=== PATIENT | male | born 1950 | race Caucasian/White ===

== ENCOUNTER → 2016-06-18 | Outpatient (CLI) | payer BC ==
[~2016-06-18] MED LIST: ALBU1AER9; ALFU10TA30 PO; DIGO0.2518 PO; FLUT1POW8; LORA1POW2 PO; MONT1POW2 PO; MONT4GRA; PRAM0.129 PO; WARF2TAB8 PO; [UNRECOGNIZED DRUG - CODE] PO
== END | disposition home or self-care (01) ==
LOC: C.LAB1850 09:44
PROVIDERS: ATTEND Family Medicine
DX: Z11.59 Encounter for screening for other viral diseases (principal)

== ENCOUNTER → 2016-09-10 | Outpatient (CLI) | payer BC ==
[~2016-09-10] MED LIST changes: +ACYC5CRE4 TOP; +ALBU18002 INH; +ALFU10TA2 PO; -ALFU10TA30 PO; +APIX1TAB3 PO; +ATV/1 PO; +CYCL5TAB PO; +FERR325T5 PO; +FLUT0.15 NAE; +FURO-85 PO; +GLC/500 PO; +LNX25 PO; +MONT1TAB3 PO; +NLV/20 PO; +OMEP40CA41 PO; +PRAM0.256 PO; +TRAM-10 PO; +URX/10 PO; +VERA180T PO
--- NOTE | 2016-09-10 15:21 | MAMMOGRAPHY REPORT ---
MALE UNILATERAL LEFT DIGITAL SCREENING MAMMOGRAM WITH CAD: 09/10/2016 CLINICAL HISTORY: Asymptomatic. Personal history of breast cancer. TECHNIQUE: Current study was also evaluated with a Computer Aided Detection (CAD) system. Left CC, X CCL, and MLO views were obtained. COMPARISON: Comparison is made to exams dated: 09/02/2015 mammogram, 08/29/2014 mammogram, 08/21/2013 mammogram, 07/31/2012 mammogram, 07/30/2011 mammogram, and 07/29/2010 mammogram - [facility]. BREAST COMPOSITION: The tissue of the left breast is predominantly fatty. FINDINGS: There are no suspicious masses, calcifications, or areas of architectural distortion noted in the left breast. There has been no significant interval change compared to prior exams. Scatte red benign-appearing calcifications are stable. Status post right mastectomy. IMPRESSION: ACR BI-RADS CATEGORY 2: BENIGN There is no mammographic evidence of malignancy. A 1 year screening mammogram is recommended. The p atient will receive written notification of the results. Approximately 10% of breast cancers are not detected with mammography. A negative mammographic repor t should not delay biopsy if a clinically suggestive mass is present. Sarah Turcios M.D. /:09/10/2016 14:39:02 Supervisor Finishing Room: Ramya MCKEON(R)(M), [facility] letter sent: Normal 1/2 BI-RADS Code: ACR BI-RADS Category 2: Benign
== END | disposition home or self-care (01) ==
LOC: C.MAMM 12:26
PROVIDERS: ATTEND Family Medicine
DX: Z12.31 Encounter for screening mammogram for malignant neoplasm of breast (principal); Z85.3 Personal history of malignant neoplasm of breast; Z90.11 Acquired absence of right breast and nipple

== ENCOUNTER → 2016-12-02 | Outpatient (CLI) | payer BC ==
[2016-12-02 13:21] LABS: MEAN CELL VOLUME 92.1 fL (80-100); MEAN CORPUSCULAR HEMOGLOBIN 32.6 pg (25-34); MEAN CORPUSCULAR HGB CONC 35.4 g/dl (32-36); MEAN PLATELET VOLUME 10.7 fL (7.4-10.4); PLATELET COUNT 242 K/uL (130-400); RED BLOOD COUNT 4.45 M/uL (4.7-6.1); WHITE BLOOD COUNT 6.46 K/uL (4.8-10.8)
[2016-12-02 13:45] LABS: ESTIMATED AVERAGE GLUCOSE 137 mg/dl; HA1C FLAG Normal (Normal)
[2016-12-02 13:59] LABS: ALB/GLOB RATIO 1.2 (0.9-2); ALKALINE PHOSPHATASE 77 U/L (45-117); ALT/SGPT 21 U/L (12-78); AST/SGOT 9 U/L (15-37); BLOOD UREA NITROGEN 16 mg/dl (7-18); CALCIUM 9.2 mg/dl (8.5-10.1); CARBON DIOXIDE 26 mmol/L (21-32); CHLORIDE 104 mmol/L (98-107); CHOLESTEROL 170 mg/dl (0-200); CHOLESTEROL/HDL RATIO 3.5; GLUCOSE 118 mg/dl (70-99); HDL CHOLESTEROL 49 mg/dl; LDL CHOLESTEROL CALCULATED 96 mg/dl; POTASSIUM 4.2 mmol/L (3.5-5.1); SODIUM 137 mmol/L (136-145); TRIGLYCERIDES 126 mg/dl (0-150); VERY LOW DENSITY LIPOPROT CALC 25 mg/dl
[2016-12-02 14:28] LABS: RATIO 6.8 mcg/mg (0-30.0)
== END | disposition home or self-care (01) ==
LOC: C.LAB 12:26
PROVIDERS: ATTEND Family Medicine
DX: E11.9 Type 2 diabetes mellitus without complications (principal); I10 Essential (primary) hypertension

== ENCOUNTER → 2017-03-04 | Outpatient (CLI) | payer BC ==
[~2017-03-04] MED LIST changes: -ACYC5CRE4 TOP; -ALBU18002 INH; -ALFU10TA2 PO; +ALFU10TA30 PO; -APIX1TAB3 PO; -ATV/1 PO; -CYCL5TAB PO; -FERR325T5 PO; -FLUT0.15 NAE; -FURO-85 PO; -GLC/500 PO; -LNX25 PO; -MONT1TAB3 PO; -NLV/20 PO; -OMEP40CA41 PO; -PRAM0.256 PO; -TRAM-10 PO; -URX/10 PO; -VERA180T PO
== END | disposition home or self-care (01) ==
LOC: C.RDSM 08:09
PROVIDERS: ATTEND Family Medicine Sports Medicine
DX: M25.561 Pain in right knee (principal); M25.562 Pain in left knee

== ENCOUNTER → 2017-03-24 | Outpatient (CLI) | payer BC | END | disposition home or self-care (01) | LOC: C.LAB 15:00 | PROVIDERS: ATTEND Internal Medicine Cardiovascular Disease | DX: I48.91 Unspecified atrial fibrillation (principal) ==

== ENCOUNTER → 2017-03-25 | Outpatient (CLI) | payer BC ==
[2017-03-25 12:12] LABS: BASO % 0.2 %; BASO ABS # 0.01 K/uL (0-0.2); COMPLETE YES; EOS % 0.7 %; HEMATOCRIT 30.6 % (42-52); IG% 2.9 %; LYMPH % 23.5 %; LYMPH ABS # 1.29 K/uL (1.2-3.4); MEAN CELL VOLUME 91.6 fL (80-100); MEAN CORPUSCULAR HEMOGLOBIN 30.2 pg (25-34); MEAN PLATELET VOLUME 9.8 fL (7.4-10.4); MONO % 7.8 %; NEUT % 64.9 %; PLATELET COUNT 230 K/uL (130-400); RED BLOOD COUNT 3.34 M/uL (4.7-6.1); WHITE BLOOD COUNT 5.48 K/uL (4.8-10.8)
[2017-03-25 12:14] LABS: URINE APPEARANCE CLEAR (CLEAR); URINE BILIRUBIN NEG (NEG); URINE COLOR DK YELLOW; URINE EPITHELIAL CELL AUTO 20-30 /lpf (0-5); URINE NITRITE NEG (NEG); URINE SPECIFIC GRAVITY 1.025 (1.000-1.030); UROBILINOGEN NEG (NEG)
[2017-03-25 12:23] LABS: MANUAL MICROSCOPIC REQUIRED? NO; REVIEW REQ? NO
[2017-03-25 12:49] LABS: ALT/SGPT 28 U/L (12-78); AST/SGOT 33 U/L (15-37); BLOOD UREA NITROGEN 13 mg/dl (7-18); BUN/CREATININE RATIO 15.5 (10-20); CALCIUM 9.2 mg/dl (8.5-10.1); CARBON DIOXIDE 25 mmol/L (21-32); CHLORIDE 102 mmol/L (98-107); CREATININE 0.84 mg/dl (0.60-1.40); GLUCOSE 124 mg/dl (70-99); POTASSIUM 4.2 mmol/L (3.5-5.1); SODIUM 136 mmol/L (136-145)
[2017-03-25 13:00] LABS: ALB/GLOB RATIO 0.8 (0.9-2); ALKALINE PHOSPHATASE 172 U/L (45-117)
== END | disposition home or self-care (01) ==
LOC: C.LAB1850 10:47
PROVIDERS: ATTEND Internal Medicine Cardiovascular Disease
DX: R39.15 Urgency of urination (principal); R63.4 Abnormal weight loss

== ENCOUNTER → 2017-03-25 | Outpatient (CLI) | payer BC ==
--- NOTE | 2017-03-25 16:58 | DIAGNOSTIC IMAGING REPORT ---
LUMBAR SPINE 5 VIEWS CLINICAL HISTORY: Low back pain and right-sided sciatica. FINDINGS: Five views of the lumbar spine are correlated with abdominal CT dated 01/22/2011. The skeletal structures are osteopenic. There is no radiographic evidence of fracture or malalignment. Vertebral body height is maintained throughout the lumbar spine. There is minimal anterolisthesis at L2-L3. Alignment is otherwise preserved. Mild lumbar levocurvature is suggested. Anterior osteophytes are seen throughout. The transverse and spinous processes appear intact. There is no evidence of spondylolysis. Facet arthropathy is seen in the lower lumbar region. Mild disc space narrowing is seen throughout. The visualized bony pelvis appears intact. Numerous phleboliths are noted in the pelvis. There is a nonobstructed abdominal bowel gas pattern. IMPRESSION: 1. No acute bony abnormality is seen involving the lumbosacral spine. 2. Osteopenia and spondylotic change as above. Dictated: 03/25/2017 4:34 PM Transcribed: 03/25/2017 4:57 PM [email or web address] Electronically signed by: Anjum Robbins M.D. 03/25/2017 4:58 PM Dictated Date/Time: 03/25/2017 4:34 PM
== END | disposition home or self-care (01) ==
LOC: C.RAD1850 16:18
PROVIDERS: ATTEND Physician Assistant
DX: M54.41 Lumbago with sciatica, right side (principal); M85.88 Other specified disorders of bone density and structure, other site

== ENCOUNTER → 2017-04-21 | Day surgery (SDC) | payer BC ==
[2017-04-20 08:34] VITALS: Ht 171.5 cm; Wt 90.9 kg
[~2017-04-21] VITALS: Ht 171.5 cm; Wt 90.9 kg
[~2017-04-21] MED LIST changes: +ACYC5CRE4 TOP; +ALBU18002 INH; -ALBU1AER9; +ALFU10TA2 PO; -ALFU10TA30 PO; +APIX1TAB3 PO; +ATV/1 PO; +CYCL5TAB PO; -DIGO0.2518 PO; +FERR325T5 PO; +FLUT0.15 NAE; -FLUT1POW8; +GLC/500 PO; +LIDOCAINE HCL 2% 2 ML VIAL (20MG/ML) ONE; +LNX25 PO; -LORA1POW2 PO; -MONT1POW2 PO; +MONT1TAB3 PO; -MONT4GRA; -PRAM0.129 PO; +PRAM0.256 PO; +PROPOFOL IV EMULSION 10 MG/ML 20 ML VIAL IV ONE; +TRAM-10 PO; +VERA180T PO; -WARF2TAB8 PO; -[UNRECOGNIZED DRUG - CODE] PO
--- NOTE | 2017-04-21 15:48 | Endo History and Physical ---
History & Physical Date of Service: Apr 21, 2017. Chief Complaint: ANEMIA Referring Physician: DR. CAMEJO History of Present Illness Reported Home Medications Medications Dose Route/Sig Max Daily Dose Days Date Category Zovirax (Acyclovir Topical) 5 % Cre 1 Appln TOP 5XD PRN 04/20/17 Reported Calan Sr Ext Rel (Verapamil Hcl) 180 Mg Tab 180 Mg PO BID 04/20/17 Reported Ultram (Tramadol HCl) 50 Mg Tab 50 Mg PO Q4H PRN 04/20/17 Reported Proair Respiclick (Albuterol Sulfate) 108 Mcg/Act Aer 2 Puff INH Q4H PRN 04/20/17 Reported Pramipexole Dihydrochlori (Pramipexole Dihydrochloride) 0.25 Mg Tab 1 Tab PO HS 04/20/17 Reported Singulair (Montelukast Sodium) 10 Mg Tab 10 Mg PO QAM 04/20/17 Reported Glucophage (Metformin Hcl) 500 Mg Tab 2 Tab PO BID 04/20/17 Reported Ativan (Lorazepam) 1 Mg Tab 1-2 Tab PO HS 04/20/17 Reported Flonase Allergy Relief (Fluticasone Propionate (Nasal)) 50 Mcg/Act Spr 1 [place] LUBNA QAM 04/20/17 Reported Ferrous Sulfate 325 Mg Tab 1 Tab PO QAM 04/20/17 Reported Eliquis (Apixaban) 5 Mg Tab 5 Mg PO BID 04/20/17 Reported Digoxin 0.25 Mg Tab 1 Tab PO QAM 04/20/17 Reported Uroxatral (Alfuzosin HCl) 10 Mg Tab 10 Mg PO QPM 04/30/13 Reported Past Surgical History Hx Cardiac Surgery: No Hx Internal Defibrillator: No Hx Pacemaker: No Hx Abdominal Surgery: No Hx of Implantable Prosthesis: No Hx Post-Op Nausea and Vomiting: No Hx Cancer Surgery: Yes (RT MASTECTOMY) Hx Thoracic Surgery: No Hx Orthopedic: No Hx Urinary Tract Surgery: No Family History None Social History Smoking Status: Never Smoker Hx Substance Use: No Hx Alcohol Use: No Allergies Coded Allergies: No Known Allergies (Verified , 04/20/17) Current Medications Reported Home Medications Medications Dose Route/Sig Max Daily Dose Days Date Category Zovirax (Acyclovir Topical) 5 % Cre 1 Appln TOP 5XD PRN 04/20/17 Reported Calan Sr Ext Rel (Verapamil Hcl) 180 Mg Tab 180 Mg PO BID 04/20/17 Reported Ultram (Tramadol HCl) 50 Mg Tab 50 Mg PO Q4H PRN 04/20/17 Reported Proair Respiclick (Albuterol Sulfate) 108 Mcg/Act Aer 2 Puff INH Q4H PRN 04/20/17 Reported Pramipexole Dihydrochlori (Pramipexole Dihydrochloride) 0.25 Mg Tab 1 Tab PO HS 04/20/17 Reported Singulair (Montelukast Sodium) 10 Mg Tab 10 Mg PO QAM 04/20/17 Reported Glucophage (Metformin Hcl) 500 Mg Tab 2 Tab PO BID 04/20/17 Reported Ativan (Lorazepam) 1 Mg Tab 1-2 Tab PO HS 04/20/17 Reported Flonase Allergy Relief (Fluticasone Propionate (Nasal)) 50 Mcg/Act Spr 1 [place] LUBNA QAM 04/20/17 Reported Ferrous Sulfate 325 Mg Tab 1 Tab PO QAM 04/20/17 Reported Eliquis (Apixaban) 5 Mg Tab 5 Mg PO BID 04/20/17 Reported Digoxin 0.25 Mg Tab 1 Tab PO QAM 04/20/17 Reported Uroxatral (Alfuzosin HCl) 10 Mg Tab 10 Mg PO QPM 04/30/13 Reported Vital Signs Weight (Kilograms): 90.91 Height (Feet): 5 Height (Inches): 7.5 Date Time Temp Pulse Resp B/P (MAP) Pulse Ox O2 Delivery O2 Flow Rate FiO2 04/21/17 15:30 36.9 91 20 137/68 (91) 96 Room Air Physical Exam General Appearance: WD/WN, no apparent distress Respiratory/Chest: Auscultation: breath sounds normal Cardiovascular: Heart Auscultation: RRR Abdomen: Bowel Sounds: normal Inspection & Palpation: soft, non-distended, no tenderness, guarding & rebound Assessment and Plan EGD/colon for anemia/ wt loss
--- NOTE | 2017-04-21 17:19 | Discharge Instructions ---
Endoscopy Patient Instructions Date / Procedure(s) Performed Apr 21, 2017. Colonoscopy, EGD Allergy Information Coded Allergies: No Known Allergies (Verified , 04/20/17) Discharge Date / Findings Apr 21, 2017. 1) minimal gastritis nl duodenal bx Colon polyps - small no masses or sources of bleeding Medication Instructions Stopped Medication(s): eliquis 04/18/17 Restart Stopped Medication(s): Reported Home Medications Medications Dose Route/Sig Max Daily Dose Days Date Category Zovirax (Acyclovir Topical) 5 % Cre 1 Appln TOP 5XD PRN 04/20/17 Reported Calan Sr Ext Rel (Verapamil Hcl) 180 Mg Tab 180 Mg PO BID 04/20/17 Reported Ultram (Tramadol HCl) 50 Mg Tab 50 Mg PO Q4H PRN 04/20/17 Reported Proair Respiclick (Albuterol Sulfate) 108 Mcg/Act Aer 2 Puff INH Q4H PRN 04/20/17 Reported Pramipexole Dihydrochlori (Pramipexole Dihydrochloride) 0.25 Mg Tab 1 Tab PO HS 04/20/17 Reported Singulair (Montelukast Sodium) 10 Mg Tab 10 Mg PO QAM 04/20/17 Reported Glucophage (Metformin Hcl) 500 Mg Tab 2 Tab PO BID 04/20/17 Reported Ativan (Lorazepam) 1 Mg Tab 1-2 Tab PO HS 04/20/17 Reported Flonase Allergy Relief (Fluticasone Propionate (Nasal)) 50 Mcg/Act Spr 1 [place] LUBNA QAM 04/20/17 Reported Ferrous Sulfate 325 Mg Tab 1 Tab PO QAM 04/20/17 Reported Eliquis (Apixaban) 5 Mg Tab 5 Mg PO BID 04/20/17 Reported Digoxin 0.25 Mg Tab 1 Tab PO QAM 04/20/17 Reported Uroxatral (Alfuzosin HCl) 10 Mg Tab 10 Mg PO QPM 04/30/13 Reported Reported Home Medications Medications Dose Route/Sig Max Daily Dose Days Date Category Zovirax (Acyclovir Topical) 5 % Cre 1 Appln TOP 5XD PRN 04/20/17 Reported Calan Sr Ext Rel (Verapamil Hcl) 180 Mg Tab 180 Mg PO BID 04/20/17 Reported Ultram (Tramadol HCl) 50 Mg Tab 50 Mg PO Q4H PRN 04/20/17 Reported Proair Respiclick (Albuterol Sulfate) 108 Mcg/Act Aer 2 Puff INH Q4H PRN 04/20/17 Reported Pramipexole Dihydrochlori (Pramipexole Dihydrochloride) 0.25 Mg Tab 1 Tab PO HS 04/20/17 Reported Singulair (Montelukast Sodium) 10 Mg Tab 10 Mg PO QAM 04/20/17 Reported Glucophage (Metformin Hcl) 500 Mg Tab 2 Tab PO BID 04/20/17 Reported Ativan (Lorazepam) 1 Mg Tab 1-2 Tab PO HS 04/20/17 Reported Flonase Allergy Relief (Fluticasone Propionate (Nasal)) 50 Mcg/Act Spr 1 [place] LUBNA QAM 04/20/17 Reported Ferrous Sulfate 325 Mg Tab 1 Tab PO QAM 04/20/17 Reported Eliquis (Apixaban) 5 Mg Tab 5 Mg PO BID 04/20/17 Reported Digoxin 0.25 Mg Tab 1 Tab PO QAM 04/20/17 Reported Uroxatral (Alfuzosin HCl) 10 Mg Tab 10 Mg PO QPM 04/30/13 Reported Provider Instructions Activity Restrictions - No exercising or heavy lifting for 24 hours. - Do not drink alcohol the day of the procedure. - Do not drive a car or operate machinery until the day after the procedure. - Do not make any important decisions or sign important papers in 24 hours after the procedure. Following Day: - Return to full activity which may include returning to work/school. Diet Start your diet with liquids and light foods (jello, soup, juice, toast). Then eat your usual diet if not nauseated. Treatment For Common After Affects For mild abdominal pain, bloating, or excessive gas: - Rest - Eat lightly - Lie on right side Follow-Up Information Follow-up with DR. CAMEJO as scheduled Anesthesia Information What You Should Know You have had a procedure that required some medicine to reduce anxiety and discomfort. This treatment is called moderate sedation. After receiving the treatment, you may be sleepy, but you will be able to breathe on your own. The effects of the treatment may last for several hours. Follow these instructions along with Activity/Diet recommendations noted above: * Do NOT do anything where dizziness or clumsiness would be dangerous. * Rest quietly at home today, then you can be up and about tomorrow. * Have a responsible person stay with you the rest of today. * You may have had an I.V. today. If so, you may take the dressing off later today. Recommendations Call your doctor if: * Trouble breathing * Continuous vomiting for more than 24 hours * Temperature above 101 degrees * Severe abdominal pain or bloating * Pain not relieved by pain medicine ordered * There is increased drainage or redness from any incision * A large amount of rectal bleeding greater than 2-3 tablespoons. (If you had a polyp/s removed or have hemorrhoids, a small amount of blood - from the rectum is to be expected.) * You have any unanswered questions or concerns. IN THE EVENT OF A SERIOUS EMERGENCY, GO TO THE NEAREST EMERGENCY ROOM Your discharge instructions were prepared by provider Dean Bashir. Patient Instructions Signature Page [facility] Patient (or Guardian) Signature/Date: I have read and understand the instructions given to me by my caregivers. Caregiver/RN/Doctor Signature/Date: The above-named patient and/or guardian has received patient instructions on this date. + Original Patient Signature Page (only) stays with chart. Please make copy for patient.
[2017-04-21 17:26] VITALS: BP 137/92; PULSE 92; O2SAT 95
--- NOTE | 2017-04-21 17:28 | GI REPORT ---
Procedure Date: 04/21/2017 4:23 PM Procedure: Upper GI endoscopy Indications: Unexplained iron deficiency anemia, Weight loss Medicines: Propofol per Anesthesia Complications: No immediate complications. Estimated blood loss: Minimal. Estimated Blood Loss: Estimated blood loss was minimal. Procedure: Pre-Anesthesia Assessment: - Prior to the procedure, a History and Physical was performed, and patient medications and allergies were reviewed. The patient's tolerance of previous anesthesia was also reviewed. The risks and benefits of the procedure and the sedation options and risks were discussed with the patient. All questions were answered, and informed consent was obtained. Prior Anticoagulants: The patient has taken Eliquis (apixaban), last dose was 2 days prior to procedure. ASA Grade Assessment: III - A patient with severe systemic disease. After reviewing the risks and benefits, the patient was deemed in satisfactory condition to undergo the procedure. After obtaining informed consent, the endoscope was passed under direct vision. Throughout the procedure, the patient's blood pressure, pulse, and oxygen saturations were monitored continuously. The scope was introduced through the mouth, and advanced to the mid-jejunum. After obtaining informed consent, the endoscope was passed under direct vision. Throughout the procedure, the patient's blood pressure, pulse, and oxygen saturations were monitored continuously.The upper GI endoscopy was accomplished without difficulty. The patient tolerated the procedure well. Findings: The examined esophagus was normal. The Z-line was regular and was found 40 cm from the incisors. Localized minimal inflammation characterized by congestion (edema) was found in the gastric fundus. The exam of the stomach was otherwise normal. The examined duodenum was normal. Biopsies for histology were taken with a cold forceps for evaluation of celiac disease. Estimated blood loss was minimal. Verification of patient identification for the specimen was done by the physician and medical equipment technician using the patient's name and medical record number. The examined jejunum was normal. The cardia and gastric fundus were normal on retroflexion. Retained gastric contents are not identified on this exam. Impression: - Normal esophagus. - Z-line regular, 40 cm from the incisors. - Acute gastritis. - Normal examined duodenum. Biopsied. - Normal examined jejunum. Recommendation: - Discharge patient to home (ambulatory). - Resume regular diet. - Await pathology results. - Return to GI clinic as previously scheduled. MD Dean Fleming MD 04/21/2017 5:28:09 PM This report has been signed electronically. Note Initiated On: 04/21/2017 4:23 PM I attest to the content of the Intraoperative Record and orders documented therein, exceptions below
--- NOTE | 2017-04-21 17:34 | Anesthesiology Progress Note ---
Anesthesia Post Op Note Date & Time Apr 21, 2017 at 17:34 Vital Signs Pain Intensity: 0 Vital Signs Past 12 Hours Date Time Temp Pulse Resp B/P (MAP) Pulse Ox O2 Delivery O2 Flow Rate FiO2 04/21/17 17:26 92 20 137/92 (107) 95 Room Air 04/21/17 17:11 95 20 128/72 (90) 98 Room Air 04/21/17 16:56 96 20 102/68 (79) 98 Room Air 04/21/17 15:30 36.9 91 20 137/68 (91) 96 Room Air Notes Mental Status: alert / awake / arousable, participated in evaluation Pt Amnestic to Procedure: Yes Nausea / Vomiting: adequately controlled Pain: adequately controlled Airway Patency, RR, SpO2: stable & adequate BP & HR: stable & adequate Hydration State: stable & adequate Anesthetic Complications: no major complications apparent
--- NOTE | 2017-04-21 17:53 | GI REPORT ---
Procedure Date: 04/21/2017 4:22 PM Procedure: Colonoscopy Indications: Unexplained iron deficiency anemia, Weight loss Medicines: Propofol per Anesthesia Complications: No immediate complications. Estimated blood loss: Minimal. Estimated Blood Loss: Estimated blood loss was minimal. Estimated blood loss was minimal. Procedure: Pre-Anesthesia Assessment: - Prior to the procedure, a History and Physical was performed, and patient medications and allergies were reviewed. The patient's tolerance of previous anesthesia was also reviewed. The risks and benefits of the procedure and the sedation options and risks were discussed with the patient. All questions were answered, and informed consent was obtained. Prior Anticoagulants: The patient has taken Eliquis (apixaban), last dose was 2 days prior to procedure. ASA Grade Assessment: III - A patient with severe systemic disease. After reviewing the risks and benefits, the patient was deemed in satisfactory condition to undergo the procedure. After I obtained informed consent, the scope was passed under direct vision. Throughout the procedure, the patient's blood pressure, pulse, and oxygen saturations were monitored continuously. The scope was introduced through the anus and advanced to the cecum, identified by appendiceal orifice and ileocecal valve. The colonoscopy was performed without difficulty. The patient tolerated the procedure well. Findings: The perianal and digital rectal examinations were normal. Pertinent negatives include normal sphincter tone, no palpable rectal lesions and no anal lesion or abnormality was detected. A 8 mm polyp was found in the cecum. The polyp was sessile. The polyp was removed with a hot snare. Resection and retrieval were complete. Estimated blood loss: none. To prevent bleeding after the polypectomy, one hemostatic clip was successfully placed (MR conditional). There was no bleeding during, and at the end, of the procedure. A 4 mm polyp was found at 40 cm proximal to the anus. The polyp was sessile. The polyp was removed with a cold snare. Resection and retrieval were complete. Estimated blood loss was minimal. The terminal ileum appeared normal. The exam was otherwise without abnormality. The retroflexed view of the distal rectum and anal verge was normal and showed no anal or rectal abnormalities. and possible prominent rectal veins hemorrhoids were found during retroflexion. The hemorrhoids were mild. Impression: - One 8 mm polyp in the cecum, removed with a hot snare. Resected and retrieved. Clip (MR conditional) was placed. - One 4 mm polyp at 40 cm proximal to the anus, removed with a cold snare. Resected and retrieved. - The examined portion of the ileum was normal. - The examination was otherwise normal. - The distal rectum and anal verge are normal on retroflexion view. - and possible prominent rectal veins hemorrhoids. Recommendation: - Discharge patient to home (ambulatory). - Resume regular diet. - Resume Eliquis (apixaban) at prior dose in 2 days. - Perform CT scan (computed tomography) of the abdomen with contrast at appointment to be scheduled. - Return to GI clinic as previously scheduled. MD Dean Fleming MD 04/21/2017 5:53:10 PM This report has been signed electronically. Note Initiated On: 04/21/2017 4:22 PM I attest to the content of the Intraoperative Record and orders documented therein, exceptions below
== END | disposition home or self-care (01) ==
LOC: C.GI 14:54
PROVIDERS: ATTEND Internal Medicine Gastroenterology
DX: D12.0 Benign neoplasm of cecum (principal); K62.0 Anal polyp; K64.8 Other hemorrhoids; K29.00 Acute gastritis without bleeding; D50.9 Iron deficiency anemia, unspecified; R63.4 Abnormal weight loss; Z79.899 Other long term (current) drug therapy

== ENCOUNTER → 2017-04-28 | Outpatient (CLI) | payer BC ==
[~2017-04-28] MED LIST changes: -CYCL5TAB PO; -LIDOCAINE HCL 2% 2 ML VIAL (20MG/ML) ONE; +OMEP40CA41 PO; +OPTIRAY 320 IV PRN; -PROPOFOL IV EMULSION 10 MG/ML 20 ML VIAL IV ONE; +URX/10 PO
--- NOTE | 2017-04-28 13:24 | DIAGNOSTIC IMAGING REPORT ---
CT ABD/PELVIS IV AND ORAL CONT CLINICAL HISTORY: 50 pound weight loss. COMPARISON STUDY: 01/22/2011 TECHNIQUE: Following the IV administration of 117 mL of Optiray-320, CT scan of the abdomen and pelvis was performed from the lung bases to the proximal femurs. Images are reviewed in the axial, sagittal, and coronal planes. IV contrast was administered without complication. A dose lowering technique was utilized adhering to the principles of ALARA. CT DOSE: 603.91 mGy.cm FINDINGS: Lower chest: There are small bilateral pleural effusions right greater than left. There is a low-density 7 cm right paraspinal opacity at the T9 level. This exceeds water attenuation and is potentially solid. There is elevation/eventration of the left hemidiaphragm. Liver: There are scattered low-density lesions which were present on the 2010 study and likely represent cysts. The liver is mildly enlarged. Gallbladder: Cholelithiasis Spleen: Normal in size and attenuation. Pancreas: The pancreas appears atrophic. No focal masses are visualized. Adrenal glands: Unremarkable. Kidneys: There is symmetric renal cortical enhancement. The kidneys are normal in size without hydronephrosis. Bowel: There are no transition zones indicate bowel obstruction. The appendix appears normal. There are scattered colonic diverticula. There are no acute peridiverticular inflammatory changes. Peritoneum: There is no intraperitoneal free air or abdominal ascites. There is a fat-containing right inguinal hernia. Vasculature: The abdominal aorta is normal in course and caliber. Adenopathy: There are no pathologically enlarged abdominal or pelvic lymph nodes. Pelvic viscera: There is borderline bladder wall thickening. There is minor perivesical stranding. Skeletal structures: There are diffuse sclerotic changes within the skeleton suspicious for diffuse blastic metastasis. IMPRESSION: 1. No evidence of bowel obstruction. No evidence of free air 2. Normal appendix 3. 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 Cholelithiasis 5. Fat-containing right inguinal hernia 6. Small bilateral pleural effusions 7. Low density right paraspinal lesion measuring 7 cm. This exceeds water attenuation and potentially is solid. An MRI of this area without and with contrast might be considered in follow-up for further evaluation Electronically signed by: Óscar Rivera M.D. 04/28/2017 1:23 PM Dictated Date/Time: 04/28/2017 1:12 PM
== END | disposition home or self-care (01) ==
LOC: C.CTS 12:29
PROVIDERS: ATTEND Internal Medicine Gastroenterology
DX: R63.4 Abnormal weight loss (principal); K80.20 Calculus of gallbladder without cholecystitis without obstruction; K40.90 Unilateral inguinal hernia, without obstruction or gangrene, not specified as recurrent; J90 Pleural effusion, not elsewhere classified

== ENCOUNTER 2017-05-02 11:57 | Inpatient (IN) | payer BC, OTHER ==
[~2017-05-02] VITALS: Ht 172.7 cm; Wt 87.6 kg
[~2017-05-02 11:57] MED LIST changes: -OMEP40CA41 PO; -OPTIRAY 320 IV PRN; -URX/10 PO
--- NOTE | 2017-05-02 13:27 | DIAGNOSTIC IMAGING REPORT ---
SINGLE VIEW CHEST CLINICAL HISTORY: Generalized weakness. FINDINGS: An AP, portable, upright chest radiograph is compared to study dated 12/23/2005 and correlated with chest CT dated 06/07/2011.. The cardiomediastinal silhouette is partially obscured and grossly unremarkable. The pulmonary vasculature is noncongested. Chronic interstitial thickening is similar to previous. No airspace consolidation is seen typical for pneumonia and there is no large pleural effusion. There is elevation of left hemidiaphragm with left basilar atelectasis. Abdominal contents are present within the left lower thorax. No pneumothorax is seen. The skeletal structures are osteopenic. The bony thorax is grossly intact. IMPRESSION: No acute cardiopulmonary abnormality. Electronically signed by: Anjum Robbins M.D. 05/02/2017 1:25 PM Dictated Date/Time: 05/02/2017 1:24 PM
[2017-05-02] MEDS ORDERED: URX/10 PO (13:50)
[2017-05-02] MEDS ORDERED: OMEP40CA41 PO (13:50)
[2017-05-02 13:54] LABS: BASO % 0.5 %; BASO ABS # 0.02 K/uL (0-0.2); EOS % 0.5 %; HEMATOCRIT 27.6 % (42-52); LYMPH % 24.9 %; LYMPH ABS # 1.06 K/uL (1.2-3.4); MEAN CELL VOLUME 96.8 fL (80-100); MEAN CORPUSCULAR HEMOGLOBIN 30.9 pg (25-34); MEAN CORPUSCULAR HGB CONC 31.9 g/dl (32-36); MEAN PLATELET VOLUME 10.9 fL (7.4-10.4); MONO % 9.2 %; NEUT % 60.9 %; PLATELET COUNT 154 K/uL (130-400); RED BLOOD COUNT 2.85 M/uL (4.7-6.1); WHITE BLOOD COUNT 4.26 K/uL (4.8-10.8)
[2017-05-02 14:02] LABS: ALT/SGPT 31 U/L (12-78); AST/SGOT 30 U/L (15-37); BLOOD UREA NITROGEN 16 mg/dl (7-18); BUN/CREATININE RATIO 22.8 (10-20); CARBON DIOXIDE 25 mmol/L (21-32); CHLORIDE 101 mmol/L (98-107); GLUCOSE 110 mg/dl (70-99); MAGNESIUM 2.2 mg/dl (1.8-2.4); POTASSIUM 4.1 mmol/L (3.5-5.1); SODIUM 136 mmol/L (136-145)
[2017-05-02 14:04] LABS: INR 1.4 (0.9-1.1); PARTIAL THROMBOPLASTIN RATIO 1.2; PROTHROMBIN TIME (PATIENT) 14.9 SECONDS (9.0-12.0)
[2017-05-02 14:10] LABS: ALKALINE PHOSPHATASE 135 U/L (45-117); CKMB/CK RATIO 0.8 (0-3.0)
[2017-05-02 14:16] LABS: ANISOCYTOSIS PRESENT; COMPLETE YES; TEAR DROP CELLS 1+
[2017-05-02] MEDS ORDERED: OPTIRAY 320 IV PRN (15:15)
[2017-05-02 16:09] LABS: MANUAL MICROSCOPIC REQUIRED? NO; URINE APPEARANCE CLEAR (CLEAR); URINE BILIRUBIN NEG (NEG); URINE COLOR YELLOW; URINE NITRITE NEG (NEG); URINE PH 5.5 (4.5-7.5); UROBILINOGEN NEG (NEG)
[2017-05-02 16:10] LABS: REVIEW REQ? NO
--- NOTE | 2017-05-02 16:46 | DIAGNOSTIC IMAGING REPORT ---
CT ANGIOGRAM OF THE CHEST CLINICAL HISTORY: Shortness of breath. History of breast carcinoma. COMPARISON STUDY: 06/07/2011 TECHNIQUE: Following the IV administration of 97 mL of Optiray-320, CT angiogram of the thorax was performed from the thoracic inlet to the lung bases utilizing the pulmonary embolus protocol. Images are reviewed in the axial, sagittal, and coronal planes. IV contrast was administered without complication. MIP imaging was performed. A dose lowering technique was utilized adhering to the principles of ALARA. CT DOSE: 464.24 mGy.cm FINDINGS: There are stable hypodense lesions within the left hepatic lobe. There is marked elevation/eventration of left hemidiaphragm. Subcarinal, and paratracheal lymph nodes are the upper limits of normal in size. Right hilar lymph nodes are mildly enlarged. There is no pathologic axillary lymphadenopathy. There was no evidence of thoracic aortic dilatation. There were no pulmonary artery filling defects to indicate acute pulmonary embolism. There is a new right pleural effusion. There is a new 3 mm nodule within the superior segment of the left lower lobe. There is a new 5 mm subpleural nodule within the left lower lobe. There is a new 2.5 mm nodule within the left pulmonary apex. There are multiple scattered tiny right lung pulmonary nodules. There is thickening of the right lung bronchovascular bundles. There is a new 2 cm right lower lobe pulmonary nodule. There is nodular thickening of the major fissure. There are subtle perihilar groundglass opacities. 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 There is diffuse abnormal trabecular pattern of the bones consistent with widespread skeletal metastasis. IMPRESSION: 1. No evidence of acute pulmonary embolism 2. Persistent marked elevation/eventration left hemidiaphragm 3. Diffuse skeletal metastasis 4. Interval development of bilateral pulmonary nodules 5. Interval development of a right pleural effusion 6. Thickening of the right lung bronchovascular bundles, right hilar adenopathy, and nodular thickening of the major fissure. 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 Electronically signed by: Óscar Rivera M.D. 05/02/2017 4:44 PM Dictated Date/Time: 05/02/2017 4:35 PM
[2017-05-02] MEDS ORDERED: FUROSEMIDE 40 MG/4 ML VIAL IV STA (17:29)
[2017-05-02] MEDS ORDERED: ONDANSETRON INJ 2 MG/ML 2 ML VIAL IV PRN (17:45)
[2017-05-02] MEDS ORDERED: ACETAMINOPHEN 325 MG TAB PO PRN (17:45)
[2017-05-02] MEDS ORDERED: ALUMINUM/MAGNESIUM/SIMETH (MAALOX MAX) 30 ML UDC PO PRN (17:45)
[2017-05-02] MEDS ORDERED: TRAMADOL HCL 50 MG TAB PO PRN (17:45)
--- NOTE | 2017-05-02 18:25 | History and Physical ---
History & Physical Date & Time of Service: May 02, 2017 at 18:16 Chief Complaint: Anemia, Sob, Fatigue Primary Care Physician: Mike Lepe M.D. History of Present Illness 66-year-old male reported to the ER at the request of his outpatient physician due to abnormal abdominal CT scan. The patient's had fatigue and weight loss and anemia over the last few months. He had upper and lower endoscopies without source of anemia and subsequently had an abdominal pelvis CT ordered which revealed suspicion for metastatic disease and a 7 cm right paraspinous mass at the T9 level. This patient has a distant history of breast cancer status post mastectomy. The patient also has a history of A. fib. The patient and [facility] emergency department had a CT scan of the chest which reveals pleural effusions and lymphadenopathy within the chest cavity and concern for widely metastatic blastic skeletal lesions despite this he is only moderate pain mostly related around his pelvis and his thoracic lesion. The patient was given the news of our concerns he is markedly upset and understands her plan of care is to find a tissue diagnosis and then crafted treatment plan. Past Medical/Surgical History Medical Problems: (1) Asthma, Unspecified Status: Chronic (2) Atrial Fibrillation Status: Chronic (3) Chronic Sinusitis Nos Status: Chronic (4) Diverticulosis Colon (W/O Ment Of Hemorrhage) Status: Chronic (5) Hypertension Nos Status: Chronic (6) Mal Aníbal Male Breast Nec Status: Resolved (7) Mononeuritis Nos Status: Resolved (8) Renal Colic Status: Resolved (9) Unspecified Sleep Apnea Status: Chronic Family History Cancer Diabetes mellitus Heart disease Hypertension Kidney disease Kidney stones Social History Smoking Status: Never Smoker Marital Status: Occupational Status: employed Immunizations History of Influenza Vaccine: No History of Tetanus Vaccine?: Unknown History of Pneumococcal: Unknown History of Hepatitis B Vaccine: No Multi-Drug Resistant Organisms History of MDRO: No Allergies Coded Allergies: No Known Allergies (Verified , 05/02/17) Home Medications Scheduled Alfuzosin HCl (Alfuzosin HCl ER), 10 MG PO QPM Alfuzosin Hcl (Uroxatral), 10 MG PO QPM Apixaban (Eliquis), 5 MG PO BID Digoxin (Digoxin), 1 TAB PO QAM Ferrous Sulfate (Ferrous Sulfate), 1 TAB PO QAM Fluticasone Propionate (Nasal) (Flonase Allergy Relief), 1 SPRAY LUBNA QAM Lorazepam (Ativan), 1-2 TAB PO HS Metformin Hcl (Glucophage), 2 TAB PO BID Montelukast Sodium (Singulair), 10 MG PO QAM Omeprazole (Prilosec), 40 MG PO DAILY Pramipexole Dihydrochloride (Pramipexole Dihydrochlori), 1 TAB PO HS Verapamil Hcl (Calan Sr Ext Rel), 180 MG PO BID Scheduled PRN Albuterol Sulfate (Proair Respiclick), 2 PUFF INH Q4H PRN for Shortness of Breath Tramadol (Ultram), 50 MG PO Q4H PRN for Pain Review of Systems ROS: well nourished well developed No double vision blurry vision No problems with speech or swallowing No palpitations, chest pain or pressure No Wheezing or breathing issues No abdominal pain nausea vomiting diarrhea as mentioned he said weight loss No burning urine urine frequency or changes in color Focal lower thoracic spine pain and bilateral hip pain but no muscle pain No skin rashes or oral lesions no changes over his previous mastectomy site No unusual bruising or bleeding No numbness or loss of strength No changes in memory or confusion Constitutional: No fever, No chills Physical Exam Vital Signs Date Time Temp Pulse Resp B/P (MAP) Pulse Ox O2 Delivery O2 Flow Rate FiO2 05/02/17 16:50 89 18 138/88 97 05/02/17 13:58 108 20 142/106 95 05/02/17 12:50 101 05/02/17 12:40 93 Room Air 05/02/17 12:03 94 Room Air 05/02/17 12:03 101 18 146/94 94 Room Air General Appearance: WD/WN, + mild distress Head: normocephalic, atraumatic Eyes: normal inspection, PERRL Neck: supple, no JVD Respiratory/Chest: chest non-tender, lungs clear, normal breath sounds Cardiovascular: regular rate, rhythm, no murmur Abdomen/GI: normal bowel sounds, non tender, soft Back: normal inspection, + pertinent finding (tenderness in the lower thoracic upper lumbar spine to percussion) Extremities/Musculoskelatal: normal capillary refill, + pedal edema (bilateral) Neurologic/Psych: alert, oriented x 3 Skin: + pertinent finding (has some redness to his lower extremities) Diagnostics Laboratory Results Results Past 24 Hours Test 05/02/17 12:40 05/02/17 15:45 05/02/17 17:50 Range/Units White Blood Count 4.26 4.8-10.8 K/uL Red Blood Count 2.85 4.7-6.1 M/uL Hemoglobin 8.8 14.0-18.0 g/dL Hematocrit 27.6 42-52 % Mean Corpuscular Volume 96.8 80-100 fL Mean Corpuscular Hemoglobin 30.9 25-34 pg Mean Corpuscular Hemoglobin Concent 31.9 32-36 g/dl Platelet Count 154 130-400 K/uL Mean Platelet Volume 10.9 7.4-10.4 fL Neutrophils (%) (Auto) 60.9 % Lymphocytes (%) (Auto) 24.9 % Monocytes (%) (Auto) 9.2 % Eosinophils (%) (Auto) 0.5 % Basophils (%) (Auto) 0.5 % Neutrophils # (Auto) 2.60 1.4-6.5 K/uL Lymphocytes # (Auto) 1.06 1.2-3.4 K/uL Monocytes # (Auto) 0.39 0.11-0.59 K/uL Eosinophils # (Auto) 0.02 0-0.5 K/uL Basophils # (Auto) 0.02 0-0.2 K/uL RDW Standard Deviation 70.8 36.4-46.3 fL RDW Coefficient of Variation 20.7 11.5-14.5 % Immature Granulocyte % (Auto) 4.0 % Immature Granulocyte # (Auto) 0.17 0.00-0.02 K/uL Nucleated RBC Absolute Count (auto) 0.13 0-0 K/uL Nucleated Red Blood Cells % 3.0 % Anisocytosis PRESENT Tear Drop Cells 1+ Prothrombin Time 14.9 9.0-12.0 SECONDS Prothromb Time International Ratio 1.4 0.9-1.1 Activated Partial Thromboplast Time 31.4 21.0-31.0 SECONDS Partial Thromboplastin Ratio 1.2 Sodium Level 136 136-145 mmol/L Potassium Level 4.1 3.5-5.1 mmol/L Chloride Level 101 98-107 mmol/L Carbon Dioxide Level 25 21-32 mmol/L Anion Gap 10.0 3-11 mmol/L Blood Urea Nitrogen 16 7-18 mg/dl Creatinine 0.70 0.60-1.40 mg/dl Est Creatinine Clear Calc Drug Dose 114.1 ml/min Estimated GFR () 113.2 Estimated GFR (Non- 97.7 BUN/Creatinine Ratio 22.8 10-20 Random Glucose 110 70-99 mg/dl Calcium Level 9.0 8.5-10.1 mg/dl Magnesium Level 2.2 1.8-2.4 mg/dl Total Bilirubin 1.0 0.2-1 mg/dl Direct Bilirubin 0.3 0-0.2 mg/dl Aspartate Amino Transf (AST/SGOT) 30 15-37 U/L Alanine Aminotransferase (ALT/SGPT) 31 12-78 U/L Alkaline Phosphatase 135 45-117 U/L Total Creatine Kinase 107 39-308 U/L Creatine Kinase MB 0.9 0.5-3.6 ng/ml Creatine Kinase MB Ratio 0.8 0-3.0 Troponin I < 0.015 0-0.045 ng/ml Pro-B-Type Natriuretic Peptide 7715 0-900 pg/ml Total Protein 6.8 6.4-8.2 gm/dl Albumin 3.1 3.4-5.0 gm/dl Lipase 73 73-393 U/L Carcinoembryonic Antigen 15.2 0-2.5 ng/ml Prostate Specific Antigen 2.250 0.000-4.000 ng/ml Thyroid Stimulating Hormone (TSH) 5.100 0.300-4.500 uIu/ml Urine Color YELLOW Urine Appearance CLEAR CLEAR Urine pH 5.5 4.5-7.5 Urine Specific [place] 1.010 1.000-1.030 Urine Protein NEG NEG Urine Glucose (UA) NEG NEG Urine Ketones NEG NEG Urine Occult Blood NEG NEG Urine Nitrite NEG NEG Urine Bilirubin NEG NEG Urine Urobilinogen NEG NEG Urine Leukocyte Esterase NEG NEG Microbiology Results 05/02/17 Urine Culture, Received Pending Diagnostic Radiology CT scan chest with contrast IMPRESSION: 1. No evidence of acute pulmonary embolism 2. Persistent marked elevation/eventration left hemidiaphragm 3. Diffuse skeletal metastasis 4. Interval development of bilateral pulmonary nodules 5. Interval development of a right pleural effusion 6. Thickening of the right lung bronchovascular bundles, right hilar adenopathy, and nodular thickening of the major fissure. 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 Impression Assessment and Plan 66-year-old male with a history of breast cancer presents with metastatic cancer of undetermined primary is Patient has anemia and weakness he however is not in the transfusion range we' ll follow his hemoglobin daily continue his proton pump inhibitors For his diabetic care he received contrast by CT scan his Glucophage will be held and he'll be on insulin sliding scale next For his history of BPH we'll continue his urine tracks all For his history atrial fibrillation he'll continue digoxin with a level pending verapamil is up Eliquis will be held. The patient states that he's recently has verapamil doubled and this has created lower extremity edema we will reduce his back to once a day dose of 180 Due to the appearance of the chest CT pulmonary consultation be undertaken for consideration of bronchoscopic tissue diagnosis For DVT prevention the Eliquis is held if it's not apparent that we'll proceed to tissue diagnosis and another anticoagulant will need to be chosen for both A. fib and DVT prevention VTE Prophylaxis VTE Risk Assessment Done? Y/N: Yes Risk Level: Moderate Given or contraindicated: Other Anticoagulation
--- NOTE | 2017-05-02 19:43 | EMERGENCY ROOM VISIT NOTE ---
History Report prepared by Faiza: Kierra Garg Under the Supervision of: Dr. Bob Ibanez M.D. First contact with patient: 12:47 Chief Complaint: SHORTNESS OF BREATH Stated Complaint: ANEMIA, SOB, FATIGUE Nursing Triage Summary: Pt recently dx with mets to bone, increasing dyspnea, went to PCP and sent here for further eval. Symptoms:Weakness, weight loss, poor appetite, dyspnea worse at night, & edematous feet. History of Present Illness The patient is a 66 year old male who presents to the Emergency Room with complaints of increasing shortness of breath beginning 6 weeks ago. The patient states that he feels weak. Per family, Dr. Bashir referred the patient because of CT results from [address] Bashir believes that there are spots on the patient's bone that may be cancerous. Per his family, the patient was anemic in March and lost 50 lb since. The patient denies a history of blood transfusions. Per his family, the patient is now retaining fluid and is wheezing with his shortness of breath. The patient also reports frequent urination. Per his family, the patient has a history of breast cancer. Pt denies LOC, headache, fevers, chills, diaphoresis, visual changes, neck pain, chest pain, nausea, vomiting, abdominal pain, back pain, melena, hematochezia, numbness, lymphadenopathy, rash, or other complaints. Source of History: patient, family Onset: 6 weeks ago Position: other (global) Quality: other (shortness of breath ) Timing: worsening Associated Symptoms: + weakness, No fevers Review of Systems See HPI for pertinent positives and negatives. A total of ten systems were reviewed and were otherwise negative. Past Medical & Surgical Medical Problems: (1) Asthma, Unspecified (2) Atrial Fibrillation (3) Chronic Sinusitis Nos (4) Diverticulosis Colon (W/O Ment Of Hemorrhage) (5) Hypertension Nos (6) Mal Aníbal Male Breast Nec (7) Metastatic cancer (8) Mononeuritis Nos (9) Renal Colic (10) Unspecified Sleep Apnea Family History Cancer Diabetes mellitus Heart disease Hypertension Kidney disease Kidney stones Social History Smoking Status: Never Smoker Alcohol Use: none Marital Status: Housing Status: lives with significant other Occupation Status: employed Current/Historical Medications Scheduled Alfuzosin HCl (Alfuzosin HCl ER), 10 MG PO QPM Alfuzosin Hcl (Uroxatral), 10 MG PO QPM Apixaban (Eliquis), 5 MG PO BID Digoxin (Digoxin), 1 TAB PO QAM Ferrous Sulfate (Ferrous Sulfate), 1 TAB PO QAM Fluticasone Propionate (Nasal) (Flonase Allergy Relief), 1 SPRAY LUBNA QAM Lorazepam (Ativan), 1-2 TAB PO HS Metformin Hcl (Glucophage), 2 TAB PO BID Montelukast Sodium (Singulair), 10 MG PO QAM Omeprazole (Prilosec), 40 MG PO DAILY Pramipexole Dihydrochloride (Pramipexole Dihydrochlori), 1 TAB PO HS Verapamil Hcl (Calan Sr Ext Rel), 180 MG PO BID Scheduled PRN Albuterol Sulfate (Proair Respiclick), 2 PUFF INH Q4H PRN for Shortness of Breath Tramadol (Ultram), 50 MG PO Q4H PRN for Pain Allergies Coded Allergies: No Known Allergies (Verified , 05/02/17) Physical Exam Vital Signs Date Time Temp Pulse Resp B/P (MAP) Pulse Ox O2 Delivery O2 Flow Rate FiO2 05/02/17 16:50 89 18 138/88 97 05/02/17 13:58 108 20 142/106 95 05/02/17 12:50 101 05/02/17 12:40 93 Room Air 05/02/17 12:03 94 Room Air 05/02/17 12:03 101 18 146/94 94 Room Air Physical Exam GENERAL: Awake, alert, generally weak-appearing, in no distress HENT: Normocephalic, atraumatic. Oropharynx unremarkable. EYES: Pale conjunctiva. Sclera non-icteric. NECK: Supple. No nuchal rigidity. FROM. No JVD. RESPIRATORY: Clear to auscultation. CARDIAC: Tachycardic, normal rhythm. Extremities warm and well perfused. Pulses equal. ABDOMEN: Soft, non-distended. No tenderness to palpation. No rebound or guarding. No masses. RECTAL: Deferred. MUSCULOSKELETAL: Chest examination reveals no tenderness. The back is symmetrical on inspection without obvious abnormality. There is no CVA tenderness to palpation. No joint edema. LOWER EXTREMITIES: Calves are equal size bilaterally and non-tender. 2+ lower extremity edema. No discoloration. NEURO: Normal sensorium. No sensory or motor deficits noted. SKIN: No rash or jaundice noted. Medical Decision & Procedures ER Provider Diagnostic Interpretation: Radiology results as stated below per my review and radiologist interpretation: SINGLE VIEW CHEST CLINICAL HISTORY: Generalized weakness. FINDINGS: An AP, portable, upright chest radiograph is compared to study dated 12/23/2005 and correlated with chest CT dated 06/07/2011.. The cardiomediastinal silhouette is partially obscured and grossly unremarkable. The pulmonary vasculature is noncongested. Chronic interstitial thickening is similar to previous. No airspace consolidation is seen typical for pneumonia and there is no large pleural effusion. There is elevation of left hemidiaphragm with left basilar atelectasis. Abdominal contents are present within the left lower thorax. No pneumothorax is seen. The skeletal structures are osteopenic. The bony thorax is grossly intact. IMPRESSION: No acute cardiopulmonary abnormality. Electronically signed by: Anjum Robbins M.D. 05/02/2017 1:25 PM Dictated Date/Time: 05/02/2017 1:[address] ANGIOGRAM OF THE CHEST CLINICAL HISTORY: Shortness of breath. History of breast carcinoma. COMPARISON STUDY: 06/07/2011 TECHNIQUE: Following the IV administration of 97 mL of [id number]-320, CT angiogram of the thorax was performed from the thoracic inlet to the lung bases utilizing the pulmonary embolus protocol. Images are reviewed in the axial, sagittal, and coronal planes. IV contrast was administered without complication. MIP imaging was performed. A dose lowering technique was utilized adhering to the principles of ALARA. CT DOSE: 464.24 mGy.cm FINDINGS: There are stable hypodense lesions within the left hepatic lobe. There is marked elevation/eventration of left hemidiaphragm. Subcarinal, and paratracheal lymph nodes are the upper limits of normal in size. Right hilar lymph nodes are mildly enlarged. There is no pathologic axillary lymphadenopathy. There was no evidence of thoracic aortic dilatation. There were no pulmonary artery filling defects to indicate acute pulmonary embolism. There is a new right pleural effusion. There is a new 3 mm nodule within the superior segment of the left lower lobe. There is a new 5 mm subpleural nodule within the left lower lobe. There is a new 2.5 mm nodule within the left pulmonary apex. There are multiple scattered tiny right lung pulmonary nodules. There is thickening of the right lung bronchovascular bundles. There is a new 2 cm right lower lobe pulmonary nodule. There is nodular thickening of the major fissure. There are subtle perihilar groundglass opacities. 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 There is diffuse abnormal trabecular pattern of the bones consistent with widespread skeletal metastasis. IMPRESSION: 1. No evidence of acute pulmonary embolism 2. Persistent marked elevation/eventration left hemidiaphragm 3. Diffuse skeletal metastasis 4. Interval development of bilateral pulmonary nodules 5. Interval development of a right pleural effusion 6. Thickening of the right lung bronchovascular bundles, right hilar adenopathy, and nodular thickening of the major fissure. 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 Electronically signed by: Óscar Rivera M.D. 05/02/2017 4:44 PM Dictated Date/Time: 05/02/2017 4:35 PM Laboratory Results 05/02/17 12:40 Red Blood Count 2.85, Mean Corpuscular Volume 96.8, Mean Corpuscular Hemoglobin 30.9, Mean Corpuscular Hemoglobin Concent 31.9, Mean Platelet Volume 10.9, Neutrophils (%) (Auto) 60.9, Lymphocytes (%) (Auto) 24.9, Monocytes (%) (Auto) 9.2, Eosinophils (%) (Auto) 0.5, Basophils (%) (Auto) 0.5, Neutrophils # (Auto) 2.60, Lymphocytes # (Auto) 1.06, Monocytes # (Auto) 0.39, Eosinophils # (Auto) 0.02, Basophils # (Auto) 0.02 05/02/17 12:40 Test 05/02/17 12:40 05/02/17 15:45 05/02/17 17:50 White Blood Count 4.26 K/uL (4.8-10.8) Red Blood Count 2.85 M/uL (4.7-6.1) Hemoglobin 8.8 g/dL (14.0-18.0) Hematocrit 27.6 % (42-52) Mean Corpuscular Volume 96.8 fL (80-100) Mean Corpuscular Hemoglobin 30.9 pg (25-34) Mean Corpuscular Hemoglobin Concent 31.9 g/dl (32-36) Platelet Count 154 K/uL (130-400) Mean Platelet Volume 10.9 fL (7.4-10.4) Neutrophils (%) (Auto) 60.9 % Lymphocytes (%) (Auto) 24.9 % Monocytes (%) (Auto) 9.2 % Eosinophils (%) (Auto) 0.5 % Basophils (%) (Auto) 0.5 % Neutrophils # (Auto) 2.60 K/uL (1.4-6.5) Lymphocytes # (Auto) 1.06 K/uL (1.2-3.4) Monocytes # (Auto) 0.39 K/uL (0.11-0.59) Eosinophils # (Auto) 0.02 K/uL (0-0.5) Basophils # (Auto) 0.02 K/uL (0-0.2) RDW Standard Deviation 70.8 fL (36.4-46.3) RDW Coefficient of Variation 20.7 % (11.5-14.5) Immature Granulocyte % (Auto) 4.0 % Immature Granulocyte # (Auto) 0.17 K/uL (0.00-0.02) Nucleated RBC Absolute Count (auto) 0.13 K/uL (0-0) Nucleated Red Blood Cells % 3.0 % Anisocytosis PRESENT Tear Drop Cells 1+ Prothrombin Time 14.9 SECONDS (9.0-12.0) Prothromb Time International Ratio 1.4 (0.9-1.1) Activated Partial Thromboplast Time 31.4 SECONDS (21.0-31.0) Partial Thromboplastin Ratio 1.2 Anion Gap 10.0 mmol/L (3-11) Est Creatinine Clear Calc Drug Dose 114.1 ml/min Estimated GFR () 113.2 Estimated GFR (Non- 97.7 BUN/Creatinine Ratio 22.8 (10-20) Calcium Level 9.0 mg/dl (8.5-10.1) Magnesium Level 2.2 mg/dl (1.8-2.4) Total Bilirubin 1.0 mg/dl (0.2-1) Direct Bilirubin 0.3 mg/dl (0-0.2) Aspartate Amino Transf (AST/SGOT) 30 U/L (15-37) Alanine Aminotransferase (ALT/SGPT) 31 U/L (12-78) Alkaline Phosphatase 135 U/L (45-117) Total Creatine Kinase 107 U/L (39-308) Creatine Kinase MB 0.9 ng/ml (0.5-3.6) Creatine Kinase MB Ratio 0.8 (0-3.0) Troponin I < 0.015 ng/ml (0-0.045) Pro-B-Type Natriuretic Peptide 7715 pg/ml (0-900) Total Protein 6.8 gm/dl (6.4-8.2) Albumin 3.1 gm/dl (3.4-5.0) Lipase 73 U/L (73-393) Carcinoembryonic Antigen 15.2 ng/ml (0-2.5) Prostate Specific Antigen 2.250 ng/ml (0.000-4.000) Thyroid Stimulating Hormone (TSH) 5.100 uIu/ml (0.300-4.500) Urine Color YELLOW Urine Appearance CLEAR (CLEAR) Urine pH 5.5 (4.5-7.5) Urine Specific [place] 1.010 (1.000-1.030) Urine Protein NEG (NEG) Urine Glucose (UA) NEG (NEG) Urine Ketones NEG (NEG) Urine Occult Blood NEG (NEG) Urine Nitrite NEG (NEG) Urine Bilirubin NEG (NEG) Urine Urobilinogen NEG (NEG) Urine Leukocyte Esterase NEG (NEG) Laboratory results reviewed by me Medications Administered Medications (Trade) Dose Ordered Sig/Susanna Route Start Time Stop Time Status Last Admin Dose Admin Furosemide (Lasix Inj) 40 mg NOW STAT IV 05/02/17 17:29 05/02/17 17:30 DC 05/02/17 18:15 40 MG ECG Indication: SOB/dyspnea Rate (beats per minute): 98 Rhythm: atrial fibrillation Findings: no acute ischemic change, no ectopy ED Course 1255: The patient was evaluated in room A11A. A complete history and physical exam was performed. 1600: I updated the patient on his results. 1722: Discussed the patient's case with Dr. Elmore. The patient will be evaluated for further treatment and disposition. 1729: Ordered Lasix Inj 40 mg IV. 1740: Upon reexamination, the patient was resting. I discussed the test results and treatment plan with him. The patient will be evaluated for further management. Medical Decision Triage Nursing notes reviewed. The patient's presentation and history were concerning for weakness shortness of breath, leg swelling, and an abnormal CT scan. Patient was evaluated. He had swollen legs. He was mildly tachycardic. He was weak. Blood work is obtained. He has a worsening anemia with a hemoglobin of 8.8. His cardiac markers were negative however his BNP was elevated. The patient does not have a prior history of CHF. Given the swollen legs and elevated BMP with anemia this is concerning for CHF. 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 His CEA was significantly elevated. I did discuss the case with oncology, Dr. Elmore who recommended further treatment in the hospital. Consultation was made with Dr. Wu of the hospitalist service. The patient was given IV Lasix. He was evaluated by medicine in the emergency department and admitted for further management. Medication Reconcilliation Current Medication List: was personally reviewed by me Blood Pressure Screening Patient's blood pressure: Elevated blood pressure will be monitored by hospitalist Consults Time Called: 1715 Consulting Physician: Dr. Elmore-Oncology Returned Call: 1722 Discussed the patient's case. The patient will be evaluated for further treatment and disposition. Impression Primary Impression: Metastatic cancer Additional Impressions: Acute CHF Anemia Scribe Attestation The scribe's documentation has been prepared under my direction and personally reviewed by me in its entirety. I confirm that the note above accurately reflects all work, treatment, procedures, and medical decision making performed by me. Departure Information Dispostion Being Evaluated By Hospitalist Referrals Mike Lepe M.D. (PCP) Patient Instructions [facility] Problem Qualifiers
[2017-05-02] MEDS: DIGOXIN 0.25 MG TAB PO SCH (20:00)
[2017-05-02] MEDS ORDERED: MoRPHine SULFATE 2 MG/ML CARP IV PRN (20:15)
[2017-05-02] MEDS ORDERED: MoRPHine SULFATE 4 MG/ML 1 ML CARP\\VIAL IV PRN (20:15)
[2017-05-02] MEDS ORDERED: OXYCODONE HCL IR 5 MG TAB (IMMEDIATE RELEASE) PO PRN (20:15)
[2017-05-02 20:55] VITALS: BP 145/87; PULSE 113; TEMP 36.7; O2SAT 98; Ht 172.7 cm; Wt 87.6 kg
[2017-05-02] MEDS ORDERED: GLUCAGON FOR INJ 1 MG VIAL SQ PRN (21:00)
[2017-05-02] MEDS ORDERED: DEXTROSE 50% 50 ML SYR IV PRN (21:00)
[2017-05-02] MEDS ORDERED: VERAPAMIL HCL 180 MG TABCR PO SCH (21:00)
[2017-05-02] MEDS ORDERED: GLUCOSE 10 TABS/TUBE PO PRN (21:00)
[2017-05-02] MEDS ORDERED: GLUCOSE 40% GEL 15 GM TUBE PO PRN (21:00)
[2017-05-02] MEDS: INSULIN ASPART 100 UNITS/ML 3 ML PEN SC SCH (21:35)
[2017-05-02] MEDS: ALFUZosin TAB 10 MG TAB PO SCH (21:39)
[2017-05-02] MEDS: MONTELUKAST SOD 10 MG TAB PO SCH (21:39)
[2017-05-02] MEDS: PRAMIPEXOLE DIHYDROCHLORIDE 0.25MG TAB PO SCH (21:39)
[2017-05-02] MEDS: LORAZEPAM 1 MG TAB PO PRN (23:38)
[2017-05-03] VITALS (8 sets, daily range): BP systolic 116–137; BP diastolic 67–83; PULSE 107–136; TEMP 36.5–36.9; O2SAT 90–98
[2017-05-03] MEDS: INSULIN ASPART 100 UNITS/ML 3 ML PEN SC SCH ×4 (07:56→19:56)
[2017-05-03 08:04] LABS: HEMATOCRIT 24.4 % (42-52); MEAN CELL VOLUME 97.2 fL (80-100); MEAN CORPUSCULAR HEMOGLOBIN 30.7 pg (25-34); MEAN CORPUSCULAR HGB CONC 31.6 g/dl (32-36); MEAN PLATELET VOLUME 10.2 fL (7.4-10.4); PLATELET COUNT 123 K/uL (130-400); RED BLOOD COUNT 2.51 M/uL (4.7-6.1); WHITE BLOOD COUNT 3.39 K/uL (4.8-10.8)
[2017-05-03] MEDS: PANTOprazole SOD 40 MG TAB PO SCH (08:20)
[2017-05-03] MEDS: VERAPAMIL HCL 180 MG TABCR PO SCH (08:21)
[2017-05-03 08:28] LABS: BUN/CREATININE RATIO 21.9 (10-20); CREATININE 0.65 mg/dl (0.60-1.40); POTASSIUM 3.8 mmol/L (3.5-5.1)
--- NOTE | 2017-05-03 11:06 | Pulmonary Consultation ---
History General Date of Service: May 03, 2017. Stated Complaint: Metastatic Cancer HPI The patient is a 66 year old male who presents to [facility] with complaints of Metastatic Cancer. The patient's primary care provider is Mike Lepe M.D.. Mr. Shine is a 66-year-old male with history of infiltrating ductal carcinoma of right breast cancer status post mastectomy in August 2005, atrial fibrillation on chronic anticoagulation, mild intermittent asthma, recent history of chronic fatigue and weight loss associated with anemia over the last several months. He underwent upper and lower endoscopies for anemia workup on 04/21/2017. A cecal polyp and colonic polyp were removed with surgical pathology consistent with tubular adenoma. He had a CT of the abdomen and pelvis, was done on 04/28/2017 to further evaluate anemia which revealed a 7 cm paraspinous mass at the level of T9 with diffuse sclerotic changes in the skeleton suspicious for diffuse blastic metastasis. He was told to come to the emergency room for further evaluation. Patient denies any fevers, chills, chest pain, cough, hemoptysis or palpitations. He does have intermittent episodes of shortness of breath and with dyspnea on exertion, most notably when climbing stairs. He denies any paroxysmal nocturnal dyspnea but does have history of bilateral lower extremity edema secondary to increased use of verapamil. Denies any nausea, vomiting, diarrhea or constipation. He does have and decreased appetite and a significant, of weight loss within the last several months approximately 50 pounds. He denies any sick contacts or recent travel. Vital signs upon arrival to the ER showed a pulse of 101, respiratory rate of 18 , blood pressure 146/94 saturating 94% on room air. Laboratory data showed white blood cell count 4.2, (hemoglobin 8.8, decreased from 10.1 in March 2017), and platelets 154. Sodium 136, potassium, 4.1, chloride 101, carbon dioxide 25, BUN 16, creatinine 0.7 and glucose 110. LFTs total bili 1, direct bili 0.3 AST and ALT within normal limits. Alk phosphatase 135. Troponin less than 0.015 and BNP is 7715. Total protein 6.8 and albumin 2.1. TSH was 5.1, TSH 2.25 and CEA elevated at 15.2. Urinalysis was negative. Chest x-ray showed persistent elevation of left hemidiaphragm with left basilar atelectasis. CT chest was done and showed no evidence of pulmonary embolism, however was consistent with diffuse skeletal metastatic this is with interval development of bilateral pulmonary nodules as well as right pleural effusion. Thickening of the right lung bronchovascular bundles, major fissure as well as right hilar adenopathy was also noted. In the ER he received Lasix 40 mg IV. He was admitted for further metastatic workup. Eliquis held for possible biopsy. Review of Systems Constitutional: reports: as stated in HPI Eyes: reports: as stated in HPI ENT: reports: as stated in HPI Cardiovascular: reports: as stated in HPI Gastrointestinal: reports: as stated in HPI Genitourinary - Male: reports: as stated in HPI Musculoskeletal: reports: as stated in HPI Integumentary: reports: as stated in HPI Neurologic: reports: as stated in HPI Psychiatric: reports: as stated in HPI Endocrine: as stated in HPI Hematologic / Lymphatic: as stated in HPI Allergic / Immunologic: as stated in HPI All Other Symptoms All Other Systems: Reviewed and Negative Past Medical History Past Medical History: Active Problems 1. Abnormal weight loss (R63.4) 2. Actinic keratosis (L57.0) 3. Allergic rhinitis (J30.9) 4. Anemia (D64.9) 5. Anxiety (F41.9) 6. Arthritis (M19.90) 7. Asthma (J45.909) 8. Atrial fibrillation (I48.91) 9. BPH with obstruction/lower urinary tract symptoms (N40.1,N13.8) 10. Chronic anticoagulation (Z79.01) 11. Dependent edema (R60.9) 12. Elevated prostate specific antigen (PSA) (R97.20) 13. Erectile dysfunction (N52.9) 14. Fatigue (R53.83) 15. Herpes simplex (B00.9) 16. Hydrocele, right (N43.3) 17. Hypertension (I10) 18. Insomnia (G47.00) 19. Knee pain, bilateral (M25.561,M25.562) 20. Nail fungus (B35.1) 21. Need for hepatitis C screening test (Z11.59) 22. Need for pneumococcal vaccination (Z23) 23. Nocturia (R35.1) 24. Peripheral neuropathy (G62.9) 25. Personal history of breast cancer (Z85.3) 26. Restless legs syndrome (G25.81) 27. Right-sided low back pain with sciatica (M54.41) 28. Shortness of breath (R06.02) 29. Sleep apnea (G47.30) 30. Testicular pain (N50.819) 31. Type 2 diabetes mellitus (E11.9) 32. Urinary urgency (R39.15) 33. Vertigo (R42) Past Medical History 1. History of Adenocarcinoma Of The Breast 2. Denied: History of Adverse Reaction To Anesthesia 3. History of Cellulitis of right leg (L03.115) 4. History of Encounter for screening for diabetes mellitus (Z13.1) 5. History of Flu vaccine need (Z23) 6. History of Gross hematuria (R31.0) 7. History of bronchitis (Z87.09) 8. History of malignant neoplasm of breast (Z85.3) 9. History of sinusitis (Z87.09) 10. History of tinea corporis (Z86.19) 11. History of Need for pneumococcal vaccination (Z23) 12. History of Pain in foot (M79.673) 13. History of Pain in joint of right shoulder (M25.511) 14. History of Screening for lipid disorders (Z13.220) 15. History of Acute bacterial prostatitis (N41.0) 16. History of acute bronchitis (Z87.09) 17. History of acute conjunctivitis (Z86.69) 18. History of acute sinusitis (Z87.09) Past Surgical History: Surgical History 1. History of Bladder Surgery 2. History of Breast Surgery Mastectomy 3. History of Chemotherapeutics 4. History of Diagnostic Cystoscopy 5. History of Oral Surgery Tooth Extraction 6. History of Tonsillectomy Family History Cancer Diabetes mellitus Heart disease Hypertension Kidney disease Kidney stones Family History 3. Family history of Nephrolithiasis 6. Family history of Diabetes Mellitus 9. Family history of myocardial infarction (Z82.49) 10. Family history of Heart Disease 18. Family history of Hypertension Social History Social History , has one child Lifetime nonsmoker No alcohol use No drug use One child Smoking Status: Never Smoker Marital status: Occupational Status: employed Immunizations History of Influenza Vaccine: No History of Tetanus Vaccine?: Unknown History of Pneumococcal: Unknown History of Hepatitis B Vaccine: No History of MDRO History of MDRO: No Allergies Coded Allergies: No Known Allergies (Verified , 05/02/17) Current Medications Reported Home Medications Medications Dose Route/Sig Max Daily Dose Days Date Category Alfuzosin HCl ER (Alfuzosin HCl) 10 Mg Tab 10 Mg PO QPM 05/02/17 Reported Prilosec (Omeprazole) 40 Mg Cap 40 Mg PO DAILY 05/02/17 Reported Calan Sr Ext Rel (Verapamil Hcl) 180 Mg Tab 180 Mg PO BID 04/20/17 Reported Ultram (Tramadol HCl) 50 Mg Tab 50 Mg PO Q4H PRN 04/20/17 Reported Proair Respiclick (Albuterol Sulfate) 108 Mcg/Act Aer 2 Puff INH Q4H PRN 04/20/17 Reported Pramipexole Dihydrochlori (Pramipexole Dihydrochloride) 0.25 Mg Tab 1 Tab PO HS 04/20/17 Reported Singulair (Montelukast Sodium) 10 Mg Tab 10 Mg PO QAM 04/20/17 Reported Glucophage (Metformin Hcl) 500 Mg Tab 2 Tab PO BID 04/20/17 Reported Ativan (Lorazepam) 1 Mg Tab 1-2 Tab PO HS 04/20/17 Reported Flonase Allergy Relief (Fluticasone Propionate (Nasal)) 50 Mcg/Act Spr 1 [place] LUBNA QAM 04/20/17 Reported Ferrous Sulfate 325 Mg Tab 1 Tab PO QAM 04/20/17 Reported Eliquis (Apixaban) 5 Mg Tab 5 Mg PO BID 04/20/17 Reported Digoxin 0.25 Mg Tab 1 Tab PO QAM 04/20/17 Reported Uroxatral (Alfuzosin HCl) 10 Mg Tab 10 Mg PO QPM 04/30/13 Reported Physical Physical Exam Vital Signs: Date Time Temp Pulse Resp B/P (MAP) Pulse Ox O2 Delivery O2 Flow Rate FiO2 05/03/17 07:30 36.5 136 18 137/83 (101) 91 Room Air 05/03/17 00:19 36.9 127 20 134/81 (98) 90 Room Air 05/03/17 00:00 98 Room Air 05/02/17 20:55 36.7 113 20 145/87 98 Room Air 05/02/17 19:55 81 18 98 05/02/17 18:50 77 18 136/83 98 Room Air 05/02/17 16:50 89 18 138/88 97 05/02/17 13:58 108 20 142/106 95 05/02/17 12:50 101 05/02/17 12:40 93 Room Air 05/02/17 12:03 94 Room Air 05/02/17 12:03 101 18 146/94 94 Room Air General Appearance: WD/WN, NO APPARENT DISTRESS Head: NORMOCEPHALIC, ATRAUMATIC Eyes: PERRLA, NO DISCHARGE, EOMI, SCLERAE NORMAL ENT: NORMAL MOUTH EXAM, NORMAL THROAT EXAM, NORMAL DENTAL EXAM Neck: NORMAL RANGE OF MOTION, NO TENDERNESS, TRACHEA MIDLINE, NO STRIDOR, SUPPLE Respiratory: BREATH SOUNDS NORMAL, CLEAR TO AUSCULTATION, CLEAR TO PERCUSSION, NO RESPIRATORY DISTRESS, NO TENDERNESS Cardiovasular: irregular rate, abnormal rhythm Abdomen: NON TENDER, NORMAL BOWEL SOUNDS Back: NORMAL INSPECTION, paravertebral tenderness Upper Extremities: NO EDEMA, NO DEFORMITY, NORMAL ROM Lower Extremities: NO DEFORMITY, NORMAL ROM, edema Edema: Bilateral LE (2+) Neuro: ALERT, ORIENTED x 3, NORMAL MOTOR EXAM, NORMAL SENSATION Psychiatric: NORMAL AFFECT, NO SUICIDAL IDEATION, CONTRACTS FOR SAFETY Diagnostics Labs Results Past 24 Hours Test 05/02/17 12:40 05/02/17 15:45 05/02/17 19:58 05/02/17 20:56 Range/Units White Blood Count 4.26 4.8-10.8 K/uL Red Blood Count 2.85 4.7-6.1 M/uL Hemoglobin 8.8 14.0-18.0 g/dL Hematocrit 27.6 42-52 % Mean Corpuscular Volume 96.8 80-100 fL Mean Corpuscular Hemoglobin 30.9 25-34 pg Mean Corpuscular Hemoglobin Concent 31.9 32-36 g/dl Platelet Count 154 130-400 K/uL Mean Platelet Volume 10.9 7.4-10.4 fL Neutrophils (%) (Auto) 60.9 % Lymphocytes (%) (Auto) 24.9 % Monocytes (%) (Auto) 9.2 % Eosinophils (%) (Auto) 0.5 % Basophils (%) (Auto) 0.5 % Neutrophils # (Auto) 2.60 1.4-6.5 K/uL Lymphocytes # (Auto) 1.06 1.2-3.4 K/uL Monocytes # (Auto) 0.39 0.11-0.59 K/uL Eosinophils # (Auto) 0.02 0-0.5 K/uL Basophils # (Auto) 0.02 0-0.2 K/uL RDW Standard Deviation 70.8 36.4-46.3 fL RDW Coefficient of Variation 20.7 11.5-14.5 % Immature Granulocyte % (Auto) 4.0 % Immature Granulocyte # (Auto) 0.17 0.00-0.02 K/uL Nucleated RBC Absolute Count (auto) 0.13 0-0 K/uL Nucleated Red Blood Cells % 3.0 % Anisocytosis PRESENT Tear Drop Cells 1+ Prothrombin Time 14.9 9.0-12.0 SECONDS Prothromb Time International Ratio 1.4 0.9-1.1 Activated Partial Thromboplast Time 31.4 21.0-31.0 SECONDS Partial Thromboplastin Ratio 1.2 Sodium Level 136 136-145 mmol/L Potassium Level 4.1 3.5-5.1 mmol/L Chloride Level 101 98-107 mmol/L Carbon Dioxide Level 25 21-32 mmol/L Anion Gap 10.0 3-11 mmol/L Blood Urea Nitrogen 16 7-18 mg/dl Creatinine 0.70 0.60-1.40 mg/dl Est Creatinine Clear Calc Drug Dose 114.1 ml/min Estimated GFR () 113.2 Estimated GFR (Non- 97.7 BUN/Creatinine Ratio 22.8 10-20 Random Glucose 110 70-99 mg/dl Calcium Level 9.0 8.5-10.1 mg/dl Magnesium Level 2.2 1.8-2.4 mg/dl Total Bilirubin 1.0 0.2-1 mg/dl Direct Bilirubin 0.3 0-0.2 mg/dl Aspartate Amino Transf (AST/SGOT) 30 15-37 U/L Alanine Aminotransferase (ALT/SGPT) 31 12-78 U/L Alkaline Phosphatase 135 45-117 U/L Total Creatine Kinase 107 39-308 U/L Creatine Kinase MB 0.9 0.5-3.6 ng/ml Creatine Kinase MB Ratio 0.8 0-3.0 Troponin I < 0.015 0-0.045 ng/ml Pro-B-Type Natriuretic Peptide 7715 0-900 pg/ml Total Protein 6.8 6.4-8.2 gm/dl Albumin 3.1 3.4-5.0 gm/dl Lipase 73 73-393 U/L Carcinoembryonic Antigen 15.2 0-2.5 ng/ml Prostate Specific Antigen 2.250 0.000-4.000 ng/ml Thyroid Stimulating Hormone (TSH) 5.100 0.300-4.500 uIu/ml Urine Color YELLOW Urine Appearance CLEAR CLEAR Urine pH 5.5 4.5-7.5 Urine Specific [place] 1.010 1.000-1.030 Urine Protein NEG NEG Urine Glucose (UA) NEG NEG Urine Ketones NEG NEG Urine Occult Blood NEG NEG Urine Nitrite NEG NEG Urine Bilirubin NEG NEG Urine Urobilinogen NEG NEG Urine Leukocyte Esterase NEG NEG Digoxin Level 0.9 0.8-2.0 ng/ml Bedside Glucose 104 70-99 mg/dl Test 05/03/17 07:05 05/03/17 07:43 Range/Units White Blood Count 3.39 4.8-10.8 K/uL Red Blood Count 2.51 4.7-6.1 M/uL Hemoglobin 7.7 14.0-18.0 g/dL Hematocrit 24.4 42-52 % Mean Corpuscular Volume 97.2 80-100 fL Mean Corpuscular Hemoglobin 30.7 25-34 pg Mean Corpuscular Hemoglobin Concent 31.6 32-36 g/dl RDW Standard Deviation 72.1 36.4-46.3 fL RDW Coefficient of Variation 21.0 11.5-14.5 % Platelet Count 123 130-400 K/uL Mean Platelet Volume 10.2 7.4-10.4 fL Nucleated RBC Absolute Count (auto) 0.12 0-0 K/uL Nucleated Red Blood Cells % 3.5 % Sodium Level 138 136-145 mmol/L Potassium Level 3.8 3.5-5.1 mmol/L Chloride Level 103 98-107 mmol/L Carbon Dioxide Level 24 21-32 mmol/L Anion Gap 12.0 3-11 mmol/L Blood Urea Nitrogen 14 7-18 mg/dl Creatinine 0.65 0.60-1.40 mg/dl Est Creatinine Clear Calc Drug Dose 119.5 ml/min Estimated GFR () 116.7 Estimated GFR (Non- 100.7 BUN/Creatinine Ratio 21.9 10-20 Random Glucose 96 70-99 mg/dl Calcium Level 9.0 8.5-10.1 mg/dl Free Thyroxine 0.90 0.80-1.60 ng/dl Bedside Glucose 119 70-99 mg/dl Microbiology Results 05/02/17 Urine Culture, Received Pending Diagnostic Radiology CT ANGIOGRAM OF THE CHEST CLINICAL HISTORY: Shortness of breath. History of breast carcinoma. COMPARISON STUDY: 06/07/2011 TECHNIQUE: Following the IV administration of 97 mL of Optiray-320, CT angiogram of the thorax was performed from the thoracic inlet to the lung bases utilizing the pulmonary embolus protocol. Images are reviewed in the axial, sagittal, and coronal planes. IV contrast was administered without complication. MIP imaging was performed. A dose lowering technique was utilized adhering to the principles of ALARA. CT DOSE: 464.24 mGy.cm FINDINGS: There are stable hypodense lesions within the left hepatic lobe. There is marked elevation/eventration of left hemidiaphragm. Subcarinal, and paratracheal lymph nodes are the upper limits of normal in size. Right hilar lymph nodes are mildly enlarged. There is no pathologic axillary lymphadenopathy. There was no evidence of thoracic aortic dilatation. There were no pulmonary artery filling defects to indicate acute pulmonary embolism. There is a new right pleural effusion. There is a new 3 mm nodule within the superior segment of the left lower lobe. There is a new 5 mm subpleural nodule within the left lower lobe. There is a new 2.5 mm nodule within the left pulmonary apex. There are multiple scattered tiny right lung pulmonary nodules. There is thickening of the right lung bronchovascular bundles. There is a new 2 cm right lower lobe pulmonary nodule. There is nodular thickening of the major fissure. There are subtle perihilar groundglass opacities. 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 There is diffuse abnormal trabecular pattern of the bones consistent with widespread skeletal metastasis. IMPRESSION: 1. No evidence of acute pulmonary embolism 2. Persistent marked elevation/eventration left hemidiaphragm 3. Diffuse skeletal metastasis 4. Interval development of bilateral pulmonary nodules 5. Interval development of a right pleural effusion 6. Thickening of the right lung bronchovascular bundles, right hilar adenopathy, and nodular thickening of the major fissure. 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 SINGLE VIEW CHEST CLINICAL HISTORY: Generalized weakness. FINDINGS: An AP, portable, upright chest radiograph is compared to study dated 12/23/2005 and correlated with chest CT dated 06/07/2011.. The cardiomediastinal silhouette is partially obscured and grossly unremarkable. The pulmonary vasculature is noncongested. Chronic interstitial thickening is similar to previous. No airspace consolidation is seen typical for pneumonia and there is no large pleural effusion. There is elevation of left hemidiaphragm with left basilar atelectasis. Abdominal contents are present within the left lower thorax. No pneumothorax is seen. The skeletal structures are osteopenic. The bony thorax is grossly intact. IMPRESSION: No acute cardiopulmonary abnormality. CT ABD/PELVIS IV AND ORAL CONT 04/28/2017 CLINICAL HISTORY: 50 pound weight loss. COMPARISON STUDY: 01/22/2011 TECHNIQUE: Following the IV administration of 117 mL of Optiray-320, CT scan of the abdomen and pelvis was performed from the lung bases to the proximal femurs. Images are reviewed in the axial, sagittal, and coronal planes. IV contrast was administered without complication. A dose lowering technique was utilized adhering to the principles of ALARA. CT DOSE: 603.91 mGy.cm FINDINGS: Lower chest: There are small bilateral pleural effusions right greater than left. There is a low-density 7 cm right paraspinal opacity at the T9 level. This exceeds water attenuation and is potentially solid. There is elevation/eventration of the left hemidiaphragm. Liver: There are scattered low-density lesions which were present on the 2010 study and likely represent cysts. The liver is mildly enlarged. Gallbladder: Cholelithiasis Spleen: Normal in size and attenuation. Pancreas: The pancreas appears atrophic. No focal masses are visualized. Adrenal glands: Unremarkable. Kidneys: There is symmetric renal cortical enhancement. The kidneys are normal in size without hydronephrosis. Bowel: There are no transition zones indicate bowel obstruction. The appendix appears normal. There are scattered colonic diverticula. There are no acute peridiverticular inflammatory changes. Peritoneum: There is no intraperitoneal free air or abdominal ascites. There is a fat-containing right inguinal hernia. Vasculature: The abdominal aorta is normal in course and caliber. Adenopathy: There are no pathologically enlarged abdominal or pelvic lymph nodes. Pelvic viscera: There is borderline bladder wall thickening. There is minor perivesical stranding. Skeletal structures: There are diffuse sclerotic changes within the skeleton suspicious for diffuse blastic metastasis. IMPRESSION: 1. No evidence of bowel obstruction. No evidence of free air 2. Normal appendix 3. 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 Cholelithiasis 5. Fat-containing right inguinal hernia 6. Small bilateral pleural effusions 7. Low density right paraspinal lesion measuring 7 cm. This exceeds water attenuation and potentially is solid. An MRI of this area without and with contrast might be considered in follow-up for further evaluation EKG EKG 05/02/2017 Atrial fibrillation. Ventricular rate of 90 bpm. No previous EKGs available for comparison. Impression Assessment and Plan Chronic right lower back pain Right paraspinal mass Metastatic disease unknown primary Small right pleural effusion Pulmonary nodules History of asthma History of rhinitis Patient has had several month history of weight loss, fatigue and anemia. His symptoms also have been associated with right lower back pain and sciatica pain. He has had a GI workup was only significant for cecal and colonic polyps with pathology consistent with tubular adenomas. CT of abdomen and pelvis revealed suspicious lesion right paraspinal mass at the level of T9 with diffuse sclerotic changes in skeleton suspicious for diffuse blastic metastasis. CT chest with contrast now shows multiple pulmonary nodules with the largest being 2 cm the right lower lobe. 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 Recommendations I spoke with Mr. Shine and his at bedside for some time. I explained to him the above findings of the CT scan of the abdomen and pelvis as well as the suspicious findings of pulmonary nodules on CT chest from yesterday. I explained to him that he likely has pulmonary metastasis, however primary malignancy is unknown at this time. I explained that he does have a MRI of thoracic spine to evaluate right paraspinal mass. I had discussion with radiology this morning, who would be willing to biopsy mass if solid. While at the bedside of patient, I also spoke with Dr. Horner, Maurizio/Onc, who will proceed with bone marrow biopsy today of blastic lesions. If results are nondiagnostic I explained that we can proceed with possible thoracentesis of right pleural effusion or bronchoscopy for tissue biopsy of right lower lobe 2 cm pulmonary nodule at a later date. Continue with optimal pain control. Continue with Singulair and fluticasone nasal spray for rhinitis. Continue with albuterol when necessary for asthma. I appreciate the consult. Please contact me if you have any further questions or concerns.
--- NOTE | 2017-05-03 12:14 | Oncology Consultation ---
Oncology/Heme Consultation Date of Consultation: May 03, 2017. Attending Physician: Redd Kang D.O. Reason for Consultation: History of breast carcinoma History of Present Illness Mr. Shine is a 66-year-old gentleman that was diagnosed to having right breast carcinoma in 2005. One lymph node was positive for this tumor that was ER and IL positive. He was treated post resection with dose dense Adriamycin and Cytoxan followed by Taxol and then was given tamoxifen for 5 years. He was last seen in our clinic in November of this year feeling well and with a negative review of systems as well as physical exam. He now presents with a 2-3 month period of just not feeling well with loss of weight and increasing fatigue. He denies any new bone pain. He denies significant shortness of breath however with further questioning he states that he does get more short of breath than usual with exertion. He denies any overt bleeding fever or chills. He denies any headache. There are no neurologic symptoms. Past Medical/Surgical History Medical Problems: (1) Acute CHF Status: Acute (2) Anemia Status: Acute Family History Cancer Diabetes mellitus Heart disease Hypertension Kidney disease Kidney stones Social History Smoking Status: Never Smoker Marital Status: Housing Status: lives with significant other Occupation Status: employed Allergies Coded Allergies: No Known Allergies (Verified , 05/02/17) Home Medications Scheduled Alfuzosin HCl (Alfuzosin HCl ER), 10 MG PO QPM Alfuzosin Hcl (Uroxatral), 10 MG PO QPM Apixaban (Eliquis), 5 MG PO BID Digoxin (Digoxin), 1 TAB PO QAM Ferrous Sulfate (Ferrous Sulfate), 1 TAB PO QAM Fluticasone Propionate (Nasal) (Flonase Allergy Relief), 1 SPRAY LUBNA QAM Lorazepam (Ativan), 1-2 TAB PO HS Metformin Hcl (Glucophage), 2 TAB PO BID Montelukast Sodium (Singulair), 10 MG PO QAM Omeprazole (Prilosec), 40 MG PO DAILY Pramipexole Dihydrochloride (Pramipexole Dihydrochlori), 1 TAB PO HS Verapamil Hcl (Calan Sr Ext Rel), 180 MG PO BID Scheduled PRN Albuterol Sulfate (Proair Respiclick), 2 PUFF INH Q4H PRN for Shortness of Breath Tramadol (Ultram), 50 MG PO Q4H PRN for Pain Current Inpatient Medications Current Inpatient Medications Medications (Trade) Dose Ordered Sig/Susanna Route Start Time Stop Time Status Last Admin Dose Admin Ioversol (Optiray 320) 100 ml UD PRN IV 05/02/17 15:15 05/06/17 15:14 Alfuzosin HCl (Uroxatral Tab) 10 mg QPM PO 05/02/17 21:00 06/01/17 20:59 05/02/17 21:39 10 MG Digoxin (Lanoxin Tab) 0.25 mg DAILY@1600 PO 05/02/17 20:00 06/01/17 19:59 Lorazepam (Ativan Tab) 1 mg Q6H PRN PO 05/02/17 17:45 06/01/17 17:44 05/02/17 23:38 1 MG Pramipexole Dihydrochloride (miraPEX TAB) 0.25 mg HS PO 05/02/17 21:00 06/01/17 20:59 05/02/17 21:39 0.25 MG Tramadol HCl (Ultram Tab) 50 mg Q4H PRN PO 05/02/17 17:45 06/01/17 17:44 Pantoprazole Sodium (Protonix Tab) 40 mg DAILY PO 05/03/17 08:00 06/02/17 08:59 05/03/17 08:20 40 MG Acetaminophen (Tylenol Tab) 650 mg Q4H PRN PO 05/02/17 17:45 06/01/17 17:44 Al Hydrox/Mg Hydrox/Simethicone (Maalox Max Susp) 15 ml Q4H PRN PO 05/02/17 17:45 06/01/17 17:44 Ondansetron HCl (Zofran Inj) 4 mg Q6H PRN IV 05/02/17 17:45 06/01/17 17:44 Montelukast Sodium (Singulair Tab) 10 mg PM PO 05/02/17 21:00 06/01/17 20:59 Insulin Aspart (novoLOG ASPART) SLIDING SCALE PARAMETER ACHS SC 05/02/17 21:00 06/01/17 20:59 Verapamil HCl (Calan-Sr Tab) 180 mg DAILY PO 05/03/17 08:00 06/01/17 20:59 05/03/17 08:21 180 MG Morphine Sulfate (MoRPHine SULFATE INJ) 2 mg Q4H PRN IV 05/02/17 20:15 05/16/17 20:14 Morphine Sulfate (MoRPHine SULFATE INJ) 4 mg Q4H PRN IV 05/02/17 20:15 05/16/17 20:14 Oxycodone HCl (Roxicodone Immediate Rel Tab) 10 mg Q6 PRN PO 05/02/17 20:15 05/16/17 20:14 Glucose (Glucose 40% Gel) 15-30 GRAMS 15 GRAMS... UD PRN PO 05/02/17 21:00 06/01/17 20:59 Glucose (Glucose Chew Tab) 4-8 Tablets 4 Tabl... UD PRN PO 05/02/17 21:00 06/01/17 20:59 Dextrose (Dextrose 50% 50ML Syringe) 25-50ML OF 50% DW IV FOR... UD PRN IV 05/02/17 21:00 06/01/17 20:59 Glucagon (Glucagon Inj) 1 mg UD PRN SQ 05/02/17 21:00 06/01/17 20:59 Review of Systems Constitutional: Negative for night sweats, or fever Eyes: Negative for event change of vision ENT: Negative for epistaxis, nasal discharge, sore throat, or deafness Cardiovascular: Negative for chest pain, palpitations, dizziness, diaphoresis Respiratory: Negative for new shortness of breath,hemoptysis, or purulent cough Gastrointestinal: Negative for diarrhea, hematemesis, melena, nausea, vomiting , or dyspepsia Integumentary (skin): Negative for rash or jaundice discoloration Genitourinary: Negative for urinary frequency, hematuria, or dysuria Neurological: Negative for weakness, seizure activity, headache, or dizziness Lymphatic/Hematologic: Negative for petechiae, bleeding or new adenopathy Musculoskeletal: Negative for new joint or back pain Allergic/Immunologic: Negative for unusual rash or pruritis. Physical Exam Date Time Temp Pulse Resp B/P (MAP) Pulse Ox O2 Delivery O2 Flow Rate FiO2 05/03/17 11:20 36.9 124 20 127/78 (94) 91 Room Air 05/03/17 09:51 92 Room Air 05/03/17 09:48 121 125/73 (90) 05/03/17 07:30 36.5 136 18 137/83 (101) 91 Room Air 05/03/17 00:19 36.9 127 20 134/81 (98) 90 Room Air 05/03/17 00:00 98 Room Air 05/02/17 20:55 36.7 113 20 145/87 98 Room Air 05/02/17 19:55 81 18 98 05/02/17 18:50 77 18 136/83 98 Room Air 05/02/17 16:50 89 18 138/88 97 05/02/17 13:58 108 20 142/106 95 05/02/17 12:50 101 05/02/17 12:40 93 Room Air Constitutional: vitals are stable. Eyes: Eyes are ANÍBAL EOMI without conjuctival erythema or icterus. ENT: External examination was negative for masses. Neck: Negative for masses or palpable thyromegaly Respiratory: Lung sounds were generally clear bilaterally Cardiovascular: Heart was RRR without significant murmur, gallops aoe rubs Gastrointestinal: No palpable hepatic or splenomegaly. The abdomen was soft with normal bowel sounds. Lymphatic system: there was no palpable peripheral lymphadenopathy Musculoskeletal System: The musculoskeletal system seemed concordant with age. Skin: The skin was negative for jaundice. Neurologic exam: The exam was negative for any focal findings. Deep tendon reflexes were equal and symmetrical. Psychiatric exam: Was essentially negative with normal mood and effect. Breast exam: Done with patient permission was negative for palpable masses or corollary supraclavicular or axillary palpable adenopathy. The area of previous right mastectomy is negative for any evidence of local regional recurrence. Laboratory Results Last 24 Hours Test 05/02/17 12:40 05/02/17 15:45 05/02/17 19:58 05/02/17 20:56 White Blood Count 4.26 K/uL Red Blood Count 2.85 M/uL Hemoglobin 8.8 g/dL Hematocrit 27.6 % Mean Corpuscular Volume 96.8 fL Mean Corpuscular Hemoglobin 30.9 pg Mean Corpuscular Hemoglobin Concent 31.9 g/dl Platelet Count 154 K/uL Mean Platelet Volume 10.9 fL Neutrophils (%) (Auto) 60.9 % Lymphocytes (%) (Auto) 24.9 % Monocytes (%) (Auto) 9.2 % Eosinophils (%) (Auto) 0.5 % Basophils (%) (Auto) 0.5 % Neutrophils # (Auto) 2.60 K/uL Lymphocytes # (Auto) 1.06 K/uL Monocytes # (Auto) 0.39 K/uL Eosinophils # (Auto) 0.02 K/uL Basophils # (Auto) 0.02 K/uL RDW Standard Deviation 70.8 fL RDW Coefficient of Variation 20.7 % Immature Granulocyte % (Auto) 4.0 % Immature Granulocyte # (Auto) 0.17 K/uL Nucleated RBC Absolute Count (auto) 0.13 K/uL Nucleated Red Blood Cells % 3.0 % Anisocytosis PRESENT Tear Drop Cells 1+ Prothrombin Time 14.9 SECONDS Prothromb Time International Ratio 1.4 Activated Partial Thromboplast Time 31.4 SECONDS Partial Thromboplastin Ratio 1.2 Sodium Level 136 mmol/L Potassium Level 4.1 mmol/L Chloride Level 101 mmol/L Carbon Dioxide Level 25 mmol/L Anion Gap 10.0 mmol/L Blood Urea Nitrogen 16 mg/dl Creatinine 0.70 mg/dl Est Creatinine Clear Calc Drug Dose 114.1 ml/min Estimated GFR () 113.2 Estimated GFR (Non- 97.7 BUN/Creatinine Ratio 22.8 Random Glucose 110 mg/dl Calcium Level 9.0 mg/dl Magnesium Level 2.2 mg/dl Total Bilirubin 1.0 mg/dl Direct Bilirubin 0.3 mg/dl Aspartate Amino Transf (AST/SGOT) 30 U/L Alanine Aminotransferase (ALT/SGPT) 31 U/L Alkaline Phosphatase 135 U/L Total Creatine Kinase 107 U/L Creatine Kinase MB 0.9 ng/ml Creatine Kinase MB Ratio 0.8 Troponin I < 0.015 ng/ml Pro-B-Type Natriuretic Peptide 7715 pg/ml Total Protein 6.8 gm/dl Albumin 3.1 gm/dl Lipase 73 U/L Carcinoembryonic Antigen 15.2 ng/ml Prostate Specific Antigen 2.250 ng/ml Thyroid Stimulating Hormone (TSH) 5.100 uIu/ml Urine Color YELLOW Urine Appearance CLEAR Urine pH 5.5 Urine Specific [place] 1.010 Urine Protein NEG Urine Glucose (UA) NEG Urine Ketones NEG Urine Occult Blood NEG Urine Nitrite NEG Urine Bilirubin NEG Urine Urobilinogen NEG Urine Leukocyte Esterase NEG Digoxin Level 0.9 ng/ml Bedside Glucose 104 mg/dl Test 05/03/17 07:05 05/03/17 07:43 11/21/17 11:37 White Blood Count 3.39 K/uL Red Blood Count 2.51 M/uL Hemoglobin 7.7 g/dL Hematocrit 24.4 % Mean Corpuscular Volume 97.2 fL Mean Corpuscular Hemoglobin 30.7 pg Mean Corpuscular Hemoglobin Concent 31.6 g/dl RDW Standard Deviation 72.1 fL RDW Coefficient of Variation 21.0 % Platelet Count 123 K/uL Mean Platelet Volume 10.2 fL Nucleated RBC Absolute Count (auto) 0.12 K/uL Nucleated Red Blood Cells % 3.5 % Sodium Level 138 mmol/L Potassium Level 3.8 mmol/L Chloride Level 103 mmol/L Carbon Dioxide Level 24 mmol/L Anion Gap 12.0 mmol/L Blood Urea Nitrogen 14 mg/dl Creatinine 0.65 mg/dl Est Creatinine Clear Calc Drug Dose 119.5 ml/min Estimated GFR () 116.7 Estimated GFR (Non- 100.7 BUN/Creatinine Ratio 21.9 Random Glucose 96 mg/dl Calcium Level 9.0 mg/dl Free Thyroxine 0.90 ng/dl Bedside Glucose 119 mg/dl 134 mg/dl Assessment & Plan Probable metastatic breast carcinoma. Scans were reviewed that were done last night in the emergency room. Changes are consistent with a new right pleural effusion. This paraspinous mass that was described probably does represent more loculated fluid rather than a paraspinous mass. Clearly the bones are deeply involved with some sort of process in a very scattered way. He is on Eliquis now because of a history of atrial fibrillation. I believe we might be able to come to a diagnosis by doing a bone marrow biopsy. 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 This was reviewed with the patient and his . After obtaining consent a bone marrow biopsy was obtained from the patient's right posterior iliac crest. 1% lidocaine was used as local anesthetic. An aspirate could not be obtained. This was a dry tap. A specimen that is deemed to be of evaluable size was obtained on core biopsy. Patient tolerated procedure well.
--- NOTE | 2017-05-03 13:26 | DIAGNOSTIC IMAGING REPORT ---
THORACIC SPINE COMBO HISTORY: Mass paraspinal mass T9 TECHNIQUE: Multiplanar multisequence MRI of the thoracic spine was performed both before and after the intravenous administration of contrast. COMPARISON: CT chest 05/02/2017. CT abdomen and pelvis 04/28/2017. FINDINGS: Bone marrow signal characteristics are slightly heterogeneous throughout. This is most prominent at T9 but is also seen throughout all remaining components of the thoracic region. There is no evidence for a compression deformity. Postcontrast images show partial postcontrast enhancement throughout. There is no significant compromise of the thoracic spinal canal. The soft tissue mass to the right of T9 appears to represent high density of fluid within a fat-containing hernia extending through the diaphragmatic hiatus adjacent to the gastroesophageal junction. This may represent reactive fluid and/or high density encapsulated fluid. There is a small right pleural effusion. No evidence for bony erosive process is present. No significant compromise of the spinal canal is apparent. Pleural-based metastatic nodules appear to be present. These have no significant impact upon the lung or thoracic column. IMPRESSION: 1. The 7 cm potential mass to the right of T9 on prior studies appears to representing capsulated fluid within a fat-containing paravertebral hernia. 2. 2. Right pleural effusion. 3. Diffuse metastatic change throughout the entire thoracic column with no evidence for compromise of the spinal canal. 4. Potential low density cysts within the liver which have been described previously. The above report was generated using voice recognition software. It may contain grammatical, syntax or spelling errors. Electronically signed by: Napoleon Mccallum M.D. 05/03/2017 1:25 PM Dictated Date/Time: 05/03/2017 1:19 PM
--- NOTE | 2017-05-03 14:55 | Cardiology Consultation ---
Cardiology Consultation Date of Consultation: May 03, 2017. Requesting Physician: Jorge Luis Reason for Consultation: Atrial fibrillation Pt evaluation today including: conversation w/ patient, physical exam, chart review, lab review, review of studies, conversation w/ attending History of Present Illness The patient is a 66-year-old gentleman with a history of atrial fibrillation who was admitted to [facility] after abnormal findings on a CT scan. Patient has been followed in the outpatient setting and in the past has had some difficulty with rate control. In March of this year he was noted to have elevated heart rates in his medical therapy for rate control was intensified. Patient seen to have some improvement on increasing doses of verapamil. In general he has been feeling poorly for many weeks now. He has had symptoms of increasing fatigue, exercise intolerance and mild dyspnea on exertion. He was incidentally discovered to have an element of anemia and eventually underwent an additional evaluation leading to a CT scan discovery of what appears to be metastatic cancer. Patient has been complaining of some back pain over the course of this time as well. He denies chest pain. He denies any orthopnea or paroxysmal nocturnal dyspnea. He has reduced his activity overall but can still as sent several flights of stairs with minimal dyspnea. He has no symptoms of palpitations or racing heartbeat. He has not had symptoms of dizziness or lightheadedness. He has not recently suffered a syncopal episode. Does admit to taking his verapamil sporadically. He states that with a single daily dose he feels fine, but often times with a 2nd dose in the afternoon he will have water retention. 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 [employer] All Other Systems: Reviewed and Negative Allergies Coded Allergies: No Known Allergies (Verified , 05/02/17) Medications Current Inpatient Medications Medications (Trade) Dose Ordered Sig/Susanna Route Start Time Stop Time Status Last Admin Dose Admin Ioversol (Optiray 320) 100 ml UD PRN IV 05/02/17 15:15 05/06/17 15:14 Alfuzosin HCl (Uroxatral Tab) 10 mg QPM PO 05/02/17 21:00 06/01/17 20:59 05/02/17 21:39 10 MG Digoxin (Lanoxin Tab) 0.25 mg DAILY@1600 PO 05/02/17 20:00 06/01/17 19:59 Lorazepam (Ativan Tab) 1 mg Q6H PRN PO 05/02/17 17:45 06/01/17 17:44 05/02/17 23:38 1 MG Pramipexole Dihydrochloride (miraPEX TAB) 0.25 mg HS PO 05/02/17 21:00 06/01/17 20:59 05/02/17 21:39 0.25 MG Tramadol HCl (Ultram Tab) 50 mg Q4H PRN PO 05/02/17 17:45 06/01/17 17:44 Pantoprazole Sodium (Protonix Tab) 40 mg DAILY PO 05/03/17 08:00 06/02/17 08:59 05/03/17 08:20 40 MG Acetaminophen (Tylenol Tab) 650 mg Q4H PRN PO 05/02/17 17:45 06/01/17 17:44 Al Hydrox/Mg Hydrox/Simethicone (Maalox Max Susp) 15 ml Q4H PRN PO 05/02/17 17:45 06/01/17 17:44 Ondansetron HCl (Zofran Inj) 4 mg Q6H PRN IV 05/02/17 17:45 06/01/17 17:44 Montelukast Sodium (Singulair Tab) 10 mg PM PO 05/02/17 21:00 06/01/17 20:59 Insulin Aspart (novoLOG ASPART) SLIDING SCALE PARAMETER ACHS SC 05/02/17 21:00 06/01/17 20:59 Verapamil HCl (Calan-Sr Tab) 180 mg DAILY PO 05/03/17 08:00 06/01/17 20:59 05/03/17 08:21 180 MG Morphine Sulfate (MoRPHine SULFATE INJ) 2 mg Q4H PRN IV 05/02/17 20:15 05/16/17 20:14 Morphine Sulfate (MoRPHine SULFATE INJ) 4 mg Q4H PRN IV 05/02/17 20:15 05/16/17 20:14 Oxycodone HCl (Roxicodone Immediate Rel Tab) 10 mg Q6 PRN PO 05/02/17 20:15 05/16/17 20:14 Glucose (Glucose 40% Gel) 15-30 GRAMS 15 GRAMS... UD PRN PO 05/02/17 21:00 06/01/17 20:59 Glucose (Glucose Chew Tab) 4-8 Tablets 4 Tabl... UD PRN PO 05/02/17 21:00 06/01/17 20:59 Dextrose (Dextrose 50% 50ML Syringe) 25-50ML OF 50% DW IV FOR... UD PRN IV 05/02/17 21:00 06/01/17 20:59 Glucagon (Glucagon Inj) 1 mg UD PRN SQ 05/02/17 21:00 06/01/17 20:59 Physical Exam Vital Signs Past 12 Hours Date Time Temp Pulse Resp B/P (MAP) Pulse Ox O2 Delivery O2 Flow Rate FiO2 05/03/17 11:20 36.9 124 20 127/78 (94) 91 Room Air 05/03/17 09:51 92 Room Air 05/03/17 09:48 121 125/73 (90) 05/03/17 07:30 36.5 136 18 137/83 (101) 91 Room Air The patient is alert and oriented. Mood and affect appeared normal. He answered all questions appropriately. HEENT: Pupils are equal and reactive to light and accommodation. Extraocular movements are intact. The sclerae are anicteric. Neuro: Cranial nerves intact Neck: Patient's neck is supple. He has palpable carotid pulses bilaterally without bruits on auscultation. There is no evidence of jugular venous distention. The thyroid is not enlarged. Lungs: Clear to auscultation bilaterally. He has good air movement without use of accessory muscles. No rales wheezes or rhonchi. Cardiac: Heart demonstrates an irregular rate and rhythm. Normal S1 and S2. No murmurs on examination. Pulses: The patient has palpable radial pulses bilaterally that are equal in intensity Extremities: There was no evidence of hypoperfusion. There is no cyanosis or clubbing. Mild peripheral edema. Skin: I did not appreciate any rashes on examination today. Data Laboratory Results: Last 24 Hours Test 05/02/17 15:45 05/02/17 19:58 05/02/17 20:56 05/03/17 07:05 Urine Color YELLOW Urine Appearance CLEAR Urine pH 5.5 Urine Specific [place] 1.010 Urine Protein NEG Urine Glucose (UA) NEG Urine Ketones NEG Urine Occult Blood NEG Urine Nitrite NEG Urine Bilirubin NEG Urine Urobilinogen NEG Urine Leukocyte Esterase NEG Digoxin Level 0.9 ng/ml Bedside Glucose 104 mg/dl White Blood Count 3.39 K/uL Red Blood Count 2.51 M/uL Hemoglobin 7.7 g/dL Hematocrit 24.4 % Mean Corpuscular Volume 97.2 fL Mean Corpuscular Hemoglobin 30.7 pg Mean Corpuscular Hemoglobin Concent 31.6 g/dl RDW Standard Deviation 72.1 fL RDW Coefficient of Variation 21.0 % Platelet Count 123 K/uL Mean Platelet Volume 10.2 fL Nucleated RBC Absolute Count (auto) 0.12 K/uL Nucleated Red Blood Cells % 3.5 % Sodium Level 138 mmol/L Potassium Level 3.8 mmol/L Chloride Level 103 mmol/L Carbon Dioxide Level 24 mmol/L Anion Gap 12.0 mmol/L Blood Urea Nitrogen 14 mg/dl Creatinine 0.65 mg/dl Est Creatinine Clear Calc Drug Dose 119.5 ml/min Estimated GFR () 116.7 Estimated GFR (Non- 100.7 BUN/Creatinine Ratio 21.9 Random Glucose 96 mg/dl Calcium Level 9.0 mg/dl Free Thyroxine 0.90 ng/dl Test 05/03/17 07:43 05/03/17 11:37 Bedside Glucose 119 mg/dl 134 mg/dl Imaging: CT scan demonstrating both pulmonary nodules, bone lesions and pleural effusions. No pericardial effusion. MRI demonstrating thoracic bony lesions EKG: Atrial fibrillation Echocardiogram obtained as an outpatient on March 25, 2017: Preserved LV systolic function. Mild LVH. Assessment & Plan 1. Atrial fibrillation: Patient does have elevated ventricular rates. Whether this related to an acute process versus chronic difficulties with rate control is unclear. The past he was noted to have some elevated heart rates and his medical therapy was intensified. He has been noncompliant with an increased dose of verapamil due to concerns over edema. He likely would have better rate control with higher doses of verapamil. At this point would seem reasonable to reinstitute an afternoon dose. Additionally he may have poor rate control due to an element of anemia. He does not appear to be markedly hypovolemic and is not in a lot of pain. However, his hemoglobin has dropped below 8 at this point. This could be contributing to higher heart rates as well. He appears to have had an adverse reaction to beta-blockers in the past, but this could be considered an adjunct of measure if the side effects from higher verapamil dose become intolerable. While he has been exposed Adriamycin in the past, he does not appear to have an associated cardiomyopathy based on an echocardiogram obtained just a few weeks ago. I do not think there is an indication for repeat echocardiography at this point. He does not appear to have a pericardial effusion based on his CT scan, and I doubt there has been any significant change in his LV systolic function in a few weeks.
[2017-05-03] MEDS: DIGOXIN 0.25 MG TAB PO SCH (15:54)
[2017-05-03] MEDS ORDERED: ENOXAPARIN 40 MG/0.4 ML SYR SQ SCH (17:45)
[2017-05-03] MEDS: MONTELUKAST SOD 10 MG TAB PO SCH (19:56)
[2017-05-03] MEDS: PRAMIPEXOLE DIHYDROCHLORIDE 0.25MG TAB PO SCH (19:56)
[2017-05-03] MEDS: ALFUZosin TAB 10 MG TAB PO SCH (19:56)
--- NOTE | 2017-05-03 22:34 | Family Medicine Progress Note ---
Progress Note Date of Service May 03, 2017. Subjective Pt evaluation today including: conversation w/ patient, physical exam, chart review, lab review, review of studies Pain: Ongoign right shoulder and right hip pain for over 1 month Voiding: no voiding problems, no incontinence Patient is resting comfortably in bed this morning with no acute complaints overnight. He states that he has been having ongoing right shoulder and hip pain that he has been seeking physical therapy for over the last month. He denies any shortness of breath, palpitations, or chest pain at this time. Constitutional: + weight loss, + fatigue, No fever, No chills, No sweats Respiratory: No cough, No sputum, No wheezing, No shortness of breath Cardiovascular: No chest pain, No edema, No palpitations Abdomen: No pain, No nausea, No vomiting Endo: No fatigue Medications Current Inpatient Medications Medications (Trade) Dose Ordered Sig/Susanna Route Start Time Stop Time Status Last Admin Dose Admin Ioversol (Optiray 320) 100 ml UD PRN IV 05/02/17 15:15 05/06/17 15:14 Alfuzosin HCl (Uroxatral Tab) 10 mg QPM PO 05/02/17 21:00 06/01/17 20:59 05/03/17 19:56 10 MG Digoxin (Lanoxin Tab) 0.25 mg DAILY@1600 PO 05/02/17 20:00 06/01/17 19:59 05/03/17 15:54 0.25 MG Lorazepam (Ativan Tab) 1 mg Q6H PRN PO 05/02/17 17:45 06/01/17 17:44 05/02/17 23:38 1 MG Pramipexole Dihydrochloride (miraPEX TAB) 0.25 mg HS PO 05/02/17 21:00 06/01/17 20:59 05/03/17 19:56 0.25 MG Tramadol HCl (Ultram Tab) 50 mg Q4H PRN PO 05/02/17 17:45 06/01/17 17:44 Pantoprazole Sodium (Protonix Tab) 40 mg DAILY PO 05/03/17 08:00 06/02/17 08:59 05/03/17 08:20 40 MG Acetaminophen (Tylenol Tab) 650 mg Q4H PRN PO 05/02/17 17:45 06/01/17 17:44 Al Hydrox/Mg Hydrox/Simethicone (Maalox Max Susp) 15 ml Q4H PRN PO 05/02/17 17:45 06/01/17 17:44 Ondansetron HCl (Zofran Inj) 4 mg Q6H PRN IV 05/02/17 17:45 06/01/17 17:44 Montelukast Sodium (Singulair Tab) 10 mg PM PO 05/02/17 21:00 06/01/17 20:59 05/03/17 19:56 10 MG Insulin Aspart (novoLOG ASPART) SLIDING SCALE PARAMETER ACHS SC 05/02/17 21:00 06/01/17 20:59 Verapamil HCl (Calan-Sr Tab) 180 mg DAILY PO 05/03/17 08:00 06/01/17 20:59 05/03/17 08:21 180 MG Morphine Sulfate (MoRPHine SULFATE INJ) 2 mg Q4H PRN IV 05/02/17 20:15 05/16/17 20:14 Morphine Sulfate (MoRPHine SULFATE INJ) 4 mg Q4H PRN IV 05/02/17 20:15 05/16/17 20:14 Oxycodone HCl (Roxicodone Immediate Rel Tab) 10 mg Q6 PRN PO 05/02/17 20:15 05/16/17 20:14 Glucose (Glucose 40% Gel) 15-30 GRAMS 15 GRAMS... UD PRN PO 05/02/17 21:00 06/01/17 20:59 Glucose (Glucose Chew Tab) 4-8 Tablets 4 Tabl... UD PRN PO 05/02/17 21:00 06/01/17 20:59 Dextrose (Dextrose 50% 50ML Syringe) 25-50ML OF 50% DW IV FOR... UD PRN IV 05/02/17 21:00 06/01/17 20:59 Glucagon (Glucagon Inj) 1 mg UD PRN SQ 05/02/17 21:00 06/01/17 20:59 Objective Vital Signs Date Time Temp Pulse Resp B/P (MAP) Pulse Ox O2 Delivery O2 Flow Rate FiO2 05/03/17 16:00 Room Air 05/03/17 15:54 110 05/03/17 15:18 36.5 107 18 116/67 (83) 93 Room Air 05/03/17 11:20 36.9 124 20 127/78 (94) 91 Room Air 05/03/17 09:51 92 Room Air 05/03/17 09:48 121 125/73 (90) 05/03/17 07:30 36.5 136 18 137/83 (101) 91 Room Air 05/03/17 00:19 36.9 127 20 134/81 (98) 90 Room Air 05/03/17 00:00 98 Room Air Physical Exam General Appearance: WD/WN, no apparent distress Eyes: normal inspection, sclerae normal Neck: supple, no carotid bruits Respiratory/Chest: chest non-tender, lungs clear, normal breath sounds Cardiovascular: no gallop, no murmur, + tachycardia, + irregularly irregular Abdomen: normal bowel sounds, non tender, soft Extremities: no pedal edema, no calf tenderness Neurologic/Psychiatric: alert, normal mood/affect, oriented x 3 Laboratory Results Results Past 24 Hours Test 05/03/17 07:05 05/03/17 07:43 05/03/17 11:37 05/03/17 16:23 Range/Units White Blood Count 3.39 4.8-10.8 K/uL Red Blood Count 2.51 4.7-6.1 M/uL Hemoglobin 7.7 14.0-18.0 g/dL Hematocrit 24.4 42-52 % Mean Corpuscular Volume 97.2 80-100 fL Mean Corpuscular Hemoglobin 30.7 25-34 pg Mean Corpuscular Hemoglobin Concent 31.6 32-36 g/dl RDW Standard Deviation 72.1 36.4-46.3 fL RDW Coefficient of Variation 21.0 11.5-14.5 % Platelet Count 123 130-400 K/uL Mean Platelet Volume 10.2 7.4-10.4 fL Nucleated RBC Absolute Count (auto) 0.12 0-0 K/uL Nucleated Red Blood Cells % 3.5 % Sodium Level 138 136-145 mmol/L Potassium Level 3.8 3.5-5.1 mmol/L Chloride Level 103 98-107 mmol/L Carbon Dioxide Level 24 21-32 mmol/L Anion Gap 12.0 3-11 mmol/L Blood Urea Nitrogen 14 7-18 mg/dl Creatinine 0.65 0.60-1.40 mg/dl Est Creatinine Clear Calc Drug Dose 119.5 ml/min Estimated GFR () 116.7 Estimated GFR (Non- 100.7 BUN/Creatinine Ratio 21.9 10-20 Random Glucose 96 70-99 mg/dl Calcium Level 9.0 8.5-10.1 mg/dl Free Thyroxine 0.90 0.80-1.60 ng/dl Bedside Glucose 119 134 134 70-99 mg/dl Test 05/03/17 19:54 Range/Units Bedside Glucose 119 70-99 mg/dl Assessment and Plan Patient is a 66 year old male with a history of breast cancer that presented to the ED with an abnormal CT from his family doctor that was performed due to recent weight loss and fatigue. His Chest CT was further concerning for metastatic cancer that at this point is most likely due to metastasis from breast cancer. 1) Metastatic Cancer - Abdominal CT: 7cm right Paraspinous mass at T9 - CT Chest: Pleural effusions + Lymphadenopathy within chest cavity and concern for widely metastatic blastic skeletal lesions - Previous history of breast cancer s/p mastectomy - Heme/Onc performed bone marrow biopsy of blastic lesions - Respiratory consulted and discussed with patient that if bone marrow biopsy nondiagnostic, can perform thoracentesis of right pleural effusion or bronchoscopy for tissue biopsy of pulmonary nodule - MRI chest ordered for further imaging 2) Atrial Fibrillation --> Currently tachycardic due to non compliance with Verapamil due to lower extremity edema - Cardiology consult --> Resume afternoon dose of Verapamil - Holding home Eliquis in addition to other anticoagulants at this time due to anemia - Tachycardia may also be related to currently underlying anemia - Refused morning Digoxin (Dig Level Therapeutic on morning lab) 3) Anemia of unknown etiology - Patient states that stools have recently been darker but no gross blood in stools - Consider hemoccult tomorrow - Hemoglobin now 7.7 - Continue to monitor BMP and symptoms 4) Diabetes - Insulin sliding scale 5) BPH - Alfuzosin 6) Hypothyroidism - TSH of 5.1 - T4 pending 7) DVT - Holding Eliquis and Lovenox 8) Code Status - Full Resuscitation Resident Tracking Resident Involvement: Resident Care Provided Care Provided: Adult Hospital Medicine
[2017-05-04] MEDS: LORAZEPAM 1 MG TAB PO PRN (00:17)
[2017-05-04 04:31] VITALS: BP 142/94; PULSE 120; TEMP 36.7; O2SAT 91
[2017-05-04 07:58] VITALS: BP 149/82; PULSE 140; TEMP 37; O2SAT 90
[2017-05-04 07:59] LABS: BUN/CREATININE RATIO 21.9 (10-20); CALCIUM 9.4 mg/dl (8.5-10.1); CREATININE 0.79 mg/dl (0.60-1.40); POTASSIUM 3.9 mmol/L (3.5-5.1)
[2017-05-04 08:00] LABS: HEMATOCRIT 26.6 % (42-52); MEAN CELL VOLUME 97.1 fL (80-100); MEAN CORPUSCULAR HEMOGLOBIN 31.8 pg (25-34); MEAN CORPUSCULAR HGB CONC 32.7 g/dl (32-36); MEAN PLATELET VOLUME 10.7 fL (7.4-10.4); PLATELET COUNT 127 K/uL (130-400); RED BLOOD COUNT 2.74 M/uL (4.7-6.1); WHITE BLOOD COUNT 3.61 K/uL (4.8-10.8)
[2017-05-04] MEDS: INSULIN ASPART 100 UNITS/ML 3 ML PEN SC SCH ×3 (08:53→16:30)
[2017-05-04] MEDS: VERAPAMIL HCL 180 MG TABCR PO SCH (09:08)
[2017-05-04] MEDS: PANTOprazole SOD 40 MG TAB PO SCH (09:08)
[2017-05-04 12:01] VITALS: BP 133/79; PULSE 99; TEMP 36.7; O2SAT 95
--- NOTE | 2017-05-04 15:04 | Medical Student: [facility] ---
Med Student Progress Note Date of Service May 04, 2017. Subjective Pt evaluation today including: conversation w/ patient, chart review, lab review PO Intake: Eating well and with appetite Voiding: no voiding problems (just has frequency, this is longstanding) Patient is doing okay today. He has had visiting friends and family. He said he got up almost every hour last night to go to the bathroom. At home he uses CPAP but has not been using it here. When I asked, he said that may also play a role in the fatigue he has experienced while here, although he doesn't know how "bad" he has been as he can't tell if he has been snoring alot here which was a problem for him previously. He describes this as not abnormal and states he has a large prostate and a small bladder. He said for the past 2 months that food has tasted different, and he described this difference not as lacking taste entirely but rather the taste having a "grainy" quality. He has good insight into what causes him to become short of breath, that being primarily walking up ascending grades. He also describes weakness and fatigue before coming into the hospital, but said that he has not moved around alot since being here to test that. He states that he has a good appetite. Review of Systems Constitutional: + weight loss, + weakness Respiratory: + dyspnea on exertion, No cough, No sputum, No wheezing, No dyspnea at rest, No hemoptysis Cardiac: No chest pain, No edema, No claudication Abdomen: + nausea Endo: + fatigue Objective Vital Signs Date Time Temp Pulse Resp B/P (MAP) Pulse Ox O2 Delivery O2 Flow Rate FiO2 05/04/17 12:01 36.7 99 18 133/79 (97) 95 05/04/17 09:41 Room Air 05/04/17 07:58 37.0 140 18 149/82 (104) 90 05/04/17 04:31 36.7 120 20 142/94 (110) 91 Room Air 05/04/17 00:00 Room Air 05/03/17 23:56 36.8 120 20 127/79 (95) 95 Room Air 05/03/17 20:00 Room Air 05/03/17 16:00 Room Air 05/03/17 15:54 110 05/03/17 15:18 36.5 107 18 116/67 (83) 93 Room Air Physical Exam General Appearance: WD/WN, no apparent distress Respiratory/Chest: chest non-tender, lungs clear, normal breath sounds, no respiratory distress, no accessory muscle use Cardiovascular: regular rate, rhythm, no gallop, no JVD, no murmur Skin: normal color, warm/dry, no rash Laboratory Results Last 24 Hours Test 05/03/17 16:23 05/03/17 19:54 05/04/17 07:02 05/04/17 08:13 Bedside Glucose 134 mg/dl 119 mg/dl 122 mg/dl White Blood Count 3.61 K/uL Red Blood Count 2.74 M/uL Hemoglobin 8.7 g/dL Hematocrit 26.6 % Mean Corpuscular Volume 97.1 fL Mean Corpuscular Hemoglobin 31.8 pg Mean Corpuscular Hemoglobin Concent 32.7 g/dl RDW Standard Deviation 71.1 fL RDW Coefficient of Variation 20.9 % Platelet Count 127 K/uL Mean Platelet Volume 10.7 fL Nucleated RBC Absolute Count (auto) 0.12 K/uL Nucleated Red Blood Cells % 3.4 % Sodium Level 137 mmol/L Potassium Level 3.9 mmol/L Chloride Level 104 mmol/L Carbon Dioxide Level 23 mmol/L Anion Gap 11.0 mmol/L Blood Urea Nitrogen 17 mg/dl Creatinine 0.79 mg/dl Est Creatinine Clear Calc Drug Dose 97.6 ml/min Estimated GFR () 107.7 Estimated GFR (Non- 92.9 BUN/Creatinine Ratio 21.9 Random Glucose 116 mg/dl Calcium Level 9.4 mg/dl Test 05/04/17 11:55 Bedside Glucose 122 mg/dl Medications Current Inpatient Medications Medications (Trade) Dose Ordered Sig/Susanna Route Start Time Stop Time Status Last Admin Dose Admin Ioversol (Optiray 320) 100 ml UD PRN IV 05/02/17 15:15 05/06/17 15:14 Alfuzosin HCl (Uroxatral Tab) 10 mg QPM PO 05/02/17 21:00 06/01/17 20:59 05/03/17 19:56 10 MG Digoxin (Lanoxin Tab) 0.25 mg DAILY@1600 PO 05/02/17 20:00 06/01/17 19:59 05/03/17 15:54 0.25 MG Lorazepam (Ativan Tab) 1 mg Q6H PRN PO 05/02/17 17:45 06/01/17 17:44 05/04/17 00:17 1 MG Pramipexole Dihydrochloride (miraPEX TAB) 0.25 mg HS PO 05/02/17 21:00 06/01/17 20:59 05/03/17 19:56 0.25 MG Tramadol HCl (Ultram Tab) 50 mg Q4H PRN PO 05/02/17 17:45 06/01/17 17:44 Pantoprazole Sodium (Protonix Tab) 40 mg DAILY PO 05/03/17 08:00 06/02/17 08:59 05/04/17 09:08 40 MG Acetaminophen (Tylenol Tab) 650 mg Q4H PRN PO 05/02/17 17:45 06/01/17 17:44 Al Hydrox/Mg Hydrox/Simethicone (Maalox Max Susp) 15 ml Q4H PRN PO 05/02/17 17:45 06/01/17 17:44 Ondansetron HCl (Zofran Inj) 4 mg Q6H PRN IV 05/02/17 17:45 06/01/17 17:44 Montelukast Sodium (Singulair Tab) 10 mg PM PO 05/02/17 21:00 06/01/17 20:59 05/03/17 19:56 10 MG Insulin Aspart (novoLOG ASPART) SLIDING SCALE PARAMETER ACHS SC 05/02/17 21:00 06/01/17 20:59 Verapamil HCl (Calan-Sr Tab) 180 mg DAILY PO 05/03/17 08:00 06/01/17 20:59 05/04/17 09:08 180 MG Morphine Sulfate (MoRPHine SULFATE INJ) 2 mg Q4H PRN IV 05/02/17 20:15 05/16/17 20:14 Morphine Sulfate (MoRPHine SULFATE INJ) 4 mg Q4H PRN IV 05/02/17 20:15 05/16/17 20:14 Oxycodone HCl (Roxicodone Immediate Rel Tab) 10 mg Q6 PRN PO 05/02/17 20:15 05/16/17 20:14 Glucose (Glucose 40% Gel) 15-30 GRAMS 15 GRAMS... UD PRN PO 05/02/17 21:00 06/01/17 20:59 Glucose (Glucose Chew Tab) 4-8 Tablets 4 Tabl... UD PRN PO 05/02/17 21:00 06/01/17 20:59 Dextrose (Dextrose 50% 50ML Syringe) 25-50ML OF 50% DW IV FOR... UD PRN IV 05/02/17 21:00 12 20:59 Glucagon (Glucagon Inj) 1 mg UD PRN SQ 05/02/17 21:00 06/01/17 20:59 Assessment and Plan Assessment and Plan: Suspected metastatic breast cancer -patient history of 50+ pound weight loss over several months, fatigue and weakness during activity, and anemia with low RBC, WBC, and PLT counts, increased abs. nuc. RBC count -Had colonoscopy recently showing polyps of tubular adenomatous pathology. -CT scans showed a paraspinal mass/lesion to the right of T9 vertebrae suspicious for bony metastasis, and 2 pulmonary nodules, and right lung pleural effusion. -MRI showed 2 low density cystic lesions in the liver, a right pleural effusion , diffuse metastatic changes throughout the entire thoracic column but especially involving the T9 vertebrae -Heme/onc consulted and spoke with patient 05/02/17 - recommendations appreciated. -Assess need for pain control -Bone marrow biopsy results pending -Get stool occult blood test -Diagnostic workup (preliminary) discussed with patient, patient would like discharged today if possible History asthma -continue albuterol when necessary -continue fluticasone and Singulair Atrial Fibrillation with tachycardia - Cardiology consult - Holding home Eliquis because of anemia - ddx Tachycardia from anemia vs. from non-compliance with 1 dose digoxin Diabetes - Continue Insulin sliding scale BPH - Continue Alfuzosin
--- NOTE | 2017-05-04 15:18 | Discharge Instructions ---
Discharge Instructions Date of Service May 04, 2017. Admission Reason for Admission: Metastatic Cancer Discharge Discharge Diagnosis / Problem: Metastatic Breast Cancer Discharge Goals Goal(s): Decrease discomfort, Diagnostic testing, Therapeutic intervention Activity Recommendations Activity Limitations: as noted below Lifting Limitations: gradually increase as tolerated Exercise/Sports Limitations: gradually increase as tolerated Shower/Bathe: no limitations . Instructions / Follow-Up Instructions / Follow-Up You were admitted to the hospital after imaging revealed that you had lesions concerning for metastatic disease. Bone marrow biopsy performed by Dr. Elmore revealed adenocarcinoma on pathology, most likely signifying metastatic breast cancer. You will begin treatment with Tamoxifen on discharge and will follow up with Dr. Elmore next week. You were also seen for a rapid heart rate by cardiology, and will be restarted on Verapamil twice daily. We will also prescribe the medication furosemide for leg swelling. For the time being we would like you to continue taking Eliquis, and can address changing the medication with either your Primary Care Physician or with Dr. Foote as an outpatient. Medications: Verapamil 180mg TAB: Take 1 TAB twice daily by mouth --> This is for your rapid heart rate Furosemide 20mg TAB: Take 1 TAB once daily (in the morning preferably to help prevent having to urinate frequently at night) --> This is for your leg swelling Tamoxifen 20mg TAB: Take 1 TAB once daily --> This will be your initial therapy for breast cancer Follow Up: - Follow up with Dr. Elmore next week --> We will contact you with the date and time of this appointment - Follow up with Dr. Foote in 2 weeks --> We will contact you with the date and time of this appointment - Please try and see your primary care physician as soon as possible for a hospital follow up --> We will try to arrange an appointment with Dr. Lepe that will be sooner than your visit in June - If you do not hear from us by next Tuesday regarding your appointments, please call us back Current Hospital Diet Patient's current hospital diet: Regular Diet Discharge Diet Recommended Diet: AHA Diet (Heart Healthy) Pending Studies Studies pending at discharge: yes List of pending studies: Bone Marrow Biopsy stains Medical Emergencies . Who to Call and When: Medical Emergencies: If at any time you feel your situation is an emergency, please call 911 immediately. . Non-Emergent Contact Non-Emergency issues call your: Primary Care Provider . . "Provider Documentation" section prepared by Dawson Ellison. . VTE Core Measure Inpt VTE Proph given/why not?: Other Anticoagulation
--- NOTE | 2017-05-04 15:34 | Hematology/Oncology Prog Note ---
Hematology/Onc Progress Note Date of Service May 04, 2017. Diagnoses Metastatic carcinoma - probable metastatic breast carcinoma Medications Medications Administered Medications (Trade) Dose Ordered Sig/Susanna Route Start Time Stop Time Status Last Admin Dose Admin Furosemide (Lasix Inj) 40 mg NOW STAT IV 05/02/17 17:29 05/02/17 17:30 DC 05/02/17 18:15 40 MG Alfuzosin HCl (Uroxatral Tab) 10 mg QPM PO 05/02/17 21:00 06/01/17 20:59 05/03/17 19:56 10 MG Digoxin (Lanoxin Tab) 0.25 mg DAILY@1600 PO 05/02/17 20:00 06/01/17 19:59 05/03/17 15:54 0.25 MG Lorazepam (Ativan Tab) 1 mg Q6H PRN PO 05/02/17 17:45 06/01/17 17:44 05/04/17 00:17 1 MG Pramipexole Dihydrochloride (miraPEX TAB) 0.25 mg HS PO 05/02/17 21:00 06/01/17 20:59 05/03/17 19:56 0.25 MG Pantoprazole Sodium (Protonix Tab) 40 mg DAILY PO 05/03/17 08:00 06/02/17 08:59 05/04/17 09:08 40 MG Montelukast Sodium (Singulair Tab) 10 mg PM PO 05/02/17 21:00 06/01/17 20:59 05/03/17 19:56 10 MG Verapamil HCl (Calan-Sr Tab) 180 mg DAILY PO 05/03/17 08:00 06/01/17 20:59 05/04/17 09:08 180 MG Subjective Seems to be doing clinically well. He denies any new pain or worsening shortness of breath. Review of Systems: Constitutional: Negative for night sweats, or fever Eyes: Negative for event change of vision ENT: Negative for epistaxis, nasal discharge, sore throat, or deafness Cardiovascular: Negative for chest pain, palpitations, dizziness, diaphoresis Respiratory: Negative for new shortness of breath,hemoptysis, or purulent cough Gastrointestinal: Negative for diarrhea, hematemesis, melena, nausea, vomiting , or dyspepsia Integumentary (skin): Negative for rash or jaundice discoloration Genitourinary: Negative for urinary frequency, hematuria, or dysuria Neurological: Negative for weakness, seizure activity, headache, or dizziness Lymphatic/Hematologic: Negative for petechiae, bleeding or new adenopathy Musculoskeletal: Negative for new joint or back pain Allergic/Immunologic: Negative for unusual rash or pruritis. Vital Signs Vital Signs Past 12 Hours Date Time Temp Pulse Resp B/P (MAP) Pulse Ox O2 Delivery O2 Flow Rate FiO2 05/04/17 12:01 36.7 99 18 133/79 (97) 95 05/04/17 09:41 Room Air 05/04/17 07:58 37.0 140 18 149/82 (104) 90 05/04/17 04:31 36.7 120 20 142/94 (110) 91 Room Air Physical Exam Constitutional: vitals are stable. Eyes: Eyes are ANÍBAL EOMI without conjuctival erythema or icterus. ENT: External examination was negative for masses. Neck: Negative for masses or palpable thyromegaly Respiratory: Lung sounds were generally clear bilaterally Cardiovascular: Heart was IRRR without significant murmur, gallops or rubs Gastrointestinal: No palpable hepatic or splenomegaly. The abdomen was soft with normal bowel sounds. Lymphatic system: there was no palpable peripheral lymphadenopathy Musculoskeletal System: The musculoskeletal system seemed concordant with age. Skin: The skin was negative for jaundice. Neurologic exam: The exam was negative for any focal findings. Deep tendon reflexes were equal and symmetrical. Psychiatric exam: Was essentially negative with normal mood and effect. Extremities: negative for significant edema Laboratory Last 24 Hours Test 05/03/17 16:23 05/03/17 19:54 05/04/17 07:02 05/04/17 08:13 Bedside Glucose 134 mg/dl 119 mg/dl 122 mg/dl White Blood Count 3.61 K/uL Red Blood Count 2.74 M/uL Hemoglobin 8.7 g/dL Hematocrit 26.6 % Mean Corpuscular Volume 97.1 fL Mean Corpuscular Hemoglobin 31.8 pg Mean Corpuscular Hemoglobin Concent 32.7 g/dl RDW Standard Deviation 71.1 fL RDW Coefficient of Variation 20.9 % Platelet Count 127 K/uL Mean Platelet Volume 10.7 fL Nucleated RBC Absolute Count (auto) 0.12 K/uL Nucleated Red Blood Cells % 3.4 % Sodium Level 137 mmol/L Potassium Level 3.9 mmol/L Chloride Level 104 mmol/L Carbon Dioxide Level 23 mmol/L Anion Gap 11.0 mmol/L Blood Urea Nitrogen 17 mg/dl Creatinine 0.79 mg/dl Est Creatinine Clear Calc Drug Dose 97.6 ml/min Estimated GFR () 107.7 Estimated GFR (Non- 92.9 BUN/Creatinine Ratio 21.9 Random Glucose 116 mg/dl Calcium Level 9.4 mg/dl Test 05/04/17 11:55 05/04/17 15:27 Bedside Glucose 122 mg/dl Assessment & Plan The patient seems to be doing well and is being readied for discharge. I reviewed with he and his the diagnosis seen on the bone marrow that is being read as being replaced with adenocarcinoma. Special stains are still pending and those may not be available today. Special stains will include stains that will try to sort through this cancers origin. I presume that this will be metastatic breast carcinoma. To that end I would like to try to preemptively treat this problem. I will asked the patient to begin tamoxifen 20 mg a day. A prescription was given to the patient for this. He does feel he is familiar with this drug and that he had taken it for 5 years and completed a 5 or 6 years ago. I reviewed the major potential side effects of hot flashes as well as up to 1-2% chance of blood clots. We will arrange for follow-up in our clinic to occur next week. Follow-up will then finalize the results of the bone marrow biopsy as well as any intentions in regards to addition of systemic chemotherapy.
--- NOTE | 2017-05-04 16:03 | Cardiology Follow-Up ---
Subjective Date of Service: May 04, 2017. Pt evaluation today including: conversation w/ patient, conversation w/ family , physical exam, lab review, review of studies, review of inpatient medication list, conversation w/ attending History of Present Illness Mr. Shine feels well today general, obviously disappointed in the results of this testing. He is not having any cardiovascular complaints but reports that his leg swelling has been worsening over the last several weeks. Social History Smoking Status: Never Smoker History of Alcohol Use: No Review of Systems Respiratory: + dyspnea on exertion, No cough, No sputum, No wheezing, No shortness of breath, No dyspnea at rest, No hemoptysis Cardiac: No chest pain, No edema, No claudication Medications Cardiovascular: Item Value Date Time Verapamil HCl 180 mg 05/03/17 0800 (Calan-Sr Tab) DAILY/PO 05/04/17 0908 Digoxin 0.25 mg 05/02/17 2000 (Lanoxin Tab) DAILY@1600/PO 05/03/17 1554 Objective Vital Signs Past 12 Hours Date Time Temp Pulse Resp B/P (MAP) Pulse Ox O2 Delivery O2 Flow Rate FiO2 05/04/17 12:01 36.7 99 18 133/79 (97) 95 05/04/17 09:41 Room Air 05/04/17 07:58 37.0 140 18 149/82 (104) 90 05/04/17 04:31 36.7 120 20 142/94 (110) 91 Room Air Last Recorded Weight-Kilograms: 87.600 Intake & Output 8-Hour Column 05/04/17 05/04/17 05/05/17 15:59 23:59 07:59 Intake Total 495 ml Balance 495 ml 24-Hour Column 05/05/17 07:59 Intake Total 495 ml Balance 495 ml Physical Exam Constitutional: Level of Distress: NAD Ambulation: ambulating normally Lungs: Auscultation: breath sounds normal Cardiovascular: Heart Auscultation: tachycardia, irregular rate rhythm Extremities: edema (+2 bilateral) The patient is alert and oriented. Mood and affect appeared normal. He answered all questions appropriately. HEENT: Pupils are equal and reactive to light and accommodation. Extraocular movements are intact. The sclerae are anicteric. Neuro: Cranial nerves intact Neck: Patient's neck is supple. He has palpable carotid pulses bilaterally without bruits on auscultation. There is no evidence of jugular venous distention. The thyroid is not enlarged. Lungs: Clear to auscultation bilaterally. He has good air movement without use of accessory muscles. No rales wheezes or rhonchi. Cardiac: Heart demonstrates an irregular rate and rhythm. Normal S1 and S2. No murmurs on examination. Pulses: The patient has palpable radial pulses bilaterally that are equal in intensity Extremities: There was no evidence of hypoperfusion. There is no cyanosis or clubbing. Mild peripheral edema. Skin: I did not appreciate any rashes on examination today. Data Laboratory Results: Last 24 Hours Test 05/03/17 16:23 05/03/17 19:54 05/04/17 07:02 05/04/17 08:13 Bedside Glucose 134 mg/dl 119 mg/dl 122 mg/dl White Blood Count 3.61 K/uL Red Blood Count 2.74 M/uL Hemoglobin 8.7 g/dL Hematocrit 26.6 % Mean Corpuscular Volume 97.1 fL Mean Corpuscular Hemoglobin 31.8 pg Mean Corpuscular Hemoglobin Concent 32.7 g/dl RDW Standard Deviation 71.1 fL RDW Coefficient of Variation 20.9 % Platelet Count 127 K/uL Mean Platelet Volume 10.7 fL Nucleated RBC Absolute Count (auto) 0.12 K/uL Nucleated Red Blood Cells % 3.4 % Sodium Level 137 mmol/L Potassium Level 3.9 mmol/L Chloride Level 104 mmol/L Carbon Dioxide Level 23 mmol/L Anion Gap 11.0 mmol/L Blood Urea Nitrogen 17 mg/dl Creatinine 0.79 mg/dl Est Creatinine Clear Calc Drug Dose 97.6 ml/min Estimated GFR () 107.7 Estimated GFR (Non- 92.9 BUN/Creatinine Ratio 21.9 Random Glucose 116 mg/dl Calcium Level 9.4 mg/dl Test 05/04/17 11:55 05/04/17 15:27 Bedside Glucose 122 mg/dl Assessment and Plan #1. Atrial fibrillation: Permanent, we are treating with rate control and anticoagulation. As an outpatient he required verapamil 180 mg twice a day for rate control and I would recommend sending him home on that. He should remain on anticoagulation. He should continue his current dose of digoxin. #2. Edema: He has been having worsening of his edema, although on higher doses of verapamil he tended to have that as an outpatient as well. I think he will need to have a diuretic at home, last time I saw him I had avoided that as he was going to try to drink less fluid but that obviously did not work. I would recommend sending home on Lasix 20 mg daily. Thank you for allowing me to participate in his care.
[2017-05-04] MEDS ORDERED: FURO-85 PO (16:07)
[2017-05-04] MEDS ORDERED: NLV/20 PO (16:07)
[2017-05-04 16:52] VITALS: BP 133/79; PULSE 99; TEMP 36.7; O2SAT 95
[2017-05-04] MEDS: DIGOXIN 0.25 MG TAB PO SCH (17:19)
--- NOTE | 2017-05-04 18:14 | Discharge Summary ---
Discharge Summary Date of Service May 04, 2017. (Dawson Ellison MD) Discharge Summary Admission Date: May 02, 2017 at 17:48 Discharge Date: May 04, 2017 Discharge Disposition: Home Principal Diagnosis: Metastatic Breast Cancer Problems/Secondary Diagnoses: Tachycardia Immunizations: Have You Had Influenza Vaccine: No History of Tetanus Vaccine?: Unknown History of Pneumococcal: Unknown History of Hepatitis B Vaccine: No (Dawson Ellison MD) Medication Reconciliation New Medications: Furosemide (Lasix) 20 Mg Tab 1 TAB PO DAILY for 30 Days, #30 TAB 5 Refills Tamoxifen Citrate (Tamoxifen Citrate) 20 Mg Tab 1 TAB PO DAILY for 14 Days, #14 TAB Continued Medications: Albuterol Sulfate (Proair Respiclick) 108 Mcg/Act Aer 2 PUFF INH Q4H PRN for Shortness of Breath Alfuzosin Hcl (Uroxatral) 10 Mg Tab 10 MG PO QPM, TAB Apixaban (Eliquis) 5 Mg Tab 5 MG PO BID, TAB Digoxin (Digoxin) 0.25 Mg Tab 1 TAB PO QAM Ferrous Sulfate (Ferrous Sulfate) 325 Mg Tab 1 TAB PO QAM Fluticasone Propionate (Nasal) (Flonase Allergy Relief) 50 Mcg/Act Spr 1 SPRAY LUBNA QAM Lorazepam (Ativan) 1 Mg Tab 1-2 TAB PO HS, TAB Metformin Hcl (Glucophage) 500 Mg Tab 2 TAB PO BID, TAB Montelukast Sodium (Singulair) 10 Mg Tab 10 MG PO QAM, TAB Omeprazole (Prilosec) 40 Mg Cap 40 MG PO DAILY Pramipexole Dihydrochloride (Pramipexole Dihydrochlori) 0.25 Mg Tab 1 TAB PO HS Tramadol (Ultram) 50 Mg Tab 50 MG PO Q4H PRN for Pain, TAB Verapamil Hcl (Calan Sr Ext Rel) 180 Mg Tab 180 MG PO BID, TAB Discontinued Medications: Alfuzosin HCl (Alfuzosin HCl ER) 10 Mg Tab 10 MG PO QPM Discharge Exam Review of Systems: Constitutional: + weight loss, + fatigue, No fever, No chills, No sweats Respiratory: No cough, No sputum, No wheezing, No shortness of breath Cardiovascular: No chest pain, No palpitations Abdomen: No pain, No nausea, No vomiting, No diarrhea, No constipation Neurologic: No memory loss, No numbness/tingling, No vertigo Physical Exam: General Appearance: WD/WN, no apparent distress Eyes: normal inspection, sclerae normal Respiratory/Chest: chest non-tender, lungs clear, normal breath sounds Cardiovascular: normal peripheral pulses, + tachycardia, + irregularly irregular Abdomen / GI: normal bowel sounds, non tender, soft Extremities: normal inspection, no calf tenderness, + pedal edema, + swelling Neurologic/Psychiatric: alert, normal mood/affect, normal reflexes (Dawson Ellison MD) Hospital Course Patient is a 66 year old male with a history of breast cancer that presented to the ED with an abnormal CT from his family doctor that was performed due to recent weight loss and fatigue. His Chest CT was further concerning for metastatic cancer that at this point is most likely due to metastasis from breast cancer. 1) Metastatic Cancer - Bone Marrow Biopsy revealed adenocarcinoma --> Started on Tamoxifen by Dr. Elmore with plans to follow up in office next week and adjust therapy based on further pathology testing of biopsy - Abdominal CT: 7cm right Paraspinous mass at T9 - CT Chest: Pleural effusions + Lymphadenopathy within chest cavity and concern for widely metastatic blastic skeletal lesions - Previous history of breast cancer s/p mastectomy - Heme/Onc performed bone marrow biopsy of blastic lesions - Respiratory consulted and discussed with patient that if bone marrow biopsy nondiagnostic, can perform thoracentesis of right pleural effusion or bronchoscopy for tissue biopsy of pulmonary nodule - MRI chest ordered for further imaging 2) Atrial Fibrillation --> Currently tachycardic due to non compliance with Verapamil due to lower extremity edema - Patient discharged on 180mg Verapamil BID - Follow up with Cardiology scheduled for 05/26 - Started on 20mg Lasix daily for lower extremity swelling associated with Verapamil - Resumed home Eliquis on discharge (held during admission due to concern over anemia) - Tachycardia may also be related to currently underlying anemia - Refused morning Digoxin (Dig Level Therapeutic on morning lab) 3) Anemia of unknown etiology - Patient states that stools have recently been darker but no gross blood in stools - Hemoglobin now improved to 8.7 on morning labs - Continue to monitor BMP and symptoms 4) Diabetes - Insulin sliding scale 5) BPH - Alfuzosin 6) Hypothyroidism - TSH of 5.1 - T4 pending 7) DVT - Holding Eliquis and Lovenox 8) Code Status - Full Resuscitation Total Time Spent: Greater than 30 minutes This includes examination of the patient, discharge planning, medication reconciliation, and communication with other providers. (Dawson Ellison MD) I agree with resident assessment and plan and have seen and examined pt myself VSS Labs reviewed Pt presents with metastatic breast CA S/P bone marrow bx, f/u as OP Atrial fib, verapmil 180 mg PO BID per cards recs Pt asymptomatic F/U with heme/onc and cards on DC Stable for DC home (Redd Kang D.O.) Discharge Instructions Please refer to the electronic Patient Visit Report (Discharge Instructions) for additional information. (Dawson Ellison MD) Additional Copies To Mike Lepe M.D.
== END 2017-05-04 18:19 | disposition home or self-care (01) | DRG 543 ==
LOC: C.EDB 11:58 → C.4E 17:48 → ENRESERV 19:17
PROVIDERS: ADMIT Internal Medicine; ATTEND Hospitalist
PROC: 07DR3ZX Extraction of Iliac Bone Marrow, Percutaneous Approach, Diagnostic (ICD-10-PCS; principal; 2017-05-03)
DX: C79.52 Secondary malignant neoplasm of bone marrow (principal); J90 Pleural effusion, not elsewhere classified; C79.51 Secondary malignant neoplasm of bone; J45.909 Unspecified asthma, uncomplicated; I48.91 Unspecified atrial fibrillation; Z75.3 Unavailability and inaccessibility of health-care facilities; I10 Essential (primary) hypertension; G47.30 Sleep apnea, unspecified; D64.9 Anemia, unspecified; E03.9 Hypothyroidism, unspecified; E11.9 Type 2 diabetes mellitus without complications; Z79.4 Long term (current) use of insulin; N40.0 Benign prostatic hyperplasia without lower urinary tract symptoms; Z83.3 Family history of diabetes mellitus; Z91.14 Patient's other noncompliance with medication regimen; Z90.10 Acquired absence of unspecified breast and nipple

== ENCOUNTER → 2017-05-30 | Outpatient (CLI) | payer BC ==
[~2017-05-30] MED LIST changes: -ACYC5CRE4 TOP; +FURO-85 PO; +NLV/20 PO; +OMEP40CA41 PO
--- NOTE | 2017-05-30 17:14 | DIAGNOSTIC IMAGING REPORT ---
VENOUS DOPPLER LWR EXT BILA CLINICAL HISTORY: 66 years-old Male presenting with BILATERAL LEG SWELLING,RIGHT GREATER THAN LEFT. TECHNIQUE: Real-time grayscale and color and spectral Doppler ultrasound imaging of the veins of the bilateral lower extremities was performed. Compression and augmentation were also utilized. COMPARISON: None. FINDINGS: Right: Common femoral vein: Patent. Greater saphenous vein: Patent. Deep femoral vein: Patent. Femoral vein: Patent. Popliteal vein: Patent. Calf veins: Patent. Left: Common femoral vein: Patent. Greater saphenous vein: Patent. Deep femoral vein: Patent. Femoral vein: Patent. Popliteal vein: Patent. Calf veins: Patent. Other: None. IMPRESSION: No evidence of deep venous thrombosis. Electronically signed by: Braden Guerrero M.D. 05/30/2017 5:13 PM Dictated Date/Time: 05/30/2017 5:12 PM
== END | disposition home or self-care (01) ==
LOC: C.ULTR 16:37
PROVIDERS: ATTEND Internal Medicine Gastroenterology
DX: M79.89 Other specified soft tissue disorders (principal)

== ENCOUNTER → 2017-06-08 | Outpatient (CLI) | payer BC ==
[~2017-06-08] MED LIST changes: -PRAM0.256 PO; +PRAM0.259 PO
[2017-06-08 14:38] LABS: BASO % 0.5 %; BASO ABS # 0.02 K/uL (0-0.2); EOS % 0.3 %; EOS ABS # 0.01 K/uL (0-0.5); HEMATOCRIT 34.3 % (42-52); HEMOGLOBIN 10.9 g/dL (14.0-18.0); IG# 0.02 K/uL (0.00-0.02); LYMPH % 21.1 %; LYMPH ABS # 0.78 K/uL (1.2-3.4); MEAN CELL VOLUME 104.3 fL (80-100); MEAN CORPUSCULAR HEMOGLOBIN 33.1 pg (25-34); MEAN CORPUSCULAR HGB CONC 31.8 g/dl (32-36); MEAN PLATELET VOLUME 9.5 fL (7.4-10.4); MONO % 8.1 %; NEUT % 69.5 %; NEUT ABS # 2.56 K/uL (1.4-6.5); PLATELET COUNT 168 K/uL (130-400); RED CELL DISTRIBUTION WIDTH CV 18.1 % (11.5-14.5); RED CELL DISTRIBUTION WIDTH SD 69.1 fL (36.4-46.3); WHITE BLOOD COUNT 3.69 K/uL (4.8-10.8)
[2017-06-08 15:10] LABS: ALBUMIN 3.9 gm/dl (3.4-5.0); ALT/SGPT 20 U/L (12-78); AST/SGOT 9 U/L (15-37); BLOOD UREA NITROGEN 19 mg/dl (7-18); CALCIUM 8.4 mg/dl (8.5-10.1); CARBON DIOXIDE 26 mmol/L (21-32); CREATININE 0.63 mg/dl (0.60-1.40); GLUCOSE 108 mg/dl (70-99); POTASSIUM 3.9 mmol/L (3.5-5.1); SODIUM 137 mmol/L (136-145)
[2017-06-08 15:13] LABS: ALKALINE PHOSPHATASE 72 U/L (45-117); TOTAL PROTEIN 6.5 gm/dl (6.4-8.2)
[2017-06-09 04:45] LABS: HEMOGLOBIN A1C 5.3 % (4.5-5.6)
== END | disposition home or self-care (01) ==
LOC: C.LAB 13:31
PROVIDERS: ATTEND Urology
DX: R97.20 Elevated prostate specific antigen [PSA] (principal); I48.91 Unspecified atrial fibrillation; E11.9 Type 2 diabetes mellitus without complications; Z85.3 Personal history of malignant neoplasm of breast

== ENCOUNTER → 2017-09-16 | Outpatient (CLI) | payer BC ==
--- NOTE | 2017-09-16 15:39 | MAMMOGRAPHY REPORT ---
MALE UNILATERAL LEFT DIGITAL SCREENING MAMMOGRAM TOMOSYNTHESIS WITH CAD: 09/16/2017 CLINICAL HISTORY: Asymptomatic. Personal history of breast cancer. TECHNIQUE: Breast tomosynthesis in addition to standard 2D mammography was performed. Current study was also evaluated with a Computer Aided Detection (CAD) system. COMPARISON: Comparison is made to exams dated: 09/10/2016 mammogram, 09/02/2015 mammogram, 08/29/2014 m ammogram, 08/21/2013 mammogram, 07/31/2012 mammogram, and 07/30/2011 mammogram - [facility] enter. BREAST COMPOSITION: The tissue of the left breast is predominantly fatty. FINDINGS: There are no suspicious masses, calcifications, or areas of architectural distortion noted in the left breast. There has been no significant interval change compared to prior exams. Scatter ed benign-appearing calcifications are stable. Status post right mastectomy. IMPRESSION: ACR BI-RADS CATEGORY 2: BENIGN There is no mammographic evidence of malignancy in the left breast. A 1 year screening mammogram is r ecommended. The patient will receive written notification of the results. Approximately 10% of breast cancers are not detected with mammography. A negative mammographic report should not delay biopsy if a clinically suggestive mass is present. Sarah Turcios M.D. ah/:09/16/2017 12:38:07 Storehouse Clerk: Ramya MCKEON(Vonda)(M), [facility] letter sent: Normal 1/2 BI-RADS Code: ACR BI-RADS Category 2: Benign
== END | disposition home or self-care (01) ==
LOC: C.MAMM 11:43
PROVIDERS: ATTEND Internal Medicine Hematology & Oncology
DX: Z12.31 Encounter for screening mammogram for malignant neoplasm of breast (principal); Z85.3 Personal history of malignant neoplasm of breast

== ENCOUNTER → 2017-10-06 | Outpatient (CLI) | payer BC ==
--- NOTE | 2017-10-06 09:27 | DIAGNOSTIC IMAGING REPORT ---
ULTRASOUND SOFT TISSUES NECK CLINICAL HISTORY: Left neck mass. COMPARISON STUDY: CT of the neck dated 09/09/2005. FINDINGS: Real-time, grayscale, and color flow sonography of the soft tissues of the left neck is performed at the indicated site of interest. The finding of palpable concern corresponds to the left submandibular gland. This is normal in appearance and symmetric to the right-sided mandibular gland. Scattered tiny benign-appearing cervical nodes measure up to 4 mm in short axis. IMPRESSION: The finding of palpable concern corresponds to a normal-appearing left submandibular gland. Electronically signed by: Anjum Robbins M.D. 10/06/2017 9:26 AM Dictated Date/Time: 10/06/2017 9:23 AM
== END | disposition home or self-care (01) ==
LOC: C.ULTR 08:51
PROVIDERS: ATTEND Physician Assistant
DX: R22.1 Localized swelling, mass and lump, neck (principal)

== ENCOUNTER → 2017-10-10 | Outpatient (CLI) | payer BC ==
[2017-10-11 07:27] LABS: HEMOGLOBIN A1C 6.5 % (4.5-5.6)
== END | disposition home or self-care (01) ==
LOC: C.LAB 12:31
PROVIDERS: ATTEND Internal Medicine
DX: E11.9 Type 2 diabetes mellitus without complications (principal); D64.9 Anemia, unspecified

== ENCOUNTER 2020-10-20 16:50 | Inpatient (IN) ==
[2020-10-20] MEDS ORDERED: ONDANSETRON INJ 2 MG/ML 2 ML VIAL IV STA (17:12)
[2020-10-20] MEDS ORDERED: SODIUM CHLORIDE 0.9% 1000ML 1,000 ML IV ONE (17:12)
--- NOTE | 2020-10-20 17:21 | Emergency Department Note ---
Impression & Plan Hypotension, SOB (shortness of breath), Acute dehydration, Elevated lactic acid level, Acute hyperglycemia ED Provider Note NAME: YUSUF REYES AGE: 70 SEX: M : 1950 ARRIVES VIA: Ambulance INFORMANT: [Patient][, nursing, ems] ED PROVIDER(S): [Anjum Kerns MD] CHIEF COMPLAINT: Syncope HISTORY OF PRESENT ILLNESS: The patient is a 70-year-old male presents to the ED with complaints of syncope. He presents by EMS. The patient has metastatic breast cancer. He has had a mastectomy. He has mets to his bone and lung. The patient had chemotherapy today. Afterwards, he had a few near syncopal events and then, on the way to the bathroom, had a syncopal event. Luckily, his caught him and there was no trauma. Patient has had some difficulty with his breathing, he has noticed some shortness of breath. It seems to come and go. He denies any chest pain or abdominal pain. He states that he does feel constipated and that was why he was on the way to the bathroom. Patient was told at chemotherapy today that he had a high blood sugar. EMS also confirmed this. The patient felt washed out after chemotherapy but never felt the way feels today. In route, the patient was given 1500 cc of IV saline. He was maintained on nasal cannula oxygen. As per EMS, his blood pressure was 89 over palp in route. As per nursing staff, the patient's O2 saturations were in the mid 80s without oxygen. REVIEW OF SYSTEMS: See HPI for pertinent positives and negatives. A total of ten systems were reviewed and were otherwise negative. PMHx/PSHx: See Below SOCIAL HISTORY: See Below. PHYSICAL EXAM: GENERAL: Patient is in moderate distress, pale. HEENT: No acute trauma, normocephalic atraumatic, mucous membranes dry, no nasal congestion, no scleral icterus. NECK: No stridor, no adenopathy, no meningismus, trachea is midline. LUNGS: Clear to auscultation bilaterally when listening anterior, no wheeze, no rhonchi, breath sounds equal. HEART: No murmurs, bradycardic rate, slightly irregular rhythm. ABDOMEN: Soft, nontender, bowel sounds positive, no hernias, no peritonitis. EXTREMITIES: No cyanosis or edema, full range of motion of all the joints without pain or difficulty, no signs for acute trauma. NEUROLOGIC: Oriented x 3, no acute motor or sensory deficits, no focal weakness. SKIN: No rash, no jaundice, no diaphoresis. Pale. DIFFERENTIAL DIAGNOSIS: Infection, dehydration, metabolic abnormality, chemotherapy reaction, digoxin toxicity, diabetic ketoacidosis, dysrhythmia, CA, sepsis, hypo/hyperglycemia, electrolyte disturbance, anemia, hypoxia, cardiac sources, intracerebral event, toxicologic issues, stroke, TIA, as well as other pathologies. EMERGENCY DEPARTMENT COURSE/PROCEDURES: ECG: Indication was syncope. The ECG shows what appears to be in atrial fibrillation. The rate is 57. There is no ST elevation, there is some nonspecific ST change. No PVCs. The QTc is 399. Compared to an ECG from 02 May 2017, the rate has decreased. Continuous Cardiac Monitoring: An order was placed for continuous cardiac monitoring. The monitor shows a rate of 58 with atrial fibrillation. Critical Care Note: I have personally spent 68 minutes of critical care time in the direct management of this patient. This includes bedside care, interpretation of diagnostic studies, and testing, discussion with consultants, patient, and family members, and other required patient management activities. This 68 minutes is in excess of all separately billable procedures. Central line placement: This procedure was performed by me. The area for the procedure was cleansed sterilely and prepared for the procedure. Lidocaine was used for anesthesia. Sterile technique was employed. Using the Seldinger technique, I was able to cannulate the right femoral vein. Initially, I did strike the femoral artery. Pressure was applied for around 5 minutes with no bleeding afterwards. The vein was accessed with the second stick. All ports did flush well. The line was then sutured into position. I did have a sandbag placed to the right groin to prevent arterial hematoma formation. MEDICAL DECISION MAKING: The patient does have a lower white blood cell count consistent with his chemotherapy. He is anemic with a hemoglobin of around 10. Platelet count slightly low but not in need of emergent correction. A coagulopathy was seen, likely consistent with his Eliquis use. Venous blood gas showed an acidosis with a pH of 7.31. Renal panel testing showed a low sodium at 123. There was some renal insufficiency/dehydration with a slight elevation to the creatinine. An acidosis was suspected with a lower CO2. Glucose was quite high at almost 500. Lactic acid level was quite high at greater than 9. This lactic acid level elevation is consistent with infection and/or dehydration. There was elevation to the liver enzymes consistent with possible shock liver. Digoxin level was not toxic. ECG showed what appears to be an atrial fibrillation. There was a bradycardia noted. No acute ischemic change. Cardiac enzyme testing x1 was not consistent with acute cardiac injury. Urinalysis showed glucose, no infection. Chest film showed elevation to the left hemidiaphragm, there was no pneumonia or CHF. Repeat chest film during his stay showed similar findings. Covid and influenza testing returned negative. The patient presented quite ill. He was hypotensive. He received IV saline 1 L. This made for a total of 2.5 L when you include the prehospital fluid hydration. He was written for an additional 500 cc IV lactated Ringer's bolus. He was given IV insulin as a bolus and eventually placed on an insulin drip. He was placed on IV Levophed because of the persistently low blood pressure. He received IV Zofran for nausea. Patient was given IV cefepime and IV daptomycin for empiric antibiotic coverage. He was placed on BiPAP. The patient did seem to show improvement with the above treatment. I did place a right femoral central line as noted in the procedure section. I spoke to the patient's and to the patient at length. For now, he will be a full code. They may consider changing the resuscitation status if the patient gets worse despite aggressive measures. I did speak with the on-call head tennis coach. I spoke with the on-call hospitalist. Case management has been involved. In short, the patient has made improvement with the care provided in the ER. His blood pressure is now about 130 systolic. His heart rate has increased. He feels less short of breath and seems in less distress since being placed on BiPAP. His color has improved with his ED resuscitation. The patient was transferred to the intensive care unit. The reasons for his presentation today are not completely clear. Further work-up is required. Past Med/Surg History Medical History Anxiety Asthma Atrial fibrillation On Eliquis BPH (benign prostatic hyperplasia) Depression Diabetes mellitus, type 2 NIDDM Dyspnea oxygen prn GERD (gastroesophageal reflux disease) Hyperlipidemia Hypertension Hypothyroid Metastasis from breast cancer to the bone currently. starting chemotherapy 10/13/20. Metastatic malignant neoplasm to breast rt breast ca - 2005 - s/p mastectomy and chemo - apr 2017 dx w/ mets to bone, follows with oncology, on Tamoxifen and receiving immunotherapy injections monthly. On anticoagulant therapy On home oxygen therapy 2lpm via n/c -- uses only as needed Paralyzed hemidiaphragm with restrictive lung disease Restless leg syndrome Sleep apnea CPAP nightly Surgical History H/O mastectomy (~2005) History of cardioversion History of colonoscopy (~2016) History of esophagogastroduodenoscopy (EGD) (~2016) History of prostate surgery History of removal of Port-a-Cath History of surgery History of tonsillectomy History of tooth extraction S/P repair of hydrocele Family History Father Diabetes Heart disease Myocardial infarction Colorectal cancer Brother Diabetes Colorectal cancer Hypertension Mother Nephrolithiasis Colorectal cancer Other Asthma Cardiac disorder No family history of adverse response to anesthesia Denies family history of Ovarian cancer Prostate cancer Breast cancer Social History Smoking Status: Never smoker Second Hand Exposure: No; Hx Alcohol Use: No Hx Substance Use: No Preferred Language: Slovak Communication Ability: Effective Visual Impairment: No Limitations Clinical Evaluator Required: No Beliefs That Will Affect Care: None Current Living Situation: Spouse current occupational status: employed current occupation: [employer] Feels Safe at Home: Yes Assistive Devices: Cane, CPAP, Glasses and Walker Allergies Allergies Allergy/AdvReac Type Severity Reaction Status Date / Time No Known Drug Allergies Allergy Verified 10/20/20 19:10 Home Meds Home Medications Medication Instructions Recorded Confirmed furosemide 40 mg tablet 40 mg PO DAILY PRN #30 tab 01/11/19 10/20/20 denosumab 120 mg/1.7 mL (70 mg/mL) 120 mg SQ Q4WK ml 04/03/19 10/20/20 subcutaneous solution letrozole 2.5 mg tablet 2.5 mg PO QAM 04/03/19 10/20/20 gabapentin 300 mg capsule 300 mg PO TID 01/24/20 10/20/20 oxycodone-acetaminophen 5 mg-325 1 tab PO Q8H PRN 10/07/20 10/20/20 mg tablet fluticasone propionate 1 spray INTRANASAL QAM 10/08/20 10/20/20 furosemide [Lasix] 20 mg PO QAM 10/08/20 10/20/20 leuprolide [Lupron Depot] 3.75 mg IM Q90D 10/08/20 10/20/20 levothyroxine 50 mcg PO QAM 10/08/20 10/20/20 omeprazole 20 mg PO QAM 10/08/20 10/20/20 pramipexole 0.25 mg PO HS 10/08/20 10/20/20 rosuvastatin 5 mg PO HS 10/08/20 10/20/20 verapamil 180 mg PO HS 10/08/20 10/20/20 fentanyl 12 mcg TRANSDERMAL Q3D 10/20/20 10/20/20 Previous Rx's Medication Instructions Recorded blood-glucose meter #1 ea 11/09/19 metoprolol succinate 50 mg 50 mg PO QAM #90 tab 12/03/19 tablet,extended release 24 hr ferrous sulfate 325 mg (65 mg 325 mg PO QAM #90 tab 02/27/20 iron) tablet lancets 33 gauge #100 ea 03/10/20 apixaban 5 mg tablet 5 mg PO BID #180 tab 04/09/20 digoxin 250 mcg (0.25 mg) tablet 250 mcg PO QAM #90 tab 04/14/20 glipizide 10 mg tablet 10 mg PO BID #60 tab 05/22/20 albuterol sulfate 90 mcg/actuation 2 puff INHALATION Q4H PRN #1 07/04/20 aerosol inhaler inhaler blood sugar diagnostic #200 ea 07/11/20 lorazepam 1 mg tablet 1 mg PO TID PRN #90 tab 07/23/20 metformin 1,000 mg tablet,extended 1,000 mg PO BID #60 tab 09/15/20 release 24hr montelukast 10 mg tablet 10 mg PO QAM #30 tab 10/06/20 Results & Data (ED) Vital Signs Vital Signs - 24 hr 10/20/20 17:06 10/20/20 17:12 10/20/20 17:14 Temperature Temperature Source Pulse Rate 56 L 56 L Pulse Rate [Right Finger] Pulse Rate from SpO2 Sensor 57 L 56 L Pulse Rhythm Pulse Strength Respiratory Rate 27 H 28 H Respiratory Effort / Characteristics Respiratory Depth Respiratory Pattern Blood Pressure 77/52 L Blood Pressure [Right Arm] Blood Pressure Mean 60 Blood Pressure Mean [Right Arm] Blood Pressure Position Blood Pressure Position [Right Arm] Pulse Oximetry 96 96 93 Oxygen Delivery Method Nasal Cannula Oxygen Flow Rate 3 3 3 Fraction of Inspired Oxygen Sepsis Recent Fever Within 48 Hours Sepsis New/Unexplained Change in Mental Status Sepsis Action Taken by Nursing 10/20/20 17:20 10/20/20 17:22 10/20/20 17:30 Temperature Temperature Source Pulse Rate 56 L 56 L 56 L Pulse Rate [Right Finger] Pulse Rate from SpO2 Sensor 55 L 56 L 56 L Pulse Rhythm Pulse Strength Respiratory Rate 24 24 26 H Respiratory Effort / Characteristics Respiratory Depth Respiratory Pattern Blood Pressure Blood Pressure [Right Arm] Blood Pressure Mean 57 Blood Pressure Mean [Right Arm] Blood Pressure Position Blood Pressure Position [Right Arm] Pulse Oximetry 93 94 98 Oxygen Delivery Method Nasal Cannula Oxygen Flow Rate 3 3 Fraction of Inspired Oxygen Sepsis Recent Fever Within 48 Hours Sepsis New/Unexplained Change in Mental Status Sepsis Action Taken by Nursing 10/20/20 17:38 10/20/20 17:41 10/20/20 17:50 Temperature 36.5 C Temperature Source Oral Pulse Rate 52 L 55 L 57 L Pulse Rate [Right Finger] Pulse Rate from SpO2 Sensor 55 L 57 L Pulse Rhythm Regular Pulse Strength Normal Respiratory Rate 25 H 35 H 23 Respiratory Effort / Characteristics Labored Respiratory Depth Normal Respiratory Pattern Regular Blood Pressure 77/52 L Blood Pressure [Right Arm] Blood Pressure Mean 60 Blood Pressure Mean [Right Arm] Blood Pressure Position Sitting Blood Pressure Position [Right Arm] Pulse Oximetry 96 96 97 Oxygen Delivery Method Room Air Oxygen Flow Rate 3 Fraction of Inspired Oxygen Sepsis Recent Fever Within 48 Hours No Sepsis New/Unexplained Change in Mental Status No Sepsis Action Taken by Nursing Physician Notified 10/20/20 18:00 10/20/20 18:04 10/20/20 18:10 Temperature Temperature Source Pulse Rate 60 60 60 Pulse Rate [Right Finger] Pulse Rate from SpO2 Sensor 61 60 Pulse Rhythm Pulse Strength Respiratory Rate 33 H 32 H 28 H Respiratory Effort / Characteristics Spontaneous Short of Breath Respiratory Depth Normal Respiratory Pattern Tachypnea Blood Pressure 111/82 Blood Pressure [Right Arm] Blood Pressure Mean 91 Blood Pressure Mean [Right Arm] Blood Pressure Position Blood Pressure Position [Right Arm] Pulse Oximetry 98 97 100 Oxygen Delivery Method Oxygen Flow Rate Fraction of Inspired Oxygen 50 Sepsis Recent Fever Within 48 Hours Sepsis New/Unexplained Change in Mental Status Sepsis Action Taken by Nursing 10/20/20 18:11 10/20/20 18:17 10/20/20 18:20 Temperature Temperature Source Pulse Rate 61 60 61 Pulse Rate [Right Finger] Pulse Rate from SpO2 Sensor 62 Pulse Rhythm Pulse Strength Respiratory Rate 22 32 H 33 H Respiratory Effort / Characteristics Respiratory Depth Respiratory Pattern Blood Pressure 116/78 132/97 Blood Pressure [Right Arm] Blood Pressure Mean 90 108 Blood Pressure Mean [Right Arm] Blood Pressure Position Blood Pressure Position [Right Arm] Pulse Oximetry 92 Oxygen Delivery Method BiPAP Oxygen Flow Rate Fraction of Inspired Oxygen 50 Sepsis Recent Fever Within 48 Hours Sepsis New/Unexplained Change in Mental Status Sepsis Action Taken by Nursing 10/20/20 18:30 10/20/20 18:32 10/20/20 18:40 Temperature Temperature Source Pulse Rate 61 61 61 Pulse Rate [Right Finger] Pulse Rate from SpO2 Sensor 63 61 61 Pulse Rhythm Pulse Strength Respiratory Rate 29 H 24 27 H Respiratory Effort / Characteristics Respiratory Depth Respiratory Pattern Blood Pressure 123/83 Blood Pressure [Right Arm] Blood Pressure Mean 96 Blood Pressure Mean [Right Arm] Blood Pressure Position Blood Pressure Position [Right Arm] Pulse Oximetry 100 99 96 Oxygen Delivery Method BiPAP Oxygen Flow Rate Fraction of Inspired Oxygen 50 Sepsis Recent Fever Within 48 Hours Sepsis New/Unexplained Change in Mental Status Sepsis Action Taken by Nursing 10/20/20 18:47 10/20/20 18:50 10/20/20 19:55 Temperature Temperature Source Pulse Rate 61 61 Pulse Rate [Right Finger] 67 Pulse Rate from SpO2 Sensor 61 62 Pulse Rhythm Pulse Strength Respiratory Rate 28 H 27 H 16 Respiratory Effort / Characteristics Respiratory Depth Normal Respiratory Pattern Blood Pressure 128/72 137/109 H Blood Pressure [Right Arm] 131/81 Blood Pressure Mean 90 118 Blood Pressure Mean [Right Arm] 97 Blood Pressure Position Blood Pressure Position [Right Arm] Lying Pulse Oximetry 100 99 100 Oxygen Delivery Method Room Air BiPAP Oxygen Flow Rate Fraction of Inspired Oxygen Sepsis Recent Fever Within 48 Hours Sepsis New/Unexplained Change in Mental Status Sepsis Action Taken by Custodial Medications Current Medication List: was personally reviewed by me Laboratory Data Attestation: I reviewed the patient's lab results. Result diagrams: 10/20/20 17:03 10/20/20 21:51 Lab Results 10/20/20 10/20/20 10/20/20 Range/Units 17:03 17:03 17:03 WBC 2.38 L (4.8-10.8) K/uL RBC 2.94 L (4.7-6.1) M/uL Hgb 9.8 L (14.0-18.0) g/dL POC Hgb (14.0-18.0) g/dl Hct 29.9 L (42-52) % POC Hct (42-52) % MCV 101.7 H (80-100) fL MCH 33.3 (25-34) pg MCHC 32.8 (32-36) g/dL RDW Std Deviation 73.7 H (36.4-46.3) fL RDW Coeff of Yovany 19.7 H (11.5-14.5) % Plt Count 128 L (130-400) K/uL MPV 10.8 H (7.4-10.4) fL Immature Gran % (Auto) 1.3 % Neut % (Auto) 43.3 % Lymph % (Auto) 43.3 % [place] % (Auto) 11.3 % Eos % (Auto) 0.0 % Baso % (Auto) 0.8 % Neut # (Auto) 1.03 L (1.4-6.5) K/uL Lymph # (Auto) 1.03 L (1.2-3.4) K/uL [place] # (Auto) 0.27 (0.11-0.59) K/uL Eos # (Auto) 0.00 (0-0.5) K/uL Baso # (Auto) 0.02 (0-0.2) K/uL Immature Gran # (Auto) 0.03 H (0.00-0.02) K/uL Absolute Nucleated RBC 0.38 H (0-0) K/uL Nucleated RBC % (auto) 16.0 % Polychromasia 1+ PT 15.3 H (9.0-12.0) Seconds INR 1.6 H (0.9-1.1) APTT (21.0-31.0) Seconds PTT Ratio VBG pH (7.36-7.41) VBG pCO2 (38-50) mmHg VBG pO2 mmHg VBG HCO3 mmol/L VBG O2 Saturation % VBG Base Excess mEq/L Barometric Pressure mm/Hg POC Sodium (135-144) mmol/L Sodium 126 L (136-145) mmol/L POC Potassium (3.3-5.0) mmol/L Potassium 5.6 H D (3.5-5.1) mmol/L POC Chloride (101-112) mmol/L Chloride 93 L (98-107) mmol/L Carbon Dioxide 20 L (21-32) mmol/L POC Total CO2 (24-31) mmol/L Anion Gap 13.0 H (3-11) POC Anion Gap (16-25) mmol/L POC BUN (7-18) mg/dl BUN 18 (7-18) mg/dl Creatinine 1.45 H D (0.6-1.4) mg/dl POC Creatinine (0.6-1.3) mg/dl Est Cr Clr Drug Dosing 57.4 ml/min Est GFR ( Amer) 55.8 Est GFR (Non-Af Amer) 48.1 BUN/Creatinine Ratio 12.5 (10-20) Glucose 494 H* (70-99) mg/dl POC Glucose (70-99) mg/dl POC Glucose (other) (70-99) mg/dl Lactate (0.4-2.0) mmol/L Calcium 7.9 L (8.5-10.1) mg/dl POC Ioniz Calcium [place] (1.12-1.32) mmol/l Phosphorus 5.6 H (2.5-4.9) mg/dl Magnesium 2.1 (1.8-2.4) mg/dl Total Bilirubin 2.5 H D (0.2-1) mg/dl AST 121 H (15-37) U/L ALT 96 H (12-78) U/L Alkaline Phosphatase 151 H (45-117) U/L Troponin I < 0.015 (0-0.045) ng/ml Total Protein 5.0 L D (6.4-8.2) gm/dl Albumin 2.4 L (3.4-5.0) gm/dl Globulin 2.6 (2.5-4.0) gm/dl Albumin/Globulin Ratio 0.9 (0.9-2) Beta-Hydroxybutyric Acd TNP Procalcitonin (0-0.5) ng/ml TSH 2.170 (0.300-4.500) uIu/ml Random Cortisol mcg/dl Digoxin (0.8-2.0) ng/ml COVID-19 Eval Order SARS-CoV-2 (PCR) (Negative) Influenza Type A (PCR) (Neg) Influenza Type B (PCR) (Neg) RSV (RT-PCR) (Neg) 10/20/20 10/20/20 10/20/20 Range/Units 17:03 17:03 17:03 WBC (4.8-10.8) K/uL RBC (4.7-6.1) M/uL Hgb (14.0-18.0) g/dL POC Hgb (14.0-18.0) g/dl Hct (42-52) % POC Hct (42-52) % MCV (80-100) fL MCH (25-34) pg MCHC (32-36) g/dL RDW Std Deviation (36.4-46.3) fL RDW Coeff of Yovany (11.5-14.5) % Plt Count (130-400) K/uL MPV (7.4-10.4) fL Immature Gran % (Auto) % Neut % (Auto) % Lymph % (Auto) % [place] % (Auto) % Eos % (Auto) % Baso % (Auto) % Neut # (Auto) (1.4-6.5) K/uL Lymph # (Auto) (1.2-3.4) K/uL [place] # (Auto) (0.11-0.59) K/uL Eos # (Auto) (0-0.5) K/uL Baso # (Auto) (0-0.2) K/uL Immature Gran # (Auto) (0.00-0.02) K/uL Absolute Nucleated RBC (0-0) K/uL Nucleated RBC % (auto) % Polychromasia PT (9.0-12.0) Seconds INR (0.9-1.1) APTT 28.6 (21.0-31.0) Seconds PTT Ratio 1.1 VBG pH (7.36-7.41) VBG pCO2 (38-50) mmHg VBG pO2 mmHg VBG HCO3 mmol/L VBG O2 Saturation % VBG Base Excess mEq/L Barometric Pressure mm/Hg POC Sodium (135-144) mmol/L Sodium (136-145) mmol/L POC Potassium (3.3-5.0) mmol/L Potassium (3.5-5.1) mmol/L POC Chloride (101-112) mmol/L Chloride (98-107) mmol/L Carbon Dioxide (21-32) mmol/L POC Total CO2 (24-31) mmol/L Anion Gap (3-11) POC Anion Gap (16-25) mmol/L POC BUN (7-18) mg/dl BUN (7-18) mg/dl Creatinine (0.6-1.4) mg/dl POC Creatinine (0.6-1.3) mg/dl Est Cr Clr Drug Dosing ml/min Est GFR ( Amer) Est GFR (Non-Af Amer) BUN/Creatinine Ratio (10-20) Glucose (70-99) mg/dl POC Glucose (70-99) mg/dl POC Glucose (other) (70-99) mg/dl Lactate (0.4-2.0) mmol/L Calcium (8.5-10.1) mg/dl POC Ioniz Calcium [place] (1.12-1.32) mmol/l Phosphorus (2.5-4.9) mg/dl Magnesium (1.8-2.4) mg/dl Total Bilirubin (0.2-1) mg/dl AST (15-37) U/L ALT (12-78) U/L Alkaline Phosphatase (45-117) U/L Troponin I (0-0.045) ng/ml Total Protein (6.4-8.2) gm/dl Albumin (3.4-5.0) gm/dl Globulin (2.5-4.0) gm/dl Albumin/Globulin Ratio (0.9-2) Beta-Hydroxybutyric Acd Procalcitonin 0.28 (0-0.5) ng/ml TSH (0.300-4.500) uIu/ml Random Cortisol mcg/dl Digoxin 1.2 (0.8-2.0) ng/ml COVID-19 Eval Order SARS-CoV-2 (PCR) (Negative) Influenza Type A (PCR) (Neg) Influenza Type B (PCR) (Neg) RSV (RT-PCR) (Neg) 10/20/20 10/20/20 10/20/20 Range/Units 17:15 17:19 17:46 WBC (4.8-10.8) K/uL RBC (4.7-6.1) M/uL Hgb (14.0-18.0) g/dL POC Hgb 10.2 L (14.0-18.0) g/dl Hct (42-52) % POC Hct 30 L (42-52) % MCV (80-100) fL MCH (25-34) pg MCHC (32-36) g/dL RDW Std Deviation (36.4-46.3) fL RDW Coeff of Yovany (11.5-14.5) % Plt Count (130-400) K/uL MPV (7.4-10.4) fL Immature Gran % (Auto) % Neut % (Auto) % Lymph % (Auto) % [place] % (Auto) % Eos % (Auto) % Baso % (Auto) % Neut # (Auto) (1.4-6.5) K/uL Lymph # (Auto) (1.2-3.4) K/uL [place] # (Auto) (0.11-0.59) K/uL Eos # (Auto) (0-0.5) K/uL Baso # (Auto) (0-0.2) K/uL Immature Gran # (Auto) (0.00-0.02) K/uL Absolute Nucleated RBC (0-0) K/uL Nucleated RBC % (auto) % Polychromasia PT (9.0-12.0) Seconds INR (0.9-1.1) APTT (21.0-31.0) Seconds PTT Ratio VBG pH (7.36-7.41) VBG pCO2 (38-50) mmHg VBG pO2 mmHg VBG HCO3 mmol/L VBG O2 Saturation % VBG Base Excess mEq/L Barometric Pressure mm/Hg POC Sodium 123 L (135-144) mmol/L Sodium (136-145) mmol/L POC Potassium 5.4 H (3.3-5.0) mmol/L Potassium (3.5-5.1) mmol/L POC Chloride 91 L (101-112) mmol/L Chloride (98-107) mmol/L Carbon Dioxide (21-32) mmol/L POC Total CO2 20 L (24-31) mmol/L Anion Gap (3-11) POC Anion Gap 19.0 (16-25) mmol/L POC BUN 20 H (7-18) mg/dl BUN (7-18) mg/dl Creatinine (0.6-1.4) mg/dl POC Creatinine 1.1 (0.6-1.3) mg/dl Est Cr Clr Drug Dosing ml/min Est GFR ( Amer) Est GFR (Non-Af Amer) BUN/Creatinine Ratio (10-20) Glucose (70-99) mg/dl POC Glucose 516 H* (70-99) mg/dl POC Glucose (other) 482 H* (70-99) mg/dl Lactate (0.4-2.0) mmol/L Calcium (8.5-10.1) mg/dl POC Ioniz Calcium [place] 1.01 L (1.12-1.32) mmol/l Phosphorus (2.5-4.9) mg/dl Magnesium (1.8-2.4) mg/dl Total Bilirubin (0.2-1) mg/dl AST (15-37) U/L ALT (12-78) U/L Alkaline Phosphatase (45-117) U/L Troponin I (0-0.045) ng/ml Total Protein (6.4-8.2) gm/dl Albumin (3.4-5.0) gm/dl Globulin (2.5-4.0) gm/dl Albumin/Globulin Ratio (0.9-2) Beta-Hydroxybutyric Acd Procalcitonin (0-0.5) ng/ml TSH (0.300-4.500) uIu/ml Random Cortisol mcg/dl Digoxin (0.8-2.0) ng/ml COVID-19 Eval Order CovFluRsv at [facility] SARS-CoV-2 (PCR) (Negative) Influenza Type A (PCR) (Neg) Influenza Type B (PCR) (Neg) RSV (RT-PCR) (Neg) 10/20/20 10/20/20 10/20/20 Range/Units 17:46 17:56 18:18 WBC (4.8-10.8) K/uL RBC (4.7-6.1) M/uL Hgb (14.0-18.0) g/dL POC Hgb (14.0-18.0) g/dl Hct (42-52) % POC Hct (42-52) % MCV (80-100) fL MCH (25-34) pg MCHC (32-36) g/dL RDW Std Deviation (36.4-46.3) fL RDW Coeff of Yovany (11.5-14.5) % Plt Count (130-400) K/uL MPV (7.4-10.4) fL Immature Gran % (Auto) % Neut % (Auto) % Lymph % (Auto) % [place] % (Auto) % Eos % (Auto) % Baso % (Auto) % Neut # (Auto) (1.4-6.5) K/uL Lymph # (Auto) (1.2-3.4) K/uL [place] # (Auto) (0.11-0.59) K/uL Eos # (Auto) (0-0.5) K/uL Baso # (Auto) (0-0.2) K/uL Immature Gran # (Auto) (0.00-0.02) K/uL Absolute Nucleated RBC (0-0) K/uL Nucleated RBC % (auto) % Polychromasia PT (9.0-12.0) Seconds INR (0.9-1.1) APTT (21.0-31.0) Seconds PTT Ratio VBG pH 7.20 L (7.36-7.41) VBG pCO2 46 (38-50) mmHg VBG pO2 46 mmHg VBG HCO3 17 mmol/L VBG O2 Saturation 72.6 % VBG Base Excess -10.2 mEq/L Barometric Pressure 732.3 mm/Hg POC Sodium (135-144) mmol/L Sodium (136-145) mmol/L POC Potassium (3.3-5.0) mmol/L Potassium (3.5-5.1) mmol/L POC Chloride (101-112) mmol/L Chloride (98-107) mmol/L Carbon Dioxide (21-32) mmol/L POC Total CO2 (24-31) mmol/L Anion Gap (3-11) POC Anion Gap (16-25) mmol/L POC BUN (7-18) mg/dl BUN (7-18) mg/dl Creatinine (0.6-1.4) mg/dl POC Creatinine (0.6-1.3) mg/dl Est Cr Clr Drug Dosing ml/min Est GFR ( Amer) Est GFR (Non-Af Amer) BUN/Creatinine Ratio (10-20) Glucose (70-99) mg/dl POC Glucose (70-99) mg/dl POC Glucose (other) (70-99) mg/dl Lactate 9.4 H* (0.4-2.0) mmol/L Calcium (8.5-10.1) mg/dl POC Ioniz Calcium [place] (1.12-1.32) mmol/l Phosphorus (2.5-4.9) mg/dl Magnesium (1.8-2.4) mg/dl Total Bilirubin (0.2-1) mg/dl AST (15-37) U/L ALT (12-78) U/L Alkaline Phosphatase (45-117) U/L Troponin I (0-0.045) ng/ml Total Protein (6.4-8.2) gm/dl Albumin (3.4-5.0) gm/dl Globulin (2.5-4.0) gm/dl Albumin/Globulin Ratio (0.9-2) Beta-Hydroxybutyric Acd Procalcitonin (0-0.5) ng/ml TSH (0.300-4.500) uIu/ml Random Cortisol mcg/dl Digoxin (0.8-2.0) ng/ml COVID-19 Eval Order SARS-CoV-2 (PCR) NEGATIVE (Negative) Influenza Type A (PCR) Negative (Neg) Influenza Type B (PCR) Negative (Neg) RSV (RT-PCR) Negative (Neg) 10/20/20 10/20/20 10/20/20 Range/Units 18:39 18:56 19:02 WBC (4.8-10.8) K/uL RBC (4.7-6.1) M/uL Hgb (14.0-18.0) g/dL POC Hgb 9.2 L (14.0-18.0) g/dl Hct (42-52) % POC Hct 27 L (42-52) % MCV (80-100) fL MCH (25-34) pg MCHC (32-36) g/dL RDW Std Deviation (36.4-46.3) fL RDW Coeff of Yovany (11.5-14.5) % Plt Count (130-400) K/uL MPV (7.4-10.4) fL Immature Gran % (Auto) % Neut % (Auto) % Lymph % (Auto) % [place] % (Auto) % Eos % (Auto) % Baso % (Auto) % Neut # (Auto) (1.4-6.5) K/uL Lymph # (Auto) (1.2-3.4) K/uL [place] # (Auto) (0.11-0.59) K/uL Eos # (Auto) (0-0.5) K/uL Baso # (Auto) (0-0.2) K/uL Immature Gran # (Auto) (0.00-0.02) K/uL Absolute Nucleated RBC (0-0) K/uL Nucleated RBC % (auto) % Polychromasia PT (9.0-12.0) Seconds INR (0.9-1.1) APTT (21.0-31.0) Seconds PTT Ratio VBG pH (7.36-7.41) VBG pCO2 (38-50) mmHg VBG pO2 mmHg VBG HCO3 mmol/L VBG O2 Saturation % VBG Base Excess mEq/L Barometric Pressure mm/Hg POC Sodium 127 L (135-144) mmol/L Sodium (136-145) mmol/L POC Potassium 4.9 (3.3-5.0) mmol/L Potassium (3.5-5.1) mmol/L POC Chloride 93 L (101-112) mmol/L Chloride (98-107) mmol/L Carbon Dioxide (21-32) mmol/L POC Total CO2 19 L (24-31) mmol/L Anion Gap (3-11) POC Anion Gap 21.0 (16-25) mmol/L POC BUN 19 H (7-18) mg/dl BUN (7-18) mg/dl Creatinine (0.6-1.4) mg/dl POC Creatinine 1.3 (0.6-1.3) mg/dl Est Cr Clr Drug Dosing ml/min Est GFR ( Amer) Est GFR (Non-Af Amer) BUN/Creatinine Ratio (10-20) Glucose (70-99) mg/dl POC Glucose 449 H* (70-99) mg/dl POC Glucose (other) 427 H* (70-99) mg/dl Lactate (0.4-2.0) mmol/L Calcium (8.5-10.1) mg/dl POC Ioniz Calcium [place] 1.06 L (1.12-1.32) mmol/l Phosphorus (2.5-4.9) mg/dl Magnesium (1.8-2.4) mg/dl Total Bilirubin (0.2-1) mg/dl AST (15-37) U/L ALT (12-78) U/L Alkaline Phosphatase (45-117) U/L Troponin I (0-0.045) ng/ml Total Protein (6.4-8.2) gm/dl Albumin (3.4-5.0) gm/dl Globulin (2.5-4.0) gm/dl Albumin/Globulin Ratio (0.9-2) Beta-Hydroxybutyric Acd Procalcitonin (0-0.5) ng/ml TSH (0.300-4.500) uIu/ml Random Cortisol 57.18 mcg/dl Digoxin (0.8-2.0) ng/ml COVID-19 Eval Order SARS-CoV-2 (PCR) (Negative) Influenza Type A (PCR) (Neg) Influenza Type B (PCR) (Neg) RSV (RT-PCR) (Neg) 10/20/20 Range/Units 19:40 WBC (4.8-10.8) K/uL RBC (4.7-6.1) M/uL Hgb (14.0-18.0) g/dL POC Hgb (14.0-18.0) g/dl Hct (42-52) % POC Hct (42-52) % MCV (80-100) fL MCH (25-34) pg MCHC (32-36) g/dL RDW Std Deviation (36.4-46.3) fL RDW Coeff of Yovany (11.5-14.5) % Plt Count (130-400) K/uL MPV (7.4-10.4) fL Immature Gran % (Auto) % Neut % (Auto) % Lymph % (Auto) % [place] % (Auto) % Eos % (Auto) % Baso % (Auto) % Neut # (Auto) (1.4-6.5) K/uL Lymph # (Auto) (1.2-3.4) K/uL [place] # (Auto) (0.11-0.59) K/uL Eos # (Auto) (0-0.5) K/uL Baso # (Auto) (0-0.2) K/uL Immature Gran # (Auto) (0.00-0.02) K/uL Absolute Nucleated RBC (0-0) K/uL Nucleated RBC % (auto) % Polychromasia PT (9.0-12.0) Seconds INR (0.9-1.1) APTT (21.0-31.0) Seconds PTT Ratio VBG pH (7.36-7.41) VBG pCO2 (38-50) mmHg VBG pO2 mmHg VBG HCO3 mmol/L VBG O2 Saturation % VBG Base Excess mEq/L Barometric Pressure mm/Hg POC Sodium (135-144) mmol/L Sodium (136-145) mmol/L POC Potassium (3.3-5.0) mmol/L Potassium (3.5-5.1) mmol/L POC Chloride (101-112) mmol/L Chloride (98-107) mmol/L Carbon Dioxide (21-32) mmol/L POC Total CO2 (24-31) mmol/L Anion Gap (3-11) POC Anion Gap (16-25) mmol/L POC BUN (7-18) mg/dl BUN (7-18) mg/dl Creatinine (0.6-1.4) mg/dl POC Creatinine (0.6-1.3) mg/dl Est Cr Clr Drug Dosing ml/min Est GFR ( Amer) Est GFR (Non-Af Amer) BUN/Creatinine Ratio (10-20) Glucose (70-99) mg/dl POC Glucose (70-99) mg/dl POC Glucose (other) (70-99) mg/dl Lactate (0.4-2.0) mmol/L Calcium (8.5-10.1) mg/dl POC Ioniz Calcium [place] (1.12-1.32) mmol/l Phosphorus Cancelled (2.5-4.9) mg/dl Magnesium (1.8-2.4) mg/dl Total Bilirubin (0.2-1) mg/dl AST (15-37) U/L ALT (12-78) U/L Alkaline Phosphatase (45-117) U/L Troponin I (0-0.045) ng/ml Total Protein (6.4-8.2) gm/dl Albumin (3.4-5.0) gm/dl Globulin (2.5-4.0) gm/dl Albumin/Globulin Ratio (0.9-2) Beta-Hydroxybutyric Acd Procalcitonin (0-0.5) ng/ml TSH (0.300-4.500) uIu/ml Random Cortisol mcg/dl Digoxin (0.8-2.0) ng/ml COVID-19 Eval Order SARS-CoV-2 (PCR) (Negative) Influenza Type A (PCR) (Neg) Influenza Type B (PCR) (Neg) RSV (RT-PCR) (Neg) Administered Medications Apixaban (Apixaban 5 Mg Tablet) 5 mg PO BID [facility] Stop: 11/19/20 21:29 Last Admin: 10/20/20 22:03 Dose: 5 mg Documented by: [id number] Gabapentin (Gabapentin 300 Mg Cap) 300 mg PO TID [facility] Stop: 11/19/20 21:29 Last Admin: 10/20/20 22:05 Dose: 300 mg Documented by: [id number] Norepinephrine Bitartrate (Levophed/D5w) 8 mg in 508 mls @ 7.666 mls/hr IV .Q24H [facility]; Protocol Stop: 11/19/20 17:59 Last Titration: 10/20/20 22:48 Dose: 0.02 mcg/kg/min, 7.7 mls/hr Documented by: [id number] Titration: 10/20/20 21:44 Dose: 0 mcg/kg/min, 0 mls/hr Documented by: [id number] Titration: 10/20/20 21:11 Dose: 0.02 mcg/kg/min, 7.7 mls/hr Documented by: [id number] Titration: 10/20/20 21:09 Dose: 0.04 mcg/kg/min, 15.3 mls/hr Documented by: [id number] Admin: 10/20/20 17:58 Dose: 0.1 mcg/kg/min, 38.3 mls/hr Documented by: [id number] Cosigned by: [id number] Insulin Human Regular 250 (units/ Sodium Chloride) 250 mls @ 10 mls/hr IV .Q24H [facility]; Protocol Stop: 11/19/20 19:14 Last Titration: 10/20/20 22:30 Dose: 10 units/hr, 10 mls/hr Documented by: [id number] Cosigned by: [id number] Titration: 10/20/20 21:30 Dose: 10 units/hr, 10 mls/hr Documented by: [id number] Cosigned by: [id number] Titration: 10/20/20 21:09 Dose: 10 units/hr, 10 mls/hr Documented by: [id number] Cosigned by: [id number] Admin: 10/20/20 19:28 Dose: 10 units/hr, 10 mls/hr Documented by: [id number] Cosigned by: [id number] Potassium Chloride/Sodium Chloride (Normal Saline W/20 Meq Kcl) 20 meq in 1,000 mls @ 150 mls/hr IV .Q6H40M COUNT INCLUDES THE [facility] Stop: 11/19/20 19:59 Last Infusion: 10/20/20 21:09 Dose: 150 mls/hr Documented by: [id number] Admin: 10/20/20 20:27 Dose: 150 mls/hr Documented by: [id number] Famotidine 20 mg/ Syringe 5 mls @ 2.5 mls/min IV Q12 COUNT INCLUDES THE [facility] Stop: 11/19/20 21:29 Last Admin: 10/20/20 22:04 Dose: 2.5 mls/min Documented by: [id number] Magnesium Sulfate/Dextrose (Magnesium Sulfate / D5w) 1 gm in 100 mls @ 50 mls/hr IV ONE ONE Stop: 10/21/20 00:37 Last Admin: 10/20/20 22:53 Dose: 50 mls/hr Documented by: [id number] Insulin Aspart (Insulin Aspart 100 Units/Ml 3 Ml Pen) 0 units SC ACHS COUNT INCLUDES THE [facility] Stop: 11/19/20 20:59 Last Admin: 10/20/20 22:02 Dose: Not Given Documented by: [id number] Cosigned by: [id number] Lorazepam (Lorazepam 1 Mg Tab) 1 mg PO TID PRN PRN Reason: insomnia and anxiety Stop: 11/19/20 21:18 Last Admin: 10/20/20 22:53 Dose: 1 mg Documented by: [id number] Miscellaneous (Check Fentanyl Patch Placement) 1 ea N/A QS COUNT INCLUDES THE [facility] Stop: 11/20/20 00:00 Last Admin: 10/20/20 22:28 Dose: 1 ea Documented by: [id number] Pramipexole Dihydrochloride (Pramipexole Dihydrochlo 0.25 Mg Tab) 0.25 mg PO [facility] Stop: 11/19/20 21:29 Last Admin: 10/20/20 22:06 Dose: 0.25 mg Documented by: [id number] Rosuvastatin Calcium (Rosuvastatin Calcium 5 Mg Tab) 5 mg PO [facility] Stop: 11/19/20 21:29 Last Admin: 10/20/20 22:06 Dose: 5 mg Documented by: [id number] Discontinued Medications Sodium Chloride (Nss 1000ml) 1,000 mls @ 999 mls/hr IV .Q1H1M ONE Stop: 10/20/20 18:12 Last Infusion: 10/20/20 21:09 Dose: 0 mls/hr Documented by: [id number] Admin: 10/20/20 17:21 Dose: 999 mls/hr Documented by: [id number] Cefepime HCl (Maxipime) 2,000 mg in 20 mls @ 5 mls/min IV NOW STA; Protocol Stop: 10/20/20 17:35 Last Admin: 10/20/20 18:15 Dose: 5 mls/min Documented by: [id number] Lactated Ringer's (Lr) 500 mls @ 999 mls/hr IV .Q31M ONE Stop: 10/20/20 19:18 Last Infusion: 10/20/20 21:09 Dose: 0 mls/hr Documented by: [id number] Admin: 10/20/20 19:28 Dose: 999 mls/hr Documented by: [id number] Daptomycin 525 mg/ Syringe 10.5 mls @ 5.25 mls/min IV NOW ONE; Protocol Stop: 10/20/20 18:55 Last Admin: 10/20/20 19:52 Dose: 5.25 mls/min Documented by: [id number] Vancomycin HCl 2,000 mg/ (Sodium Chloride) 540 mls @ 200 mls/hr IV NOW ONE Stop: 10/20/20 22:26 Last Admin: 10/20/20 21:51 Dose: 200 mls/hr Documented by: [id number] Meropenem 500 mg/ Syringe 10 mls @ 2 mls/min IV NOW ONE; Protocol Stop: 10/20/20 20:04 Last Admin: 10/20/20 20:30 Dose: 2 mls/min Documented by: [id number] Albumin Human (Albumin 5%) 250 mls @ 500 mls/hr IV ONE ONE Stop: 10/20/20 22:36 Last Infusion: 10/20/20 22:50 Dose: 0 mls/hr Documented by: [id number] Admin: 10/20/20 22:20 Dose: 500 mls/hr Documented by: [id number] Calcium Chloride 1,000 mg/ (Sodium Chloride) 60 mls @ 240 mls/hr IV NOW STA Stop: 10/20/20 22:50 Last Infusion: 10/20/20 23:12 Dose: 0 mls/hr Documented by: [id number] Admin: 10/20/20 22:54 Dose: 240 mls/hr Documented by: [id number] Insulin Human Regular (Novolin-R Insulin Per Unit Charge) 10 units IV NOW STA Stop: 10/20/20 17:23 Last Admin: 10/20/20 17:40 Dose: 10 units Documented by: [id number] Cosigned by: [id number] Ioversol (Optiray 350 500ml) 104 ml IV ONCE ONE Stop: 10/20/20 20:49 Last Admin: 10/20/20 20:49 Dose: 104 ml Documented by: [id number] Miscellaneous (Dka Goal Range 150-250 Mg/Dl) 1 ea N/A ONE ONE Stop: 10/20/20 19:02 Last Admin: 10/20/20 19:29 Dose: 1 ea Documented by: [id number] Ondansetron HCl (Ondansetron Inj 2 Mg/Ml 2 Ml Vial) 4 mg IV NOW STA Stop: 10/20/20 17:13 Last Admin: 10/20/20 17:21 Dose: 4 mg Documented by: [id number] Imaging Data Radiologist's Impression: Chest X-Ray 10/20/20 17:12 XR chest 1V portable CLINICAL HISTORY: weakness COMPARISON STUDY: PET/CT October 01, 2020. FINDINGS: Elevation of the left hemidiaphragm is unchanged. There may be a trace left pleural effusion. Cardiomegaly is unchanged. There is no evidence for pulmonary edema. Numerous skeletal metastases are noted. IMPRESSION: 1. No acute cardiopulmonary findings. 2. Cardiomegaly with elevation of the left hemidiaphragm, unchanged. 3. Extensive skeletal metastases. ACT 112: Negative or not required by law. Electronically signed by: Berny Roth M.D. 10/20/2020 5:34 PM Chest X-Ray 10/20/20 18:59 XR chest 1V portable CLINICAL HISTORY: Shortness of breath. COMPARISON STUDY: PET/CT October 01, 2020. Chest radiograph performed earlier today. FINDINGS: Extensive skeletal metastases are noted. Elevation of the left hemid iaphragm is unchanged. Left basilar opacity favors atelectasis. Note is made of cardiomegaly without evidence for pulmonary edema. IMPRESSION: 1. No change in appearance of the chest. Elevation of the left hemidiaphragm with left basilar opacity suggestive of atelectasis. 2. Cardiomegaly. No evidence for pulmonary edema. 3. Extensive skeletal metastases. ACT 112: Negative or not required by law. Electronically signed by: Berny Roth M.D. 10/20/2020 7:09 PM Chest CTA 10/20/20 19:44 CT ANGIOGRAPHY OF THE CHEST, PULMONARY EMBOLUS PROTOCOL CLINICAL HISTORY: Shortness of breath. Metastatic breast cancer. COMPARISON STUDY: Chest CT August 18, 2020. Chest radiograph performed earlier today. PET/CT October 01, 2020. TECHNIQUE: Following IV administration of 104 mL of Optiray, helical axial images of the chest were obtained utilizing the pulmonary embolus protocol. Maximal intensity projections and sagittal and coronal reformats were viewed on an independent 3D workstation. IV contrast was administered without complication. Automated exposure control was utilized for the study. A dose lowering technique was utilized adhering to the principles of ALARA. FINDINGS: No pulmonary emboli are identified. Moderate cardiomegaly is noted. Note is made of a hiatal hernia which contains ascites. This is unchanged. Abdomen and pelvis will be reported separately. There is no pericardial effusion. Elevation of the left hemidiaphragm is unchanged. Note is made of left lower lobe airspace opacity. There is mild alveolar opacities within the right middle lobe. Mild interlobular septal thickening is present. There is no pneu mothorax or pleural effusion. Extensive blastic metastases are similar to PET/CT of October 01, 2020. A 5 mm right lower lobe nodule on image 81 is similar to prior exam. This remains indeterminate. Tiny nodules along the fissures are again noted. No enlarged axillary, mediastinal or hilar lymph nodes are present. IMPRESSION: 1. No pulmonary emboli identified. 2. Stable elevation of the left hemidiaphragm. Left lower lobe airspace opacity which could reflect an infectious etiology or atelectasis. Mild right middle lo be airspace opacity favors an infectious process. 3. Cardiomegaly. Mild interstitial pulmonary edema. 4. Redemonstration of extensive skeletal metastases. ACT 112: Negative or not required by law. Electronically signed by: Berny Roth M.D. 10/20/2020 9:16 PM Discharge Plan Visit Data Chief Complaint: Syncope Stated Complaint: SYNCOPE ED Provider: Anjum Kerns Discharge Problem: Hypotension, SOB (shortness of breath), Acute dehydration, Elevated lactic acid level, Acute hyperglycemia Patient Disposition: Admitted As Inpatient Condition: Critical Discharge Instructions Interventions: ED Discharge Assessment Last Done: 10/20/20 20:50
[2020-10-20] MEDS ORDERED: NovoLIN-R INSULIN PER UNIT CHARGE IV STA (17:22)
[2020-10-20] MEDS ORDERED: CEFEPIME 2,000 MG/20 ML VIAL IV STA (17:32)
--- NOTE | 2020-10-20 17:35 | XRay Report ---
XR chest 1V portable CLINICAL HISTORY: weakness COMPARISON STUDY: PET/CT October 01, 2020. FINDINGS: Elevation of the left hemidiaphragm is unchanged. There may be a trace left pleural effusio n. Cardiomegaly is unchanged. There is no evidence for pulmonary edema. Numerous skeletal metastases are noted. IMPRESSION: 1. No acute cardiopulmonary findings. 2. Cardiomegaly with elevation of the left hemidiaphragm, unchanged. 3. Extensive skeletal metastases. ACT 112: Negative or not required by law. Electronically signed by: Berny Roth M.D. 10/20/2020 5:34 PM
[2020-10-20] MEDS ORDERED: STAT IV Infusion **Titration per Protocol STA ×2 (17:51→19:01)
[2020-10-20] MEDS: NOREPINEPHRINE/D5W 8 MG/508 ML BAG IV SCH (17:58)
[2020-10-20 18:29] LABS: Influenza A virus by PCR Negative (Neg); Influenza B virus by PCR Negative (Neg); RSV by PCR Negative (Neg); SARS CoV2 RNA(COVID-19) InHosp NEGATIVE (Negative)
[2020-10-20 18:37] LABS: INR 1.6 (0.9-1.1); Prothrombin Time 15.3 Seconds (9.0-12.0)
[2020-10-20 18:40] LABS: Mean Corpuscular Hgb Conc 32.8 g/dL (32-36); Mean Platelet Volume 10.8 fL (7.4-10.4); Platelet Count 128 K/uL (130-400)
[2020-10-20 18:42] LABS: Base Excess VBG -10.2 mEq/L; Oxygen Saturation VBG 72.6 %; pH VBG 7.2 (7.36-7.41)
[2020-10-20] MEDS ORDERED: LACTATED RINGER'S 500 ML IV ONE (18:48)
[2020-10-20 18:52] LABS: Alanine Aminotransferase 96 U/L (12-78); Albumin Level 2.4 gm/dl (3.4-5.0); Aspartate Aminotransferase 121 U/L (15-37); BUN Creatinine Ratio 12.5 (10-20); Blood Urea Nitrogen 18 mg/dl (7-18); Calcium 7.9 mg/dl (8.5-10.1); Carbon Dioxide 20 mmol/L (21-32); Chloride 93 mmol/L (98-107); Creatinine Clr Calc Pharmacy 57.4 ml/min; Est GFR (African American) 55.8; Est GFR (Non-African American) 48.1; Glucose 494 mg/dl (70-99); Magnesium 2.1 mg/dl (1.8-2.4); Sodium 126 mmol/L (136-145)
[2020-10-20] MEDS ORDERED: DAPTOmycin 525 MG in SYRINGE 0 ML IV ONE (18:54)
[2020-10-20] MEDS ORDERED: ED DKA INSULIN DRIP ONE (19:01)
[2020-10-20] MEDS ORDERED: CARBOHYDRATES FOR HYPOGLYCEMIA PO PRN (19:01)
[2020-10-20] MEDS ORDERED: GLUCOSE 40% GEL 15 GM TUBE PO PRN (19:01)
[2020-10-20] MEDS ORDERED: DEXTROSE 50% 50 ML SYRINGE IV PRN (19:01)
[2020-10-20] MEDS ORDERED: DKA GOAL RANGE 150-250 mg/dl ONE (19:01)
[2020-10-20] MEDS ORDERED: GLUCAGON FOR INJ 1 MG VIAL SQ PRN (19:01)
[2020-10-20] MEDS ORDERED: GLUCOSE 10 TABS/TUBE PO PRN (19:01)
[2020-10-20] MEDS ORDERED: MEROPENEM CONSULT ACITVE PRN (19:02)
[2020-10-20 19:04] LABS: Partial Thromboplastin Ratio 1.1; Partial Thromboplastin Time 28.6 Seconds (21.0-31.0)
[2020-10-20 19:09] LABS: iSTAT Creatinine 1.3 mg/dl (0.6-1.3); iSTAT Hemoglobin 9.2 g/dl (14.0-18.0); iSTAT Ionized Calcium 1.06 mmol/l (1.12-1.32); iSTAT Potassium 4.9 mmol/L (3.3-5.0)
[2020-10-20 19:09] LABS: iSTAT Creatinine 1.1 mg/dl (0.6-1.3); iSTAT Hemoglobin 10.2 g/dl (14.0-18.0); iSTAT Ionized Calcium 1.01 mmol/l (1.12-1.32); iSTAT Potassium 5.4 mmol/L (3.3-5.0)
[2020-10-20 19:11] LABS: Albumin Globulin Ratio 0.9 (0.9-2); Alkaline Phosphatase 151 U/L (45-117); Bilirubin,Total 2.5 mg/dl (0.2-1); Globulin 2.6 gm/dl (2.5-4.0); Potassium 5.6 mmol/L (3.5-5.1); Troponin I < 0.015 ng/ml (0-0.045)
--- NOTE | 2020-10-20 19:11 | XRay Report ---
XR chest 1V portable CLINICAL HISTORY: Shortness of breath. COMPARISON STUDY: PET/CT October 01, 2020. Chest radiograph performed earlier today. FINDINGS: Extensive skeletal metastases are noted. Elevation of the left hemidiaphragm is unchanged. Left basilar opacity favors atelectasis. Note is made of cardiomegaly without evidence for pulmonary edema. IMPRESSION: 1. No change in appearance of the chest. Elevation of the left hemidiaphragm with left basilar opacit y suggestive of atelectasis. 2. Cardiomegaly. No evidence for pulmonary edema. 3. Extensive skeletal metastases. ACT 112: Negative or not required by law. Electronically signed by: Berny Roth M.D. 10/20/2020 7:09 PM
[2020-10-20] MEDS ORDERED: INSULIN REGULAR 250 UNITS in SODIUM CHLORIDE 0.9% 247.5 ML IV SCH (19:15)
[2020-10-20 19:29] LABS: Hematocrit (blood only) 29.9 % (42-52); Hemoglobin 9.8 g/dL (14.0-18.0); Mean Corpuscular Hemoglobin 33.3 pg (25-34); Mean Corpuscular Volume 101.7 fL (80-100); Nucleated RBC # (auto) 0.38 K/uL (0-0); RDW Coefficient of Variation 19.7 % (11.5-14.5); RDW Standard Deviation 73.7 fL (36.4-46.3); Red Blood Count 2.94 M/uL (4.7-6.1); White Blood Count 2.38 K/uL (4.8-10.8)
[2020-10-20] MEDS ORDERED: VANCOMYCIN HCL 2,000 MG in SODIUM CHLORIDE 0.9% 500 ML IV ONE (19:45)
[2020-10-20] MEDS ORDERED: VANCOMYCIN CONSULT ACTIVE PRN ×2 (19:45)
[2020-10-20] MEDS ORDERED: NSS + 20MEQ KCL 20 MEQ/1,000 ML BAG IV SCH (20:00)
[2020-10-20] MEDS ORDERED: MEROPENEM 500 MG in SYRINGE 0 ML IV ONE (20:00)
--- NOTE | 2020-10-20 20:11 | History & Physical Report ---
Date of Service WithMay 2020 Assessment & Plan (1) Admitted to intensive care unit: Admission to ICU/near syncopal and syncopal episodes/septic shock- Continue Levophed infusion begun in ED NSS + KCl 20 mEq at high 150 mils per hour Placed on vancomycin IV and meropenem IV per pharmacokinetic monitoring Follow urine cultures and blood cultures Neutropenic precautions Consult furniture servicer Dr. Catherine Present on Admission?: Yes (2) Syncopal episodes: See above Present on Admission?: Yes (3) Sepsis: See above Present on Admission?: Yes (4) Hypotension: Hold all antihypertensives Present on Admission?: Yes (5) DKA (diabetic ketoacidoses): Continue insulin drip per protocol begun in ED Present on Admission?: Yes (6) Metastatic malignant neoplasm to breast: Presently undergoing chemotherapy Present on Admission?: Yes (7) Hypothyroid: Continue levothyroxine Present on Admission?: Yes (8) GERD (gastroesophageal reflux disease): Continue omeprazole/pantoprazole Present on Admission?: Yes History of Present Illness Chief Complaint: The patient presents to the emergency department with complaint of 2 near syncopal episodes, followed by a syncopal episode on the way to the bathroom, after having undergone chemotherapy for metastatic breast cancer earlier in the day. Primary Care Provider: Mike Lepe MD The patient is a 70-year-old male with a past medical history including metastatic breast cancer to bone and lung, paralyzed left hemidiaphragm, allergic rhinitis, anemia, anxiety, atrial fibrillation on chronic anticoagulation, asthma, hypertension, peripheral neuropathy, diabetes mellitus type 2, RLS, severe obstructive sleep apnea, GERD and BPH. Patient presents as noted above. In the emergency department he was found to be hypotensive, dehydrated, hyponatremic with sodium 126 and hyperkalemic with potassium 5.6 abnormal LFTs and hyperglycemia with blood glucose 494. He was found to be mildly neutropenic. COVID-19 test was negative. Because of his hypotension, he was given 1 L of normal saline, 500 cc of LR, and placed on continued IV fluid resuscitation. He was started on Levophed infusion for pressure support, and was given daptomycin IV and cefepime IV by the ED. Allergies Allergy/AdvReac Type Severity Reaction Status Date / Time No Known Drug Allergies Allergy Verified 10/20/20 19:10 Home Medications Medication Instructions Recorded Confirmed Type furosemide 40 mg tablet 40 mg PO DAILY PRN #30 tab 01/11/19 10/20/20 History denosumab 120 mg/1.7 mL (70 mg/mL) 120 mg SQ Q4WK ml 04/03/19 10/20/20 History subcutaneous solution letrozole 2.5 mg tablet 2.5 mg PO QAM 04/03/19 10/20/20 History blood-glucose meter #1 ea 11/09/19 10/09/20 Rx metoprolol succinate 50 mg 50 mg PO QAM #90 tab 12/03/19 10/20/20 Rx tablet,extended release 24 hr gabapentin 300 mg capsule 300 mg PO TID 01/24/20 10/20/20 History ferrous sulfate 325 mg (65 mg 325 mg PO QAM #90 tab 02/27/20 10/20/20 Rx iron) tablet lancets 33 gauge #100 ea 03/10/20 10/09/20 Rx apixaban 5 mg tablet 5 mg PO BID #180 tab 04/09/20 10/20/20 Rx digoxin 250 mcg (0.25 mg) tablet 250 mcg PO QAM #90 tab 04/14/20 10/20/20 Rx glipizide 10 mg tablet 10 mg PO BID #60 tab 05/22/20 10/20/20 Rx albuterol sulfate 90 mcg/actuation 2 puff INHALATION Q4H PRN #1 07/04/20 10/20/20 Rx aerosol inhaler inhaler blood sugar diagnostic #200 ea 07/11/20 10/09/20 Rx lorazepam 1 mg tablet 1 mg PO TID PRN #90 tab 07/23/20 10/20/20 Rx metformin 1,000 mg tablet,extended 1,000 mg PO BID #60 tab 09/15/20 10/20/20 Rx release 24hr montelukast 10 mg tablet 10 mg PO QAM #30 tab 10/06/20 10/20/20 Rx oxycodone-acetaminophen 5 mg-325 1 tab PO Q8H PRN 10/07/20 10/20/20 History mg tablet fluticasone propionate 1 spray INTRANASAL QAM 10/08/20 10/20/20 History furosemide [Lasix] 20 mg PO QAM 10/08/20 10/20/20 History leuprolide [Lupron Depot] 3.75 mg IM Q90D 10/08/20 10/20/20 History levothyroxine 50 mcg PO QAM 10/08/20 10/20/20 History omeprazole 20 mg PO QAM 10/08/20 10/20/20 History pramipexole 0.25 mg PO HS 10/08/20 10/20/20 History rosuvastatin 5 mg PO HS 10/08/20 10/20/20 History verapamil 180 mg PO HS 10/08/20 10/20/20 History fentanyl 12 mcg TRANSDERMAL Q3D 10/20/20 10/20/20 History Past Med/Surg History Medical History Anxiety Asthma Atrial fibrillation On Eliquis BPH (benign prostatic hyperplasia) Depression Diabetes mellitus, type 2 NIDDM Dyspnea oxygen prn GERD (gastroesophageal reflux disease) Hyperlipidemia Hypertension Hypothyroid Metastasis from breast cancer to the bone currently. starting chemotherapy 10/13/20. Metastatic malignant neoplasm to breast rt breast ca - 2005 - s/p mastectomy and chemo - apr 2017 dx w/ mets to bone, follows with oncology, on Tamoxifen and receiving immunotherapy injections monthly. On anticoagulant therapy On home oxygen therapy 2lpm via n/c -- uses only as needed Paralyzed hemidiaphragm with restrictive lung disease Restless leg syndrome Sleep apnea CPAP nightly Surgical History H/O mastectomy (~2005) History of cardioversion History of colonoscopy (~2016) History of esophagogastroduodenoscopy (EGD) (~2016) History of prostate surgery History of removal of Port-a-Cath History of surgery History of tonsillectomy History of tooth extraction S/P repair of hydrocele Family History Father Diabetes Heart disease Myocardial infarction Colorectal cancer Brother Diabetes Colorectal cancer Hypertension Mother Nephrolithiasis Colorectal cancer Other Asthma Cardiac disorder No family history of adverse response to anesthesia Denies family history of Ovarian cancer Prostate cancer Breast cancer Social History Smoking Status: Never smoker Second Hand Exposure: No; Do You Dip or Chew Tobacco: No; Hx Alcohol Use: Yes Alcohol type: wine Hx Substance Use: No Preferred Language: German Communication Ability: Effective Visual Impairment: No Limitations White Work Cleaner Required: No Beliefs That Will Affect Care: None Current Living Situation: Spouse and Family current occupational status: employed current occupation: [employer] Other Information That Helps Us Care for You: No Feels Safe at Home: Yes Safety Concerns: Feels Safe At This Time Assistive Devices: Cane, CPAP and Glasses Review of Systems Review of Systems: The patient denies chest pain, palpitations, shortness of breath, dyspnea on exertion, cough, lower extremity swelling, sore throat, fevers, chills, sweats, nausea, vomiting, diarrhea , constipation, abdominal pain, pelvic pain, blood in urine or stool, dysuria, urinary frequency or urgency, rash, abnormal bruising or bleeding, focal weakness, numbness or tingling in arms or legs, generalized arthralgias or myalgias, neck pain, or night sweats. The review of systems is otherwise negative other than for that already noted above, and at least 10 systems have been reviewed. Physical Exam Physical Exam: The patient is awake, alert and oriented 3, well developed and well nourished, normocephalic and atraumatic, lying in bed and in no acute distress. HEENT--PERRL, EOMI, mucous membranes and oropharynx dry. Neck--supple. No JVD. No bruits. Thyroid normal, trachea midline, no adenopathy. Heart--normal S1 and S2. No murmurs, rubs or gallops. Lungs--clear bilaterally, no respiratory distress, no accessory muscle use. Abdomen--normal bowel sounds and soft. Nontender. Nondistended. Extremities--no cyanosis or clubbing. No edema. Dermatologic--normal skin turgor, normal color, no abnormal lymph nodes, no rash. Neurologic--cranial nerves II through XII grossly intact. Rheumatologic--normal range of motion. Psychiatric--normal affect. Results & Data Results & Data ([facility]) Vital Signs (Past 12 Hours) Vital Signs Temp Pulse Pulse Resp BP BP Pulse Ox 10/20/20 19:55 67 16 131/81 100 10/20/20 18:50 61 27 H 137/109 H 99 10/20/20 18:47 61 28 H 128/72 100 10/20/20 18:40 61 27 H 96 10/20/20 18:32 61 24 123/83 99 10/20/20 18:30 61 29 H 100 10/20/20 18:20 61 33 H 132/97 92 10/20/20 18:17 60 32 H 116/78 10/20/20 18:11 61 22 10/20/20 18:10 60 28 H 100 10/20/20 18:04 60 32 H 111/82 97 10/20/20 18:00 60 33 H 98 10/20/20 17:50 57 L 23 97 10/20/20 17:41 55 L 35 H 96 10/20/20 17:38 97.7 F 52 L 25 H 77/52 L 96 10/20/20 17:30 56 L 26 H 98 10/20/20 17:22 56 L 24 94 10/20/20 17:20 56 L 24 93 10/20/20 17:14 56 L 28 H 93 10/20/20 17:12 96 10/20/20 17:06 56 L 27 H 77/52 L 96 Laboratory Results Laboratory Results WBC 2.38 K/uL (4.8-10.8) L 10/20/20 17:03 RBC 2.94 M/uL (4.7-6.1) L 10/20/20 17:03 Hgb 9.8 g/dL (14.0-18.0) L 10/20/20 17:03 POC Hgb 9.2 g/dl (14.0-18.0) L 10/20/20 18:56 Hct 29.9 % (42-52) L 10/20/20 17:03 POC Hct 27 % (42-52) L 10/20/20 18:56 MCV 101.7 fL (80-100) H 10/20/20 17:03 MCH 33.3 pg (25-34) 10/20/20 17:03 MCHC 32.8 g/dL (32-36) 10/20/20 17:03 RDW Std Deviation 73.7 fL (36.4-46.3) H 10/20/20 17:03 RDW Coeff of Yovany 19.7 % (11.5-14.5) H 10/20/20 17:03 Plt Count 128 K/uL (130-400) L 10/20/20 17:03 MPV 10.8 fL (7.4-10.4) H 10/20/20 17:03 Immature Gran % (Auto) 1.3 % 10/20/20 17:03 Neut % (Auto) 43.3 % 10/20/20 17:03 Lymph % (Auto) 43.3 % 10/20/20 17:03 Clarke % (Auto) 11.3 % 10/20/20 17:03 Eos % (Auto) 0.0 % 10/20/20 17:03 Baso % (Auto) 0.8 % 10/20/20 17:03 Neut # (Auto) 1.03 K/uL (1.4-6.5) L 10/20/20 17:03 Lymph # (Auto) 1.03 K/uL (1.2-3.4) L 10/20/20 17:03 Clarke # (Auto) 0.27 K/uL (0.11-0.59) 10/20/20 17:03 Eos # (Auto) 0.00 K/uL (0-0.5) 10/20/20 17:03 Baso # (Auto) 0.02 K/uL (0-0.2) 10/20/20 17:03 Immature Gran # (Auto) 0.03 K/uL (0.00-0.02) H 10/20/20 17:03 Absolute Nucleated RBC 0.38 K/uL (0-0) H 10/20/20 17:03 Nucleated RBC % (auto) 16.0 % 10/20/20 17:03 Polychromasia 1+ 10/20/20 17:03 PT 15.3 Seconds (9.0-12.0) H 10/20/20 17:03 INR 1.6 (0.9-1.1) H 10/20/20 17:03 APTT 28.6 Seconds (21.0-31.0) 10/20/20 17:03 PTT Ratio 1.1 10/20/20 17:03 VBG pH 7.31 (7.36-7.41) L 10/20/20 21:51 VBG pCO2 40 mmHg (38-50) 10/20/20 21:51 VBG pO2 42 mmHg 10/20/20 21:51 VBG HCO3 20 mmol/L 10/20/20 21:51 VBG O2 Saturation 71.5 % 10/20/20 21:51 VBG Base Excess -5.9 mEq/L 10/20/20 21:51 Barometric Pressure 733.4 mm/Hg 10/20/20 21:51 POC Sodium 127 mmol/L (135-144) L 10/20/20 18:56 Sodium 129 mmol/L (136-145) L 10/20/20 21:51 POC Potassium 4.9 mmol/L (3.3-5.0) 10/20/20 18:56 Potassium 4.2 mmol/L (3.5-5.1) D 10/20/20 21:51 POC Chloride 93 mmol/L (101-112) L 10/20/20 18:56 Chloride 97 mmol/L (98-107) L 10/20/20 21:51 Carbon Dioxide 21 mmol/L (21-32) 10/20/20 21:51 POC Total CO2 19 mmol/L (24-31) L 10/20/20 18:56 Anion Gap 11.0 (3-11) 10/20/20 21:51 POC Anion Gap 21.0 mmol/L (16-25) 10/20/20 18:56 POC BUN 19 mg/dl (7-18) H 10/20/20 18:56 BUN 21 mg/dl (7-18) H 10/20/20 21:51 Creatinine 1.32 mg/dl (0.6-1.4) 10/20/20 21:51 POC Creatinine 1.3 mg/dl (0.6-1.3) 10/20/20 18:56 Est Cr Clr Drug Dosing 62.6 ml/min 10/20/20 21:51 Est GFR ( Amer) 62.5 10/20/20 21:51 Est GFR (Non-Af Amer) 53.9 10/20/20 21:51 BUN/Creatinine Ratio 16.1 (10-20) 10/20/20 21:51 Glucose 330 mg/dl (70-99) H* 10/20/20 21:51 POC Glucose 449 mg/dl (70-99) H* 10/20/20 18:39 POC Glucose (other) 196 mg/dl (70-99) H 10/21/20 01:43 Lactate 3.5 mmol/L (0.4-2.0) H* 10/20/20 23:56 Calcium 7.3 mg/dl (8.5-10.1) L 10/20/20 21:51 POC Ioniz Calcium [place] 1.06 mmol/l (1.12-1.32) L 10/20/20 18:56 Ionized Calcium 1.00 mmol/L (1.12-1.32) L 10/20/20 21:51 Phosphorus 4.1 mg/dl (2.5-4.9) D 10/20/20 21:51 Magnesium 1.9 mg/dl (1.8-2.4) 10/20/20 21:51 Total Bilirubin 2.3 mg/dl (0.2-1) H 10/20/20 21:51 Direct Bilirubin 1.8 mg/dl (0-0.2) H 10/20/20 21:51 AST 300 U/L (15-37) H 10/20/20 21:51 ALT 168 U/L (12-78) H 10/20/20 21:51 Alkaline Phosphatase 152 U/L (45-117) H 10/20/20 21:51 Troponin I < 0.015 ng/ml (0-0.045) 10/20/20 17:03 Total Protein 4.9 gm/dl (6.4-8.2) L 10/20/20 21:51 Albumin 2.4 gm/dl (3.4-5.0) L 10/20/20 21:51 Globulin 2.6 gm/dl (2.5-4.0) 10/20/20 17:03 Albumin/Globulin Ratio 0.9 (0.9-2) 10/20/20 17:03 Beta-Hydroxybutyric Acd 0.85 mg/dl (0.2-2.81) 10/20/20 21:51 Procalcitonin 0.28 ng/ml (0-0.5) 10/20/20 17:03 TSH 2.170 uIu/ml (0.300-4.500) 10/20/20 17:03 Random Cortisol 57.18 mcg/dl 10/20/20 19:02 Urine Color Dark Yellow 10/20/20 20:31 Urine Appearance Cloudy (Clear) A 10/20/20 20:31 Urine pH 5.0 (4.5-7.5) 10/20/20 20:31 Ur Specific [place] 1.028 (1.000-1.030) 10/20/20 20:31 Urine Protein 2+ (Negative) H 10/20/20 20:31 Urine Glucose (UA) 3+ (Negative) H 10/20/20 20:31 Urine Ketones Trace (Negative) H 10/20/20 20:31 Urine Blood Negative (Negative) 10/20/20 20: Urine Nitrite Negative (Negative) 10/20/20 20: Urine Bilirubin 1+ (Negative) H 10/20/20 20:31 Urine Urobilinogen Negative (Negative) 10/20/20 20: Ur Leukocyte Esterase Negative (Negative) 10/20/20 20: Urine WBC (Auto) 1-5 /hpf (0-5) 10/20/20 20: Urine RBC (Auto) 5-10 /hpf (0-4) H 10/20/20 20: U Hyaline Cast (Auto) 10-30 /lpf (0-5) H 10/20/20 20: U Epithel Cells (Auto) 20-30 /lpf (0-5) H 10/20/20 20:31 Urine Bacteria (Auto) Negative (Negative) 10/20/20 20:31 Nasal Screen MRSA (PCR) Negative (Negative) 10/20/20 23:36 Digoxin 1.2 ng/ml (0.8-2.0) 10/20/20 17:03 COVID-19 Eval Order CovFluRsv at [facility] 10/20/20 17:46 SARS-CoV-2 (PCR) NEGATIVE (Negative) 10/20/20 17:46 Influenza Type A (PCR) Negative (Neg) 10/20/20 17:46 Influenza Type B (PCR) Negative (Neg) 10/20/20 17:46 RSV (RT-PCR) Negative (Neg) 10/20/20 17:46 Impressions Chest X-Ray 10/20/20 18:59 XR chest 1V portable CLINICAL HISTORY: Shortness of breath. COMPARISON STUDY: PET/CT October 01, 2020. Chest radiograph performed earlier today. FINDINGS: Extensive skeletal metastases are noted. Elevation of the left hemidiaphragm is unchanged. Left basilar opacity favors atelectasis. Note is made of cardiomegaly without evidence for pulmonary edema. IMPRESSION: 1. No change in appearance of the chest. Elevation of the left hemidiaphragm with left basilar opacity suggestive of atelectasis. 2. Cardiomegaly. No evidence for pulmonary edema. 3. Extensive skeletal metastases. ACT 112: Negative or not required by law. Electronically signed by: Berny Roth M.D. 10/20/2020 7:09 PM Chest CTA 10/20/20 19:44 CT ANGIOGRAPHY OF THE CHEST, PULMONARY EMBOLUS PROTOCOL CLINICAL HISTORY: Shortness of breath. Metastatic breast cancer. COMPARISON STUDY: Chest CT August 18, 2020. Chest radiograph performed earlier today. PET/CT October 01, 2020. TECHNIQUE: Following IV administration of 104 mL of Optiray, helical axial images of the chest were obtained utilizing the pulmonary embolus protocol. Maximal intensity projections and sagittal and coronal reformats were viewed on an independent 3D workstation. IV contrast was administered without complication. Automated exposure control was utilized for the study. A dose lowering technique was utilized adhering to the principles of ALARA. FINDINGS: No pulmonary emboli are identified. Moderate cardiomegaly is noted. Note is made of a hiatal hernia which contains ascites. This is unchanged. Abdomen and pelvis will be reported separately. There is no pericardial effusion. Elevation of the left hemidiaphragm is unchanged. Note is made of left lower lobe airspace opacity. There is mild alveolar opacities within the right middle lobe. Mild interlobular septal thickening is present. There is no pneumothorax or pleural effusion. Extensive blastic metastases are similar to PET/CT of October 01, 2020. A 5 mm right lower lobe nodule on image 81 is similar to prior exam. This remains indeterminate. Tiny nodules along the fissures are again noted. No enlarged axillary, mediastinal or hilar lymph nodes are present. IMPRESSION: 1. No pulmonary emboli identified. 2. Stable elevation of the left hemidiaphragm. Left lower lobe airspace opacity which could reflect an infectious etiology or atelectasis. Mild right middle lobe airspace opacity favors an infectious process. 3. Cardiomegaly. Mild interstitial pulmonary edema. 4. Redemonstration of extensive skeletal metastases. ACT 112: Negative or not required by law. Electronically signed by: Berny Roth M.D. 10/20/2020 9:16 PM Abdomen/Pelvis CT 10/20/20 20:04 CT OF THE ABDOMEN AND PELVIS WITH CONTRAST CLINICAL HISTORY: Septic shock. Breast cancer. COMPARISON STUDY: CT of the abdomen and pelvis August 18, 2020. PET/CT October 01, 2020. TECHNIQUE: Following IV administration of 104 mL of Optiray, axial images of the abdomen and pelvis were obtained from the lung bases to the proximal femurs. Images were reviewed in the axial, sagittal, and coronal planes. IV contrast was administered without complication. Automated exposure control was utilized for the study. A dose lowering technique was utilized adhering to the principles of ALARA. CT DOSE: 2043.08 mGy.cm FINDINGS: Please note that the chest CT will be reported separately. Elevation of the left hemidiaphragm is unchanged. A hiatal hernia which contains fluid is unchanged. Hepatic steatosis is present. A few hepatic cysts measure up to 2.9 cm. There is no biliary or pancreatic ductal dilatation. There are multiple gallstones within the gallbladder. Moderate gallbladder wall thickening is noted. The gallbladder is not distended. Note is made of a subtle near hypodense focus within the medial aspect of the spleen. There is no perisplenic fluid. Pancreatic glandular atrophy is noted. There is minimal upper abdominal infiltration. No pneumatosis, free air or portal venous gas is present. A Anthony balloon is present within the bladder. There is colonic diverticulosis without evidence for acute diverticulitis. Note is made of mild wall thickening of the distal sigmoid colon and the rectum. A right femoral central venous catheter is in place. There is a small amount of hemorrhage adjacent to the right femoral vessels which is not unexpected. Extensive skeletal metastatic disease is noted. There is no hydronephrosis. A small amount of perihepatic ascites is noted. Note is made of a fat-containing right inguinal hernia. This also contains a portion of the right ureter. IMPRESSION: 1. Cholelithiasis and moderate gallbladder wall thickening, a nonspecific finding. A right upper quadrant ultrasound is recommended. 2. Hepatic stenosis. 3. Small amount of ascites. Minimal stranding and fluid adjacent to the stomach and pancreas. Acute pancreatitis is considered unlikely however correlation with lipase level is recommended. 4. Small linear hypodense focus within the medial aspect of the spleen. This could reflect artifact. However, a small splenic infarct or laceration could appear similar. Short-term follow-up CT is recommended if left upper quadrant pain. 5. Mild wall nonspecific thickening of the distal sigmoid colon and rectum. 6. Redemonstration of extensive skeletal metastases. ACT 112: Negative or not required by law. Electronically signed by: Berny Roth M.D. 10/20/2020 9:40 PM Code Status & VTE Plan Code Status Full code VTE Prophylaxis Plan VTE Prophylaxis will be ordered: Yes Critical Care Time Critical Care Time: Yes Total Critical Care Time: 40 PG Care Time/CCT Total # of Minutes Spent Total Time Spent with Patient: Total time spent is greater than 50% in coordination of care (as documented) at patient's floor/unit and/or counseling patient: Critical Care Time: Yes Total Critical Care Time: 40 Coding Level of Care Code 67608 Initial Inpt Care Lvl 3 Diagnoses Admitted to intensive care unit Z78.9 Syncopal episodes R55 Sepsis A41.9 Hypotension I95.9 DKA (diabetic ketoacidoses) E11.10 Metastatic malignant neoplasm to breast C79.81 Hypothyroid E03.9 Hypothyroidism type: acquired GERD (gastroesophageal reflux disease) K21.9 Additional Codes Critical Care Time - Critical Care Time: Yes ([id number]) Time Spent (min) 40 (1) Hypothyroid Hypothyroidism type: acquired Qualified Code(s): E03.9 - Hypothyroidism, unspecified
[2020-10-20 20:17] LABS: Phosphorus 5.6 mg/dl (2.5-4.9)
[2020-10-20 20:23] LABS: Basophils # (auto) 0.02 K/uL (0-0.2); Basophils % (auto) 0.8 %; Immature Granulocytes # (auto) 0.03 K/uL (0.00-0.02); Immature Granulocytes % (auto) 1.3 %; Lymphocytes # (auto) 1.03 K/uL (1.2-3.4); Lymphocytes % (auto) 43.3 %; Monocytes # (auto) 0.27 K/uL (0.11-0.59); Monocytes % (auto) 11.3 %; Neutrophils # (auto) 1.03 K/uL (1.4-6.5); Neutrophils % (auto) 43.3 %; Polychromasia 1+
[2020-10-20 20:46] LABS: Appearance Urine Cloudy (Clear); Bacteria Urine Automated Negative (Negative); Blood Urine Negative (Negative); Color Urine Dark Yellow; Epithelial Cell Urine Auto 20-30 /lpf (0-5); Glucose Urine UA 3+ (Negative); Ketones Urine Trace (Negative); Leukocyte Esterase Urine Negative (Negative); Nitrite Urine Negative (Negative); Protein Urine 2+ (Negative); Specific Gravity Urine 1.028 (1.000-1.030); Urobilinogen Urine Negative (Negative)
[2020-10-20 20:48] LABS: Bilirubin Urine 1+ (Negative)
[2020-10-20] MEDS ORDERED: OPTIRAY 350 500ml IV ONE (20:48)
[2020-10-20] MEDS ORDERED: PHARMACY GLYCEMIC MGMT CONSULT PRN (21:06)
[2020-10-20] MEDS ORDERED: ICU PROTOCOL FOR HYPERGLYCEMIA PRN (21:08)
[2020-10-20] MEDS ORDERED: ALBUTEROL HFA 8 GM INHALER INH PRN (21:16)
--- NOTE | 2020-10-20 21:17 | CT Scan Report ---
CT ANGIOGRAPHY OF THE CHEST, PULMONARY EMBOLUS PROTOCOL CLINICAL HISTORY: Shortness of breath. Metastatic breast cancer. COMPARISON STUDY: Chest CT August 18, 2020. Chest radiograph performed earlier today. PET/CT October 01, 2020. TECHNIQUE: Following IV administration of 104 mL of Optiray, helical axial images of the chest were o btained utilizing the pulmonary embolus protocol. Maximal intensity projections and sagittal and cor onal reformats were viewed on an independent 3D workstation. IV contrast was administered without co mplication. Automated exposure control was utilized for the study. A dose lowering technique was ut ilized adhering to the principles of ALARA. FINDINGS: No pulmonary emboli are identified. Moderate cardiomegaly is noted. Note is made of a hiat al hernia which contains ascites. This is unchanged. Abdomen and pelvis will be reported separately. There is no pericardial effusion. Elevation of the left hemidiaphragm is unchanged. Note is made of l eft lower lobe airspace opacity. There is mild alveolar opacities within the right middle lobe. Mild interlobular septal thickening is present. There is no pneumothorax or pleural effusion. Extensive bl astic metastases are similar to PET/CT of October 01, 2020. A 5 mm right lower lobe nodule on image 81 is similar to prior exam. This remains indeterminate. Tiny nodules along the fissures are again noted . No enlarged axillary, mediastinal or hilar lymph nodes are present. IMPRESSION: 1. No pulmonary emboli identified. 2. Stable elevation of the left hemidiaphragm. Left lower lobe airspace opacity which could reflect a n infectious etiology or atelectasis. Mild right middle lobe airspace opacity favors an infectious pr ocess. 3. Cardiomegaly. Mild interstitial pulmonary edema. 4. Redemonstration of extensive skeletal metastases. ACT 112: Negative or not required by law. Electronically signed by: Berny Roth M.D. 10/20/2020 9:16 PM
--- NOTE | 2020-10-20 21:41 | CT Scan Report ---
CT OF THE ABDOMEN AND PELVIS WITH CONTRAST CLINICAL HISTORY: Septic shock. Breast cancer. COMPARISON STUDY: CT of the abdomen and pelvis August 18, 2020. PET/CT October 01, 2020. TECHNIQUE: Following IV administration of 104 mL of Optiray, axial images of the abdomen and pelvis w ere obtained from the lung bases to the proximal femurs. Images were reviewed in the axial, sagittal, and coronal planes. IV contrast was administered without complication. Automated exposure control w as utilized for the study. A dose lowering technique was utilized adhering to the principles of FAIZAN Diaz. CT DOSE: 2043.08 mGy.cm FINDINGS: Please note that the chest CT will be reported separately. Elevation of the left hemidiaphr agm is unchanged. A hiatal hernia which contains fluid is unchanged. Hepatic steatosis is present. A few hepatic cysts measure up to 2.9 cm. There is no biliary or pancreatic ductal dilatation. There ar e multiple gallstones within the gallbladder. Moderate gallbladder wall thickening is noted. The gall bladder is not distended. Note is made of a subtle near hypodense focus within the medial aspect of t he spleen. There is no perisplenic fluid. Pancreatic glandular atrophy is noted. There is minimal upp er abdominal infiltration. No pneumatosis, free air or portal venous gas is present. A Anthony balloon is present within the bladder. There is colonic diverticulosis without evidence for acute diverticuli tis. Note is made of mild wall thickening of the distal sigmoid colon and the rectum. A right femoral central venous catheter is in place. There is a small amount of hemorrhage adjacent to the right fem oral vessels which is not unexpected. Extensive skeletal metastatic disease is noted. There is no hyd ronephrosis. A small amount of perihepatic ascites is noted. Note is made of a fat-containing right i nguinal hernia. This also contains a portion of the right ureter. IMPRESSION: 1. Cholelithiasis and moderate gallbladder wall thickening, a nonspecific finding. A right upper quad rant ultrasound is recommended. 2. Hepatic stenosis. 3. Small amount of ascites. Minimal stranding and fluid adjacent to the stomach and pancreas. Acute p ancreatitis is considered unlikely however correlation with lipase level is recommended. 4. Small linear hypodense focus within the medial aspect of the spleen. This could reflect artifact. However, a small splenic infarct or laceration could appear similar. Short-term follow-up CT is recom mended if left upper quadrant pain. 5. Mild wall nonspecific thickening of the distal sigmoid colon and rectum. 6. Redemonstration of extensive skeletal metastases. ACT 112: Negative or not required by law. Electronically signed by: Berny Roth M.D. 10/20/2020 9:40 PM
--- NOTE | 2020-10-20 21:48 | Critical Care Consultation ---
Date of Consultation October 20, 2020 Assessment & Plan (1) Sepsis: (2) Metastatic malignant neoplasm to breast: Reason Critically Ill: 70-year-old male with metastatic breast cancer presents to the ICU with hypotension and metabolic acidosis requiring vasopressor support. Neuro - [facility]: Negative Syncopeimproved and correction of blood pressure. Suspect this is likely from hypotension, see management below. -Complete bedrest for now Cardiac - Hypotensionunsure of etiology at this time although highly suspicious for septic shock, see sepsis work-up below -Cortisol appropriately elevated -Troponin negative, echo with preserved EF in July 2019. Follow-up repeat study -H&H stable -Hold antihypertensives -Received 1.5 L crystalloid in ED but required vasopressors, currently on Levophed and titrating for maps greater than 65. A. fibcurrently rate controlled with heart rate in 60s -Digoxin level 1.2 in ED -We will continue home dose digoxin for now -Chronically anticoagulated with Eliquis, continue -Continuous monitoring on telemetry Lower extremity edemapatient usually wears compression stockings and takes Lasix 40 mg daily -We will hold on diuresis as patient is currently hypotensive Respiratory - Respiratory distress/tachypneapatient was tachypneic and placed on BiPAP but was not profoundly hypoxic, suspect this is likely compensatory mechanism to metabolic acidosis -Patient does state that he feels more comfortable on the BiPAP and he does h ave history of severe JLUIS and wears CPAP at night. We will continue BiPAP overnight but could likely transition to nasal cannula in the a.m. -No evidence of PE on CTA chest, however did reveal areas of bilateral opacities suspicious for infectious process and pulmonary infection would correlate with presentation -Continue broad-spectrum antibiotic -Continuous monitoring pulse ox GI - GERDsecondary to hiatal hernia, unchanged on CT imaging from previous study -Continue PPI Transaminitismild elevation of LFTs, total bili 2.5 -Shock liver in the setting of hypotension versus cholangitis? -CT abdomen with cholelithiasis and moderate gallbladder wall thickening, hepatic steatosis. Few hepatic cysts measure up to 2.9 cm. No biliary or pancreatic ductal dilation. No gallbladder distention. -Obtaining right upper quadrant ultrasound, follow-up read. Consider ERCP pending result? -Guillen sign negative, abdominal exam benign -Trend LFTs RENAL/LYTES - AKIinitial creatinine 1.45 on admission. Improved following fluid bolus -Continue with fluid resuscitation -Maintain maps greater than 65 -renally adjust medications -Monitor with routine BMPs Metabolic acidosisetiology likely lactic acidosis versus DKA, see management DKA below -pH 7.20 on VBG, no indication for bicarb at this time -Lactate trending down with IV fluid resuscitation and vasopressor support, continue to trend -Expect this is improving with correction and hyperglycemia and lactate, will trend VBG for now Pseudohyponatremiacorrected sodium 132 on initial BMP, proceed with isotonic fluid resuscitation - BPHhistory of prostatectomy -Anthony inserted, strict I's and O's ENDO - DKA/DM type II?Patient with significant hyperglycemia and questionable DKA, however his beta hydroxybutyric acid was not elevated -We will proceed with DKA protocol as the patient does have significant metabolic acidosis. -Improving Hypothyroidcontinue Synthroid HEME - Anemiahemoglobin stable at 9.8 for now, no evidence of bleeding -Monitor routine CBCs and transfuse if indicated Leukopenialikely component of bone marrow compression secondary to chemotherapy, patient also has metastasis to bone marrow -Borderline neutropenic with neutrophil count 1000. Consider Neupogen? -Monitor CBC with differential Heme-onc Breast cancer with metastasis to bone marrow and lungpatient follows with Dr. Valiente. Per outpatient oncology report from 09/26, patient is on Lupron, letrozole, and palbociclib -Last chemo treatment today -Consult to heme-onc ID - Sepsis?Patient borderline neutropenic, presents with hypotension and elevated lactate. Most likely pulmonary source based on CT image but cannot rule out other sources at this time. -Procalcitonin not elevated, will repeat in a.m. -Urine and blood cultures pending -COVID-19 negative -MRSA pending -Continue broad-spectrum antibiotics, meropenem and vancomycin LINES/IV ACCESS - CVC femoral DVT PROPHYLAXIS - SCDs, anticoagulated with Eliquis chronically I have personally spent 50 minutes of critical care time in the direct management of this patient. This is a life/limb threatening event. This includes time spent evaluating patient, direct bedside care, chart review, placing orders, interpretation of diagnostic studies, discussion with consultants, patient, and family members, as well as other required patient management activities. This time is exclusive of all separately billable procedures, and teaching time and separate from and in addition to any other critical care service time. Thank you for allowing us to participate in the care of this patient. Please refer to my attending physician's documentation for any further recommendations. (3) Paralyzed hemidiaphragm: (4) Atrial fibrillation: (5) Asthma: (6) Leg edema: (7) Hypertension: (8) Peripheral neuropathy: (9) Type 2 diabetes mellitus: (10) Chronic anticoagulation: (11) Severe obstructive sleep apnea: (12) Restless leg syndrome: (13) GERD (gastroesophageal reflux disease): (14) Hypothyroid: (15) BPH (benign prostatic hyperplasia): (16) Hypotension: (17) Metabolic acidosis: (18) DKA (diabetic ketoacidoses): (19) Syncopal episodes: History of Present Illness Attending Physician: Vishal Daugherty MD History of Present Illness 70-year-old male with PMH including metastatic breast cancer to bone marrow and lung, A. fib, hypothyroid, DM type II, hypertension, hyperlipidemia, lower extremity edema. Patient presents to the emergency department earlier this afternoon with complaints of syncope. He had chemo treatment earlier today and afterwards had multiple syncopal events and fell in the bathroom. Fortunately his caught him and there was no trauma. In the emergency department the patient was found to be hypotensive with metabolic acidosis with elevated lactate of 9. He was also noted to be hyperglycemic with elevated lactate and was treated for DKA. He was initially given 1.5 L of crystalloid bolus without improvement. Central line was inserted in the ED and he was started on Levophed drip. Cultures were obtained and he was started on broad-spectrum antibiotics. He was placed on BiPAP as he was tachypneic and short of breath with respiratory rate in the 30s. He was taken for CTA of the chest which was negative for PE but concerning for infectious process. On exam, patient is alert and oriented and appears comfortable on BiPAP. Currently normotensive on Levophed and heart rate in the 60s. Patient and family report that he has been feeling increasingly weak over the past few weeks but was not having shortness of breath or syncopal events prior to today after chemo. Patient states that he has been coughing up some phlegm for the past 2 days. He denies recent fever, sore throat, headache, chest pain or palpitations, abdominal pain, nausea or vomiting. He is not currently short of breath while wearing the BiPAP. He denies any wounds, and I did examine his feet since he is diabetic which were negative for ulcer/wounds. Patient appears to be improving with current treatment. Will transfer to ICU for further management at this time. Allergies Allergy/AdvReac Type Severity Reaction Status Date / Time No Known Drug Allergies Allergy Verified 10/20/20 19:10 Home Medications Medication Instructions Recorded Confirmed Type furosemide 40 mg tablet 40 mg PO DAILY PRN #30 tab 01/11/19 10/20/20 History denosumab 120 mg/1.7 mL (70 mg/mL) 120 mg SQ Q4WK ml 04/03/19 10/20/20 History subcutaneous solution letrozole 2.5 mg tablet 2.5 mg PO QAM 04/03/19 10/20/20 History blood-glucose meter #1 ea 11/09/19 10/09/20 Rx metoprolol succinate 50 mg 50 mg PO QAM #90 tab 12/03/19 10/20/20 Rx tablet,extended release 24 hr gabapentin 300 mg capsule 300 mg PO TID 01/24/20 10/20/20 History ferrous sulfate 325 mg (65 mg 325 mg PO QAM #90 tab 02/27/20 10/20/20 Rx iron) tablet lancets 33 gauge #100 ea 03/10/20 10/09/20 Rx apixaban 5 mg tablet 5 mg PO BID #180 tab 04/09/20 10/20/20 Rx digoxin 250 mcg (0.25 mg) tablet 250 mcg PO QAM #90 tab 04/14/20 10/20/20 Rx glipizide 10 mg tablet 10 mg PO BID #60 tab 05/22/20 10/20/20 Rx albuterol sulfate 90 mcg/actuation 2 puff INHALATION Q4H PRN #1 07/04/20 10/20/20 Rx aerosol inhaler inhaler blood sugar diagnostic #200 ea 07/11/20 10/09/20 Rx lorazepam 1 mg tablet 1 mg PO TID PRN #90 tab 07/23/20 10/20/20 Rx metformin 1,000 mg tablet,extended 1,000 mg PO BID #60 tab 09/15/20 10/20/20 Rx release 24hr montelukast 10 mg tablet 10 mg PO QAM #30 tab 10/06/20 10/20/20 Rx oxycodone-acetaminophen 5 mg-325 1 tab PO Q8H PRN 10/07/20 10/20/20 History mg tablet fluticasone propionate 1 spray INTRANASAL QAM 10/08/20 10/20/20 History furosemide [Lasix] 20 mg PO QAM 10/08/20 10/20/20 History leuprolide [Lupron Depot] 3.75 mg IM Q90D 10/08/20 10/20/20 History levothyroxine 50 mcg PO QAM 10/08/20 10/20/20 History omeprazole 20 mg PO QAM 10/08/20 10/20/20 History pramipexole 0.25 mg PO HS 10/08/20 10/20/20 History rosuvastatin 5 mg PO HS 10/08/20 10/20/20 History verapamil 180 mg PO HS 10/08/20 10/20/20 History fentanyl 12 mcg TRANSDERMAL Q3D 10/20/20 10/20/20 History Patient History Medical History Anxiety Asthma Atrial fibrillation On Eliquis BPH (benign prostatic hyperplasia) Depression Diabetes mellitus, type 2 NIDDM Dyspnea oxygen prn GERD (gastroesophageal reflux disease) Hyperlipidemia Hypertension Hypothyroid Metastasis from breast cancer to the bone currently. starting chemotherapy 10/13/20. Metastatic malignant neoplasm to breast rt breast ca - 2005 - s/p mastectomy and chemo - apr 2017 dx w/ mets to bone, follows with oncology, on Tamoxifen and receiving immunotherapy injections monthly. On anticoagulant therapy On home oxygen therapy 2lpm via n/c -- uses only as needed Paralyzed hemidiaphragm with restrictive lung disease Restless leg syndrome Sleep apnea CPAP nightly Surgical History H/O mastectomy (~2005) History of cardioversion History of colonoscopy (~2016) History of esophagogastroduodenoscopy (EGD) (~2016) History of prostate surgery History of removal of Port-a-Cath History of surgery History of tonsillectomy History of tooth extraction S/P repair of hydrocele Family History Father Diabetes Heart disease Myocardial infarction Colorectal cancer Brother Diabetes Colorectal cancer Hypertension Mother Nephrolithiasis Colorectal cancer Other Asthma Cardiac disorder No family history of adverse response to anesthesia Denies family history of Ovarian cancer Prostate cancer Breast cancer Social History Smoking Status: Never smoker Second Hand Exposure: No; Do You Dip or Chew Tobacco: No; Hx Alcohol Use: Yes Alcohol type: wine Hx Substance Use: No Preferred Language: Telugu Communication Ability: Effective Visual Impairment: No Limitations Sales Planner Required: No Beliefs That Will Affect Care: None Current Living Situation: Spouse and Family current occupational status: employed current occupation: [employer] Other Information That Helps Us Care for You: No Feels Safe at Home: Yes Safety Concerns: Feels Safe At This Time Assistive Devices: Cane, CPAP and Glasses Review of Systems Review of Systems: All systems reviewed & are unremarkable except as noted in HPI & below Physical Exam Constitutional: cooperative and comfortable Eyes: PERRL, conjunctivae normal, anicteric sclerae ENMT: external ear and nose normal, oropharynx normal Neck: trachea midline, no thyromegaly Respiratory: no labored breathing, not tachypneic and no stridor Auscultation: lungs clear to auscultation bilaterally; no crackles and no wheezes Cardiovascular: Rate/Rhythm: + irregularly irregular Heart Sounds: normal S1 and normal S2 Vessels: no JVD Extremities: normal capillary refill; no edema Gastrointestinal (Abdomen): normal bowel sounds, soft, nontender, no hepatosplenomegaly Musculoskeletal: no cyanosis or clubbing, extremities motor strength 5/5 Skin: no rashes, warm and dry Neurologic: PERRL, EOMI, accommodation nl, no face palsy, no dysarthria Psychiatric: A+Ox3, euthymic affect Genitourinary: Indwelling Anthony catheter Results & Data Results & Data ([facility]) Vital Signs (Past 12 Hours) Vital Signs Temp Pulse Pulse Resp BP BP Pulse Ox 10/20/20 21:16 59 L 28 H 99 10/20/20 20:50 59 L 16 131/71 100 10/20/20 19:55 67 16 131/81 100 10/20/20 18:50 61 27 H 137/109 H 99 10/20/20 18:47 61 28 H 128/72 100 10/20/20 18:40 61 27 H 96 10/20/20 18:32 61 24 123/83 99 10/20/20 18:30 61 29 H 100 10/20/20 18:20 61 33 H 132/97 92 10/20/20 18:17 60 32 H 116/78 10/20/20 18:11 61 22 10/20/20 18:10 60 28 H 100 10/20/20 18:04 60 32 H 111/82 97 10/20/20 18:00 60 33 H 98 10/20/20 17:50 57 L 23 97 10/20/20 17:41 55 L 35 H 96 10/20/20 17:38 36.5 C 52 L 25 H 77/52 L 96 10/20/20 17:30 56 L 26 H 98 10/20/20 17:22 56 L 24 94 10/20/20 17:20 56 L 24 93 10/20/20 17:14 56 L 28 H 93 10/20/20 17:12 96 10/20/20 17:06 56 L 27 H 77/52 L 96 Coding Level of Care Code Critical Care 1st 30-74 mins Diagnoses Sepsis A41.9 Metastatic malignant neoplasm to breast C79.81 Paralyzed hemidiaphragm J98.6 Atrial fibrillation I48.91 Asthma J45.909 Leg edema R60.0 Hypertension I10 Peripheral neuropathy G62.9 Type 2 diabetes mellitus E11.9 Chronic anticoagulation Z79.01 Severe obstructive sleep apnea G47.33 Restless leg syndrome G25.81 GERD (gastroesophageal reflux disease) K21.9 Hypothyroid E03.9 Hypothyroidism type: acquired BPH (benign prostatic hyperplasia) N40.0 Hypotension I95.9 Metabolic acidosis E87.2 DKA (diabetic ketoacidoses) E11.10 Syncopal episodes R55 (1) Hypothyroid Hypothyroidism type: acquired Qualified Code(s): E03.9 - Hypothyroidism, unspecified
[2020-10-20] MEDS: INSULIN ASPART 100 UNITS/ML 3 ML PEN SC SCH (22:02)
[2020-10-20] MEDS: APIXABAN 5 MG TABLET PO SCH (22:03)
[2020-10-20] MEDS: FAMOTIDINE 20 MG in SYRINGE 3 ML IV SCH (22:04)
[2020-10-20] MEDS: GABAPENTIN 300 MG CAP PO SCH (22:05)
[2020-10-20] MEDS: PRAMIPEXOLE DIHYDROCHLO 0.25 MG TAB PO SCH (22:06)
[2020-10-20] MEDS: ROSUVASTATIN CALCIUM 5 MG TAB PO SCH (22:06)
[2020-10-20] MEDS ORDERED: ALBUMIN 5% 250 ML IV ONE (22:07)
[2020-10-20 22:13] LABS: Base Excess VBG -5.9 mEq/L; Oxygen Saturation VBG 71.5 %; pH VBG 7.31 (7.36-7.41)
[2020-10-20] MEDS: CHECK fentaNYL PATCH PLACEMENT SCH (22:28)
[2020-10-20 22:29] LABS: BUN Creatinine Ratio 16.1 (10-20); Calcium 7.3 mg/dl (8.5-10.1); Creatinine Clr Calc Pharmacy 62.6 ml/min; Est GFR (African American) 62.5; Est GFR (Non-African American) 53.9; Magnesium 1.9 mg/dl (1.8-2.4)
[2020-10-20] MEDS ORDERED: CALCIUM CHLORIDE 10% 1,000 MG in SODIUM CHLORIDE 0.9% 50 ML IV STA (22:36)
[2020-10-20] MEDS ORDERED: MAGNESIUM SULFATE / D5W 1 GM/100 ML BAG IV ONE (22:38)
[2020-10-20 22:53] LABS: Albumin Level 2.4 gm/dl (3.4-5.0); Beta-Hydroxybutyrate 0.85 mg/dl (0.2-2.81); Bilirubin Direct 1.8 mg/dl (0-0.2); Bilirubin,Total 2.3 mg/dl (0.2-1); Phosphorus 4.1 mg/dl (2.5-4.9); Potassium 4.2 mmol/L (3.5-5.1); Total Protein 4.9 gm/dl (6.4-8.2)
[2020-10-20] MEDS: LORazepam 1 MG TAB PO PRN (22:53)
[2020-10-21] MEDS: MEROPENEM 500 MG in SYRINGE 0 ML IV SCH ×4 (01:52→21:24)
[2020-10-21] MEDS: D5NSS + 20MEQ KCL 20 MEQ/1,000 ML BAG IV SCH ×2 (02:36→07:56)
[2020-10-21 04:47] LABS: Mean Corpuscular Hgb Conc 34.3 g/dL (32-36); Mean Platelet Volume 10.6 fL (7.4-10.4); Platelet Count 109 K/uL (130-400)
[2020-10-21 04:57] LABS: INR 1.5 (0.9-1.1); Prothrombin Time 14.7 Seconds (9.0-12.0)
[2020-10-21 05:06] LABS: Magnesium 2.3 mg/dl (1.8-2.4); Phosphorus 3.3 mg/dl (2.5-4.9)
[2020-10-21 05:47] LABS: Calcium 7.4 mg/dl (8.5-10.1); Creatinine Clr Calc Pharmacy 97.2 ml/min; Est GFR (African American) 101.6; Est GFR (Non-African American) 87.7; Potassium 4.6 mmol/L (3.5-5.1)
[2020-10-21] MEDS ORDERED: CALCIUM CHLORIDE 10% 1,000 MG in SODIUM CHLORIDE 0.9% 50 ML IV STA (06:24)
[2020-10-21 06:29] LABS: Hematocrit (blood only) 25.1 % (42-52); Hemoglobin 8.6 g/dL (14.0-18.0); Mean Corpuscular Hemoglobin 33.5 pg (25-34); Mean Corpuscular Volume 97.7 fL (80-100); Nucleated RBC # (auto) 0.39 K/uL (0-0); Nucleated RBC % (auto) 28.9 %; RDW Coefficient of Variation 19.3 % (11.5-14.5); Red Blood Count 2.57 M/uL (4.7-6.1); White Blood Count 1.35 K/uL (4.8-10.8)
[2020-10-21 06:33] LABS: Albumin Level 2.5 gm/dl (3.4-5.0); Bilirubin,Total 1.3 mg/dl (0.2-1); Total Protein 4.8 gm/dl (6.4-8.2)
[2020-10-21 06:34] LABS: Bilirubin Direct 0.9 mg/dl (0-0.2)
[2020-10-21] MEDS: LEVOTHYROXINE SODIUM 50 MCG TABLET PO SCH (06:39)
[2020-10-21 06:41] LABS: Giant Platelets 3+; Polychromasia 1+; Tear Drop Cells 1+
[2020-10-21 06:47] LABS: ALC (manual) 0.54 K/uL (1.2-3.4); ANC (manual) 0.67 K/uL (1.4-6.5); Basophils # (manual) 0.01 K/uL (0-0.2); Basophils % (manual) 0.9 %; Blast # (manual) 0.01 K/uL (0-0); Blast Cells % (manual) 0.9 %; Large Granular Lymph # (manua 0.33 K/uL; Large Granular Lymph % (manual) 24.1 %; Lymphocytes # (manual) 0.22 K/uL (1.2-3.4); Lymphocytes % (manual) 16.1 %; Metamyelocytes # (manual) 0.02 K/uL (0-0); Metamyelocytes % (manual) 1.8 %; Monocytes # (manual) 0.07 K/uL (0.11-0.59); Monocytes % (manual) 5.4 %; Myelocytes # (manual) 0.01 K/uL (0-0); Myelocytes % (manual) 0.9 %; Neutrophils # (manual) 0.67 K/uL (1.4-6.5); Neutrophils % (manual) 49.9 %
[2020-10-21 07:37] LABS: Estimated Average Glucose 212 mg/dl
[2020-10-21] MEDS: INSULIN ASPART 100 UNITS/ML 3 ML PEN SC SCH ×4 (07:49→21:32)
[2020-10-21] MEDS: DIGOXIN 0.25 MG TAB PO SCH (07:50)
[2020-10-21] MEDS: levoFLOXacin/D5W 750 MG/150 ML BAG IV SCH (07:50)
[2020-10-21] MEDS: APIXABAN 5 MG TABLET PO SCH ×2 (07:50→21:25)
[2020-10-21] MEDS: GABAPENTIN 300 MG CAP PO SCH ×3 (07:51→21:26)
[2020-10-21] MEDS: FLUTICASONE PROPIONATE NA SPR 16 GM BTL NAE SCH (07:51)
[2020-10-21] MEDS: FERROUS SULFATE 325 MG TAB PO SCH (07:51)
[2020-10-21] MEDS: MONTELUKAST SODIUM 10 MG TABLET PO SCH (07:52)
[2020-10-21] MEDS: LETROZOLE 2.5 MG TAB PO SCH (07:52)
[2020-10-21] MEDS: FAMOTIDINE 20 MG in SYRINGE 3 ML IV SCH ×2 (07:55→21:25)
[2020-10-21] MEDS: CHECK fentaNYL PATCH PLACEMENT SCH ×2 (07:55→16:00)
--- NOTE | 2020-10-21 08:50 | Ultrasound Report ---
US liver CLINICAL HISTORY: Cholelithiasis. Sepsis. COMPARISON STUDY: CT scan dated 10/20/2020 FINDINGS: The liver is of slightly increased echogenicity consistent with hepatic steatosis. There is a 3 cm le ft lobe hepatic cyst. The pancreas appears normal as visualized. There are multiple gallstones. There is gallbladder wall thickening and mild gallbladder wall edema. The technologist reports a negative sonographic Guillen sign. There is no ductal dilatation. The common bile duct measures 4 mm. There is no right-sided hydronephrosis. IMPRESSION: 1. Cholelithiasis and gallbladder wall thickening and edema. A nuclear medicine hepatobiliary scan co uld be obtained in follow-up to evaluate cystic duct patency as deemed clinically appropriate. 2. Hepatic steatosis. 3. 3 mm left lobe hepatic cyst ACT 112: Negative or not required by law. Electronically signed by: Óscar Rivera M.D. 10/21/2020 8:48 AM
[2020-10-21] MEDS ORDERED: METOPROLOL SUCC 50MG EXT REL TAB PO SCH (09:00)
[2020-10-21] MEDS ORDERED: PANTOprazole 40 MG TAB PO SCH (09:00)
[2020-10-21] MEDS ORDERED: INSULIN GLARGINE SOLOSTAR 100 UNITS/ML 3 ML PEN SC ONE (10:31)
--- NOTE | 2020-10-21 11:30 | XCELERA ---
[id number] \\[id number]
[2020-10-21] MEDS ORDERED: VANCOMYCIN HCL 1,250 MG in SODIUM CHLORIDE 0.9% 250 ML IV SCH (12:00)
[2020-10-21] MEDS ORDERED: DC IV INSULIN INFUSION 1 EA DEVI SCH (12:00)
[2020-10-21] MEDS ORDERED: Nursing to Pharmacy Communication SCH (12:30)
--- NOTE | 2020-10-21 12:51 | Critical Care Progress Note ---
Date of Service October 21, 2020 Assessment & Plan (1) Admitted to intensive care unit: Reason Critically Ill: 70-year-old male with metastatic breast cancer presents to the ICU with hypotension and metabolic acidosis requiring vasopressor support. Neuro - [facility] ICU: Negative Syncopeimproved and correction of blood pressure. Suspect this is likely from hypotension, see management below. -Complete bedrest for now Cardiac - Hypotensionlikely septic shock, GI versus pulmonary source -Cortisol 57 -Troponin negative, echo with preserved EF in July 2019. Follow-up repeat study -H&H stable -Continue vasopressor to keep MAP greater than 65 A. fibcurrently rate controlled with heart rate in 60s -Digoxin level 1.2 in ED -Continue home dose digoxin for now -Chronically anticoagulated with Eliquis, continue -Continuous monitoring on telemetry Lower extremity edemapatient usually wears compression stockings and takes Lasix 40 mg daily -We will hold on diuresis as patient is currently hypotensive Respiratory - Minimal pulmonary infiltrates Especially in the right middle and lower lobe Not significant enough to cause severe sepsis like this Will still continue with broad-spectrum antibiotics for the time being JLUIS Continue with CPAP at night GI - GERDsecondary to hiatal hernia, unchanged on CT imaging from previous study -Continue PPI TransaminitisElevation of LFTs, total bili 2.5 --> trending down -Shock liver in the setting of hypotension versus cholangitis -CT abdomen with cholelithiasis and moderate gallbladder wall thickening, hepatic steatosis. Few hepatic cysts measure up to 2.9 cm. No biliary or pancreatic ductal dilation. No gallbladder distention. -Right upper quadrant ultrasound shows pericholecystic fluid with cholelithiasis. HIDA scan ordered -Guillen sign negative, abdominal exam benign -Trend LFTs RENAL/LYTES - S/p AKIinitial creatinine 1.45 on admission. Monitor BUN/creatinine Avoid nephrotoxic medications Strict ins and outs S/p metabolic acidosisetiology likely lactic acidosis plus a component of DKA, see management DKA below -Lactic trending down -Continue to monitor Pseudohyponatremiacorrected sodium 132 on initial BMP, proceed with isotonic fluid resuscitation - BPHhistory of prostatectomy -Anthony inserted, strict I's and O's ENDO - DKA Patient with significant hyperglycemia and questionable DKA, however his beta hydroxybutyric acid was mildly elevated -Hydrated of insulin drip -Improving Hypothyroidcontinue Synthroid HEME - Anemiahemoglobin stable at 9.8 for now, no evidence of bleeding -Monitor routine CBCs and transfuse if indicated Pancytopenialikely component of bone marrow compression secondary to chemotherapy, patient also has metastasis to bone marrow -Neutropenia with decreasing absolute neutrophil count -Monitor CBC with differential Heme-onc Breast cancer with metastasis to bone marrow and lung Follows with Dr. Valiente. Per outpatient oncology report from 09/26, patient is on Lupron, letrozole, and palbociclib -Last chemo treatment today -Consult to heme-onc ID - Sepsis Patient borderline neutropenic, presents with hypotension and elevated lactate. Most likely pulmonary source based on CT image but cannot rule out other sources at this time. -Initial procalcitonin was not elevated, repeat procalcitonin 1.39 -Urine and blood cultures pending, urine was negative for bacteria or leukocyte esterase -COVID-19 negative -MRSA negative -Continue broad-spectrum antibiotics, meropenem, levofloxacin for atypical coverage --Prophylaxis VTE: Apixaban GI: Pepcid Lines: Right femoral, positive Anthony Diet: Cardiac Plan: In/out: +5.7 L, urine output 500 mL DC all IV fluids Try to titrate off vasopressors. Although the patient's Guillen sign is negative patient does have cholelithiasis and pericholecystic fluid Possibility of GI source causing the septic picture is high in other than pulmonary source We will continue with antibiotics broad-spectrum for the time being Levofloxacin has been added for atypical coverage. Continue with meropenem. Discontinue vancomycin after today's dose given the nasal MRSA is negative We will do HIDA scan tomorrow. Patient is on fentanyl patch. We will remove the fentanyl patch tomorrow at 6 AM so that we have 6 hours off of any medication which can decrease the flow of bile. Patient does have elevated LFTs likely from hypotension. Monitor Follow GGT I have personally spent 41 minutes of critical care time in the direct management of this patient. This is a life/limb threatening event. This includes time spent evaluating patient, direct bedside care, chart review, placing orders, interpretation of diagnostic studies, discussion with consultants, patient, and family members, as well as other required patient management activities. This time is exclusive of all separately billable procedures, and teaching time and separate from and in addition to any other critical care service time. Please note the above document was generated using voice recognition software. It may contain grammatical, syntax or spelling errors. (2) DKA (diabetic ketoacidoses): (3) Septic shock: (4) Pancytopenia: (5) Severe obstructive sleep apnea: (6) Metastatic malignant neoplasm to breast: Admission and Anticipated Discharge Date Admission Date: October 20, 2020 Subjective Patient seen and examined at bedside. No acute distress, no adverse events ov ernight. Patient was on 0.03 of Levophed at the time of examination. He did complain of a little bit nausea early in the morning. He did not throw up. Denies any chest pain, states that he feels much better compared to coming to the hospital. Denies any headache, no dizziness. No chest pain, no shortness of breath. Review of Systems Review of Systems: All systems reviewed & are unremarkable except as noted in Subjective Physical Exam Physical Exam: Constitutional: No acute distress HEENT: EOMI, PERRLA Respiratory system: Decreased air entry bilaterally, more decreased on the left, no wheeze, no rhonchi, mild crackles bilateral lower lobes CVS: S1-S2 positive, no murmurs or gallops Abdomen: Soft, nontender, nondistended, positive bowel sounds x4, negative Guillen sign Extremities: +2 pulses bilaterally radialis/ dorsalis pedis, no cyanosis, +1 pitting edema bilateral lower extremity Neuro: Awake alert oriented x3 Psych: Normal mood and affect G/U: Positive Anthony Skin: no rashes, warm and dry Lymphatic: no cervical or axillary lymphadenopathy Results & Data Results & Data ([facility]) Vital Signs (Past 12 Hours) Vital Signs Temp Pulse Resp BP Pulse Ox 10/21/20 10:30 77 21 112/65 99 10/21/20 10:00 36.8 C 84 19 98 10/21/20 09:30 77 18 115/65 99 10/21/20 09:00 79 17 122/78 93 10/21/20 08:57 75 14 122/73 89 L 10/21/20 08:30 76 19 116/59 L 96 10/21/20 08:00 82 18 115/67 99 10/21/20 07:50 76 10/21/20 07:44 78 19 121/70 98 10/21/20 07:35 72 17 155/79 H 96 10/21/20 07:30 76 16 94 10/21/20 07:00 66 17 127/72 92 10/21/20 05:00 36.8 C 61 19 98 10/21/20 02:30 61 18 105/62 88 L 10/21/20 02:15 57 L 20 118/67 100 10/21/20 02:01 59 L 22 101/63 98 10/21/20 02:00 58 L 17 100 10/21/20 01:45 36.4 C L 58 L 18 121/66 99 10/21/20 01:30 56 L 17 95/56 L 100 10/21/20 01:15 56 L 15 102/54 L 100 10/21/20 01:00 56 L 15 101/51 L 100 10/21/20 00:45 56 L 15 91/56 L 100 10/21/20 04:34 10/21/20 04:34 Coding Level of Care Code Critical Care 1st 30-74 mins Diagnoses Admitted to intensive care unit Z78.9 DKA (diabetic ketoacidoses) E11.10 Septic shock A41.9; R65.21 Pancytopenia D61.818 Severe obstructive sleep apnea G47.33 Metastatic malignant neoplasm to breast C79.81 Time Spent (min) 41
--- NOTE | 2020-10-21 14:44 | Hospitalist Progress Note ---
Date of Service October 21, 2020 Assessment & Plan (1) Syncopal episodes: Mr. Shine is a 70 yo gentleman with a PMHx of metastatic breast cancer (to bone and lung) who was admitted on 10/20/20 after a witnessed syncopal episode occurred following his chemotherapy infusion. He was found to be h ypotensive on arrival (BP on was 77/52). He was volume resuscitated with IVF and placed on vasopressors for additional support. Currently in ICU for close hemodynamic monitoring. - likely secondary to hypotension as above (2) Sepsis: - presented in hemodynamic shock - volume resuscitated as above - vasopressors as above - cortisol appropriately elevated - source: R middle lobe PNA (opacity noted on Chest CT) vs. cholangitis (cholestatic biliary profile, gallstones present, but no ductal dilation or gallbladder distention noted on CT). HIDA scan pending. UA neg. No evidence of cellulitis on exam. No diarrhea. - continue Meropenum and Levofloxacin. Vanc discontinued as nasal MRSA swab negative - procal elevated to 1.39, suggestive of bacterial infection - blood cultures showing no growth to date (3) Metabolic acidosis: - pH 7.31. Bicarb 19. AG elevated to 18.8 (corrected for low albumin) - etiology: Lactic vs. DKA - Lactate elevated to 3.5 on admission, down to 2.1 - BG elevated to 400 on admission, beta hydroxybutyric negative. DKA less likely in type II - anticipate resolution with IVF and insulin - trend BMP (4) Pancytopenia: - likely secondary to ongoing chemotherapy for metastatic breast cancer - ANC 602. patient afebrile (5) Atrial fibrillation: - rate controlled; holding home metoprolol given hypotension - anticoagulated on Eliquis - continue home digoxin; level 1.2 (6) Transaminitis: - AST and ALT elevated - suspect secondary to shock liver (given SBP < 90) vs. cholangitis - IVF and vasopressors as above - trend liver function (7) Type 2 diabetes mellitus: - uncontrolled - HbA1c 9.0 on admission - continue Rousvastatin 5mg - hold home glipizide and Metformin given metabolic acidosis - pharmacy glycemic management (8) Hypothyroid: - continue home Synthroid DVT ppx: On eliquis Code: Full Diet: Carb consistent Dispo: ICU Admission and Anticipated Discharge Date Admission Date: October 20, 2020 Supervising Physician Co-Signing Physician Notes I personally examined the patient and verified all mohr points of history and exam, discussed case, and agree with decision making with Dr Carrillo. Resting. Vitals noted, in general he is resting comfortably no distress wearing oxygen mask breathing unlabored no accessory muscle use. Skin with mild pallor no diaphoresis. No focal neuro deficits at rest Neutropenic sepsis/septic shock present on admissioncontinue broad antibiotics and supportive care. Pneumonia most likely source. Otherwise as above. chemo induced pancytopenia noted Subjective Vasopressor were turned off this morning - Mr. Shine says he feels weak, but his breathing is easy. He denies any current pain/discomfort. Review of Systems Review of Systems: All systems reviewed & are unremarkable except as noted in HPI & below Physical Exam Constitutional: WD/WN, vitals as above + ill appearing and cooperative; no acute distress Eyes: + anicteric sclerae ENMT: external ear and nose normal, oropharynx normal Neck: normal visual inspection and trachea midline Respiratory: normal respiratory effort; no labored breathing and no cough Auscultation: lungs clear to auscultation bilaterally; no wheezes Cardiovascular: Rate/Rhythm: regular rate and + irregularly irregular Heart Sounds: normal S1, normal S2 and + murmur (systolic ejection murmur ) Gastrointestinal (Abdomen): normal bowel sounds, soft, nontender, no hepatosplenomegaly Skin: no rashes, warm and dry Psychiatric: A+Ox3, euthymic affect Genitourinary: Anthony catheter in place, draining yellow urine without visible blood clots Results & Data Results & Data ([facility]) Vital Signs (Past 12 Hours) Vital Signs Temp Pulse Resp BP Pulse Ox 10/21/20 14:00 89 21 128/73 96 10/21/20 13:30 77 19 109/59 L 97 10/21/20 13:00 79 20 101/67 98 10/21/20 12:30 82 21 117/88 99 10/21/20 12:00 79 20 113/82 100 10/21/20 11:30 86 26 H 136/77 96 10/21/20 11:00 83 17 106/65 97 10/21/20 10:30 77 21 112/65 99 10/21/20 10:00 36.8 C 84 19 98 10/21/20 09:30 77 18 115/65 99 10/21/20 09:00 79 17 122/78 93 10/21/20 08:57 75 14 122/73 89 L 10/21/20 08:30 76 19 116/59 L 96 10/21/20 08:00 82 18 115/67 99 10/21/20 07:50 76 10/21/20 07:44 78 19 121/70 98 10/21/20 07:35 72 17 155/79 H 96 10/21/20 07:30 76 16 94 10/21/20 07:00 66 17 127/72 92 10/21/20 05:00 36.8 C 61 19 98 Resident Activity Tracking Resident Involvement: Resident Care Provided Care Provided: Adult Hospital Medicine (1) Hypothyroid Hypothyroidism type: acquired Qualified Code(s): E03.9 - Hypothyroidism, unspecified
--- NOTE | 2020-10-21 14:45 | Pharmacy Report ---
Pharmacy Glycemic Short Note 2 - Date of Service October 21, 2020 - Glycemic Short BSG Results (Last 24 hours): 10/20/20 10/20/20 10/20/20 17:03 17:15 17:19 Glucose 494 H* POC Glucose 516 H* POC Glucose (other) 482 H* 10/20/20 10/20/20 10/20/20 18:39 18:56 21:37 Glucose POC Glucose 449 H* POC Glucose (other) 427 H* 331 H 10/20/20 10/20/20 10/20/20 21:51 22:39 23:36 Glucose 330 H* POC Glucose POC Glucose (other) 278 H 257 H 10/21/20 10/21/20 10/21/20 00:39 01:43 02:32 Glucose POC Glucose POC Glucose (other) 235 H 196 H 161 H 10/21/20 10/21/20 10/21/20 03:41 04:34 04:41 Glucose 183 H POC Glucose POC Glucose (other) 190 H 203 H 10/21/20 10/21/20 10/21/20 05:38 07:36 09:20 Glucose POC Glucose POC Glucose (other) 178 H 181 H 167 H 10/21/20 10/21/20 10/21/20 11:30 12:29 13:33 Glucose POC Glucose 144 H 123 H 108 H POC Glucose (other) 10/21/20 14:11 Glucose POC Glucose 110 H POC Glucose (other) OUTPATIENT ANTIDIABETIC REGIMEN: * glipizide 10mg BID, metformin 1G BIDM ASSESSMENT: * Patient with possible DKA who improved enough this morning to be transitioned off of the insulin infusion. The dextrose containing fluids were stopped this morning and full moderate weight based dose of lantus was given around lunchtime. BSGs ~1.5 hours after lantus dose remain 108-123 mg/dL with the insulin infusion on hold. If BSG remains in goal at next check will plan to d/c the insulin infusion altogether. * Will add a conservative Lantus scale this evening, should any additional basal insulin be needed today * A moderate stress does novolog dose is also added. The patient is ordered a diet and is eating consistently, but reduced (applesauce, egg salad, ect). PLAN FOR INPATIENT GLYCEMIC CONTROL: * Hold outpatient oral diabetes medications * Basal insulin * Lantus 35 units SQ X 1 at lunch * Lantus 0,10,15 units based on BSG this evening * Bolus insulin * NovoLog per scale ACHS or Q6hrs while NPO * Goal Range: Low 110 mg/dL - High 140 mg/dL * Correction Factor: 25 mg/dL/unit * Nutritional / Prandial insulin per carb ratio of 1 unit per 8 grams CHO consumed
--- NOTE | 2020-10-21 17:33 | Billing Data ---
Date of Service October 21, 2020 Coding Level of Care Code 66907 Subseq Hosp Care Lvl 1
[2020-10-21] MEDS: PRAMIPEXOLE DIHYDROCHLO 0.25 MG TAB PO SCH (21:26)
[2020-10-21] MEDS: ROSUVASTATIN CALCIUM 5 MG TAB PO SCH (21:27)
[2020-10-21] MEDS ORDERED: INSULIN GLARGINE SOLOSTAR 100 UNITS/ML 3 ML PEN SC SCH (22:00)
[2020-10-22] MEDS: CHECK fentaNYL PATCH PLACEMENT SCH ×4 (00:07→23:59)
[2020-10-22] MEDS: MEROPENEM 500 MG in SYRINGE 0 ML IV SCH ×4 (01:51→20:43)
[2020-10-22 05:35] LABS: INR 1.4 (0.9-1.1); Prothrombin Time 13.5 Seconds (9.0-12.0)
[2020-10-22 05:36] LABS: BUN Creatinine Ratio 32.7 (10-20); Calcium 7.4 mg/dl (8.5-10.1); Creatinine Clr Calc Pharmacy 198.1 ml/min; Est GFR (African American) 135.8; Est GFR (Non-African American) 117.1; Magnesium 1.9 mg/dl (1.8-2.4)
[2020-10-22 05:44] LABS: Basophils # (auto) 0.01 K/uL (0-0.2); Basophils % (auto) 1.6 %; Hematocrit (blood only) 22.5 % (42-52); Hemoglobin 7.4 g/dL (14.0-18.0); Lymphocytes # (auto) 0.33 K/uL (1.2-3.4); Lymphocytes % (auto) 52.4 %; Mean Corpuscular Hgb Conc 32.9 g/dL (32-36); Mean Corpuscular Volume 100.4 fL (80-100); Mean Platelet Volume 11.7 fL (7.4-10.4); Monocytes # (auto) 0.02 K/uL (0.11-0.59); Monocytes % (auto) 3.2 %; Neutrophils # (auto) 0.27 K/uL (1.4-6.5); Neutrophils % (auto) 42.8 %; Nucleated RBC # (auto) 0.12 K/uL (0-0); Platelet Count 107 K/uL (130-400); RDW Coefficient of Variation 19.4 % (11.5-14.5); RDW Standard Deviation 72.1 fL (36.4-46.3); Red Blood Count 2.24 M/uL (4.7-6.1); White Blood Count 0.63 K/uL (4.8-10.8)
[2020-10-22 05:45] LABS: Giant Platelets 1+; Tear Drop Cells 1+
[2020-10-22] MEDS ORDERED: [UNRECOGNIZED DRUG - REMARK] ONE (06:00)
--- NOTE | 2020-10-22 06:07 | Electrocardiogram Report ---
Test Reason : Blood Pressure : / mmHG Vent. Rate : 057 BPM Atrial Rate : 044 BPM P-R Int : 000 ms QRS Dur : 082 ms QT Int : 410 ms P-R-T Axes : 082 049 001 degrees QTc Int : 399 ms Possible Junctional bradycardia Otherwise normal ECG When compared with ECG of 02-MAY-2017 12:33, Junctional bradycardia has replaced Atrial fibrillation Confirmed by Gonzalez Elmore ([id number]) on 10/22/2020 6:07:30 AM Referred By: REFERRED SELF Confirmed By:Gonzalez Elmore
[2020-10-22] MEDS ORDERED: MAGNESIUM SULFATE / D5W 1 GM/100 ML BAG IV ONE (06:20)
[2020-10-22] MEDS: LEVOTHYROXINE SODIUM 50 MCG TABLET PO SCH (06:45)
[2020-10-22] MEDS ORDERED: SODIUM PHOSPHATE 3 MMOL/1 ML INFUSION IV STA (08:15)
[2020-10-22] MEDS: FAMOTIDINE 20 MG in SYRINGE 3 ML IV SCH ×2 (08:18→21:34)
[2020-10-22] MEDS: levoFLOXacin/D5W 750 MG/150 ML BAG IV SCH (08:18)
[2020-10-22] MEDS: INSULIN ASPART 100 UNITS/ML 3 ML PEN SC SCH ×4 (08:19→20:44)
[2020-10-22] MEDS ORDERED: SODIUM PHOSPHATE 15 MMOL in SODIUM CHLORIDE 0.9% 250 ML IV ONE (08:30)
[2020-10-22 08:48] LABS: Albumin Level 2.2 gm/dl (3.4-5.0); Bilirubin Direct 0.5 mg/dl (0-0.2); Bilirubin,Total 0.9 mg/dl (0.2-1); Total Protein 4.7 gm/dl (6.4-8.2)
--- NOTE | 2020-10-22 09:19 | Hospitalist Progress Note ---
Date of Service October 22, 2020 Assessment & Plan (1) Syncopal episodes: Mr. Shine is a 70 yo gentleman with a PMHx of metastatic breast cancer (to bone and lung) who was admitted on 10/20/20 after a witnessed syncopal episode occurred following his chemotherapy infusion. He was found to be h ypotensive on arrival (BP on was 77/52). He was volume resuscitated with IVF and placed on vasopressors for additional support. Currently in ICU for close hemodynamic monitoring. Pressors have been discontinued and patient has maintained goal MAPs. Suitable for ICU downgrade. - likely secondary to hypotension as above (2) Sepsis: - presented in hemodynamic shock - volume resuscitated and vasopressors as above - cortisol appropriately elevated - source: R middle lobe PNA (opacity noted on Chest CT) vs. cholangitis (cholestatic biliary profile, gallstones present, but no ductal dilation or gallbladder distention noted on CT). HIDA scan pending. UA neg. No evidence of cellulitis on exam. No diarrhea. - procal elevated to 1.39, suggestive of bacterial infection - 1 of 2 blood cultures growing gram positive cocci in clusters; follow - continue Meropenum and Levofloxacin. Regimen provides coverage against gram positives (including MRSA), gram negatives (including pseudomonas), anaerobes and atypicals. Vanc discontinued as nasal MRSA swab negative. (3) Metabolic acidosis: - pH 7.31. Bicarb 19. AG elevated to 18.8 (corrected for low albumin) - etiology: Lactic vs. DKA - Lactate elevated to 3.5 on admission, down to 2.1 - BG elevated to 400 on admission, beta hydroxybutyric negative. DKA less likely in type II - resolved with IVF and insulin - trend BMP (4) Pancytopenia: - likely secondary to ongoing chemotherapy for metastatic breast cancer - ANC down to 269. patient afebrile - trend CBC (5) Atrial fibrillation: - rate controlled; holding home metoprolol given hypotension - anticoagulated on Eliquis - continue home digoxin; level 1.2 (6) Transaminitis: - AST 237 on admission --> 137 - ALT 152 on admission --> 146 - Alk phos elevated on admission, now normal - suspect secondary to shock liver (given SBP < 90 on admission) vs. cholangitis - HIDA scan pending - continue IVF - trend liver function (7) Type 2 diabetes mellitus: - uncontrolled - HbA1c 9.0 on admission - hold home glipizide and Metformin given metabolic acidosis - pharmacy glycemic management - continue Rousvastatin 5mg - patient is not on an ALICE/ARB (no allergies listed in chart, normal kidney function) - will perform lifestyle counseling when patient is clinically improved (8) Hypothyroid: - continue home Synthroid DVT ppx: On eliquis Code: Full Diet: Carb consistent Dispo: Med/Surg with tele Admission and Anticipated Discharge Date Admission Date: October 20, 2020 Supervising Physician Co-Signing Physician Notes I personally examined the patient and verified all mohr points of history and exam, discussed case, and agree with decision making with Dr Carrillo. Starting to eat dinner when I see him. Has no new complaints. Has a small trickle of a nosebleed in his right nostril. Notes that generally he feels okay just tired. Does note a little bit of nausea after eatingmostly relates to meats (this is on directed questioning otherwise he was not really aware of what foods triggered it) over the last 2 weeks. No abdominal pain otherwise. No vomiting. He is able to eat fruit okay. He has no chest pain or cough or s hortness of breath. No abdominal pain, no change in his bowels other than constipation. No urinary symptoms. No other complaints besides being fatigued. His suspicion is this all relates to the chemotherapy. Vitals noted, in general he is awake alert and oriented, no distress. HEENT normocephalic atraumatic mucous membranes are moist. Cardio is regular without rubs murmurs gallops. Lungs clear to auscultation bilaterally no rales rhonchi or wheezes good effort. Abdomen is soft nondistended nontender no masses organomegaly, no guarding no rebound no rigidity. No right upper quadrant te nderness. Extremities show no cyanosis or clubbing, no calf tenderness. Neutropenic sepsis/septic shock present on admissioncontinue broad antibiotics and supportive care. As his story continues to evolve, well a biliary source is still possible, his general lack of symptoms (besides a vague nausea that may or may not be worse with fatty foods) is starting to make it look more like this was all chemotherapy related. Would appreciate surgical input on his gallbladder, but otherwise we will continue the Carbapenem coverage for enteric pathogens, and continue to trend his LFTs. His chemotherapy induced pancytopenia persists, hopefully will start to rebound soon. Subjective Yesterday vasopressors were turned back on (at a low dose) before being shut off at 11pm last night. No acute events. Patient says he feels "about the same" as yesterday. Review of Systems Constitutional: + weakness Physical Exam Constitutional: WD/WN, vitals as above + ill appearing and cooperative; no acute distress Eyes: + anicteric sclerae ENMT: external ear and nose normal, oropharynx normal Neck: normal visual inspection and trachea midline Respiratory: normal respiratory effort; no labored breathing and no cough Auscultation: lungs clear to auscultation bilaterally; no wheezes Cardiovascular: Rate/Rhythm: + tachycardic and + irregularly irregular Heart Sounds: normal S1, normal S2 and + murmur (systolic ejection murmur ) Gastrointestinal (Abdomen): normal bowel sounds, soft, nontender, no hepatosplenomegaly Skin: no rashes, warm and dry Psychiatric: A+Ox3, euthymic affect Genitourinary: Anthony catheter in place, draining yellow urine with several blood clots Results & Data Results & Data ([facility]) Vital Signs (Past 12 Hours) Vital Signs Temp Pulse Resp BP Pulse Ox 10/22/20 05:10 108 H 14 97 10/22/20 05:00 103 H 15 144/106 H 97 10/22/20 04:50 108 H 20 98 10/22/20 04:40 114 H 15 96 10/22/20 04:30 98 H 14 135/82 97 10/22/20 04:20 104 H 14 94 10/22/20 04:10 106 H 14 96 10/22/20 04:00 109 H 16 129/81 96 10/22/20 03:50 107 H 17 97 10/22/20 03:40 106 H 20 96 10/22/20 03:30 105 H 17 126/71 97 10/22/20 03:20 114 H 14 96 10/22/20 03:17 110 H 19 97 10/22/20 03:10 113 H 14 97 10/22/20 03:00 109 H 17 155/97 H 98 10/22/20 02:50 112 H 16 97 10/22/20 02:40 106 H 16 95 10/22/20 02:30 105 H 16 125/72 96 10/22/20 02:20 111 H 16 96 10/22/20 02:10 107 H 16 95 10/22/20 02:00 105 H 16 146/89 H 97 10/22/20 01:54 36.6 C 10/22/20 01:50 109 H 17 97 10/22/20 01:40 111 H 15 96 10/22/20 01:30 108 H 16 117/72 96 10/22/20 01:20 100 H 16 96 10/22/20 01:10 105 H 17 95 10/22/20 01:00 102 H 18 151/88 H 98 10/22/20 00:50 108 H 17 96 10/22/20 00:40 104 H 16 94 10/22/20 00:30 107 H 17 133/73 95 10/22/20 00:29 103 H 10/22/20 00:20 119 H 17 95 10/22/20 00:10 106 H 19 95 10/22/20 00:00 36.7 C 110 H 16 126/70 96 10/21/20 23:50 106 H 17 94 10/21/20 23:40 101 H 16 95 10/21/20 23:30 106 H 17 118/77 95 10/21/20 23:27 36.7 C 10/21/20 23:20 103 H 17 95 10/21/20 23:16 90 21 98 10/21/20 23:10 108 H 18 98 10/21/20 23:00 105 H 17 129/90 99 10/21/20 22:50 103 H 19 96 10/21/20 22:40 106 H 13 100 10/21/20 22:30 118 H 18 140/94 100 10/21/20 22:20 104 H 19 99 10/21/20 22:10 106 H 18 100 10/21/20 22:00 104 H 19 136/74 95 10/21/20 21:50 106 H 21 99 10/21/20 21:40 110 H 21 99 10/21/20 21:30 104 H 23 100 10/21/20 21:20 107 H 19 99 Resident Activity Tracking Resident Involvement: Resident Care Provided Care Provided: Adult Hospital Medicine (1) Hypothyroid Hypothyroidism type: acquired Qualified Code(s): E03.9 - Hypothyroidism, unspecified
--- NOTE | 2020-10-22 14:25 | Critical Care Progress Note ---
Date of Service October 22, 2020 Assessment & Plan (1) Admitted to intensive care unit: Reason Critically Ill: 70-year-old male with metastatic breast cancer presents to the ICU with hypotension and metabolic acidosis requiring vasopressor support. Neuro - [facility] ICU: Negative Syncopeimproved and correction of blood pressure. Suspect this is likely from hypotension, see management below. -Complete bedrest for now Cardiac - S/p septic shock, GI versus pulmonary source -Cortisol 57 -Troponin negative, echo with preserved EF in July 2019. Follow-up repeat study -H&H stable -Continue vasopressor to keep MAP greater than 65 A. fibcurrently rate controlled with heart rate in 60s -Digoxin level 1.2 in ED -Continue home dose digoxin for now -Chronically anticoagulated with Eliquis, continue -Continuous monitoring on telemetry Lower extremity edemapatient usually wears compression stockings and takes Lasix 40 mg daily -We will hold on diuresis as patient is currently hypotensive Respiratory - Minimal pulmonary infiltrates Especially in the right middle and lower lobe Not significant enough to cause severe sepsis like this Will still continue with broad-spectrum antibiotics for the time being JLUIS Continue with CPAP at night GI - GERDsecondary to hiatal hernia, unchanged on CT imaging from previous study -Continue PPI TransaminitisElevation of LFTs, total bili 2.5 --> trending down -Shock liver in the setting of hypotension versus cholangitis -CT abdomen with cholelithiasis and moderate gallbladder wall thickening, hepatic steatosis. Few hepatic cysts measure up to 2.9 cm. No biliary or pancreatic ductal dilation. No gallbladder distention. -Right upper quadrant ultrasound shows pericholecystic fluid with cholelithiasis. HIDA scan ordered -Guillen sign negative, abdominal exam benign -Trend LFTs RENAL/LYTES - S/p AKIinitial creatinine 1.45 on admission. Monitor BUN/creatinine Avoid nephrotoxic medications Strict ins and outs S/p metabolic acidosisetiology likely lactic acidosis plus a component of DKA, see management DKA below -Lactic trending down -Continue to monitor Pseudohyponatremiacorrected sodium 132 on initial BMP, proceed with isotonic fluid resuscitation - BPHhistory of prostatectomy -Anthony inserted, strict I's and O's ENDO - DKA Patient with significant hyperglycemia and questionable DKA, however his beta hydroxybutyric acid was mildly elevated -Hydrated of insulin drip -Improving Hypothyroidcontinue Synthroid HEME - Anemiahemoglobin stable at 9.8 for now, no evidence of bleeding -Monitor routine CBCs and transfuse if indicated Pancytopenialikely component of bone marrow compression secondary to chemotherapy, patient also has metastasis to bone marrow -Neutropenia with decreasing absolute neutrophil count -Monitor CBC with differential Heme-onc Breast cancer with metastasis to bone marrow and lung Follows with Dr. Valiente. Per outpatient oncology report from 09/26, patient is on Lupron, letrozole, and palbociclib -Last chemo treatment today -Consult to heme-onc ID - Sepsis Patient borderline neutropenic, presents with hypotension and elevated lactate. Most likely pulmonary source based on CT image but cannot rule out other sources at this time. -Initial procalcitonin was not elevated, repeat procalcitonin 1.39 -Blood culture is growing coagulase-negative staph in one of the bottles, uri ne was negative for bacteria or leukocyte esterase -COVID-19 negative -MRSA negative -Continue broad-spectrum antibiotics, meropenem, levofloxacin for atypical coverage --Prophylaxis VTE: Apixaban GI: Pepcid Lines: Right femoral, positive Anthony Diet: Cardiac Plan: In/out: -765, urine output 1602 Off vasopressors and insulin drip since yesterday morning. Absolute neutrophil count today is 270 Continue with meropenem and levofloxacin for double antipseudomonal coverage Might need to consider Neupogen. I will defer this to oncology Patient is feeling better. For HIDA scan today. Patient is hemodynamically stable to be downgraded to a medical floor. DC femoral line prior to downgrade. I want to DC the Anthony as well but patient is reluctant to take the Anthony out. Risk of keeping keeping the Anthony in which might lead to infection explained to the patient in depth. Please note the above document was generated using voice recognition software. It may contain grammatical, syntax or spelling errors.Any formal questions or concerns about the content, text or information contained within the body of this dictation should be directly addressed to the provider for clarification. (2) DKA (diabetic ketoacidoses): (3) Septic shock: (4) Pancytopenia: (5) Severe obstructive sleep apnea: (6) Metastatic malignant neoplasm to breast: Admission and Anticipated Discharge Date Admission Date: October 20, 2020 Subjective Patient seen and examined at bedside. No acute distress, no adverse events overnight. He is feeling better compared since coming to the hospital. Denies any headache, no dizziness, no nausea or vomiting. Having good appetite. Used CPAP overnight. Denies any belly pain, no cough. No chest pain. Review of Systems Review of Systems: All systems reviewed & are unremarkable except as noted in Subjective Physical Exam Physical Exam: Constitutional: No acute distress HEENT: EOMI, PERRLA Respiratory system: Decreased air entry bilaterally, more decreased on the left, no wheeze, no rhonchi, mild crackles bilateral lower lobes CVS: S1-S2 positive, no murmurs or gallops Abdomen: Soft, nontender, nondistended, positive bowel sounds x4, negative Guillen sign Extremities: +2 pulses bilaterally radialis/ dorsalis pedis, no cyanosis, +1 pitting edema bilateral lower extremity Neuro: Awake alert oriented x3 Psych: Normal mood and affect G/U: Positive Anthony Skin: no rashes, warm and dry Lymphatic: no cervical or axillary lymphadenopathy Results & Data Results & Data ([facility]) Vital Signs (Past 12 Hours) Vital Signs Temp Pulse Resp BP Pulse Ox 10/22/20 12:39 124 H 10/22/20 11:01 113 H 18 135/82 98 10/22/20 11:00 117 H 18 98 10/22/20 10:50 111 H 18 99 10/22/20 10:40 109 H 31 H 86 L 10/22/20 10:30 109 H 21 95/71 L 88 L 10/22/20 10:20 107 H 19 98 10/22/20 10:10 125 H 16 98 10/22/20 10:00 122 H 17 142/89 H 98 10/22/20 09:50 123 H 19 96 10/22/20 09:40 115 H 23 97 10/22/20 09:31 122 H 16 115/74 97 10/22/20 09:30 109 H 22 97 10/22/20 09:20 110 H 23 97 10/22/20 09:10 113 H 16 97 10/22/20 09:00 116 H 20 139/86 98 10/22/20 08:50 117 H 20 89 L 10/22/20 08:40 107 H 17 96 10/22/20 08:31 115 H 15 144/79 H 97 10/22/20 08:30 107 H 21 98 10/22/20 08:20 110 H 14 98 10/22/20 08:10 112 H 15 99 10/22/20 08:00 37.2 C 108 H 19 117/87 98 10/22/20 07:50 98 H 14 97 10/22/20 07:40 101 H 18 98 10/22/20 07:30 109 H 15 162/82 H 99 10/22/20 07:20 105 H 17 98 10/22/20 07:10 110 H 15 98 10/22/20 07:00 110 H 15 143/73 H 98 10/22/20 06:50 110 H 14 95 10/22/20 06:40 114 H 15 98 10/22/20 06:30 107 H 14 155/90 H 99 10/22/20 06:20 109 H 14 98 10/22/20 06:10 107 H 15 98 10/22/20 06:00 95 H 15 141/80 H 97 10/22/20 05:50 107 H 14 97 10/22/20 05:40 107 H 15 95 10/22/20 05:31 107 H 15 141/72 H 97 10/22/20 05:30 109 H 13 95 10/22/20 05:20 102 H 16 91 10/22/20 05:10 108 H 14 97 10/22/20 05:00 103 H 15 144/106 H 97 10/22/20 04:50 108 H 20 98 10/22/20 04:40 114 H 15 96 10/22/20 04:30 98 H 14 135/82 97 10/22/20 04:20 104 H 14 94 10/22/20 04:10 106 H 14 96 10/22/20 04:00 109 H 16 129/81 96 10/22/20 03:50 107 H 17 97 10/22/20 03:40 106 H 20 96 10/22/20 03:30 105 H 17 126/71 97 10/22/20 03:20 114 H 14 96 10/22/20 03:17 110 H 19 97 10/22/20 03:10 113 H 14 97 10/22/20 03:00 109 H 17 155/97 H 98 10/22/20 02:50 112 H 16 97 10/22/20 02:40 106 H 16 95 10/22/20 02:30 105 H 16 125/72 96 10/22/20 04:42 10/22/20 04:42 Coding Level of Care Code 11847 Subseq Hosp Care Lvl 3 Diagnoses Admitted to intensive care unit Z78.9 DKA (diabetic ketoacidoses) E11.10 Septic shock A41.9; R65.21 Pancytopenia D61.818 Severe obstructive sleep apnea G47.33 Metastatic malignant neoplasm to breast C79.81
[2020-10-22] MEDS: APIXABAN 5 MG TABLET PO SCH ×2 (14:42→20:43)
[2020-10-22] MEDS: FERROUS SULFATE 325 MG TAB PO SCH (14:42)
[2020-10-22] MEDS: FLUTICASONE PROPIONATE NA SPR 16 GM BTL NAE SCH (14:42)
[2020-10-22] MEDS: DIGOXIN 0.25 MG TAB PO SCH (14:42)
[2020-10-22] MEDS: MONTELUKAST SODIUM 10 MG TABLET PO SCH (14:43)
[2020-10-22] MEDS: GABAPENTIN 300 MG CAP PO SCH ×3 (14:43→20:43)
[2020-10-22] MEDS: LETROZOLE 2.5 MG TAB PO SCH (14:43)
[2020-10-22] MEDS: NOREPINEPHRINE/D5W 8 MG/508 ML BAG IV SCH (14:45)
--- NOTE | 2020-10-22 16:34 | Nuclear Medicine Report ---
NUCLEAR HEPATOBILIARY SCAN WITH EJECTION FRACTION IMAGING CLINICAL HISTORY: Elevated bilirubin. COMPARISON STUDY: Abdominal ultrasound dated 10/20/2020. TECHNIQUE: Dynamic images of the liver and anterior abdomen were obtained every 5 minutes for a total of 60 minutes following the IV administration of 5mCi of technetium 99m Choletec. The patient consum ed oral Boost, with additional images acquired every 5 minutes for 45 minutes to calculate the gallbl adder ejection fraction. FINDINGS: The hepatobiliary scan shows prompt and homogeneous hepatic uptake. There is visualized act ivity within the intra and extrahepatic biliary tree at 10 minutes, and within the gallbladder at 15 minutes. There is normal biliary to bowel transit, with small bowel visualized by 10 minutes. On the postprandial imaging, the gallbladder ejection fraction was measured at 71%. IMPRESSION: 1. Unremarkable nuclear hepatobiliary scan. There is no scintigraphic evidence of cholecystitis. 2. The gallbladder ejection fraction measured 71% which is normal. ACT 112: Negative or not required by law. Electronically signed by: Anjum Robbins M.D. 10/22/2020 4:33 PM
[2020-10-22] MEDS: fentaNYL 12 MCG/HR TDSY TD SCH (16:43)
[2020-10-22 17:04] LABS: Hematocrit (blood only) 27.3 % (42-52); Hemoglobin 9.1 g/dL (14.0-18.0)
[2020-10-22] MEDS ORDERED: INSULIN GLARGINE SOLOSTAR 100 UNITS/ML 3 ML PEN SC SCH (18:00)
--- NOTE | 2020-10-22 18:49 | Billing Data ---
Date of Service October 22, 2020 Coding Level of Care Code 97410 Subseq Hosp Care Lvl 3
--- NOTE | 2020-10-22 18:50 | Billing Data ---
Date of Service October 22, 2020 Coding Level of Care Code 82552 Subseq Hosp Care Lvl 3
--- NOTE | 2020-10-22 19:13 | Surgery Consultation ---
Date of Consultation October 22, 2020 Assessment & Plan (1) Transaminitis: Patient has cholelithiasis but these hepatobiliary scan demonstrated no evidence of acute cholecystitis. He has no abdominal pain. His transaminases are returning back to normal. He has significant anemia and his total neutrophil count is less than 300. I do not feel there is any need for surgical intervention at this time. I think that the risks outweigh the benefits. I discussed that with him and he agrees. If he should develop additional symptoms then we can reevaluate. History of Present Illness Reason for Consultation: Cholelithiasis Requesting Physician: Vishal Conklin DO Attending Physician: Vishal Conklin DO History of Present Illness I been asked by Dr. Conklin to see this 70-year-old male who was admitted with sepsis requiring intensive care admission and the use of pressors. That has all resolved. He is now on a regular floor. The patient has been undergoing chemotherapy for metastatic breast cancer. His original diagnosis was in 2005. He has been undergoing chemo with the regimen was no longer working. He was given additional chemo. His second round was administered on Tuesday. That evening he went into the bathroom and felt very weak and fell. He was brought to the emergency room where the sepsis diagnosis was made. To this point he has had 1 out of 4 blood cultures positive for coagulase-negative staph. At the present time he is feeling better. He underwent a work-up that included a CT scan of the abdomen and pelvis. This demonstrated some dilation of the gallbladder, cholelithiasis and some thickening of the gallbladder wall. His LFTs were elevated as well. His bilirubin is now normal and his AST and ALT are steadily decreasing back towards normal. That was confirmed by ultrasound which also showed some pericholecystic fluid. He has subsequently undergone a hepatobiliary scan that showed prompt filling of the gallbladder. He was unaware that he had gallstones. He denies abdominal pain. He has not got a good appetite but he has no nausea or vomiting. His bowels have been moving regularly. Allergies Allergy/AdvReac Type Severity Reaction Status Date / Time No Known Drug Allergies Allergy Verified 10/20/20 19:10 Home Medications Medication Instructions Recorded Confirmed Type furosemide 40 mg tablet 40 mg PO DAILY PRN #30 tab 01/11/19 10/20/20 History denosumab 120 mg/1.7 mL (70 mg/mL) 120 mg SQ Q4WK ml 04/03/19 10/20/20 History subcutaneous solution letrozole 2.5 mg tablet 2.5 mg PO QAM 04/03/19 10/20/20 History blood-glucose meter #1 ea 11/09/19 10/09/20 Rx metoprolol succinate 50 mg 50 mg PO QAM #90 tab 12/03/19 10/20/20 Rx tablet,extended release 24 hr gabapentin 300 mg capsule 300 mg PO TID 01/24/20 10/20/20 History ferrous sulfate 325 mg (65 mg 325 mg PO QAM #90 tab 02/27/20 10/20/20 Rx iron) tablet lancets 33 gauge #100 ea 03/10/20 10/09/20 Rx apixaban 5 mg tablet 5 mg PO BID #180 tab 04/09/20 10/20/20 Rx digoxin 250 mcg (0.25 mg) tablet 250 mcg PO QAM #90 tab 04/14/20 10/20/20 Rx glipizide 10 mg tablet 10 mg PO BID #60 tab 05/22/20 10/20/20 Rx albuterol sulfate 90 mcg/actuation 2 puff INHALATION Q4H PRN #1 07/04/20 10/20/20 Rx aerosol inhaler inhaler blood sugar diagnostic #200 ea 07/11/20 10/09/20 Rx lorazepam 1 mg tablet 1 mg PO TID PRN #90 tab 07/23/20 10/20/20 Rx metformin 1,000 mg tablet,extended 1,000 mg PO BID #60 tab 09/15/20 10/20/20 Rx release 24hr montelukast 10 mg tablet 10 mg PO QAM #30 tab 10/06/20 10/20/20 Rx oxycodone-acetaminophen 5 mg-325 1 tab PO Q8H PRN 10/07/20 10/20/20 History mg tablet fluticasone propionate 1 spray INTRANASAL QAM 10/08/20 10/20/20 History furosemide [Lasix] 20 mg PO QAM 10/08/20 10/20/20 History leuprolide [Lupron Depot] 3.75 mg IM Q90D 10/08/20 10/20/20 History levothyroxine 50 mcg PO QAM 10/08/20 10/20/20 History omeprazole 20 mg PO QAM 10/08/20 10/20/20 History pramipexole 0.25 mg PO HS 10/08/20 10/20/20 History rosuvastatin 5 mg PO HS 10/08/20 10/20/20 History verapamil 180 mg PO HS 10/08/20 10/20/20 History fentanyl 12 mcg TRANSDERMAL Q3D 10/20/20 10/20/20 History Patient History Medical History Anxiety Asthma Atrial fibrillation On Eliquis BPH (benign prostatic hyperplasia) Depression Diabetes mellitus, type 2 NIDDM Dyspnea oxygen prn GERD (gastroesophageal reflux disease) Hyperlipidemia Hypertension Hypothyroid Metastasis from breast cancer to the bone currently. starting chemotherapy 10/13/20. Metastatic malignant neoplasm to breast rt breast ca - 2005 - s/p mastectomy and chemo - apr 2017 dx w/ mets to bone, follows with oncology, on Tamoxifen and receiving immunotherapy injections monthly. On anticoagulant therapy On home oxygen therapy 2lpm via n/c -- uses only as needed Paralyzed hemidiaphragm with restrictive lung disease Restless leg syndrome Sleep apnea CPAP nightly Surgical History H/O mastectomy (~2005) History of cardioversion History of colonoscopy (~2016) History of esophagogastroduodenoscopy (EGD) (~2016) History of prostate surgery History of removal of Port-a-Cath History of surgery History of tonsillectomy History of tooth extraction S/P repair of hydrocele Family History Father Diabetes Heart disease Myocardial infarction Colorectal cancer Brother Diabetes Colorectal cancer Hypertension Mother Nephrolithiasis Colorectal cancer Other Asthma Cardiac disorder No family history of adverse response to anesthesia Denies family history of Ovarian cancer Prostate cancer Breast cancer Social History Smoking Status: Never smoker Second Hand Exposure: No; Do You Dip or Chew Tobacco: No; Hx Alcohol Use: Yes Alcohol type: wine Hx Substance Use: No Preferred Language: Czech Communication Ability: Effective Visual Impairment: No Limitations Bioinformaticist Required: No Beliefs That Will Affect Care: None Current Living Situation: Spouse and Family current occupational status: employed current occupation: [employer] Other Information That Helps Us Care for You: No Feels Safe at Home: Yes Safety Concerns: Feels Safe At This Time Assistive Devices: Walker Physical Exam Constitutional: no acute distress Neck: trachea midline Respiratory: normal respiratory effort, lungs clear to auscultation Cardiovascular: Rate/Rhythm: + irregularly irregular Gastrointestinal (Abdomen): Inspection/Auscultation: normal bowel sounds; abdomen not distended Percussion/Palpation: abdomen soft; abdomen nontender Skin: no rashes, warm and dry Lymphatic: no cervical lymphadenopathy Results & Data ([facility]) Vital Signs (Past 12 Hours) Vital Signs Temp Pulse Resp BP Pulse Ox 10/22/20 12:39 124 H 10/22/20 11:01 113 H 18 135/82 98 10/22/20 11:00 117 H 18 98 10/22/20 10:50 111 H 18 99 10/22/20 10:40 109 H 31 H 86 L 10/22/20 10:30 109 H 21 95/71 L 88 L 10/22/20 10:20 107 H 19 98 10/22/20 10:10 125 H 16 98 10/22/20 10:00 122 H 17 142/89 H 98 10/22/20 09:50 123 H 19 96 10/22/20 09:40 115 H 23 97 10/22/20 09:31 122 H 16 115/74 97 10/22/20 09:30 109 H 22 97 10/22/20 09:20 110 H 23 97 10/22/20 09:10 113 H 16 97 10/22/20 09:00 116 H 20 139/86 98 10/22/20 08:50 117 H 20 89 L 10/22/20 08:40 107 H 17 96 10/22/20 08:31 115 H 15 144/79 H 97 10/22/20 08:30 107 H 21 98 10/22/20 08:20 110 H 14 98 10/22/20 08:10 112 H 15 99 10/22/20 08:00 37.2 C 108 H 19 117/87 98 10/22/20 07:50 98 H 14 97 10/22/20 07:40 101 H 18 98 10/22/20 07:30 109 H 15 162/82 H 99 10/22/20 07:20 105 H 17 98 10/22/20 07:10 110 H 15 98
[2020-10-22] MEDS: PRAMIPEXOLE DIHYDROCHLO 0.25 MG TAB PO SCH (20:43)
[2020-10-22] MEDS: ROSUVASTATIN CALCIUM 5 MG TAB PO SCH (20:46)
[2020-10-23] MEDS: MEROPENEM 500 MG in SYRINGE 0 ML IV SCH ×3 (02:02→13:00)
[2020-10-23] MEDS: levoFLOXacin/D5W 750 MG/150 ML BAG IV SCH (06:07)
[2020-10-23] MEDS: LEVOTHYROXINE SODIUM 50 MCG TABLET PO SCH (06:22)
[2020-10-23] MEDS: APIXABAN 5 MG TABLET PO SCH ×2 (08:12→20:16)
[2020-10-23] MEDS: LETROZOLE 2.5 MG TAB PO SCH (08:13)
[2020-10-23] MEDS: FAMOTIDINE 20 MG in SYRINGE 3 ML IV SCH (08:13)
[2020-10-23] MEDS: DIGOXIN 0.25 MG TAB PO SCH (08:13)
[2020-10-23] MEDS: GABAPENTIN 300 MG CAP PO SCH ×3 (08:13→20:16)
[2020-10-23] MEDS: FERROUS SULFATE 325 MG TAB PO SCH (08:13)
[2020-10-23] MEDS: MONTELUKAST SODIUM 10 MG TABLET PO SCH (08:13)
[2020-10-23] MEDS: CHECK fentaNYL PATCH PLACEMENT SCH ×2 (08:13→16:30)
[2020-10-23] MEDS: FLUTICASONE PROPIONATE NA SPR 16 GM BTL NAE SCH (08:13)
[2020-10-23 08:14] LABS: INR 1.3 (0.9-1.1); Prothrombin Time 12.6 Seconds (9.0-12.0)
[2020-10-23] MEDS: INSULIN ASPART 100 UNITS/ML 3 ML PEN SC SCH ×4 (08:14→20:21)
[2020-10-23 08:26] LABS: Albumin Level 2.3 gm/dl (3.4-5.0); BUN Creatinine Ratio 24.6 (10-20); Calcium 7.7 mg/dl (8.5-10.1); Est GFR (African American) 146.3 ml/min; Est GFR (Non-African American) 126.3 ml/min
[2020-10-23 08:29] LABS: Albumin Globulin Ratio 0.9 (0.9-2); Globulin 2.6 gm/dl (2.5-4.0); Phosphorus 1.6 mg/dl (2.5-4.9); Total Protein 4.9 gm/dl (6.4-8.2)
[2020-10-23 08:38] LABS: Hemoglobin 7.8 g/dL (14.0-18.0); Mean Corpuscular Hemoglobin 33.3 pg (25-34); Mean Corpuscular Hgb Conc 33.9 g/dL (32-36); Mean Corpuscular Volume 98.3 fL (80-100); Mean Platelet Volume 11.3 fL (7.4-10.4); Nucleated RBC # (auto) 0.02 K/uL (0-0); Nucleated RBC % (auto) 6.2 %; Platelet Count 106 K/uL (130-400); RDW Coefficient of Variation 18.5 % (11.5-14.5); RDW Standard Deviation 66.9 fL (36.4-46.3); Red Blood Count 2.34 M/uL (4.7-6.1); White Blood Count 0.27 K/uL (4.8-10.8)
[2020-10-23] MEDS ORDERED: POTASSIUM PHOS 3 MMOL/1 ML INFUSION IV STA (08:56)
[2020-10-23] MEDS ORDERED: fentaNYL 12 MCG/HR TDSY TD SCH (09:00)
[2020-10-23] MEDS ORDERED: POTASSIUM PHOSPHATE 21 MMOL in SODIUM CHLORIDE 0.9% 500 ML IV ONE (09:15)
[2020-10-23] MEDS ORDERED: INSULIN GLARGINE SOLOSTAR 100 UNITS/ML 3 ML PEN SC ONE (12:30)
--- NOTE | 2020-10-23 12:39 | Pharmacy Report ---
Pharmacy Glycemic Short Note 2 - Date of Service October 23, 2020 - Glycemic Short BSG Results (Last 24 hours): 10/22/20 10/22/20 10/23/20 16:37 20:26 07:28 Glucose POC Glucose 126 H 158 H 146 H 10/23/20 10/23/20 07:39 11:09 Glucose 135 H POC Glucose 214 H OUTPATIENT ANTIDIABETIC REGIMEN: * glipizide 10mg BID, metformin 1G BIDM ASSESSMENT: 10/22 * Patient received total of 21 units of insulin yesterday, of which 18 units were basal insulin, patient NPO for part of the day * Fasting BSG 135 mg/dL - PO intake remains minimal * Lunch BSG trending up to 200s, per RN patient is not snacking in between meals. Plan to move up basal insulin for lunch time today, then AM time tomorrow * Plan to give slightly higher dose then yesterday as PO intake still not good 10/21 * Patient with possible DKA who improved enough this morning to be transitioned off of the insulin infusion. The dextrose containing fluids were stopped this morning and full moderate weight based dose of lantus was given around lunchtime. BSGs ~1.5 hours after lantus dose remain 108-123 mg/dL with the insulin infusion on hold. If BSG remains in goal at next check will plan to d/c the insulin infusion altogether. * Will add a conservative Lantus scale this evening, should any additional basal insulin be needed today * A moderate stress does novolog dose is also added. The patient is ordered a diet and is eating consistently, but reduced (applesauce, egg salad, ect). PLAN FOR INPATIENT GLYCEMIC CONTROL: * Hold outpatient oral diabetes medications * Basal insulin * Lantus 20 x 1 with lunch * Bolus insulin * NovoLog per scale ACHS or Q6hrs while NPO * Goal Range: Low 110 mg/dL - High 140 mg/dL * Correction Factor: 25 mg/dL/unit * Nutritional / Prandial insulin per carb ratio of 1 unit per 8 grams CHO consumed
[2020-10-23] MEDS ORDERED: PROMETHAZINE HCL 6.25 MG in SODIUM CHLORIDE 0.9% 50 ML IV PRN (16:35)
[2020-10-23] MEDS: ONDANSETRON INJ 2 MG/ML 2 ML VIAL IV SCH (17:07)
[2020-10-23] MEDS ORDERED: METOPROLOL SUCC 25MG EXT REL TAB PO ONE (17:15)
--- NOTE | 2020-10-23 17:23 | Billing Data ---
Date of Service October 23, 2020 Coding Level of Care Code 15379 Subseq Hosp Care Lvl 3
--- NOTE | 2020-10-23 17:49 | Hospitalist Progress Note ---
Date of Service October 23, 2020 Assessment & Plan (1) Syncopal episodes: Mr. Shine is a 70 yo gentleman with a PMHx of metastatic breast cancer (to bone and lung) who was admitted on 10/20/20 after a witnessed syncopal episode occurred following his chemotherapy infusion. He was found to be h ypotensive on arrival (BP on was 77/52). He was volume resuscitated with IVF and placed on vasopressors for additional support. He was later downgraded from the ICU to a medical floor. He clinically appears to be looking progressively better. He did have new onset tachycardia today - although this could be registration representative of worsening sepsis (immunosuppressed state makes this difficult to discern). However, given his positive trajectory, suspect it is registration representative of A-fib with RVR in the absence of his home beta blockade. We will transition to oral antibiotics tomorrow and resume home beta blockade. As for overall cause of septic presentation, suspect it was related to new chemotherapy regimen rather than infectious process. - likely secondary to hypotension as above (2) Sepsis: - presented in hemodynamic shock - volume resuscitated and vasopressors as above - cortisol appropriately elevated - source: R middle lobe PNA (opacity noted on Chest CT) vs. cholangitis (cholestatic biliary profile, gallstones present, but no ductal dilation or gallbladder distention noted on CT). HIDA scan negative. UA neg. No evidence of cellulitis on exam. No diarrhea. - procal elevated to 1.39, suggestive of bacterial infection - 1 of 2 blood cultures growing caog neg staph, presumed to be contaminant - continue Meropenum and Levofloxacin --> will transition to oral Levofloxacin and Amox/Clav tomorrow 10/24 (3) Metabolic acidosis: - pH 7.31. Bicarb 19. AG elevated to 18.8 (corrected for low albumin) - etiology: Lactic vs. DKA - Lactate elevated to 3.5 on admission, down to 2.1 - BG elevated to 400 on admission, beta hydroxybutyric negative. DKA less likely in type II - resolved with IVF and insulin - trend BMP (4) Atrial fibrillation: - patient has been tachycardic today; home metoprolol has been on hold due to hypotension present on admission. we will restart at this time - anticoagulated on Eliquis - continue home digoxin; level 1.2 (5) Pancytopenia: - likely secondary to ongoing chemotherapy for metastatic breast cancer - patient afebrile - trend CBC (6) Nausea: - ongoing - will trial scheduled zofran with aggressive acid blockade (pepcid and pro tonix) - likely chemotherapy-induced - unfortunately, likely the cause of malnutrition. Albumin 2.3 - HarrisBenedict score = 2250 crissy/day. Will develop plan for patient to reach daily caloric goal (combination of oral food and nutritional supplements like Boost) (7) Transaminitis: - improving - AST 237 on admission --> 167-->93 - ALT 152 on admission --> 146-->103 - Alk phos elevated on admission, now normal - suspect secondary to shock liver (given SBP < 90 on admission) > cholangitis - HIDA scan on 10/22/20 negative. General Surgery was consulted for second opinion regarding possible gallbladder involvement given immunosuppression - no operative management recommended - continue IVF - trend liver function (8) Type 2 diabetes mellitus: - uncontrolled - HbA1c 9.0 on admission - hold home glipizide and Metformin given metabolic acidosis - pharmacy glycemic management - continue Rousvastatin 5mg - patient is not on an ALICE/ARB (no allergies listed in chart, normal kidney function) - will perform lifestyle counseling when patient is clinically improved (9) Hypothyroid: - continue home Synthroid DVT ppx: On eliquis Code: Full Diet: Carb consistent Dispo: Med/Surg with tele Admission and Anticipated Discharge Date Admission Date: October 20, 2020 Supervising Physician Co-Signing Physician Notes I personally examined the patient and verified all mohr points of history and exam, discussed case, and agree with decision making with Dr Carrillo. feeling better overall. ongoing nuasea - has had for weeks. notes probably losing about 10lbs a week x last month. Vitals noted, in general he is awake alert and oriented, no distress. HEENT normocephalic atraumatic mucous membranes are moist. breathing unlabored no accessory muscles good effort skin no rashes no pallor or icterus. Neutropenic sepsis/septic shock present on admissioncontinue broad antibiotics and supportive care. As his story continues to evolve, however, this is looking more and more caused by chemo. continue to follow - but possibly consider home on PO abx by tomorrow if ongoing improvement tachycadia - given the rest of his stability - suspect all afib, mild RVR - resume beta juan now that he is far more hemodynamically stable malnutrition/nausea - seems to be acute calorie malnutrition - pretty severe, probably moderate protein malnutrition - escalate nausea care, calculate calorie needs, educate. Subjective No acute events overnight. Still struggling with eating - tends to get nauseous with just a few bites of food. Fruit seems to be more tolerable than other items. He does have a script for ODT zofran at home, which he says helps, but does not use it often. Review of Systems Gastrointestinal: + nausea Physical Exam Constitutional: WD/WN, vitals as above + ill appearing and cooperative; no acute distress Eyes: + anicteric sclerae ENMT: external ear and nose normal, oropharynx normal Neck: normal visual inspection and trachea midline Respiratory: normal respiratory effort; no labored breathing and no cough Auscultation: lungs clear to auscultation bilaterally; no wheezes Cardiovascular: Rate/Rhythm: + tachycardic and + irregularly irregular Heart Sounds: normal S1, normal S2 and + murmur (systolic ejection murmur ) Gastrointestinal (Abdomen): normal bowel sounds, soft, nontender, no hepatosplenomegaly Skin: no rashes, warm and dry Psychiatric: A+Ox3, euthymic affect Results & Data Results & Data ([facility]) Vital Signs (Past 12 Hours) Vital Signs Temp Pulse Pulse Resp BP Pulse Ox 10/23/20 15:00 37.2 C 105 H 18 137/89 96 10/23/20 14:47 730 H 10/23/20 11:00 36.7 C 120 H 16 137/82 97 10/23/20 07:29 37.2 C 106 H 16 140/84 97 10/23/20 07:05 132 H Resident Activity Tracking Resident Involvement: Resident Care Provided Care Provided: Adult Hospital Medicine (1) Hypothyroid Hypothyroidism type: acquired Qualified Code(s): E03.9 - Hypothyroidism, unspecified
--- NOTE | 2020-10-23 18:25 | Billing Data ---
Date of Service October 23, 2020 Coding Level of Care Code 44789 Subseq Hosp Care Lvl 3
[2020-10-23] MEDS: AMOXICILLIN/CLAVULANATE 875 MG TAB PO SCH (18:53)
[2020-10-23] MEDS ORDERED: METOPROLOL TARTRATE 25 MG TAB PO ONE (19:48)
[2020-10-23] MEDS: PANTOprazole 40 MG TAB PO SCH (20:15)
[2020-10-23] MEDS: ROSUVASTATIN CALCIUM 5 MG TAB PO SCH (20:17)
[2020-10-23] MEDS: PRAMIPEXOLE DIHYDROCHLO 0.25 MG TAB PO SCH (20:17)
[2020-10-23] MEDS: FAMOTIDINE 20 MG TAB PO SCH (20:17)
[2020-10-23] MEDS: METOPROLOL TARTRATE 1 MG/ML VIAL IV PRN (21:14)
[2020-10-23] MEDS: LORazepam 1 MG TAB PO PRN (22:35)
[2020-10-24] MEDS: ONDANSETRON INJ 2 MG/ML 2 ML VIAL IV SCH ×5 (00:44→23:29)
[2020-10-24] MEDS: CHECK fentaNYL PATCH PLACEMENT SCH ×4 (00:44→23:30)
[2020-10-24] MEDS: levoFLOXacin 750 MG TAB PO SCH (05:40)
[2020-10-24] MEDS: METOPROLOL TARTRATE 25 MG TAB PO PRN ×2 (05:45→15:55)
[2020-10-24 07:41] LABS: Albumin Level 2.3 gm/dl (3.4-5.0); BUN Creatinine Ratio 23.5 (10-20); Calcium 7.6 mg/dl (8.5-10.1); Creatinine Clr Calc Pharmacy 222.9 ml/min; Est GFR (Non-African American) 123.4 ml/min; Magnesium 1.8 mg/dl (1.8-2.4); Potassium 4.1 mmol/L (3.5-5.1)
[2020-10-24 07:44] LABS: Albumin Globulin Ratio 0.9 (0.9-2); Bilirubin,Total 0.9 mg/dl (0.2-1); Globulin 2.7 gm/dl (2.5-4.0); Phosphorus 1.7 mg/dl (2.5-4.9)
[2020-10-24] MEDS: DIGOXIN 0.25 MG TAB PO SCH (07:48)
[2020-10-24] MEDS: LEVOTHYROXINE SODIUM 50 MCG TABLET PO SCH (07:49)
[2020-10-24] MEDS: APIXABAN 5 MG TABLET PO SCH ×2 (07:50→21:38)
[2020-10-24 07:55] LABS: Hemoglobin 7.9 g/dL (14.0-18.0); Mean Corpuscular Hemoglobin 33.3 pg (25-34); Mean Corpuscular Hgb Conc 34.3 g/dL (32-36); RDW Coefficient of Variation 18.6 % (11.5-14.5); RDW Standard Deviation 65.5 fL (36.4-46.3); Red Blood Count 2.37 M/uL (4.7-6.1)
[2020-10-24 08:05] LABS: Mean Platelet Volume 9.9 fL (7.4-10.4); Platelet Count 98 K/uL (130-400)
[2020-10-24 08:13] LABS: Platelet Estimate Decreased (Normal)
[2020-10-24] MEDS ORDERED: INSULIN GLARGINE SOLOSTAR 100 UNITS/ML 3 ML PEN SC SCH (09:00)
[2020-10-24] MEDS ORDERED: METOPROLOL SUCC 50MG EXT REL TAB PO SCH (09:00)
[2020-10-24] MEDS: INSULIN ASPART 100 UNITS/ML 3 ML PEN SC SCH ×4 (09:14→20:44)
[2020-10-24] MEDS: AMOXICILLIN/CLAVULANATE 875 MG TAB PO SCH ×2 (09:16→17:49)
[2020-10-24] MEDS: FLUTICASONE PROPIONATE NA SPR 16 GM BTL NAE SCH (09:16)
[2020-10-24] MEDS: GABAPENTIN 300 MG CAP PO SCH ×3 (09:17→21:38)
[2020-10-24] MEDS: PANTOprazole 40 MG TAB PO SCH ×2 (09:18→21:39)
[2020-10-24] MEDS: FAMOTIDINE 20 MG TAB PO SCH ×2 (09:18→21:39)
[2020-10-24] MEDS: LETROZOLE 2.5 MG TAB PO SCH (09:19)
[2020-10-24] MEDS: FERROUS SULFATE 325 MG TAB PO SCH (09:20)
[2020-10-24] MEDS: MONTELUKAST SODIUM 10 MG TABLET PO SCH (09:20)
[2020-10-24] MEDS ORDERED: SODIUM CHLORIDE 0.9% 1000ML 1,000 ML IV ONE (13:14)
[2020-10-24] MEDS ORDERED: SODIUM PHOSPHATE 3 MMOL/1 ML INFUSION IV STA (13:20)
[2020-10-24] MEDS ORDERED: SODIUM PHOSPHATE 30 MMOL in SODIUM CHLORIDE 0.9% 500 ML IV ONE (13:45)
[2020-10-24] MEDS: SACCHAROMYCES BOULARDII 250 MG CAP PO SCH (15:10)
--- NOTE | 2020-10-24 16:40 | Medical Student Progress Note ---
Date of Service October 24, 2020 Assessment & Plan (1) Syncopal episodes: Mr. Shine is a 70 yo gentleman with a PMHx of metastatic breast cancer (to bone and lung) who was admitted on 10/20/20 after a witnessed syncopal episode occurred following his chemotherapy infusion. He was found to be h ypotensive on arrival (BP on was 77/52). He was volume resuscitated with IVF and placed on vasopressors for additional support. He was later downgraded from the ICU to a medical floor. He clinically appears to be looking progressively better. He remains tachycardic today, however, it is unlikely that it is related to a septic etiology. More likely, it is a product of atrial fibrillation with RVR vs. dehydration from minimal PO intake and diarrhea. He was restarted on home beta blockade yesterday and he is receiving IV fluids as needed for hydration. We have transitioned him to oral antibiotics and we are working on improving the patient's nutrition status by establishing a daily calorie goal, reducing nausea, and initiating an appetite stimulant. As for overall cause of septic presentation, suspect it was related to new chemotherapy regimen rather than infectious process. - likely secondary to hypotension as above (2) Sepsis: - presented in hemodynamic shock - volume resuscitated and vasopressors as above - cortisol appropriately elevated - source: R middle lobe PNA (opacity noted on Chest CT) vs. cholangitis (cholestatic biliary profile, gallstones present, but no ductal dilation or gallbladder distention noted on CT). HIDA scan negative. UA neg. No evidence of cellulitis on exam. No diarrhea. - procal elevated to 1.39, suggestive of bacterial infection - 1 of 2 blood cultures growing caog neg staph, presumed to be contaminant - Started on Meropenum and Levofloxacin --> transitioned to oral Levofloxacin and Amox/Clav on 10/24 (3) Metabolic acidosis: - pH 7.31. Bicarb 19. AG elevated to 18.8 (corrected for low albumin) - etiology: Lactic vs. DKA - Lactate elevated to 3.5 on admission, down to 2.1 - BG elevated to 400 on admission, beta hydroxybutyric negative. DKA less likely in type II - resolved with IVF and insulin - trend BMP (4) Atrial fibrillation: - patient has been tachycardic today; home metoprolol has been on hold due to hypotension present on admission. Beta blockade restarted on 10/23/20 - anticoagulated on Eliquis - continue home digoxin; level 1.2 -Restarted home metoprolol on 10/23/20. Patient still tachycardic at 122. Continue monitoring response with target HR <110 (5) Pancytopenia: - likely secondary to ongoing chemotherapy for metastatic breast cancer - patient afebrile - trend CBC (6) Nausea: - ongoing - will trial scheduled zofran with aggressive acid blockade (pepcid and protonix) - likely chemotherapy-induced - unfortunately, likely the cause of malnutrition. Albumin 2.3 - HarrisBenedict score = 2250 crissy/day. Will develop plan for patient to reach daily caloric goal (combination of oral food and nutritional supplements like Boost) - Initiated low-dose Marinol for appetite stimulant. Gradually escalate dose based on patient response (7) Transaminitis: - improving - AST 237 on admission --> 167-->93 - ALT 152 on admission --> 146-->103 - Alk phos elevated on admission, now normal - suspect secondary to shock liver (given SBP < 90 on admission) > cholangitis - HIDA scan on 10/22/20 negative. General Surgery was consulted for second opinion regarding possible gallbladder involvement given immunosuppression - no operative management recommended - continue IVF - trend liver function (8) Type 2 diabetes mellitus: - uncontrolled - HbA1c 9.0 on admission - hold home glipizide and Metformin given metabolic acidosis - pharmacy glycemic management - continue Rousvastatin 5mg - patient is not on an ALICE/ARB (no allergies listed in chart, normal kidney function) - will perform lifestyle counseling when patient is clinically improved (9) Hypothyroid: - continue home Synthroid DVT ppx: On eliquis Code: Full Diet: Carb consistent Dispo: Med/Surg with tele Hypothyroidism type: acquired Qualified Code(s): E03.9 - Hypothyroidism, unspecified (10) Diarrhea: Patient has had diarrhea for several days from chemotherapy adverse effect vs antibiotic side effect vs infectious etiology. - Started probiotics - Ordered C. difficile stool antigen Admission and Anticipated Discharge Date Admission Date: October 20, 2020 Supervising Attestation I personally examined the patient and verified all mohr points of history and exam, discussed case, and agree with decision making with Zach Roque MS4 Feeling about the same. Does have some diarrhea. Still difficulty with eating due to nausea. Family present, updated them as well to the best of my ability, and answered all questions. IV infiltrated. Vitals noted, in general he is awake alert and oriented, no distress. HEENT normocephalic atraumatic mucous membranes are moist. breathing unlabored no accessory muscles good effort skin no rashes no pallor or icterus. Left arm with diffuse edema consistent with IV infiltration, no crepitus, no erythema. Neutropenic sepsis/septic shock present on admissioncontinue broad antibiotics and supportive care. As his story continues to evolve, however, appears almost certainly caused by chemo. continue to follow -but safer transition to p.o. antibiotics tachycadia - given the rest of his stability - suspect all afib, mild RVR versus A. fib/RVR as well as a degree of a compensatory tachycardia to dehydrationIV fluids, titrate beta-juan. Follow. malnutrition/nausea - seems to be acute calorie malnutrition - pretty severe, probably moderate protein malnutrition -ongoing escalation of nausea care, educated on need for calorie intake, gave examples, estimated calorie needs probably about [id number] a day. Subjective Patient feels well today. He does not endorse any shortness of breath, chest pain, palpitations, lightheadedness, or dizziness. He continues to endorse nausea when eating and he has only been able to tolerate fruit and Boost. He denies any fever or chills. He notes that his bowel movements have appeared dark green and have lacked form. He describes stool form as pasty and he notes that they have been low-volume. He denies increased frequency in bowel movements. He also endorses blood-tinged sputum. However, he states that he has been experiencing intermittent bloody sputum for an extended period of time prior to this hospitalization. Review of Systems Constitutional: as per Subjective / HPI Eyes: no problem reported Ear, Nose, Mouth, Throat: no problem reported Respiratory: as per Subjective / HPI and + cough (mild, intermittent) Cardiovascular: as per Subjective / HPI Gastrointestinal: as per Subjective / HPI; no abdominal pain and no bloating Genitourinary: no dysuria and no difficulty urinating Musculoskeletal: + problem reported Neurologic: + problem reported Psychiatric: + problem reported Physical Exam Constitutional: average body habitus; + not well nourished and no acute distress Eyes: PERRL, conjunctivae normal, anicteric sclerae ENMT: external ear and nose normal, oropharynx normal Neck: normal visual inspection Respiratory: normal respiratory effort, lungs clear to auscultation Cardiovascular: RRR, no murmur, no edema Gastrointestinal (Abdomen): normal bowel sounds, soft, nontender, no hepatosplenomegaly Musculoskeletal: no cyanosis or clubbing, extremities motor strength 5/5 Skin: no rashes, warm and dry Psychiatric: A+Ox3, euthymic affect Results & Data ([facility]) Vital Signs (Past 12 Hours) Vital Signs Temp Pulse Pulse Pulse Resp BP Pulse Ox 10/24/20 15:14 37.6 C H 122 H 18 107/67 96 10/24/20 13:30 130 H 117/81 10/24/20 12:08 37.5 C 122 H 20 99/69 L 96 10/24/20 08:00 37.5 C 121 H 20 123/75 97 10/24/20 07:48 120 H
[2020-10-24] MEDS ORDERED: LACTATED RINGER'S 1,000 ML IV ONE (17:40)
--- NOTE | 2020-10-24 17:50 | Billing Data ---
Date of Service October 24, 2020 Coding Level of Care Code 67149 Subseq Hosp Care Lvl 3
[2020-10-24] MEDS ORDERED: COUGH DROP (SUGAR FREE) LOZ 24 LOZ/1 BOX BUCCAL PRN (18:30)
[2020-10-24] MEDS ORDERED: ACETAMINOPHEN 325 MG TAB PO PRN (18:30)
[2020-10-24] MEDS ORDERED: KETOROLAC TROMETHAMINE 15 MG/ML VIAL IV ONE (20:58)
[2020-10-24] MEDS: PRAMIPEXOLE DIHYDROCHLO 0.25 MG TAB PO SCH (21:38)
[2020-10-24] MEDS: LORazepam 1 MG TAB PO PRN (21:38)
[2020-10-24] MEDS: ROSUVASTATIN CALCIUM 5 MG TAB PO SCH (21:40)
[2020-10-25] MEDS: METOPROLOL TARTRATE 1 MG/ML VIAL IV PRN ×4 (02:38→16:00)
[2020-10-25] MEDS: LACTATED RINGER'S 1,000 ML IV SCH ×3 (05:15→22:36)
[2020-10-25] MEDS ORDERED: ACETAMINOPHEN 65 ML IV ONE (05:15)
[2020-10-25] MEDS: ONDANSETRON INJ 2 MG/ML 2 ML VIAL IV SCH ×5 (05:19→23:16)
[2020-10-25] MEDS ORDERED: Nursing to Pharmacy Communication SCH (05:30)
[2020-10-25] MEDS: levoFLOXacin 750 MG TAB PO SCH ×2 (05:53→09:21)
[2020-10-25] MEDS: LEVOTHYROXINE SODIUM 50 MCG TABLET PO SCH (05:53)
--- NOTE | 2020-10-25 05:57 | Electrocardiogram Report ---
Test Reason : Blood Pressure : / mmHG Vent. Rate : 119 BPM Atrial Rate : 159 BPM P-R Int : 000 ms QRS Dur : 086 ms QT Int : 308 ms P-R-T Axes : 000 047 241 degrees QTc Int : 433 ms Atrial fibrillation with rapid ventricular response Nonspecific T wave abnormality Abnormal ECG When compared with ECG of 20-OCT-2020 17:00, Atrial fibrillation has replaced Junctional rhythm Vent. rate has increased BY 62 BPM Nonspecific T wave abnormality, worse in Inferior leads Nonspecific T wave abnormality now evident in Lateral leads Confirmed by Gonzalez Elmore ([id number]) on 10/25/2020 5:57:31 AM Referred By: REFERRED SELF Confirmed By:Gonzalez Elmore
[2020-10-25 05:59] LABS: Hematocrit (blood only) 21.7 % (42-52); Hemoglobin 7.5 g/dL (14.0-18.0); Mean Corpuscular Hemoglobin 33.2 pg (25-34); Mean Corpuscular Hgb Conc 34.6 g/dL (32-36); Mean Platelet Volume 10.5 fL (7.4-10.4); Platelet Count 95 K/uL (130-400); RDW Coefficient of Variation 18.5 % (11.5-14.5); RDW Standard Deviation 65.3 fL (36.4-46.3); Red Blood Count 2.26 M/uL (4.7-6.1); White Blood Count 0.25 K/uL (4.8-10.8)
[2020-10-25 06:15] LABS: Albumin Level 2.2 gm/dl (3.4-5.0); BUN Creatinine Ratio 17.7 (10-20); Calcium 7.3 mg/dl (8.5-10.1); Creatinine Clr Calc Pharmacy 191.8 ml/min; Est GFR (African American) 134.5 ml/min; Potassium 3.9 mmol/L (3.5-5.1)
[2020-10-25 06:18] LABS: Albumin Globulin Ratio 0.8 (0.9-2); Bilirubin,Total 0.9 mg/dl (0.2-1); Globulin 2.7 gm/dl (2.5-4.0); Total Protein 4.9 gm/dl (6.4-8.2)
[2020-10-25] MEDS ORDERED: METOCLOPRAMIDE HCL INJ 5 MG/ML 2 ML VIAL IV PRN (07:44)
[2020-10-25] MEDS ORDERED: DIGOXIN 0.125 MG TAB PO ONE (08:19)
--- NOTE | 2020-10-25 08:34 | XRay Report ---
XR chest 1V portable CLINICAL HISTORY: fever, sore throat, pink sputum, r/o pneumonia COMPARISON STUDY: 10/20/2020 FINDINGS: The heart remains enlarged. There is persistent elevation left hemidiaphragm. There is a hi atal hernia. There is no focal pulmonary consolidation. There is mild vascular prominence without manjinder dence of overt failure. IMPRESSION: 1. Hiatal hernia and persistent elevation of the left hemidiaphragm. 2. No evidence of focal pulmonary consolidation ACT 112: Negative or not required by law. Electronically signed by: Óscar Rivera M.D. 10/25/2020 8:33 AM
[2020-10-25] MEDS: AMOXICILLIN/CLAVULANATE 875 MG TAB PO SCH (08:56)
[2020-10-25] MEDS: LETROZOLE 2.5 MG TAB PO SCH (08:56)
[2020-10-25] MEDS: PANTOprazole 40 MG TAB PO SCH (08:56)
[2020-10-25] MEDS: APIXABAN 5 MG TABLET PO SCH ×3 (08:59→21:39)
[2020-10-25] MEDS: FAMOTIDINE 20 MG TAB PO SCH (08:59)
[2020-10-25] MEDS: METOPROLOL SUCC 25MG EXT REL TAB PO SCH (09:00)
[2020-10-25] MEDS: FERROUS SULFATE 325 MG TAB PO SCH (09:01)
[2020-10-25] MEDS: MONTELUKAST SODIUM 10 MG TABLET PO SCH (09:01)
[2020-10-25] MEDS: GABAPENTIN 300 MG CAP PO SCH ×3 (09:01→21:34)
[2020-10-25] MEDS: SACCHAROMYCES BOULARDII 250 MG CAP PO SCH (09:02)
[2020-10-25] MEDS: DIGOXIN 0.25 MG TAB PO SCH (09:02)
[2020-10-25] MEDS: FLUTICASONE PROPIONATE NA SPR 16 GM BTL NAE SCH (09:03)
[2020-10-25] MEDS: INSULIN ASPART 100 UNITS/ML 3 ML PEN SC SCH ×4 (09:22→21:30)
[2020-10-25] MEDS: INSULIN GLARGINE SOLOSTAR 100 UNITS/ML 3 ML PEN SC SCH (09:23)
[2020-10-25] MEDS: CHECK fentaNYL PATCH PLACEMENT SCH ×3 (09:23→23:16)
--- NOTE | 2020-10-25 09:45 | Hospitalist Progress Note ---
Date of Service October 25, 2020 Assessment & Plan (1) Syncopal episodes: Mr. Shine is a 70 yo gentleman with a PMHx of metastatic breast cancer (to bone and lung) who was admitted on 10/20/20 after a witnessed syncopal episode occurred following his chemotherapy infusion. He was found to be h ypotensive on arrival (BP on was 77/52). He was volume resuscitated with IVF and placed on vasopressors for additional support. He was later downgraded from the ICU. He clinically appears to be looking progressively better. He is currently in atrial fibrillation with RVR. - likely secondary to hypotension as above (2) Sepsis: - presented in hemodynamic shock, currently resolved - volume resuscitated and vasopressors as above - cortisol appropriately elevated - source: R middle lobe PNA (opacity noted on Chest CT) vs. cholangitis (cholestatic biliary profile, gallstones present, but no ductal dilation or gallbladder distention noted on CT). HIDA scan negative. UA neg. No evidence of cellulitis on exam. - procal was elevated to 1.39, suggestive of bacterial infection, currently within normal limits after abx treatment - 1 of 2 blood cultures growing caog neg staph, presumed to be contaminant - transitioned from IV Meropenem and Levofloxacin to PO Levofloxacin and Augmentin. Continue with PO regimen as long as nausea controlled. (3) Metabolic acidosis: - pH 7.31. Bicarb 19. AG elevated to 18.8 (corrected for low albumin) - etiology: Lactic vs. DKA - Lactate elevated to 3.5 on admission, down to 2.1 - BG elevated to 400 on admission, beta hydroxybutyric negative. DKA less likely in type II - resolved with IVF and insulin - trend BMP (4) Atrial fibrillation: - currently in a fib with RVR - continue metoprolol succ 75mg qAM with PRN IV lopressor 5mg. Can titrate up long acting as BP allows. - anticoagulated on Eliquis - continue home digoxin; level 1.2 (5) Pancytopenia: - likely secondary to ongoing chemotherapy for metastatic breast cancer - patient usually afebrile but had episodes of fever overnight - trend CBC (6) Nausea: - ongoing - scheduled zofran with aggressive acid blockade (pepcid and protonix), PRN Reglan and Phenergan ordered. - likely chemotherapy-induced - unfortunately, likely the cause of malnutrition. Albumin 2.3 - HarrisBenedict score = 2250 crissy/day. Will develop plan for patient to reach daily caloric goal (combination of oral food and nutritional supplements like Boost) (7) Transaminitis: - improving - suspect secondary to shock liver (given SBP < 90 on admission) > cholangitis - HIDA scan on 10/22/20 negative. General Surgery was consulted for second opinion regarding possible gallbladder involvement given immunosuppression - no operative management recommended - continue IVF - trend liver function (8) Type 2 diabetes mellitus: - uncontrolled - HbA1c 9.0 on admission - hold home glipizide and Metformin given metabolic acidosis - pharmacy glycemic management - continue Rosuvastatin 5mg - patient is not on an ALICE/ARB (no allergies listed in chart, normal kidney function) - will perform lifestyle counseling when patient is clinically improved (9) Hypothyroid: - continue home Synthroid DVT ppx: On eliquis Code: Full Diet: Carb consistent Dispo: Med/Surg with tele (10) Fever: Now spiking fevers. Chest XR today with improvement, procal negative Repeat blood cultures pending, blood fungal cultures as well. some concern for oral thrush- PO PRN Nystatin and Magic mouthwash ordered. will continue to monitor fever curve. Admission and Anticipated Discharge Date Admission Date: October 20, 2020 Supervising Physician Co-Signing Physician Notes I personally examined the patient and verified all mohr points of history and exam, discussed case, and agree with decision making with Dr Dia. Main complaint is worse sore throat. Nausea may be about the same may be slightly better. Still does not really feel much as far as his A. fib.. Vitals noted, in general he is awake alert and oriented, no distress. HEENT normocephalic atraumatic mucous membranes show diffuse white plaques that were not present yesterday. breathing unlabored no accessory muscles good effort skin no rashes no pallor or icterus. Neutropenic sepsis/septic shock present on admissioncontinue broad antibiotics and supportive care. As his story continues to evolve, however, this is looking more and more caused by chemo. Follow closely. Did have low-grade fevers todaywork-up other than thrush thus far is fairly bland and reassuring, blood cultures pending Thrushyesterday his mouth felt sore, evaluated and saw no lesions, but wondered if it was not going to start blossom, today unfortunately he has fairly significant thrush. Given his low-grade temps and his severe immune compromise, I am concerned this could be a potential culprittherefore treat aggressively not only topical with nystatin swish and swallow, but also systemically with Diflucan. Obviously we may need to upgrade if his blood cultures show yeast tachycadia - given the rest of his stability - suspect all afib, RVR, he may still have a degree of dehydration, although we are able to have IV fluids running (able to get access in his foot)continue to titrate beta-juan malnutrition/nausea - seems to be acute calorie malnutrition - pretty severe, probably moderate protein malnutrition - escalate nausea care (added Marinol), encouraged p.o. intake Subjective Overnight, Mr. Shine had significant nausea with a fever and was unable to take PO meds. This morning he states that his nausea is improved but he has been having persistent diarrhea. The interview was interrupted by him having to use the bathroom urgently. Describes the diarrhea as watery and green. Review of Systems Constitutional: no fever, no chills and no sweats Respiratory: no dyspnea Gastrointestinal: + diarrhea/loose stools; no nausea Physical Exam Physical Exam: General: Alert, oriented. No acute distress Skin: No noted rashes or bruises Psych: Appropriate mood and affect Neuro: No gross deficits HEENT: NC/AT Chest: Nontender to palpation. CV: RRR, Normal s1, s2. No murmurs appreciated Resp: Breath sounds clear bilaterally, no increased effort of breathing. No crackles/rhonchi/rales. Abdomen: BS+. Soft, nontender, nondistended. No guarding. No organomegaly appreciated. Extremities: No edema in lower extremities bilaterally. Results & Data Results & Data ([facility]) Vital Signs (Past 12 Hours) Vital Signs Temp Pulse Pulse Pulse Resp BP BP 10/25/20 09:37 128 H 10/25/20 09:02 128 H 10/25/20 07:42 133 H 129/74 10/25/20 07:37 37.5 C 133 H 20 129/74 10/25/20 07:06 121 H 10/25/20 04:30 136 H 134/85 10/25/20 04:00 38 C H 130 H 20 143/89 H 10/25/20 03:01 83 15 10/25/20 02:38 132 H 136/56 L 10/25/20 02:35 128 H 136/56 L 10/25/20 02:17 117 H 10/24/20 23:00 37.7 C H 114 H 18 99/65 L 10/24/20 22:47 117 H 18 Pulse Ox 10/25/20 09:37 10/25/20 09:02 10/25/20 07:42 10/25/20 07:37 100 10/25/20 07:06 10/25/20 04:30 10/25/20 04:00 99 10/25/20 03:01 91 10/25/20 02:38 10/25/20 02:35 10/25/20 02:17 10/24/20 23:00 97 10/24/20 22:47 92 Resident Activity Tracking Resident Involvement: Resident Care Provided Care Provided: Adult Hospital Medicine (1) Hypothyroid Hypothyroidism type: acquired Qualified Code(s): E03.9 - Hypothyroidism, unspecified
--- NOTE | 2020-10-25 11:24 | Pharmacy Report ---
Pharmacy Glycemic Short Note 2 - Date of Service October 25, 2020 - Glycemic Short BSG Results (Last 24 hours): 10/24/20 10/24/20 10/25/20 16:15 20:34 05:27 Glucose 86 POC Glucose 105 H 117 H 10/25/20 07:50 Glucose POC Glucose 90 OUTPATIENT ANTIDIABETIC REGIMEN: * glipizide 10mg BID, metformin 1G BIDM ASSESSMENT: 10/25 * Pt has received 25 units of insulin over the past 24hrs * 20 units of basal with Lantus * 5 units of bolus with NovoLog * BSGs [phone] mg/dl * AM fasting BSG below goal range at 90mg/dl --> will decrease basal insulin * Post-prandial BSGs in range but PO intake is minimal. No changes to CF/CR 10/22 * Patient received total of 21 units of insulin yesterday, of which 18 units were basal insulin, patient NPO for part of the day * Fasting BSG 135 mg/dL - PO intake remains minimal * Lunch BSG trending up to 200s, per RN patient is not snacking in between meals. Plan to move up basal insulin for lunch time today, then AM time tomorrow * Plan to give slightly higher dose then yesterday as PO intake still not good 10/21 * Patient with possible DKA who improved enough this morning to be transitioned off of the insulin infusion. The dextrose containing fluids were stopped this morning and full moderate weight based dose of lantus was given around lunchtime. BSGs ~1.5 hours after lantus dose remain 108-123 mg/dL with the insulin infusion on hold. If BSG remains in goal at next check will plan to d/c the insulin infusion altogether. * Will add a conservative Lantus scale this evening, should any additional basal insulin be needed today * A moderate stress does novolog dose is also added. The patient is ordered a diet and is eating consistently, but reduced (applesauce, egg salad, ect). PLAN FOR INPATIENT GLYCEMIC CONTROL: * Hold outpatient oral diabetes medications * Basal insulin * Decrease Lantus 15 units SQ daily in AM * Bolus insulin: no change * NovoLog per scale ACHS or Q6hrs while NPO * Goal Range: Low 110 mg/dL - High 140 mg/dL * Correction Factor: 25 mg/dL/unit * Nutritional / Prandial insulin per carb ratio of 1 unit per 8 grams CHO consumed
[2020-10-25] MEDS ORDERED: NYSTATIN SUSP 500,000 U/5 ML UDC PO PRN (12:56)
[2020-10-25] MEDS: fentaNYL 12 MCG/HR TDSY TD SCH (15:26)
[2020-10-25] MEDS ORDERED: NYSTATIN SUSP 500,000 U/5 ML UDC PO STA (15:58)
--- NOTE | 2020-10-25 16:45 | Billing Data ---
Date of Service October 25, 2020 Coding Level of Care Code 06955 Subseq Hosp Care Lvl 3
[2020-10-25] MEDS: FLUCONAZOLE 200 MG/100 ML BAG IV SCH ×2 (18:02→19:56)
[2020-10-25] MEDS: AMPICILLIN/SULBACTAM SOD 1,500 MG in 0.9 % SODIUM CHLORIDE 100 ML IV SCH ×2 (18:15→23:10)
[2020-10-25] MEDS: ACETAMINOPHEN 1000 MG/100 ML IV IV PRN (19:50)
[2020-10-25] MEDS: PANTOprazole 40 MG in SYRINGE 0 ML IV SCH (21:22)
[2020-10-25] MEDS: FAMOTIDINE 20 MG in SYRINGE 3 ML IV SCH (21:22)
[2020-10-25] MEDS: NYSTATIN SUSP 500,000 U/5 ML UDC PO SCH (21:27)
[2020-10-25] MEDS: PRAMIPEXOLE DIHYDROCHLO 0.25 MG TAB PO SCH (21:35)
[2020-10-25] MEDS: ROSUVASTATIN CALCIUM 5 MG TAB PO SCH (21:35)
[2020-10-26] MEDS: LORazepam 1 MG TAB PO PRN (01:31)
[2020-10-26] MEDS: ACETAMINOPHEN 1000 MG/100 ML IV IV PRN (04:13)
[2020-10-26] MEDS: AMPICILLIN/SULBACTAM SOD 1,500 MG in 0.9 % SODIUM CHLORIDE 100 ML IV SCH (05:36)
[2020-10-26] MEDS: ONDANSETRON INJ 2 MG/ML 2 ML VIAL IV SCH ×3 (05:38→17:49)
[2020-10-26] MEDS: LEVOTHYROXINE SODIUM 50 MCG TABLET PO SCH (05:38)
[2020-10-26 06:22] LABS: Albumin Level 1.9 gm/dl (3.4-5.0); BUN Creatinine Ratio 21.7 (10-20); Calcium 7.3 mg/dl (8.5-10.1); Creatinine Clr Calc Pharmacy 252.9 ml/min; Est GFR (African American) 149.9 ml/min; Est GFR (Non-African American) 129.3 ml/min; Hematocrit (blood only) 19.5 % (42-52); Hemoglobin 6.6 g/dL (14.0-18.0); Mean Corpuscular Hemoglobin 33.3 pg (25-34); Mean Corpuscular Hgb Conc 33.8 g/dL (32-36); Mean Corpuscular Volume 98.5 fL (80-100); Nucleated RBC # (auto) 0.07 K/uL (0-0); Nucleated RBC % (auto) 18.4 %; Platelet Count 110 K/uL (130-400); Potassium 3.8 mmol/L (3.5-5.1); RDW Coefficient of Variation 18.8 % (11.5-14.5); RDW Standard Deviation 68.1 fL (36.4-46.3); Red Blood Count 1.98 M/uL (4.7-6.1); White Blood Count 0.41 K/uL (4.8-10.8)
[2020-10-26 06:25] LABS: Albumin Globulin Ratio 0.7 (0.9-2); Bilirubin,Total 0.9 mg/dl (0.2-1); Globulin 2.6 gm/dl (2.5-4.0); Total Protein 4.5 gm/dl (6.4-8.2)
[2020-10-26] MEDS ORDERED: SODIUM CHLORIDE 0.9% 250 ML IV PRN (06:35)
--- NOTE | 2020-10-26 07:08 | Hospitalist Progress Note ---
Date of Service October 26, 2020 Assessment & Plan (1) Syncopal episodes: Mr. Shine is a 70 yo gentleman with a PMHx of metastatic breast cancer (to bone and lung) who was admitted on 10/20/20 after a witnessed syncopal episode occurred following his chemotherapy infusion. He was found to be h ypotensive on arrival (BP on arrival was 77/52). He was volume resuscitated with IVF and placed on vasopressors for additional support. He was later downgraded from the ICU. He is currently in atrial fibrillation with RVR and has been febrile for the last 2 days. Syncopal episodes he presented with were likely secondary to hypotension as above. Currently hypotension RESOLVED. FEVERS -New for the past 2 days. -Repeat chest XR improved, procal now within normal limits. -C diff NEGATIVE but with persistent watery green diarrhea. -Stool culture growing DOMINGA. -Pt has also been incontinent of urine, a repeat UA ordered with reflex culture as needed and rodriguez placed. He has been on abx that would typically cover the usual urinary culprits but would want to rule out a resistant infection. -UA 10/26 with blood, leukocyte esterase and growing YEAST. -Has been having oral thrush and given whole picture, suspect likely cause of fever spikes. -Repeat Blood Cultures pending including fungal-NGTD. -Started on Magic mouthwash with PO Nystatin and Diflucan given yesterday. -Today, with yeast in urine and stool, started on Caspofungin. -Antibiotics broadened empirically today as well back to Vancomycin and Meropenem -ID consult placed. ANEMIA -Hgb dropped to 6.6 this AM with slight increase in oxygen requirement overnight. -Will transfuse 2U pRBCs. -Repeat H/H ordered post transfusion. -Hold home Eliquis that he's on for anticoagulation with a fib (see below). (2) Sepsis: - presented in hemodynamic shock, currently resolved - volume resuscitated and vasopressors as above - cortisol appropriately elevated - source: R middle lobe PNA (opacity noted on Chest CT) vs. cholangitis (choles tatic biliary profile, gallstones present, but no ductal dilation or gallbladder distention noted on CT). HIDA scan negative. UA neg. No evidence of cellulitis on exam. - procal was elevated to 1.39, suggestive of bacterial infection, currently within normal limits after abx treatment - 1 of 2 blood cultures growing caog neg staph, presumed to be contaminant - Originally treated with IV Meropenem and Levofloxacin. He was switched to a PO regimen but over the last day or so as he developed a sore throat related to oral thrush and has been unable to swallow. His antibiotics have been switched back to IV and broadened back to Meropenem and Vancomycin. (3) Metabolic acidosis: - pH 7.31. Bicarb 19. AG elevated to 18.8 (corrected for low albumin) - etiology: Lactic vs. DKA - Lactate elevated to 3.5 on admission, down to 2.1 - BG elevated to 400 on admission, beta hydroxybutyric negative. DKA less likely in type II - resolved with IVF and insulin - trend BMP (4) Atrial fibrillation: - currently in a fib with RVR - continue metoprolol succ 75mg qAM with PRN IV lopressor 5mg. Can titrate up long acting as BP allows. - anticoagulated on Eliquis, will hold given new anemia. - continue home digoxin; level 1.2 (5) Pancytopenia: - likely secondary to ongoing chemotherapy for metastatic breast cancer - patient usually afebrile but had episodes of fever overnight - trend CBC (6) Nausea: - ongoing - scheduled zofran with aggressive acid blockade (pepcid and protonix), PRN Reglan and Phenergan ordered. Monitor qtc with EKGs. - likely chemotherapy-induced - unfortunately, likely the cause of malnutrition. Albumin 2.3 - HarrisBenedict score = 2250 crissy/day. Will develop plan for patient to reach daily caloric goal (combination of oral food and nutritional supplements like Boost) (7) Transaminitis: - improved - suspect secondary to shock liver (given SBP < 90 on admission) > cholangitis - HIDA scan on 10/22/20 negative. General Surgery was consulted for second opinion regarding possible gallbladder involvement given immunosuppression - no operative management recommended - continue IVF - trend liver function (8) Type 2 diabetes mellitus: - uncontrolled - HbA1c 9.0 on admission - hold home glipizide and Metformin given metabolic acidosis - pharmacy glycemic management - continue Rosuvastatin 5mg - patient is not on an ALICE/ARB (no allergies listed in chart, normal kidney function) - will perform lifestyle counseling when patient is clinically improved (9) Hypothyroid: - continue home Synthroid DVT ppx: Home eliquis held in the setting of anemia requiring tranfusion. Code: Full Diet: Carb consistent Dispo: Med/Surg with tele (10) Fever: (11) Anemia: Admission and Anticipated Discharge Date Admission Date: October 20, 2020 Supervising Physician Co-Signing Physician Notes I personally examined the patient and verified all mohr points of history and exam, discussed case, and agree with decision making with Dr Dia. ongoing diarrhea. nursing does not note blood. ongoing nausea - probably about the same. sore throat maybe slightly better. lungs feel congested but no sob. had fevers vitals noted very fatigued heent nc at mmm thrush plaques still present but much less diffuse than yesterday. cardio somewhat tachy, distant. lungs coarse throughout no focal findings no rales no wheeze - coarsness basically a faint rhonchorus sound. abd soft nd nt. diffuse edema Neutropenic sepsis/septic shock present on admissioninitial w/u without yield and started to appear much more c/w just severe effects from cytotoxic chemo - now over the last day he's looking somewhat worse again - only true positive findings being thrush and yeast on cultures --- typically would think of yeast in urine and stool as contaminant, but this - combined with how rapidly and severely the thrush came up - in the setting of his severe immune compromise - is quite concerning for fungemia/etc. blood cultures pending. upgrade to caspofungin. follow clinically follow cultures, consult ID. continue local treatment for thrush as well anemia - no overt bleeding, definitely has marrow suppression. follow for bleeding - but none noted. transfused 2 units prbc, follow severe protein/calorie malnutrition w third spacing - working on nausea, encouraging intake tachycadia - given the rest of his stability - suspect all afib, RVR, he may still have a degree of dehydration, although we are able to have IV fluids running (able to get access in his foot)continue to titrate beta-juan malnutrition/nausea - increase marinol, continue zofran and acid suppression. continue to encourage PO intake metastatic breast cancer - oncology aware of current situation and will be revisiting therapy. also earlier in hospital stay, did briefly d/w pt (when dtr was present and on speakerphone) that it's possible he's reached a point where further treatment might end his life faster than the disease itself. not totally clear that we are at this point, but certainly concerning that he might be and should be an ongoing point of consideration and discussion otherwise as above Subjective Mr. Shine was seen this AM. He has a slight increased need for oxygen and his Hgb was noted to be below 7. He states that his sore throat is slightly better, more relieved by the swish and swallow. He was still febrile overnight. Review of Systems Constitutional: + fever; no chills and no sweats Respiratory: + cough; no dyspnea Cardiovascular: no chest pain and no palpitations Gastrointestinal: + nausea, + diarrhea/loose stools and + fecal incontinence; no vomiting Genitourinary: + urinary incontinence Physical Exam Physical Exam: General: Alert, oriented. Skin: No noted rashes or bruises Psych: Sad mood and affect Neuro: No gross deficits HEENT: NC/AT Chest: Nontender to palpation. CV: Irregular rate and rhythm. No murmurs appreciated Resp: Breath sounds with some coarseness bilaterally Abdomen: BS+. Soft, nontender, nondistended. Extremities: Some edema in lower extremities bilaterally. Results & Data Results & Data ([facility]) Vital Signs (Past 12 Hours) Vital Signs Temp Pulse Pulse Pulse Resp BP Pulse Ox 10/26/20 04:25 108 H 10/26/20 03:25 111 H 20 96 10/26/20 03:15 37.9 C H 111 H 20 137/83 94 10/25/20 23:35 102 H 18 92 10/25/20 23:00 37.2 C 110 H 20 116/75 93 10/25/20 21:40 37.2 C 10/25/20 19:00 39.5 C H 117 H 20 156/89 H 98 Resident Activity Tracking Resident Involvement: Resident Care Provided Care Provided: Adult Hospital Medicine (1) Hypothyroid Hypothyroidism type: acquired Qualified Code(s): E03.9 - Hypothyroidism, unspecified
[2020-10-26] MEDS: NYSTATIN SUSP 500,000 U/5 ML UDC PO SCH (08:33)
[2020-10-26] MEDS: FERROUS SULFATE 325 MG TAB PO SCH (08:35)
[2020-10-26] MEDS: SACCHAROMYCES BOULARDII 250 MG CAP PO SCH (08:36)
[2020-10-26] MEDS: METOPROLOL SUCC 25MG EXT REL TAB PO SCH (08:36)
[2020-10-26] MEDS: MONTELUKAST SODIUM 10 MG TABLET PO SCH (08:36)
[2020-10-26] MEDS: LETROZOLE 2.5 MG TAB PO SCH (08:36)
[2020-10-26] MEDS: METOPROLOL TARTRATE 25 MG TAB PO PRN (08:37)
[2020-10-26] MEDS: DIGOXIN 0.25 MG TAB PO SCH (08:38)
[2020-10-26] MEDS: PANTOprazole 40 MG in SYRINGE 0 ML IV SCH ×2 (08:39→22:16)
[2020-10-26] MEDS: FAMOTIDINE 20 MG in SYRINGE 3 ML IV SCH ×2 (08:39→22:15)
[2020-10-26] MEDS: GABAPENTIN 300 MG CAP PO SCH ×3 (08:40→22:16)
[2020-10-26] MEDS: FLUTICASONE PROPIONATE NA SPR 16 GM BTL NAE SCH (08:40)
[2020-10-26] MEDS: INSULIN ASPART 100 UNITS/ML 3 ML PEN SC SCH ×4 (08:48→20:49)
[2020-10-26] MEDS ORDERED: MEROPENEM CONSULT ACITVE PRN (08:48)
[2020-10-26] MEDS: CHECK fentaNYL PATCH PLACEMENT SCH ×3 (08:49→23:03)
[2020-10-26] MEDS: INSULIN GLARGINE SOLOSTAR 100 UNITS/ML 3 ML PEN SC SCH (08:50)
[2020-10-26] MEDS ORDERED: VANCOMYCIN CONSULT ACTIVE PRN (08:51)
[2020-10-26] MEDS ORDERED: FLUCONAZOLE 200 MG/100 ML BAG IV SCH (09:00)
[2020-10-26] MEDS ORDERED: levoFLOXacin/D5W 750 MG/150 ML BAG IV SCH (09:00)
[2020-10-26] MEDS ORDERED: VANCOMYCIN HCL 2,500 MG in SODIUM CHLORIDE 0.9% 500 ML IV ONE (09:15)
--- NOTE | 2020-10-26 09:34 | Pharmacy Report ---
Pharmacy Abx Dose Short Note - Date of Service October 26, 2020 - Assessment & Plan Assessment 70 year old M receiving IV Vancomycin and Meropenem for treatment of empiric sepsis secondary to pneumonia vs. cholangitis, persistent fevers Day # 1 of restarted antimicrobial therapy. * Patient had been receiving IV Unasyn (unable to swallow Augmentin) and PO Levaquin last few days, but coverage was broadened today due to persistent fevers. He is unable to swallow due to severe thrush with concerns with possible systemic fungal infection; currently also on IV Fluconazole * Recent sCr = 0.33 mg/dL, which is unusual as his baseline sCr is ~0.8-0.9 mg/dL... unsure reason for low sCr. Do not believe CrCl is actually >100 mL/min and will dose Vancomycin under the assumption of CrCl ~60 mL/min, which is his baseline Plan Vancomycin * Give Vancomycin 2500mg (~25 mg/kg) IV x 1 as a loading dose * Initiate Vancomycin 1500mg (~15 mg/kg) IV q12 for maintenance regimen * Goal trough level for sepsis : 15 to 20 mcg/mL * No trough ordered at this time due to empiric indication; if Vancomycin continues >48 hours, will order trough to assess dosing regimen at that time Meropenem * Initiate Meropenem 500mg IV q6 for indication of pneumonia/other (no renal impairment noted) Pharmacy will continue to follow and will adjust dose/frequency as necessary. Thank you.
[2020-10-26 10:34] LABS: Appearance Urine Cloudy (Clear); Blood Urine 3+ (Negative); Color Urine Orange; Epithelial Cell Urine Auto >30 /lpf (0-5); Glucose Urine UA Negative (Negative); Ketones Urine 2+ (Negative); Leukocyte Esterase Urine Trace (Negative); Nitrite Urine Negative (Negative); Protein Urine 3+ (Negative); RBC Urine Automated >30 /hpf (0-4); Urobilinogen Urine Negative (Negative); pH Urine 5.5 (4.5-7.5)
[2020-10-26 10:40] LABS: Bilirubin Urine 1+ (Negative)
[2020-10-26] MEDS: MEROPENEM 500 MG in SYRINGE 0 ML IV SCH ×3 (10:46→22:15)
[2020-10-26 10:54] LABS: Bacteria Urine Automated 1+ (Negative); Cast Urine Automated 0 /lpf (0-5)
[2020-10-26] MEDS: CALCIUM POLYCARBOPHIL 625MG TAB PO SCH ×2 (13:35→22:14)
[2020-10-26] MEDS: METOPROLOL TARTRATE 1 MG/ML VIAL IV PRN (15:06)
--- NOTE | 2020-10-26 15:13 | XRay Report ---
XR chest 1V portable CLINICAL HISTORY: r/o pulmonary edema COMPARISON STUDY: Chest CT October 20, 2020. Chest radiograph 01/25/2021. FINDINGS: Sclerotic skeletal metastases are again noted. Cardiomegaly is unchanged. Elevation of the left hemidiaphragm is unchanged. There is no evidence for overt pulmonary edema. No pneumothorax or p leural effusion is noted. A hiatal hernia is present. IMPRESSION: 1. Cardiomegaly. No radiographic evidence for pulmonary edema. 2. Stable elevation of the left diaphragm. ACT 112: Negative or not required by law. Electronically signed by: Berny Roth M.D. 10/26/2020 3:12 PM
[2020-10-26] MEDS: CASPOFUNGIN 50 MG in SODIUM CHLORIDE 0.9% 250 ML IV SCH (15:17)
[2020-10-26] MEDS: LACTATED RINGER'S 1,000 ML IV SCH (15:48)
--- NOTE | 2020-10-26 15:48 | Billing Data ---
Date of Service October 26, 2020 Coding Level of Care Code 53727 Subseq Hosp Care Lvl 3
[2020-10-26] MEDS ORDERED: ALBUT/IPRATROP 3MG/0.5MG NEB 3 ML VIAL NEB ONE (15:49)
[2020-10-26] MEDS ORDERED: ALBUT/IPRATROP 3MG/0.5MG NEB 3 ML VIAL NEB PRN (15:49)
[2020-10-26 16:13] LABS: Hematocrit (blood only) 28.5 % (42-52); Hemoglobin 9.9 g/dL (14.0-18.0)
[2020-10-26] MEDS: PRAMIPEXOLE DIHYDROCHLO 0.25 MG TAB PO SCH (22:15)
[2020-10-26] MEDS: VANCOMYCIN HCL 1,500 MG in SODIUM CHLORIDE 0.9% 500 ML IV SCH (22:15)
[2020-10-26] MEDS: ROSUVASTATIN CALCIUM 5 MG TAB PO SCH (22:16)
[2020-10-27] MEDS: LORazepam 1 MG TAB PO PRN (01:47)
[2020-10-27] MEDS: ONDANSETRON INJ 2 MG/ML 2 ML VIAL IV SCH ×4 (01:47→18:29)
[2020-10-27] MEDS: METOPROLOL TARTRATE 1 MG/ML VIAL IV PRN (01:47)
[2020-10-27] MEDS: ACETAMINOPHEN 1000 MG/100 ML IV IV PRN ×2 (03:55→10:10)
[2020-10-27] MEDS: MEROPENEM 500 MG in SYRINGE 0 ML IV SCH ×2 (04:53→09:30)
[2020-10-27] MEDS: LEVOTHYROXINE SODIUM 50 MCG TABLET PO SCH (05:46)
[2020-10-27 06:48] LABS: Albumin Level 1.8 gm/dl (3.4-5.0); BUN Creatinine Ratio 20.6 (10-20); Calcium 6.7 mg/dl (8.5-10.1); Creatinine Clr Calc Pharmacy 201.3 ml/min; Est GFR (African American) 134.5 ml/min; Potassium 3.9 mmol/L (3.5-5.1)
[2020-10-27 06:52] LABS: Albumin Globulin Ratio 0.7 (0.9-2); Bilirubin,Total 0.9 mg/dl (0.2-1); Globulin 2.6 gm/dl (2.5-4.0); Total Protein 4.4 gm/dl (6.4-8.2)
[2020-10-27 06:53] LABS: Hematocrit (blood only) 24.6 % (42-52); Hemoglobin 8.4 g/dL (14.0-18.0); Mean Corpuscular Hemoglobin 31.8 pg (25-34); Mean Corpuscular Hgb Conc 34.1 g/dL (32-36); Mean Corpuscular Volume 93.2 fL (80-100); Nucleated RBC # (auto) 0.33 K/uL (0-0); Platelet Count 141 K/uL (130-400); RDW Coefficient of Variation 20.3 % (11.5-14.5); Red Blood Count 2.64 M/uL (4.7-6.1); White Blood Count 0.75 K/uL (4.8-10.8)
[2020-10-27 07:11] LABS: Anisocytosis Present; Tear Drop Cells 1+
[2020-10-27 07:12] LABS: ALC (manual) 0.52 K/uL (1.2-3.4); ANC (manual) 0.01 K/uL (1.4-6.5); Basophils # (manual) 0.02 K/uL (0-0.2); Basophils % (manual) 2.1 %; Eosinophils # (manual) 0.01 K/uL (0-0.5); Eosinophils % (manual) 0.7 %; Lymphocytes # (manual) 0.52 K/uL (1.2-3.4); Lymphocytes % (manual) 68.9 %; Monocytes % (manual) 26.9 %; Neutrophils # (manual) 0.01 K/uL (1.4-6.5); Neutrophils % (manual) 1.4 %
[2020-10-27] MEDS: DIGOXIN 0.25 MG TAB PO SCH (08:55)
[2020-10-27] MEDS: FERROUS SULFATE 325 MG TAB PO SCH (08:56)
[2020-10-27] MEDS: LETROZOLE 2.5 MG TAB PO SCH (08:56)
[2020-10-27] MEDS ORDERED: INSULIN GLARGINE SOLOSTAR 100 UNITS/ML 3 ML PEN SC SCH (09:00)
[2020-10-27] MEDS: SACCHAROMYCES BOULARDII 250 MG CAP PO SCH (09:00)
[2020-10-27] MEDS: MONTELUKAST SODIUM 10 MG TABLET PO SCH (09:02)
[2020-10-27] MEDS: GABAPENTIN 300 MG CAP PO SCH ×3 (09:02→20:43)
[2020-10-27] MEDS: INSULIN ASPART 100 UNITS/ML 3 ML PEN SC SCH ×4 (09:06→21:58)
[2020-10-27] MEDS: CHECK fentaNYL PATCH PLACEMENT SCH ×2 (09:07→15:28)
[2020-10-27] MEDS: CALCIUM POLYCARBOPHIL 625MG TAB PO SCH ×2 (09:08→20:42)
[2020-10-27] MEDS: FLUTICASONE PROPIONATE NA SPR 16 GM BTL NAE SCH (09:08)
[2020-10-27] MEDS: METOPROLOL SUCC 25MG EXT REL TAB PO SCH (09:09)
[2020-10-27] MEDS: FAMOTIDINE 20 MG in SYRINGE 3 ML IV SCH ×2 (09:10→21:03)
[2020-10-27] MEDS ORDERED: VANCOMYCIN TROUGH ONE (09:30)
--- NOTE | 2020-10-27 10:12 | XRay Report ---
XR chest 1V portable CLINICAL HISTORY: worsening O2 requirement COMPARISON STUDY: October 26, 2020 FINDINGS: No pneumothorax. Redemonstration of the large left pleural effusion, not significantly changed since recent prior. There is redemonstration of the volume loss of the right hemithorax and mediastinal shift to the righ t. Also evaluation is limited due to rotation. Possible atelectasis/infiltrate at the left lower lung, not significantly changed since prior. There are patchy opacities are seen at the right lower lung, new since prior study and could represen t superimposition of structures versus intrapulmonary lesions (which is less likely due to its absenc e on the prior study yesterday). Cardiomediastinal silhouette is stable and partially obscured on the left by surrounding opacities. No significant pulmonary vascular congestion.. Osseous structures: Degenerative changes of the spine. Patchy sclerotic appearance of the bilateral humeral heads, similar to prior study. IMPRESSION: 1. Redemonstration of the stable left pleural effusion associated with atelectasis/infiltrate at the left lower lung. 2. Questionable patchy airspace opacities at the right lower lung which were not seen on prior study and might represent superimposition of structures versus intrapulmonary lesions. Attention on follow -up imaging. 3. Redemonstration of the volume loss on the right. Limited exam due to rotation. 4. Sclerotic appearance of osseous structures. Please correlate above-mentioned findings was prior h istory of neoplastic process. ACT 112: Negative or not required by law. Electronically signed by: Catalina Carbajal DO 10/27/2020 11:05 AM
--- NOTE | 2020-10-27 10:20 | Medical Student Progress Note ---
Date of Service October 27, 2020 Assessment & Plan (1) Syncopal episodes: Mr. Shine is a 70-year-old male with a PMHx of metastatic breast cancer (to bone and lung) and atrial fibrillation who was admitted on 10/20/20 after a witnessed syncopal episode occurred following his chemotherapy infusion. He was found to be hypotensive on arrival and he was managed for sepsis with IV fluid resuscitation, vasopressor support, and broad spectrum antibiotics. He was later downgraded from the ICU to a medical floor and eventually transitioned to PO antibiotics due to clinical improvement. However, he then developed a fever, oral thrush with dysphagia, and urinary and fecal incontinence. Urinalysis and stool culture were positive for akin and antifungal and broad spectrum antibiotic coverage was initiated. He clinically appears to be looking progressively better. He remains tachycardic today, however, it is unlikely that it is related to a septic etiology. More likely, it is a product of atrial fibrillation with RVR vs. dehydration from minimal PO intake and diarrhea. He was restarted on home beta blockade yesterday and he is receiving IV fluids as needed for hydration. We have transitioned him to oral antibiotics and we are working on improving the patient's nutrition status by establishing a daily calorie goal, reducing nausea, and initiating an appetite stimulant. As for overall cause of septic presentation, suspect it was related to new chemotherapy regimen rather than infectious process. - likely secondary to hypotension as above (2) Sepsis: - presented in hemodynamic shock on 10/20/20. - source: R middle lobe PNA (opacity noted on Chest CT) vs. cholangitis (cholestatic biliary profile, gallstones present, but no ductal dilation or gallbladder distention noted on CT). HIDA scan negative. UA neg. No evidence of cellulitis on exam. No diarrhea. - procal elevated to 1.39, suggestive of bacterial infection - 1 of 2 blood cultures growing caog neg staph, presumed to be contaminant - Started on Meropenum and Levofloxacin --> transitioned to oral Levofloxacin and Amox/Clav on 10/24 (3) Atrial fibrillation: - patient has been tachycardic today; home metoprolol has been on hold due to hypotension present on admission. Beta blockade restarted on 10/23/20 - anticoagulated on Eliquis - continue home digoxin; level 1.2 -Restarted home metoprolol on 10/23/20. Patient still tachycardic at 122. Continue monitoring response with target HR <110 (4) Pancytopenia: - likely secondary to ongoing chemotherapy for metastatic breast cancer - patient afebrile - trend CBC (5) Nausea: - ongoing - will trial scheduled zofran with aggressive acid blockade (pepcid and protonix) - likely chemotherapy-induced - unfortunately, likely the cause of malnutrition. Albumin 2.3 - HarrisBenedict score = 2250 crissy/day. Will develop plan for patient to reach daily caloric goal (combination of oral food and nutritional supplements like Boost) - Initiated low-dose Marinol for appetite stimulant. Gradually escalate dose based on patient response (6) Transaminitis: - Resolved. - AST 237 on admission --> 167-->93 -->26 - ALT 152 on admission --> 146-->103-->40 - Alk phos elevated on admission, now normal - suspect secondary to shock liver (given SBP < 90 on admission) > cholangitis - HIDA scan on 10/22/20 negative. General Surgery was consulted for second opinion regarding possible gallbladder involvement given immunosuppression - no operative management recommended - trend liver function (7) Type 2 diabetes mellitus: - uncontrolled - HbA1c 9.0 on admission - hold home glipizide and Metformin given metabolic acidosis - pharmacy glycemic management - continue Rousvastatin 5mg - patient is not on an ALICE/ARB (no allergies listed in chart, normal kidney function) - will perform lifestyle counseling when patient is clinically improved (8) Hypothyroid: - continue home Synthroid Hypothyroidism type: acquired Qualified Code(s): E03.9 - Hypothyroidism, unspecified (9) Diarrhea: Patient has had diarrhea for several days from chemotherapy adverse effect vs antibiotic side effect vs infectious etiology. He then developed fecal incontinence with increased frequency of poorly formed stool. - Started probiotics - Stool culture grew Akin on 10/24/20 - C. difficile antigen negative. Repeat testing 10/27/20 Admission and Anticipated Discharge Date Admission Date: October 20, 2020 Supervising Attestation Patient seen and examined with MS Eyal Roque and PGY-2 Dr. Plaza. Agree with history, exam findings, assessment and plan of care as outlined. 70 year old male with hx of metastatic breast cancer (lung and bone) admitted for syncope. Today, continues to have fevers. Throat is sore and painful to swallow. White plaques on the sides of the tongue and the insides of the cheeks. 1. Neutropenic fevers. Stool and urine growing akin. Blood cultures pending. Caspofungin. ID consult pending. 2. Thrush with possible esophagitis. Switched to scheduled Magic Swizzle. Continue with caspofungin. 3. Sepsisinitially secondary to RML PNA with elevated procal. Originally treated with meropenem and levofloxacin. Continue with meropenem and vanc. 4. Atrial fibrillation with RVR. Continue metoprolol XL 75mg qAM, PRN IV Lopressor. Continue home digoxin. Can restart Eliqus, but holding off until we can figure out PICC vs central line placement. 5. Pancytopenia. Secondary to chemotherapy. Received 2 units PRBCs. Hgb 8.4 6. DM2. A1C 9.0. Holding home glipizide and metformin. 7. Severe protein-calorie malnutrition. Third spacing due to low protein. 8. Nausea. Increased marinol. Continue Zofran and acid suppression. 9.Metastatic breast cancer. Heme-onc has spoken with family regarding further treatment going further. May be at a point where further treatment might end his life faster than the disease itself. Subjective Patient states that his main concern this morning is severe dysphagia. He is able to tolerate water but he has not tried to eat breakfast. He continues to endorse bloody sputum with increased sputum quantity over the past few days. He denies fever or chills but he does endorse weakness. He denies any shortness of breath, chest pain, or cough. He continues to have urinary and fecal incontinence. He has a rodriguez catheter. While seeing the patient this morning, he had an episode of fecal incontinence. He endorses increased BM frequency consisting of dark green, poorly formed stool. He does not endorse an abnormal stool smell. He does state that his nausea has decreased over the past few days since starting Dronabinol, scheduled Zofran, and aggressive acid suppression. He was able to tolerate fruit, boost, and mashed potatoes yesterday. However, he continues to endorse occasional nausea that triggers food regurgitation. He also endorses left arm swelling without pain, numbness, or paresthesia. Review of Systems Constitutional: + fatigue, + weakness and + anorexia; no fever and no chills Eyes: no problem reported Ear, Nose, Mouth, Throat: no problem reported Respiratory: + change in sputum (increased. continues to be bloody); no cough, no dyspnea and no pain on inspiration Cardiovascular: no chest pain, no palpitations, no syncope, no edema and no calf pain Gastrointestinal: + nausea, + dysphagia, + diarrhea/loose stools and + fecal incontinence; no abdominal pain, no bloating, no heartburn, no vomiting and no blood in stools Genitourinary: + as per Subjective / HPI Musculoskeletal: + swelling (left arm); no problem reported Integumentary: no problem reported Neurologic: no problem reported Psychiatric: no problem reported Endocrine: + problem reported Hematologic / Lymphatic: no problem reported Physical Exam Constitutional: + ill appearing; no acute distress Eyes: PERRL, conjunctivae normal, anicteric sclerae ENMT: external ear and nose normal, oropharynx normal Neck: normal visual inspection Respiratory: normal respiratory effort; no labored breathing Auscultation: + bronchial breath sounds (course breath sounds bilaterally ); no rales, no rhonchi and no wheezes Cardiovascular: Rate/Rhythm: + irregularly irregular Vessels: dorsalis pedis pulses present and radial pulses present Extremities: no calf tenderness and no edema Gastrointestinal (Abdomen): normal bowel sounds, soft, nontender, no hepatosplenomegaly Skin: no rashes, warm and dry Psychiatric: A+Ox3, euthymic affect Genitourinary: no CVA tenderness Results & Data ([facility]) Vital Signs (Past 12 Hours) Vital Signs Temp Pulse Pulse Pulse Resp BP BP 10/27/20 08:55 121 H 10/27/20 07:20 37.5 C 121 H 22 10/27/20 04:23 37.9 C H 10/27/20 03:55 38.8 C H 112 H 18 10/27/20 02:51 20 166/88 H 10/27/20 02:31 179/79 H 10/27/20 01:47 125 H 174/101 H 10/27/20 01:34 134 H 22 10/27/20 01:30 176/84 H 10/26/20 22:49 125 H 20 BP Pulse Ox 10/27/20 08:55 10/27/20 07:20 160/71 H 94 10/27/20 04:23 10/27/20 03:55 147/75 H 93 10/27/20 02:51 89 L 10/27/20 02:31 10/27/20 01:47 10/27/20 01:34 95 10/27/20 01:30 10/26/20 22:49 96
[2020-10-27] MEDS: PANTOprazole 40 MG in SYRINGE 0 ML IV SCH ×2 (10:21→20:44)
--- NOTE | 2020-10-27 10:31 | Pharmacy Report ---
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 No changes to CF/CR 10/22 * Patient received total of 21 units of insulin yesterday, of which 18 units were basal insulin, patient NPO for part of the day * Fasting BSG 135 mg/dL - PO intake remains minimal * Lunch BSG trending up to 200s, per RN patient is not snacking in between meals. Plan to move up basal insulin for lunch time today, then AM time tomorrow * Plan to give slightly higher dose then yesterday as PO intake still not good 10/21 * Patient with possible DKA who improved enough this morning to be transitioned off of the insulin infusion. The dextrose containing fluids were stopped this morning and full moderate weight based dose of lantus was given around lunchtime. BSGs ~1.5 hours after lantus dose remain 108-123 mg/dL with the insulin infusion on hold. If BSG remains in goal at next check will plan to d/c the insulin infusion altogether. * Will add a conservative Lantus scale this evening, should any additional basal insulin be needed today * A moderate stress does novolog dose is also added. The patient is ordered a diet and is eating consistently, but reduced (applesauce, egg salad, etc). PLAN FOR INPATIENT GLYCEMIC CONTROL: * Hold outpatient oral diabetes medications * Basal insulin - increase ~20% * Lantus 18 units SQ daily in AM * Bolus insulin: no change * NovoLog per scale ACHS or Q6hrs while NPO * Goal Range: Low 110 mg/dL - High 140 mg/dL * Correction Factor: 25 mg/dL/unit * Nutritional / Prandial insulin per carb ratio of 1 unit per 8 grams CHO consumed PLAN FOR DISCHARGE: * HbA1c of 9% is elevated * Achieving a goal HbA1c of 8% is reasonable for this patient given metastatic breast cancer * Agree with research dairy farm supervisor to decrease metformin ER to 500 mg PO QID (with meals and at bedtime [with snack may improve tolerability]) * Initiation of once daily basal insulin 15 units SC daily * Basal insulin selection based on insurance coverage * If basal insulin is initiated - suggest discontinuing glipizide to decrease risk of hypoglycemia
[2020-10-27] MEDS ORDERED: SODIUM CHLORIDE 0.9% 1000ML 500 ML IV ONE (10:36)
[2020-10-27] MEDS: VANCOMYCIN HCL 1,500 MG in SODIUM CHLORIDE 0.9% 500 ML IV SCH ×2 (10:51→17:59)
[2020-10-27] MEDS: Magic Swizzle w/ Sucralfate 240mL PO SCH ×3 (12:44→20:42)
--- NOTE | 2020-10-27 13:23 | Pharmacy Report ---
Pharmacy Abx Dose Short Note - Date of Service October 27, 2020 - Assessment & Plan Assessment 70 year old M receiving IV Vancomycin and Meropenem for treatment of empiric sepsis secondary to pneumonia vs. cholangitis, persistent fevers Day # 2 of restarted antimicrobial therapy. * Patient had been receiving IV Unasyn (unable to swallow Augmentin) and PO Levaquin last few days, but coverage was broadened yesterday due to persistent fevers. * SCr today- 0.43mg/dL (baseline sCr is ~0.8-0.9). SCr still significantly below baseline, possibly due to hypermetabolic state, which would also explain why vancomycin level today was lower than anticipated. * Continues to spike fevers, ANC-10. Plan Vancomycin * Trough level of 8.7 mcg/mL today is not a steady state level, expect some accumulation, but not to extent that level will be therapeutic * Change vancomycin from 1500mg IV q12h to 1500mg IV q8h * Goal trough level: 15 to 20 mcg/mL * Will repeat an early trough tomorrow AM, which will also not be at steady state, but will allow early intervention Pharmacy will continue to follow and will adjust dose/frequency as necessary. Thank you.
[2020-10-27] MEDS: CASPOFUNGIN 50 MG in SODIUM CHLORIDE 0.9% 250 ML IV SCH (14:21)
[2020-10-27] MEDS: MEROPENEM 2,000 MG in 0.9 % SODIUM CHLORIDE 58 ML IV SCH ×2 (15:27→22:10)
--- NOTE | 2020-10-27 17:59 | Electrocardiogram Report ---
Test Reason : Blood Pressure : / mmHG Vent. Rate : 117 BPM Atrial Rate : 122 BPM P-R Int : 000 ms QRS Dur : 086 ms QT Int : 284 ms P-R-T Axes : 000 038 169 degrees QTc Int : 396 ms Atrial fibrillation with rapid ventricular response with premature ventricular or aberrantly conducte d complexes Nonspecific T wave abnormality Abnormal ECG When compared with ECG of 24-OCT-2020 07:42, No significant change was found Confirmed by Rodney Gurrola ([id number]) on 10/27/2020 5:59:27 PM Referred By: REFERRED SELF Confirmed By:Bryson Gurrola
[2020-10-27] MEDS: PRAMIPEXOLE DIHYDROCHLO 0.25 MG TAB PO SCH (20:43)
[2020-10-27] MEDS: ROSUVASTATIN CALCIUM 5 MG TAB PO SCH (21:05)
[2020-10-28] MEDS: CHECK fentaNYL PATCH PLACEMENT SCH ×3 (00:14→16:44)
[2020-10-28] MEDS: ONDANSETRON INJ 2 MG/ML 2 ML VIAL IV SCH ×2 (00:15→06:22)
[2020-10-28] MEDS: Magic Swizzle w/ Sucralfate 240mL PO SCH ×6 (00:15→21:16)
[2020-10-28] MEDS: METOPROLOL TARTRATE 1 MG/ML VIAL IV PRN ×3 (00:38→06:21)
[2020-10-28] MEDS: VANCOMYCIN HCL 1,500 MG in SODIUM CHLORIDE 0.9% 500 ML IV SCH ×3 (02:06→18:24)
[2020-10-28 05:43] LABS: Mean Corpuscular Hgb Conc 33.3 g/dL (32-36); Mean Platelet Volume 10.6 fL (7.4-10.4); Platelet Count 150 K/uL (130-400)
[2020-10-28 06:03] LABS: Albumin Level 1.7 gm/dl (3.4-5.0); BUN Creatinine Ratio 25.7 (10-20); Calcium 6.6 mg/dl (8.5-10.1); Creatinine Clr Calc Pharmacy 254.6 ml/min; Est GFR (African American) 148.1 ml/min; Est GFR (Non-African American) 127.8 ml/min; Potassium 3.5 mmol/L (3.5-5.1)
[2020-10-28 06:05] LABS: Albumin Globulin Ratio 0.6 (0.9-2); Globulin 2.9 gm/dl (2.5-4.0); Total Protein 4.6 gm/dl (6.4-8.2)
[2020-10-28] MEDS: MEROPENEM 2,000 MG in 0.9 % SODIUM CHLORIDE 58 ML IV SCH ×3 (06:21→21:20)
[2020-10-28] MEDS: LEVOTHYROXINE SODIUM 50 MCG TABLET PO SCH (06:22)
[2020-10-28 07:11] LABS: Hematocrit (blood only) 28.8 % (42-52); Hemoglobin 9.6 g/dL (14.0-18.0); Mean Corpuscular Hemoglobin 31.9 pg (25-34); Mean Corpuscular Volume 95.7 fL (80-100); Nucleated RBC # (auto) 0.55 K/uL (0-0); Nucleated RBC % (auto) 38.8 %; RDW Coefficient of Variation 20.3 % (11.5-14.5); RDW Standard Deviation 70.5 fL (36.4-46.3); Red Blood Count 3.01 M/uL (4.7-6.1); White Blood Count 1.42 K/uL (4.8-10.8)
[2020-10-28 07:17] LABS: Anisocytosis Present; Dohle Bodies 1+; Giant Platelets 2+; Poikilocytosis Present; Polychromasia 1+; Toxic Granulation 1+; Toxic Vacuolation 1+
[2020-10-28 07:25] LABS: ALC (manual) 0.72 K/uL (1.2-3.4); Basophils # (manual) 0.01 K/uL (0-0.2); Basophils % (manual) 0.9 %; Lymphocytes # (manual) 0.72 K/uL (1.2-3.4); Lymphocytes % (manual) 50.9 %; Metamyelocytes # (manual) 0.04 K/uL (0-0); Metamyelocytes % (manual) 2.7 %; Monocytes % (manual) 28.2 %; Myelocytes # (manual) 0.08 K/uL (0-0); Myelocytes % (manual) 5.5 %; Neutrophils % (manual) 7.3 %; Promyelocytes # (manual) 0.06 K/uL (0-0); Promyelocytes % (manual) 4.5 %
[2020-10-28] MEDS: CALCIUM POLYCARBOPHIL 625MG TAB PO SCH ×2 (08:07→21:18)
[2020-10-28] MEDS: FERROUS SULFATE 325 MG TAB PO SCH (08:07)
[2020-10-28] MEDS ORDERED: ONDANSETRON INJ 2 MG/ML 2 ML VIAL IV PRN (08:07)
[2020-10-28] MEDS: FLUTICASONE PROPIONATE NA SPR 16 GM BTL NAE SCH (08:08)
[2020-10-28] MEDS: INSULIN GLARGINE SOLOSTAR 100 UNITS/ML 3 ML PEN SC SCH (08:08)
[2020-10-28] MEDS: GABAPENTIN 300 MG CAP PO SCH ×3 (08:08→21:19)
[2020-10-28] MEDS: DIGOXIN 0.25 MG TAB PO SCH (08:09)
[2020-10-28] MEDS: MONTELUKAST SODIUM 10 MG TABLET PO SCH (08:09)
[2020-10-28] MEDS: SACCHAROMYCES BOULARDII 250 MG CAP PO SCH (08:11)
[2020-10-28] MEDS: INSULIN ASPART 100 UNITS/ML 3 ML PEN SC SCH ×4 (08:14→22:29)
[2020-10-28] MEDS: PANTOprazole 40 MG in SYRINGE 0 ML IV SCH ×2 (08:15→21:20)
[2020-10-28] MEDS: METOPROLOL SUCC 25MG EXT REL TAB PO SCH (08:16)
[2020-10-28] MEDS: LETROZOLE 2.5 MG TAB PO SCH (08:17)
[2020-10-28] MEDS: ACETAMINOPHEN 1,000 MG/100 ML VIAL IV SCH ×3 (08:30→23:13)
[2020-10-28] MEDS: FAMOTIDINE 20 MG in SYRINGE 3 ML IV SCH ×2 (08:31→21:20)
[2020-10-28] MEDS ORDERED: MICONAZOLE NITRATE POWDER 43 GM EXT PRN (08:52)
[2020-10-28] MEDS ORDERED: VANCOMYCIN TROUGH ONE (09:30)
--- NOTE | 2020-10-28 11:11 | Pharmacy Report ---
Pharmacy Abx Dose Short Note - Date of Service October 28, 2020 - Assessment & Plan Assessment 70 year old M receiving vancomycin, meropenem, and caspofungin for treatment of sepsis secondary to pneumonia vs. cholangitis. Patient continues to have intermittent fevers (Tmax: 38.8 C) over past 24 hours. Blood cultures negative so far, urine culture growing akin albicans/dubliniensis. Renal function stable. Day # 3 of antimicrobial therapy. Plan Vancomycin * Trough level of 16.3 mcg/mL is therapeutic * Continue dose of 1500 mg IV every 8 hours * Goal trough: 15 to 20 mcg/mL * Trough level ordered for: 10/30/20 Meropenem * 2000 mg IV q8h - dose recommended by ID, appropriate Caspofungin * 50 mg IV q24h - appropriate Pharmacy will continue to follow and will adjust dose/frequency as necessary. Thank you.
[2020-10-28] MEDS ORDERED: CASPOFUNGIN 50 MG in SODIUM CHLORIDE 0.9% 250 ML IV SCH (16:30)
[2020-10-28] MEDS: fentaNYL 12 MCG/HR TDSY TD SCH (16:44)
[2020-10-28] MEDS: CASPOFUNGIN 50 MG in SODIUM CHLORIDE 0.9% 250 ML IV SCH ×2 (17:17→17:20)
--- NOTE | 2020-10-28 17:38 | Medical Student Progress Note ---
Date of Service October 28, 2020 Assessment & Plan (1) Syncopal episodes: Mr. Shine is a 70-year-old male with a PMHx of metastatic breast cancer (to bone and lung) and atrial fibrillation who was admitted on 10/20/20 after a witnessed syncopal episode occurred following his chemotherapy infusion. He was found to be hypotensive on arrival and he was managed for sepsis with IV fluid resuscitation, vasopressor support, and broad spectrum antibiotics. He was later downgraded from the ICU to a medical floor and eventually transitioned to PO antibiotics due to clinical improvement. However, he then developed a fever, oral thrush with dysphagia, and urinary and fecal incontinence. Urinalysis and stool culture were positive for akin and antifungal and broad spectrum antibiotic coverage was initiated. 1. Neutropenic Fever * WBC count 1.42. ANC 0.01 * Peak temperature last 24 hours: 38.6. Tachycardic. * Urine culture 10/24/20 grew akin * Stool culture 10/24/20 grew akin * Blood culture negative on 10/25/20 * C. difficile stool antigen negative. Repeat 10/27/20 also negative * Continue broad spectrum antibiotic coverage with * Continue Caspofungin * Infectious disease consult appreciated * Speech consult obtained due to concern for aspiration * IV Acetaminophen started due to spiking fevers * IV access: Patient has had multiple extravasated peripheral IV. Most recent ultrasound-guided peripheral IV placed on left arm has failed. Not considered a good candidate for an IJ 2. Thrush * Continue Caspofungin * Continue magic mouthwash 3. Atrial Fibrillation * Most recent ECG on 10/28/20: Atrial fibrillation with RVR * Continue home Digoxin and Metoprolol succinate. * IV Lopressor PRN. Target HR <110 for adequate rate control * Consider reinitiating anticoagulation. 4. Anemia * Hgb 6.6 on 10/26/20. Transfused 2 units PRBCs with adequate rise in Hgb to 9.9. Currently 9.6. * Trend CBC. Transfuse if Hgb <7 5. Nausea * Scheduled Zofran * Aggressive acid suppression (Pepcid + PPI) * Continue Dronabinol 6. Diarrhea Patient has had diarrhea and incontinence for several days. Likely etiology is likely a combination of chemotherapy and antibiotics adverse effects as well as a potential infectious etiology. * C. difficile negative. Repeat test also negative * Stool culture positive for akin * Continue probiotics 7. Goals of Care * Discussed transition to palliative care with patient and his family. At this time, the family would like to continue anti-fungal treatment but they are open to the idea of discontinuing antibiotics and transitioning toward a more palliative approach. For now, we will continue with the current treatment regimen * Palliative care consulted Code Status: DNR/DNI F/E/N: Consistent carb diet VTE PPx: Disp: Medical floor (2) Sepsis: (3) Atrial fibrillation: (4) Pancytopenia: (5) Nausea: (6) Transaminitis: (7) Type 2 diabetes mellitus: (8) Hypothyroid: Hypothyroidism type: acquired Qualified Code(s): E03.9 - Hypothyroidism, unspecified (9) Diarrhea: Admission and Anticipated Discharge Date Admission Date: October 20, 2020 Supervising Attestation Patient seen and examined with MS Eyal Roque and PGY-2 Dr. Plaza. Agree with history, exam findings, assessment and plan of care as outlined. 70 year old male with hx of metastatic breast cancer (lung and bone) admitted for syncope, now being treated for neutropenic fever, oral candidiasis, urinary akin, and GI akin. Overnight, was febrile. Throat is sore and painful to swallow, but Magic Swizzle has been somewhat helpful. Ill appearing male. White plaques on the sides of the tongue and the insides of the cheeks. Trace edema of the upper extremities and lower extremities. 1. Neutropenic fevers. Stool and urine growing akin. Blood cultures pending. Caspofungin. ID consult recommending cefepime and fluconazole. However, it seems that ID is not aware that patient has continued to be febrile, so we will need to clarify whether that will change the recommendations. 2. Thrush with likely esophagitis. Switched to scheduled Magic Swizzle. Continue with caspofungin. 3. Sepsisinitially secondary to RML PNA with elevated procal. Originally treated with meropenem and levofloxacin. Continue with meropenem and vanc. 4. Atrial fibrillation with RVR. Continue metoprolol XL 75mg qAM, PRN IV Lopressor. Continue home digoxin. Can restart Eliqus, but holding off until we can figure out PICC vs central line placement. 5. Pancytopenia. Improving. Secondary to chemotherapy. Received 2 units PRBCs. Hgb 8.4 6. DM2. A1C 9.0. Holding home glipizide and metformin. 7. Severe protein-calorie malnutrition. Third spacing due to low protein. 8. Nausea. Increased marinol. Continue Zofran and acid suppression. 9. Metastatic breast cancer. Recently received chemotherapy. Goals of care conversation with the family today led by Dr. Caballero. Agree that they do not want invasive treatment or procedures. DNR/DNI. Palliative consulted for assistance as well. Subjective Patient continues to endorse dysphagia today but he says the pain has lessened since starting magic mouthwash. However, he states that the mouthwash makes it feel like his lips are "on fire". He has significant difficutly swallowing pills even when they are given to him in yogurt. His nausea has decreased and he does not have any SOB, chest pain, or abdominal pain. However, he continues to endorse frequent fecal incontinence consisting of poorly formed, green stool. He denies any burning with urination. He also denies subjective fevers, chills, or DUONG. Review of Systems Constitutional: as per Subjective / HPI Eyes: no problem reported Ear, Nose, Mouth, Throat: no problem reported Respiratory: as per Subjective / HPI Cardiovascular: as per Subjective / HPI Gastrointestinal: as per Subjective / HPI Genitourinary: + as per Subjective / HPI Musculoskeletal: + muscle weakness Neurologic: no problem reported Psychiatric: no problem reported Physical Exam Constitutional: + ill appearing; no acute distress Eyes: PERRL, conjunctivae normal, anicteric sclerae ENMT: external ear and nose normal, oropharynx normal Respiratory: normal respiratory effort, lungs clear to auscultation Cardiovascular: Rate/Rhythm: + irregularly irregular Vessels: dorsalis pedis pulses present and radial pulses present Extremities: + edema; no calf tenderness Gastrointestinal (Abdomen): normal bowel sounds, soft, nontender, no hepatosplenomegaly Skin: + lesion (Left arm swelling. Non-tender. seepage of clear-yellow fluid) Psychiatric: A+Ox3, euthymic affect Genitourinary: + scrotum abnormality (scrotal swelling ) Results & Data ([facility]) Vital Signs (Past 12 Hours) Vital Signs Temp Pulse Pulse Pulse Resp BP Pulse Ox 10/28/20 16:00 37 C 115 H 20 120/77 96 10/28/20 11:47 37.1 C 99 H 16 118/76 95 10/28/20 08:09 117 H 10/28/20 07:04 37.6 C H 117 H 24 136/80 96 10/28/20 07:00 127 H 10/28/20 05:24 133 H
[2020-10-28] MEDS: ROSUVASTATIN CALCIUM 5 MG TAB PO SCH (21:20)
[2020-10-28] MEDS: PRAMIPEXOLE DIHYDROCHLO 0.25 MG TAB PO SCH (21:21)
[2020-10-28] MEDS: APIXABAN 5 MG TABLET PO SCH (23:15)
[2020-10-29] MEDS: VANCOMYCIN HCL 1,500 MG in SODIUM CHLORIDE 0.9% 500 ML IV SCH (02:30)
[2020-10-29] MEDS: METOPROLOL TARTRATE 1 MG/ML VIAL IV PRN ×2 (03:58→09:36)
[2020-10-29] MEDS: MEROPENEM 2,000 MG in 0.9 % SODIUM CHLORIDE 58 ML IV SCH ×2 (05:16→15:16)
[2020-10-29 05:53] LABS: Mean Corpuscular Hgb Conc 33.9 g/dL (32-36); Mean Platelet Volume 9.9 fL (7.4-10.4); Platelet Count 169 K/uL (130-400)
[2020-10-29] MEDS: LEVOTHYROXINE SODIUM 50 MCG TABLET PO SCH (06:02)
[2020-10-29 06:19] LABS: Alanine Aminotransferase 61 U/L (12-78); Albumin Level 1.7 gm/dl (3.4-5.0); Aspartate Aminotransferase 66 U/L (15-37); BUN Creatinine Ratio 28.4 (10-20); Blood Urea Nitrogen 8 mg/dl (7-18); Calcium 6.6 mg/dl (8.5-10.1); Carbon Dioxide 24 mmol/L (21-32); Chloride 109 mmol/L (98-107); Creatinine Clr Calc Pharmacy 315.2 ml/min; Est GFR (African American) > 150.0 ml/min; Est GFR (Non-African American) 140.4 ml/min; Glucose 92 mg/dl (70-99); Magnesium 2.1 mg/dl (1.8-2.4); Potassium 3.5 mmol/L (3.5-5.1); Sodium 140 mmol/L (136-145)
[2020-10-29 06:32] LABS: Hematocrit (blood only) 29.8 % (42-52); Hemoglobin 10.1 g/dL (14.0-18.0); Mean Corpuscular Hemoglobin 31.7 pg (25-34); Mean Corpuscular Volume 93.4 fL (80-100); Nucleated RBC # (auto) 0.44 K/uL (0-0); Nucleated RBC % (auto) 12.4 %; RDW Coefficient of Variation 20.4 % (11.5-14.5); RDW Standard Deviation 69.3 fL (36.4-46.3); Red Blood Count 3.19 M/uL (4.7-6.1); White Blood Count 3.55 K/uL (4.8-10.8)
[2020-10-29 06:55] LABS: Albumin Globulin Ratio 0.6 (0.9-2); Alkaline Phosphatase 93 U/L (45-117); Bilirubin,Total 0.9 mg/dl (0.2-1); Globulin 2.9 gm/dl (2.5-4.0); Phosphorus 1.2 mg/dl (2.5-4.9); Total Protein 4.6 gm/dl (6.4-8.2)
[2020-10-29 07:37] LABS: ALC (manual) 1.03 K/uL (1.2-3.4); ANC (manual) 1.68 K/uL (1.4-6.5); Anisocytosis Present; Giant Platelets 1+; Lymphocytes # (manual) 1.03 K/uL (1.2-3.4); Lymphocytes % (manual) 28.9 %; Metamyelocytes # (manual) 0.12 K/uL (0-0); Metamyelocytes % (manual) 3.5 %; Monocytes # (manual) 0.69 K/uL (0.11-0.59); Monocytes % (manual) 19.3 %; Neutrophils # (manual) 1.68 K/uL (1.4-6.5); Neutrophils % (manual) 47.4 %; Ovalocytes 1+; Promyelocytes # (manual) 0.03 K/uL (0-0); Promyelocytes % (manual) 0.9 %; Tear Drop Cells 1+; Toxic Granulation 3+
[2020-10-29] MEDS ORDERED: POTASSIUM PHOS 3 MMOL/1 ML INFUSION IV STA (08:03)
[2020-10-29] MEDS ORDERED: POTASSIUM PHOSPHATE 21 MMOL in SODIUM CHLORIDE 0.9% 500 ML IV ONE (08:15)
[2020-10-29] MEDS: GABAPENTIN 300 MG CAP PO SCH ×4 (08:39→23:04)
[2020-10-29] MEDS: CALCIUM POLYCARBOPHIL 625MG TAB PO SCH ×2 (08:39→21:17)
[2020-10-29] MEDS: CHECK fentaNYL PATCH PLACEMENT SCH ×3 (08:39→15:16)
[2020-10-29] MEDS: LETROZOLE 2.5 MG TAB PO SCH (08:41)
[2020-10-29] MEDS: FERROUS SULFATE 325 MG TAB PO SCH (08:41)
[2020-10-29] MEDS: DIGOXIN 0.25 MG TAB PO SCH (08:41)
[2020-10-29] MEDS: METOPROLOL SUCC 25MG EXT REL TAB PO SCH (08:41)
[2020-10-29] MEDS: APIXABAN 5 MG TABLET PO SCH ×2 (08:42→21:17)
[2020-10-29] MEDS: SACCHAROMYCES BOULARDII 250 MG CAP PO SCH (08:42)
[2020-10-29] MEDS: MONTELUKAST SODIUM 10 MG TABLET PO SCH (08:42)
[2020-10-29] MEDS: FAMOTIDINE 20 MG in SYRINGE 3 ML IV SCH (08:43)
[2020-10-29] MEDS: INSULIN GLARGINE SOLOSTAR 100 UNITS/ML 3 ML PEN SC SCH (08:44)
--- NOTE | 2020-10-29 08:53 | Pharmacy Report ---
Pharmacy Glycemic Short Note 2 - Date of Service October 29, 2020 - Glycemic Short BSG Results (Last 24 hours): 10/28/20 10/28/20 10/28/20 11:24 16:44 20:29 Glucose POC Glucose 116 H 112 H 116 H 10/29/20 10/29/20 05:33 07:23 Glucose 92 POC Glucose 100 H OUTPATIENT ANTIDIABETIC REGIMEN: * glipizide 10mg BID, metformin ER 1 g PO BIDM * Per asthma educator note, patient not tolerating metformin ER either * HbA1c: 9% (10/20/20) ASSESSMENT: 10/29 * BSGs remain well controlled, 106, 116, 112, 116 mg/dL yesterday * Received 16 units of basal insulin, no bolus yesterday * Fasting BSG of 100 mg/dL this morning * Do not anticipate any insulin changes today 10/21 * Patient with possible DKA who improved enough this morning to be transitioned off of the insulin infusion. The dextrose containing fluids were stopped this morning and full moderate weight based dose of lantus was given around lunchtime. BSGs ~1.5 hours after lantus dose remain 108-123 mg/dL with the insulin infusion on hold. If BSG remains in goal at next check will plan to d/c the insulin infusion altogether. * Will add a conservative Lantus scale this evening, should any additional basal insulin be needed today * A moderate stress does novolog dose is also added. The patient is ordered a diet and is eating consistently, but reduced (applesauce, egg salad, etc). PLAN FOR INPATIENT GLYCEMIC CONTROL: * Hold outpatient oral diabetes medications * Basal insulin - continue * Lantus 16 units SQ daily in AM * Bolus insulin: no change * NovoLog per scale ACHS or Q6hrs while NPO * Goal Range: Low 110 mg/dL - High 140 mg/dL * Correction Factor: 25 mg/dL/unit * Nutritional / Prandial insulin per carb ratio of 1 unit per 8 grams CHO consumed PLAN FOR DISCHARGE: * HbA1c of 9% is elevated * Achieving a goal HbA1c of 8% is reasonable for this patient given metastatic breast cancer * Agree with asthma educator to decrease metformin ER to 500 mg PO QID (with meals and at bedtime [with snack may improve tolerability]) * Initiation of once daily basal insulin 15 units SC daily * Basal insulin selection based on insurance coverage * If basal insulin is initiated - suggest discontinuing glipizide to decrease risk of hypoglycemia
[2020-10-29] MEDS: FLUTICASONE PROPIONATE NA SPR 16 GM BTL NAE SCH (08:57)
[2020-10-29] MEDS ORDERED: SUCRALFATE 1 GM/10 ML UDC PO SCH (09:00)
[2020-10-29] MEDS: INSULIN ASPART 100 UNITS/ML 3 ML PEN SC SCH ×4 (09:01→21:18)
[2020-10-29] MEDS ORDERED: oxyCODONE HCL SOLN 5 MG/5 ML UDC PO PRN (10:39)
--- NOTE | 2020-10-29 11:14 | Medical Student Progress Note ---
Date of Service October 29, 2020 Assessment & Plan (1) Syncopal episodes: Mr. Shine is a 70-year-old male with a PMHx of metastatic breast cancer (to bone and lung) and atrial fibrillation who was admitted on 10/20/20 after a witnessed syncopal episode occurred following his chemotherapy infusion. He was found to be hypotensive on arrival and he was managed for sepsis with IV fluid resuscitation, vasopressor support, and broad spectrum antibiotics. He was later downgraded from the ICU to a medical floor and eventually transitioned to PO antibiotics due to clinical improvement. However, he then developed a fever, oral thrush with dysphagia, and urinary and fecal incontinence. Urinalysis and stool culture were positive for akin and antifungal and broad spectrum antibiotic coverage was initiated. After discussion with the patient and his family, a palliative approach via Hospice will be pursued at this time. 1. Neutropenic Fever * WBC count 0.75 --> 1.42 --> 3.55. Hgb 10.1. ANC 0.01 as of 10/27/20 * Afebrile last 24 hours: Last febrile on 10/27/20 at 23:00 * Urine culture 10/24/20 grew akin * Stool culture 10/24/20 grew akin * Blood culture negative on 10/25/20 * C. difficile stool antigen negative. Repeat 10/27/20 also negative * Discontinued Vancomycin on 10/29/20. Discontinued Meropenem on 10/29/20. No antibiotic therapy at this time * Discontinued caspofungin on 10/29/20. Initiated PO Diflucan 400 mg for 10 days * Infectious disease consult appreciated * Speech consult obtained due to concern for aspiration * IV access: Patient has had multiple extravasated peripheral IV. Most recent ultrasound-guided peripheral IV placed on left arm has failed. Not considered a good candidate for an IJ 2. Thrush * Continue magic mouthwash * Nystatin PO QID 3. Atrial Fibrillation * Most recent ECG on 10/28/20: Atrial fibrillation with RVR * Continue home Digoxin and Metoprolol succinate. * IV Lopressor PRN. Target HR <110 for adequate rate control * Restarted Apixaban on 10/28/20. 4. Anemia * Hgb 6.6 on 10/26/20. Transfused 2 units PRBCs with adequate rise in Hgb to 9.9. Currently 10.1. * Trend CBC. Transfuse if Hgb <7 5. Nausea * Scheduled Zofran * Continue Pepcid. Discontinued IV PPI on 10/29/20 * Continue Dronabinol 6. Diarrhea Patient has had diarrhea and incontinence for several days. Etiology is likely a combination of chemotherapy and antibiotics adverse effects causing direct GI mucosal damage and enabling akin to proliferate. * C. difficile negative. Repeat test also negative * Stool culture positive for akin * Continue probiotics 7. Hypophosphatemia * Phosphate level 1.2 on 10/29/20. * Given potassium phosphate in normal saline. Recheck phosphate level tomorrow morning 8. Goals of Care * Palliative care consulted. Patient and his family would like to pursue palliative care at this time. Plan to discharge patient home tomorrow for Hospice Code Status: DNR/DNI F/E/N: Normal Diet VTE PPx: Apixaban Disp: Medical floor (2) Sepsis: (3) Atrial fibrillation: (4) Pancytopenia: (5) Nausea: (6) Transaminitis: (7) Type 2 diabetes mellitus: (8) Hypothyroid: Hypothyroidism type: acquired Qualified Code(s): E03.9 - Hypothyroidism, unspecified (9) Diarrhea: Admission and Anticipated Discharge Date Admission Date: October 20, 2020 Supervising Attestation Patient seen and examined with MS Eyal Roque. Agree with history, exam findings, assessment and plan of care as outlined. 70 year old male with hx of metastatic breast cancer (lung and bone) admitted for syncope, now being treated for neutropenic fever, oral candidiasis, urinary akin, and GI akin. Overnight, was afebrile. Throat and mouth are sore and painful to swallow, but Magic Swizzle has been somewhat helpful. is at the beside today. They have spoken with palliative care. Would like to be able to go home to be more comfortable. Ill appearing male. White plaques on the sides of the tongue and the insides of the cheeks, but improving. Less erythema compared to prior exams Heart with regular and rhythm. +1 pitting edema of the lower extremities to the mid lópez. 1. Neutropenic fevers. Stool and urine growing akin. Blood cultures negative so far. Caspofungin, but will switch to fluconazole 400mg daily. Do not feel that we will to necessarily continue the meropenem and vancomycin as he has already received an adequate course of antibiotics to treat his initial bacterial pneumonia. Appreciate ID recommendations. 2. Thrush with likely esophagitis. Continue Magic Swizzle + liquid nystatin. Switched to fluconazole as above. 3. Sepsisinitially secondary to RML PNA with elevated procal. He has already completed a course of antibiotics to cover for bacterial pneumonia. 4. Neutropenia. Improving. 5. Pancytopenia. Improving. Secondary to recent chemotherapy. 6. Lower extremity edema. Secondary to the IVFs and immoblization. Will give a dose of IV lasix today. 7. Atrial fibrillation with RVR. Continue metoprolol XL 75mg qAM, PRN IV Lopressor. Continue home digoxin. Restart Eliquis 8. DM2. A1C 9.0. Holding home glipizide and metformin. Liberalizing diet. 9. Severe protein-calorie malnutrition. Third spacing due to low protein. Appreciate nutrition recs. Liberalized diet. 10. Nausea. Increased marinol. Continue Zofran and acid suppression. 11. Metastatic breast cancer. Recently received chemotherapy. 12. Goals of care. Likely home with hospice. Can complete a course of fluconazole at home. We discontinued medications that are not necessary in the short term. Appreciate palliative care recommendations. Dispo: possibly home with home hospice tomorrow. Subjective Patient states that his dysphagia has increased since yesterday. However, he notes decreased lip burning. He denies any fever, chills, DUONG, shortness of breath, chest pain, abdominal pain, or leg pain or swelling. He continues to endorse fecal incontinence and he states that he has had two bowel movements since yesterday. Bowel movements are still dark green and poorly formed. He also still has left arm swelling and redness without pain. Review of Systems Constitutional: as per Subjective / HPI Eyes: no problem reported Ear, Nose, Mouth, Throat: no problem reported Respiratory: as per Subjective / HPI Cardiovascular: as per Subjective / HPI Gastrointestinal: as per Subjective / HPI Genitourinary: no dysuria Integumentary: as per Subjective / HPI Neurologic: no problem reported Psychiatric: no problem reported Physical Exam Constitutional: + ill appearing; no acute distress Eyes: PERRL, conjunctivae normal, anicteric sclerae ENMT: external ear and nose normal, oropharynx normal Neck: normal visual inspection Respiratory: normal respiratory effort, lungs clear to auscultation Cardiovascular: Rate/Rhythm: + irregularly irregular Vessels: dorsalis pedis pulses present and radial pulses present Extremities: no calf te nderness and no edema Gastrointestinal (Abdomen): normal bowel sounds, soft, nontender, no hepatosplenomegaly Skin: + erythema (left arm erythema and edema) Psychiatric: A+Ox3, euthymic affect Results & Data ([facility]) Vital Signs (Past 12 Hours) Vital Signs Temp Pulse Pulse Resp BP BP Pulse Ox 10/29/20 09:36 138 H 10/29/20 08:41 120 H 10/29/20 07:00 36.8 C 138 H 20 144/82 H 95 10/29/20 05:25 103 H 18 93 10/29/20 03:58 127 H 126/88 10/29/20 03:00 36.5 C 128 H 20 135/88 93 10/29/20 00:00 128 H
--- NOTE | 2020-10-29 11:26 | Palliative Care Consultation ---
Date of Consultation October 29, 2020 Assessment & Plan (1) Pain: Primarily oral at this time with thrush. Continue nystatin and magic mouthwash. He has fentanyl patch. We discussed that it is ok to use oxycodone for pain as well. This may also help his diarrhea. (2) Palliative care encounter: I spoke with Barrington about what he would want for his care moving forward. He is very frustrated at the moment and very much wants to return home. He has talked with his family about going home with a comfort directed approach and had originally been considering continuing antifungal medication at home. I spoke with his on the phone and she has considered this overnight and now feels that there is no benefit to continuing capsofungin at home. This would preclude them having hospice care at home which would be a tremendous support to them at this time. When I talked to Barrington about a comfort directed approach, he was upset and tells me that he has never wanted to give up. I did discuss this further with Barrington. We talked about the most support available and best way to ensure that he can remain at home being hospice care. We discussed shift of focus in care rather than giving up. We also discussed that if he got home and did well and wanted to revisit the idea of pursuing further treatment, he would have that option. He was agreeable to this. (3) Sepsis: (4) Peripheral neuropathy: (5) Type 2 diabetes mellitus: (6) Metastatic malignant neoplasm to breast: History of Present Illness Reason for Consultation: goals of care Requesting Physician: Dr. Caballero Attending Physician: Shira Mulligan DO History of Present Illness 70 yo gentleman with breast cancer metastatic to bone and lungs. The cancer was originally diagnosed in 2006. He underwent mastectomy with axillary node resection and subsequent treatment at that time. He was found to have recurrence in 2017 with diffuse bony metastases and pulmonary nodules. He recently began a new chemotherapy regimen. I saw him in the office just prior to this and he expressed concern about how he would tolerate chemotherapy. However, he very much wanted to pursue treatment and has consistently said that he wants to pursue full treatment. Unfortunately, after his last treatment he had a syncopal episode at home and was admitted with dehydration, hyponatremia and hypotension. He is pancytopenic and has disseminated fungal infection in his oropharynx, urine and stool. He is currently on IV meropenem and capsofungin, as well as nystatin swish and swallow. He is very uncomfortable and complaining of pain in his mouth and with swallowing. He has had virtually no po intake as a result of this. He has had ongoing problems with pain and has been on fentanyl patch with oxycodone prn. At this time, he denies any pain other than his mouth. Allergies Allergy/AdvReac Type Severity Reaction Status Date / Time No Known Drug Allergies Allergy Verified 10/20/20 19:10 Home Medications Medication Instructions Recorded Confirmed Type furosemide 40 mg tablet 40 mg PO DAILY PRN #30 tab 01/11/19 10/20/20 History denosumab 120 mg/1.7 mL (70 mg/mL) 120 mg SQ Q4WK ml 04/03/19 10/20/20 History subcutaneous solution letrozole 2.5 mg tablet 2.5 mg PO QAM 04/03/19 10/20/20 History blood-glucose meter #1 ea 11/09/19 10/09/20 Rx metoprolol succinate 50 mg 50 mg PO QAM #90 tab 12/03/19 10/20/20 Rx tablet,extended release 24 hr gabapentin 300 mg capsule 300 mg PO TID 01/24/20 10/20/20 History ferrous sulfate 325 mg (65 mg 325 mg PO QAM #90 tab 02/27/20 10/20/20 Rx iron) tablet lancets 33 gauge #100 ea 03/10/20 10/09/20 Rx apixaban 5 mg tablet 5 mg PO BID #180 tab 04/09/20 10/20/20 Rx digoxin 250 mcg (0.25 mg) tablet 250 mcg PO QAM #90 tab 04/14/20 10/20/20 Rx glipizide 10 mg tablet 10 mg PO BID #60 tab 05/22/20 10/20/20 Rx albuterol sulfate 90 mcg/actuation 2 puff INHALATION Q4H PRN #1 07/04/20 10/20/20 Rx aerosol inhaler inhaler blood sugar diagnostic #200 ea 07/11/20 10/09/20 Rx lorazepam 1 mg tablet 1 mg PO TID PRN #90 tab 07/23/20 10/20/20 Rx metformin 1,000 mg tablet,extended 1,000 mg PO BID #60 tab 09/15/20 10/20/20 Rx release 24hr montelukast 10 mg tablet 10 mg PO QAM #30 tab 10/06/20 10/20/20 Rx oxycodone-acetaminophen 5 mg-325 1 tab PO Q8H PRN 10/07/20 10/20/20 History mg tablet fluticasone propionate 1 spray INTRANASAL QAM 10/08/20 10/20/20 History furosemide [Lasix] 20 mg PO QAM 10/08/20 10/20/20 History leuprolide [Lupron Depot] 3.75 mg IM Q90D 10/08/20 10/20/20 History levothyroxine 50 mcg PO QAM 10/08/20 10/20/20 History omeprazole 20 mg PO QAM 10/08/20 10/20/20 History pramipexole 0.25 mg PO HS 10/08/20 10/20/20 History rosuvastatin 5 mg PO HS 10/08/20 10/20/20 History verapamil 180 mg PO HS 10/08/20 10/20/20 History fentanyl 12 mcg TRANSDERMAL Q3D 10/20/20 10/20/20 History Saccharomyces boulardii [Florastor] 250 mg PO DAILY 30 Days #30 cap 10/30/20 Rx calcium polycarbophil [Fiber 625 mg PO BID 30 Days #60 tab 10/30/20 Rx (calcium polycarbophil)] dronabinol 2.5 mg PO BID 30 Days #60 cap 10/30/20 Rx fluconazole 400 mg PO QAM 10 Days #100 ml 10/30/20 Rx metoprolol succinate 100 mg PO QAM 30 Days #120 tab 10/30/20 Rx nystatin 5 ml PO QID 10 Days #200 ml 10/30/20 Rx Patient History Medical History Anxiety Asthma Atrial fibrillation On Eliquis BPH (benign prostatic hyperplasia) Depression Diabetes mellitus, type 2 NIDDM Dyspnea oxygen prn GERD (gastroesophageal reflux disease) Hyperlipidemia Hypertension Hypothyroid Metastasis from breast cancer to the bone currently. starting chemotherapy 10/13/20. Metastatic malignant neoplasm to breast rt breast ca - 2005 - s/p mastectomy and chemo - apr 2017 dx w/ mets to bone, follows with oncology, on Tamoxifen and receiving immunotherapy injections monthly. On anticoagulant therapy On home oxygen therapy 2lpm via n/c -- uses only as needed Paralyzed hemidiaphragm with restrictive lung disease Restless leg syndrome Sleep apnea CPAP nightly Surgical History H/O mastectomy (~2005) Right breast mastectomy with lymph node removal History of cardioversion History of colonoscopy (~2016) History of esophagogastroduodenoscopy (EGD) (~2016) History of prostate surgery laser surgery History of removal of Port-a-Cath History of surgery birthmark removed from face History of tonsillectomy History of tooth extraction S/P repair of hydrocele Left Family History Father Diabetes Heart disease Myocardial infarction Colorectal cancer Brother Diabetes Colorectal cancer Hypertension Mother Nephrolithiasis Colorectal cancer Other Asthma Cardiac disorder No family history of adverse response to anesthesia Denies family history of Ovarian cancer Prostate cancer Breast cancer Social History Smoking Status: Never smoker Second Hand Exposure: No; Do You Dip or Chew Tobacco: No; Hx Alcohol Use: Yes Alcohol type: wine Hx Substance Use: No Preferred Language: Argentine Communication Ability: Effective Visual Impairment: No Limitations Automobile Wrecker Required: No Beliefs That Will Affect Care: None Current Living Situation: Spouse and Family current occupational status: employed current occupation: [employer] Other Information That Helps Us Care for You: No Feels Safe at Home: Yes Safety Concerns: Feels Safe At This Time Assistive Devices: CPAP Review of Systems Review of Systems: [place] Symptom Assessment Scale Pain 3/3 Dyspnea 0/3 Nausea 0/3 Anxiety 2/3 Fatigue 2/3 Anorexia 3/3 Palliative Performance Score 30% Physical Exam Constitutional: + ill appearing ENMT: oral exudate Respiratory: normal respiratory effort; no labored breathing Gastrointestinal (Abdomen): Percussion/Palpation: abdomen nontender Musculoskeletal: generalized weakness Neurologic: awake; not confused Results & Data ([facility]) Vital Signs (Past 12 Hours) Vital Signs Temp Pulse Pulse Resp BP BP Pulse Ox 10/29/20 11:19 99.5 F 100 H 20 131/81 94 10/29/20 09:36 138 H 10/29/20 08:41 120 H 10/29/20 07:00 98.2 F 138 H 20 144/82 H 95 05/19/21 05:25 103 H 18 93 10/29/20 03:58 127 H 126/88 10/29/20 03:00 97.7 F 128 H 20 135/88 93 10/29/20 00:00 128 H PG Care Time/CCT Total # of Minutes Spent Total Time Spent with Patient: Total time spent is greater than 50% in coordination of care (as documented) at patient's floor/unit and/or counseling patient: Coding Level of Care Code 59963 Inpt Consult Level 4 Diagnoses Pain R52 Palliative care encounter Z51.5 Sepsis A41.9 Peripheral neuropathy G62.9 Type 2 diabetes mellitus E11.9 Metastatic malignant neoplasm to breast C79.81
[2020-10-29] MEDS: NYSTATIN SUSP 500,000 U/5 ML UDC PO SCH ×3 (12:05→21:17)
[2020-10-29] MEDS: Magic Swizzle w/ Sucralfate 240mL PO SCH ×3 (12:06→21:16)
[2020-10-29] MEDS ORDERED: ACETAMINOPHEN 1,000 MG/100 ML VIAL IV PRN (15:43)
[2020-10-29] MEDS ORDERED: FLUCONAZOLE SUSP 200 MG/5 ML UDP PO SCH (16:30)
[2020-10-29] MEDS ORDERED: FUROSEMIDE 40 MG in SYRINGE 0 ML IV ONE (16:45)
[2020-10-29] MEDS: FLUCONAZOLE SUSP 40 MG/ML 35 ML PO SCH (18:00)
[2020-10-29] MEDS: PRAMIPEXOLE DIHYDROCHLO 0.25 MG TAB PO SCH (21:16)
[2020-10-29] MEDS: LORazepam 1 MG TAB PO PRN (23:53)
[2020-10-30] MEDS: CHECK fentaNYL PATCH PLACEMENT SCH ×3 (00:20→15:09)
[2020-10-30] MEDS: METOPROLOL TARTRATE 1 MG/ML VIAL IV PRN ×2 (01:47→08:56)
[2020-10-30] MEDS: LEVOTHYROXINE SODIUM 50 MCG TABLET PO SCH (06:05)
[2020-10-30 06:06] LABS: Hematocrit (blood only) 29.4 % (42-52); Mean Corpuscular Hemoglobin 31.7 pg (25-34); Mean Corpuscular Volume 93.3 fL (80-100); Mean Platelet Volume 9.9 fL (7.4-10.4); Nucleated RBC # (auto) 0.39 K/uL (0-0); Platelet Count 179 K/uL (130-400); RDW Coefficient of Variation 20.5 % (11.5-14.5); RDW Standard Deviation 69.5 fL (36.4-46.3); Red Blood Count 3.15 M/uL (4.7-6.1); White Blood Count 5.67 K/uL (4.8-10.8)
[2020-10-30 06:58] LABS: ANC (manual) 3.02 K/uL (1.4-6.5); Anisocytosis Present; Eosinophils # (manual) 0.05 K/uL (0-0.5); Eosinophils % (manual) 0.9 %; Giant Platelets 2+; Lymphocytes % (manual) 15.9 %; Metamyelocytes % (manual) 3.5 %; Monocytes % (manual) 17.7 %; Myelocytes % (manual) 5.3 %; Neutrophils # (manual) 3.02 K/uL (1.4-6.5); Neutrophils % (manual) 53.2 %; Polychromasia 1+; Promyelocytes % (manual) 3.5 %; Tear Drop Cells 1+
[2020-10-30] MEDS ORDERED: POTASSIUM PHOS 3 MMOL/1 ML INFUSION IV STA (07:05)
[2020-10-30] MEDS ORDERED: POTASSIUM PHOSPHATE 30 MMOL in SODIUM CHLORIDE 0.9% 500 ML IV ONE (07:30)
--- NOTE | 2020-10-30 08:14 | Consultation Report ---
DATE OF CONSULTATION: 10/30/2020 MEDICAL ONCOLOGY CONSULTATION REASON FOR CONSULTATION: A 70-year-old gentleman with metastatic breast cancer, receiving salvage Abraxane. HISTORY OF PRESENT ILLNESS: Mr. Shine is a pleasant but unfortunate 70-year-old gentleman well known to [facility] with a longstanding history of breast cancer, more recently diagnosed with metastatic disease. He was admitted to [facility] on 10/20/2020 when he was found to be extremely dehydrated, hypotensive and hyponatremic with other electrolyte anomalies. COVID-19 test was negative. He was admitted immediately to the ICU where he was started on vasopressors and broad-spectrum antibiotics. Dictation Ends Here
[2020-10-30] MEDS ORDERED: INSULIN GLARGINE SOLOSTAR 100 UNITS/ML 3 ML PEN SC SCH (09:00)
[2020-10-30] MEDS ORDERED: FLUCONAZOLE SUSP 40 MG/ML 35 ML PO SCH (09:00)
[2020-10-30] MEDS ORDERED: FAMOTIDINE 20 MG TAB PO SCH (09:00)
[2020-10-30] MEDS ORDERED: FAMOTIDINE 20 MG in SYRINGE 3 ML IV SCH (09:00)
[2020-10-30] MEDS: CALCIUM POLYCARBOPHIL 625MG TAB PO SCH (09:02)
[2020-10-30] MEDS: GABAPENTIN 300 MG CAP PO SCH ×2 (09:02→15:09)
[2020-10-30] MEDS: APIXABAN 5 MG TABLET PO SCH (09:02)
[2020-10-30] MEDS: DIGOXIN 0.25 MG TAB PO SCH (09:03)
[2020-10-30] MEDS: NYSTATIN SUSP 500,000 U/5 ML UDC PO SCH ×2 (09:03→13:05)
[2020-10-30] MEDS: SACCHAROMYCES BOULARDII 250 MG CAP PO SCH (09:03)
[2020-10-30] MEDS: LETROZOLE 2.5 MG TAB PO SCH (09:04)
[2020-10-30] MEDS: METOPROLOL SUCC 25MG EXT REL TAB PO SCH (09:05)
[2020-10-30] MEDS: FLUTICASONE PROPIONATE NA SPR 16 GM BTL NAE SCH (09:05)
[2020-10-30] MEDS: Magic Swizzle w/ Sucralfate 240mL PO SCH (09:06)
[2020-10-30] MEDS: INSULIN ASPART 100 UNITS/ML 3 ML PEN SC SCH ×2 (09:15→13:05)
[2020-10-30] MEDS ORDERED: VANCOMYCIN TROUGH ONE (09:30)
[2020-10-30] MEDS ORDERED: METOPROLOL SUCC 25MG EXT REL TAB PO STA (10:12)
--- NOTE | 2020-10-30 10:29 | Consultation Report ---
DATE OF CONSULTATION: 10/30/2020 REASON FOR CONSULTATION: Therapeutic options for this 70-year-old gentleman with metastatic breast cancer. HISTORY OF PRESENT ILLNESS: The patient is a pleasant unfortunate 70-year-old gentleman currently under [facility] care with metastatic breast cancer and receiving salvage Abraxane. He was admitted to [facility] on 10/20/2020 when apparently he had a near syncopal episode at home and his summoned ambulance. When he presented to our Emergency Room, he was found to be exceedingly dehydrated, hypotensive with electrolyte anomalies. He was admitted directly to the ICU and he was started on vasopressors. He was provided aggressive IV hydration and broad-spectrum antibiotics. Again, the patient has been a longstanding patient at [facility] originally diagnosed with breast cancer in 2005 and unfortunately in 2019, developed a bony metastatic disease. He has been heavily pretreated and refractory to all therapy to date. He was recently started on weekly Abraxane and received 2 weekly courses of the first cycle. It was after his second dose, he ran into trouble. The patient's tumor markers have been rising a lot rhythmically with his CA 27-29 close to 1200. I had actually seen him back on the 02 of October. It was during that visit, he was recommended to receive salvage Abraxane. At that time, his performance status was not the best and thus opted to go with weekly administration versus 1 big dose. At bedside, patient expressed desire to continue his fight. Obviously, his performance status continues to falter and hesitant to proceed unless he turns the corner and improves clinically. I appreciate the fact Palliative Care has visited with patient, but it would appear based on their documentation patient is not quite ready to proceed with palliation. PAST MEDICAL HISTORY: Positive for asthma, atrial fibrillation, anxiety, BPH, depression, type 2 diabetes mellitus, gastroesophageal reflux disease, hypertension, hyperlipidemia, hypothyroidism, metastatic breast cancer, obstructive sleep apnea, restless legs syndrome, paralyzed hemidiaphragm. PAST SURGICAL HISTORY: Mastectomy, cardioversion, colonoscopy, EGD, prostate surgery, removal of MediPort, tonsillectomy, tooth extraction, repair of hydrocele. MEDICATIONS: Furosemide 40 mg p.o. daily, Xgeva 120 mg q. 28 days, letrozole 2.5 mg p.o. daily, metoprolol 50 mg p.o. daily, gabapentin 30 mg p.o. t.i.d., ferrous sulfate 325 mg p.o. daily, apixaban 5 mg p.o. b.i.d., digoxin 250 mcg p.o. daily, glipizide 10 mg p.o. b.i.d., albuterol 2 puffs inhaled q. 4 hours p.r.n., lorazepam 1 mg p.o. t.i.d. p.r.n., metformin 1000 mg p.o. b.i.d., montelukast 10 mg p.o. daily, oxycodone/acetaminophen 1 tablet p.o. 8 hours p.r.n., Flonase 1 spray intranasally daily, Lasix 20 mg p.o. daily, Lupron 3.75 mg IM q. 90 days, levothyroxine 50 mcg p.o. daily, omeprazole 20 mg p.o. daily, pramipexole 0.25 mg p.o. at bedtime. Rosuvastatin 5 mg p.o. at bedtime, Verapamil 180 mg p.o. at bedtime, fentanyl 12 mcg transdermal every 72 hours. ALLERGIES: No known drug allergies. FAMILY HISTORY: Father with diabetes mellitus, heart disease, myocardial infarction, colorectal cancer. Mother suffered from kidney stones and colorectal cancers as well. SOCIAL HISTORY: The patient lives with his spouse. He is employed as a [employer]. Positive for social alcohol, negative for cigarettes, or illicit drugs. REVIEW OF SYSTEMS: GENERAL: Clinical decline, not necessarily anorexic or losing weight, generalized weakness, asthenia. SKIN: No rashes or lesions. No history of dermatoses. HEENT: He stated he was lightheaded, which led to his syncopal or near syncopal event. No headaches, no dizziness per se. No acute visual or hearing deficits. No sinus symptoms, sore throat or dysphagia. LYMPH: No history of lymphadenopathy. CARDIAC: Negative for angina or palpitations. PULMONARY: Negative for shortness of breath, dyspnea or orthopnea. No cough or hemoptysis. GASTROINTESTINAL: Negative for abdominal pain, nausea, vomiting, diarrhea or constipation, hematochezia or melena stools. GENITOURINARY: No hematuria, dysuria, urinary incontinence. PSYCHIATRIC: Negative for anxiety, depression or psychoses. ENDOCRINE: Positive for hypothyroidism and diabetes mellitus by history. MUSCULOSKELETAL: Positive for bony metastatic disease and intractable pain. NEUROLOGIC: Negative for seizure, stroke, or migraine headache. HEMATOLOGIC: Positive for anemia attributable to chemotherapeutic effect. PHYSICAL EXAMINATION: GENERAL: A very pleasant 70-year-old gentleman, awake, alert, appropriate, in no acute distress. VITAL SIGNS: Temperature 37.2, pulse 125, respiratory rate 20, blood pressure 134/77. SKIN: Warm, dry, noncyanotic without petechia, rash or ecchymosis. HEENT: Head is atraumatic, normocephalic. Eyes: PERRLA, EOMI. Sclerae nonicteric. No conjunctival injection. Nares are patent without rhinorrhea or discharge. Throat is clear. Tongue is midline. Mucous membranes are moist. NECK: Supple without JVD or thyromegaly. LYMPHATICS: No cervical or supraclavicular palpable nodes. HEART: Regular rate and rhythm. No clicks, rubs, murmurs or gallops. LUNGS: Clear to auscultation bilaterally. ABDOMEN: Soft, nontender, nondistended, without palpable hepatosplenomegaly. No rigidity or guarding. EXTREMITIES: Strength testing not done. Pulses are equal in all 4 quadrants. He has 2+ peripheral edema of the lower extremities. NEUROLOGICALLY: He is awake, alert and oriented x3. Cranial nerves are grossly intact. LABORATORY DATA: WBC count 5670, hemoglobin 10, platelet count 179,000, white cell differential reveals metamyelocytes, myelocytes and promyelocytes in the peripheral blood and no blasts are being reported. CA 15-3 and 27-29 are pending. IMPRESSION: 1. Syncope. 2. Neutropenic fever. 3. Oral candidiasis. 4. Metastatic breast cancer. 5. Atrial fibrillation. 6. Electrolyte anomalies. PLAN: I came up specifically to speak to patient to establish sense on where Barrington is with further treatment. I reviewed notes from palliative service and based on my conversation with patient this morning, he is not quite mentally ready to give up the fight completely. He conveyed needing extra time to recover if possible. He has been in a steady downward spiral in regard to performance status and thus not enthusiastic to restart therapy at this time. That said, if he rallies and decides he wants to continue, I would advocate reducing the dose by 50% moving forward. The patient fully understands he is not curable and the goal of any therapy from this point forward is to extend his life while maintaining quality. I made it clear to the patient if he's repeatedly admitted to the hospital, I wouldl recommend he discontinue chemotherapy completely. Keep an eye on his peripheral blood counts. I believe the immaturity is probably reflective of recovering bone marrow. Certainly emerging myelodysplasia or perhaps leukemia is not exclusively ruled out. That said, we'll discuss further with the hospitalist on the patient's disposition. He is of the mindset to be discharged home. He believes him and his could manage at this juncture. We will continue to follow him periodically during hospital stay. Thank you very much for allowing me to participate in his care. If you have any questions or concerns, please feel free to contact me. LUIS ANTONIO
[2020-10-30] MEDS: FLUCONAZOLE SUSP 40 MG/ML 35 ML PO SCH (10:33)
--- NOTE | 2020-10-30 10:36 | Pharmacy Report ---
Pharmacy Glycemic Short Note 2 - Date of Service October 30, 2020 - Glycemic Short BSG Results (Last 24 hours): 10/29/20 10/29/20 10/29/20 11:28 16:33 20:11 POC Glucose 112 H 102 H 111 H 10/30/20 07:36 POC Glucose 127 H OUTPATIENT ANTIDIABETIC REGIMEN: * glipizide 10mg BID, metformin ER 1 g PO BIDM * Per hospital educator note, patient not tolerating metformin ER either * HbA1c: 9% (10/20/20) ASSESSMENT: 10/30 * Stressors stable * BSG's ranged 100-112 yesterday * NO Novolog administered for over 48 hours * Will very slightly decrease Lantus to prevent further reduction in BSG's (and as this is consistent w outpatient recommendation prior) 10/29 * BSGs remain well controlled, 106, 116, 112, 116 mg/dL yesterday * Received 16 units of basal insulin, no bolus yesterday * Fasting BSG of 100 mg/dL this morning * Do not anticipate any insulin changes today 10/21 * Patient with possible DKA who improved enough this morning to be transitioned off of the insulin infusion. The dextrose containing fluids were stopped this morning and full moderate weight based dose of lantus was given around lunchtime. BSGs ~1.5 hours after lantus dose remain 108-123 mg/dL with the insulin infusion on hold. If BSG remains in goal at next check will plan to d/c the insulin infusion altogether. * Will add a conservative Lantus scale this evening, should any additional basal insulin be needed today * A moderate stress does novolog dose is also added. The patient is ordered a diet and is eating consistently, but reduced (applesauce, egg salad, etc). PLAN FOR INPATIENT GLYCEMIC CONTROL: * Hold outpatient oral diabetes medications * Basal insulin - slight decrease * Lantus 15 units SQ daily in AM * Bolus insulin: no change * NovoLog per scale ACHS or Q6hrs while NPO * Goal Range: Low 110 mg/dL - High 140 mg/dL * Correction Factor: 25 mg/dL/unit * Nutritional / Prandial insulin per carb ratio of 1 unit per 8 grams CHO consumed PLAN FOR DISCHARGE: * see 10/29 note
[2020-10-30] MEDS ORDERED: ALUMINUM/MAGNESIUM SUSP 50 ML, diphenhydrAMINE Syrup 125 MG, LIDOCAINE VISCOUS 2% SOLN ... PO PRN (10:41)
[2020-10-30] MEDS ORDERED: FUROSEMIDE 40 MG in SYRINGE 0 ML IV ONE (11:00)
--- NOTE | 2020-10-30 13:55 | Med Student Discharge Summary ---
Date of Service October 30, 2020 Admission HPI Per Admitting Provider Chief Complaint: The patient presents to the emergency department with complaint of 2 near syncopal episodes, followed by a syncopal episode on the way to the bathroom, after having undergone chemotherapy for metastatic breast cancer earlier in the day. Primary Care Provider: Mike Lepe MD The patient is a 70-year-old male with a past medical history including metastatic breast cancer to bone and lung, paralyzed left hemidiaphragm, allergic rhinitis, anemia, anxiety, atrial fibrillation on chronic anticoagulation, asthma, hypertension, peripheral neuropathy, diabetes mellitus type 2, RLS, severe obstructive sleep apnea, GERD and BPH. Patient presents as noted above. In the emergency department he was found to be hypotensive, dehydrated, hyponatremic with sodium 126 and hyperkalemic with potassium 5.6 abnormal LFTs and hyperglycemia with blood glucose 494. He was found to be mildly neutropenic. COVID-19 test was negative. Because of his hypotension, he was given 1 L of normal saline, 500 cc of LR, and placed on continued IV fluid resuscitation. He was started on Levophed infusion for pressure support, and was given daptomycin IV and cefepime IV by the ED. Admission Exam (Per Admitting) Constitutional The patient is awake, alert and oriented 3, well developed and well nourished, normocephalic and atraumatic, lying in bed and in no acute distress. HEENT--PERRL, EOMI, mucous membranes and oropharynx dry. Neck--supple. No JVD. No bruits. Thyroid normal, trachea midline, no adenopathy. Heart--normal S1 and S2. No murmurs, rubs or gallops. Lungs--clear bilaterally, no respiratory distress, no accessory muscle use. Abdomen--normal bowel sounds and soft. Nontender. Nondistended. Extremities--no cyanosis or clubbing. No edema. Dermatologic--normal skin turgor, normal color, no abnormal lymph nodes, no rash. Neurologic--cranial nerves II through XII grossly intact. Rheumatologic--normal range of motion. Psychiatric--normal affect. Discharge Data Consultations 10/20/20 19:24 ED Decision to Admit Stat 10/20/20 21:08 Consult Warehouse Inventory Clerk Routine 10/22/20 14:44 Consult General Surgery Routine 10/26/20 14:15 Consult Infectious Diseases Routine 10/28/20 15:03 Consult Palliative Care Routine 10/29/20 08:07 Consult Oncology Routine Diabetes Follow Up Diabetes Follow Up: Diabetes Follow-up Needed for HgbA1c >9% Hospital Course (1) Syncopal episodes: Mr. Shine is a 70-year-old male with a PMHx of metastatic breast cancer (to bone and lung) and atrial fibrillation who was admitted on 10/20/20 after a witnessed syncopal episode occurred following his chemotherapy infusion. He was found to be hypotensive on arrival and he was managed for sepsis with IV fluid resuscitation, vasopressor support, and broad spectrum antibiotics. He was later downgraded from the ICU to a medical floor and eventually transitioned to PO antibiotics due to clinical improvement. However, he then developed a fever, oral thrush with dysphagia, and urinary and fecal incontinence. Urinalysis and stool culture were positive for akin and antifungal and broad spectrum antibiotic coverage was initiated. After discussion with the patient and his family, a palliative approach via Hospice will be pursued at this time. 1. Neutropenic Fever * WBC count trending upward. 0.75 --> 1.42 --> 3.55 --> 5.67. ANC 0.01 --> 1.68 --> 3.02. Improvement in cell counts likely due to recovery of bone marrow following chemotherapy-induced insult. (patient recently began new chemotherapy regimen with Abraxane) * Afebrile last 48 hours: Last febrile on 10/27/20 at 23:00 * Urine culture 10/24/20 grew akin * Stool culture 10/24/20 grew akin * Blood culture negative on 10/25/20 * C. difficile stool antigen negative. Repeat 10/27/20 also negative * Discontinued Vancomycin on 10/29/20. Discontinued Meropenem on 10/29/20. No antibiotic therapy at this time * Discontinued caspofungin on 10/29/20. Initiated PO Diflucan 400 mg for 10 days * Infectious disease consult appreciated * Speech consult obtained due to concern for aspiration * IV access: Patient has had multiple extravasated peripheral IV. Most recent ultrasound-guided peripheral IV placed on left arm has failed. Not considered a good candidate for an IJ 2. Thrush Patient initially developed prominent white plaques on the tongue and mucosal side mayer. However, on the day of discharge, oral plaques had significantly decreased. * Discontinued magic mouthwash on 10/30/20 due to unpleasant burning sensation experienced by patient * Continue Nystatin PO QID 3. Atrial Fibrillation * Most recent ECG on 10/28/20: Atrial fibrillation with RVR * Rate control via Digoxin and Metoprolol succinate. Due to inadequate rate control, metoprolol dose increased from 75 mg to 100 mg * Restarted Apixaban on 10/28/20. 4. Anemia * Hgb 6.6 on 10/26/20. Transfused 2 units PRBCs with adequate rise in Hgb to 9.9. Currently 10.0. 5. Nausea * Scheduled Zofran * Continue Pepcid. Discontinued IV PPI on 10/29/20 * Continue Dronabinol 6. Diarrhea Patient has had diarrhea and incontinence for several days. Etiology is likely a combination of chemotherapy and antibiotics adverse effects causing direct GI mucosal damage and enabling akin to proliferate. * C. difficile negative. Repeat test also negative * Stool culture positive for akin * Continue probiotics 7. Hypophosphatemia * Phosphate level 1.2 on 10/29/20. * Potassium phosphate 21 mmol administered on 10/31/20. However, phosphate level remains low at 1.1. Potassium phosphate 30 mmol given on day of discharge 8. Goals of Care * Palliative care consulted. Patient and his family would like to pursue palliative care at this time. Plan to discharge patient home tomorrow for Hospice 9. Metastatic Breast Cancer Patient has had breast cancer since 2005 and has developed lung and bone metastasis. He has undergone several chemotherapy regimens. Most recently, he underwent two chemotherapy sessions with Abraxane prior to hospital admission. Chemotherapy-induced bone marrow suppression is the likely cause of the patient's neutropenia and prolonged hospital course. * Patient's oncologist, Dr. Valiente, consulted. He believes that recent improvement in WBC count and neutrophil count with a left shift is indicative of recovering bone marrow. However, emerging leukemia or myelodysplasia are unable to be ruled out. * After discussion with Nba Fátima, he does not want to resume chemotherapy at this time. However, he is not completely against resuming chemotherapy with Abraxane at 50% of the previous dose in the future 10. Peripheral edema * IV Lasix 40 mg administered on 10/29/20 and 10/30/20 prior to discharge Code Status: DNR/DNI F/E/N: Normal Diet VTE PPx: Apixaban Disp: Home Hospice (2) Sepsis: (3) Atrial fibrillation: (4) Pancytopenia: (5) Nausea: (6) Transaminitis: (7) Type 2 diabetes mellitus: (8) Hypothyroid: (9) Diarrhea: Discharge Plan Discharge Items Patient Disposition: Hospice - Home Reason For Visit: SEPTIC SHOCK Discharge Diagnosis: disseminated candidiasis Condition on Discharge: Critical Activity: Per Instructions section Non-emergency contact: Primary Care Provider and Oncologist Call non-emergency contact if: you have any medication questions, your symptoms worsen and you have a fever Follow-up/Referrals: ProMike MD [Primary Care Provider] - Diet: Regular Addtl Attending Provider Instructions: You were seen and admitted for concerns of multiple recent near falls. During this admission, your health condition fluctuated greatly, and ultimately continued discussions with you and your elucidated that while not wanting to "give up" there has been growing amount of fatigue with the extent of treatments and side effects from the treatments. Because of the extent of your condition, discussions were had on the extent of the continued treatments that you would have going forward. In order to limit the potential side effects, while continuing to treat the infection that you have you are being discharged with continued care through [facility] care to continue to keep you comfortable and address your continued needs going forward. Pending Studies at Discharge: No Stand-Alone Forms: My [facility] Medications and DC Order Prescriptions: New fluconazole 40 mg/mL suspension for reconstitution 400 mg PO QAM 10 Days Qty: 100 RF: 0 nystatin 100,000 unit/mL Suspension 5 ml PO QID 10 Days Qty: 200 RF: 0 dronabinol 2.5 mg Capsule 2.5 mg PO BID 30 Days Qty: 60 RF: 0 calcium polycarbophil [Fiber (calcium polycarbophil)] 625 mg Tablet 625 mg PO BID 30 Days Qty: 60 RF: 0 metoprolol succinate 25 mg Tablet Extended Release 24 Hr 100 mg PO QAM 30 Days Qty: 120 RF: 0 Saccharomyces boulardii [Florastor] 250 mg Capsule 250 mg PO DAILY 30 Days Qty: 30 RF: 0 Continued furosemide 40 mg tablet 40 mg PO DAILY PRN (Reason: edema) Qty: 30 RF: 0 Eliquis 5 mg tablet 5 mg PO BID Qty: 180 RF: 3 digoxin 250 mcg (0.25 mg) tablet 250 mcg PO QAM Qty: 90 RF: 3 glipizide 10 mg tablet 10 mg PO BID Qty: 60 RF: 5 lorazepam [Ativan] 1 mg tablet 1 mg PO TID PRN (Reason: insomnia and anxiety) Qty: 90 RF: 1 metformin 1,000 mg tablet extended release 24hr 1,000 mg PO BID Qty: 60 RF: 2 letrozole [Femara] 2.5 mg tablet 2.5 mg PO QAM RF: 0 Xgeva 120 mg/1.7 mL (70 mg/mL) solution 120 mg SQ Q4WK RF: 0 albuterol sulfate [ProAir HFA] 90 mcg/actuation HFA aerosol inhaler 2 puff inhalation Q4H PRN (Reason: shortness of breath or wheezing) Qty: 1 RF: 11 gabapentin 300 mg capsule 300 mg PO TID RF: 0 oxycodone-acetaminophen [Percocet] 5-325 mg tablet 1 tab PO Q8H PRN (Reason: Pain) RF: 0 Lupron Depot 3.75 mg syringe kit 3.75 mg IM Q90D RF: 0 levothyroxine 50 mcg tablet 50 mcg PO QAM RF: 0 pramipexole 0.25 mg tablet 0.25 mg PO HS RF: 0 furosemide [Lasix] 20 mg tablet 20 mg PO QAM RF: 0 fluticasone propionate 50 mcg/actuation spray,suspension 1 spray intranasal QAM RF: 0 fentanyl 12 mcg/hr patch 72 hour 12 mcg transdermal Q3D RF: 0 Discontinued metoprolol succinate 50 mg tablet extended release 24 hr 50 mg PO QAM Qty: 90 RF: 3 ferrous sulfate 325 mg (65 mg iron) tablet 325 mg PO QAM Qty: 90 RF: 3 montelukast [Singulair] 10 mg tablet 10 mg PO QAM Qty: 30 RF: 5 verapamil 180 mg tablet extended release 180 mg PO HS RF: 0 omeprazole 20 mg capsule,delayed release(DR/EC) 20 mg PO QAM RF: 0 rosuvastatin 5 mg tablet 5 mg PO HS RF: 0 No Action (DME) lancets [OneTouch Delica Lancets] 33 gauge misc See Rx Instructions .ROUTE .MEDSUPPLY Qty: 100 RF: 3 (DME) OneTouch Ultra Blue Test Strip Strip See Dose Instructions .ROUTE .MEDSUPPLY Qty: 200 RF: 3 (DME) blood-glucose meter [OneTouch Ultra2 Meter] Misc See Rx Instructions .ROUTE .MEDSUPPLY Qty: 1 RF: 0 Discharge Orders: Discharge Order (Routine); Ordered 10/30/20 Ordered By: Pasquale Plaza Admission Data Admit Date/Time: 10/20/20 19:58 Attending Provider: Shira Mulligan Admit Provider: Vishal Daugherty Primary Care Provider: Mike Lepe Other Providers: Vishal Daugherty ; Sirisha Catherine ; Aroldo Razo ; Javier Prasad ; Ketty Moser ; Kevin Borja I. ; Tiago Lee II ; Dorothy Villalta ; Napoleon Tomlin ; Bere Araujo ; Juan Valiente V. ; [facility] Other Interventions: Discharge Summary Assessment (RN) Last Done: 10/30/20 17:18 Supervising Attestation Patient seen and examined with MS4 Eyal Roque. Agree with history, exam findings, assessment and plan of care as outlined. 70 year old male with hx of metastatic breast cancer (lung and bone) admitted for syncope, now being treated for neutropenic fever, oral candidiasis, urinary akin, and GI akin. Overnight, was afebrile. Throat and mouth are sore and painful to swallow. Ill appearing male. White plaques on the sides of the tongue and the insides of the cheeks, but improving. Less erythema compared to prior exams Tachycardic. +1 pitting edema of the lower extremities to the mid lópez. 1. Neutropenic fevers on admission. Stool and urine growing akin. Blood cultures negative so far. Caspofungin, but will switch to fluconazole 400mg daily. Do not feel that we will to necessarily continue the meropenem and vancomycin as he has already received an adequate course of antibiotics to treat his initial bacterial pneumonia. Appreciate ID recommendations. 2. Thrush with likely esophagitis. Continue Magic Swizzle + liquid nystatin. Switched to fluconazole as above. 3. Sepsisinitially secondary to RML PNA with elevated procal. He has already completed a course of antibiotics to cover for bacterial pneumonia. 4. Neutropenia. Improving. 5. Pancytopenia. Improving. Secondary to recent chemotherapy. 6. Lower extremity edema. Secondary to the IVFs and immoblization. Will give a dose of IV lasix today prior to dischage. 7. Atrial fibrillation with RVR. Continue metoprolol XL 75mg qAM, PRN IV Lopressor. Continue home digoxin. Restart Eliquis 8. DM2. A1C 9.0. Holding home glipizide and metformin. Liberalizing diet. 9. Severe protein-calorie malnutrition. Third spacing due to low protein. Appreciate nutrition recs. Liberalized diet. 10. Nausea. Increased marinol. Continue Zofran and acid suppression. 11. Metastatic breast cancer. Recently received chemotherapy. 12. Goals of care. Can complete a course of fluconazole at home. We discontinued medications that are not necessary in the short term. Appreciate palliative care recommendations. Shift is in the focus of care and not on "giving up". I do think he will actually do better at home with less intervention. He can always be discharged from hospice if he rebounds. Appreciate Dr. Valiente's recommendations and visit with the patient today as well. At this point, any future chemotherapy is palliative and not curative. Dispo: discharge today with home hospice.
[2020-11-02 09:31] LABS: CA 27.29 342 U/mL (<38); CA15-3 Breast Antigen 91 U/mL (<32)
== END 2020-10-30 17:25 | disposition hospice, home (50) | DRG 871 ==
LOC: ED 16:50 → SUATTDRO 19:58 → 1E 19:58 → 2N 10-22 10:40 → 2W 10-30 01:15